=== PATIENT | male | born 1970 | race Caucasian/White ===

== ENCOUNTER → 2022-08-31 08:51 | Outpatient (BNVA) | payer OTHER, MEDICAID, SELFPAY | PROVIDERS: PCP Neurological Surgery; Visit Provider Nurse Practitioner Family | DX: G47.33 Obstructive sleep apnea (adult) (pediatric) (principal); Z99.89 Dependence on other enabling machines and devices | CPT/HCPCS: 99212 ==

== ENCOUNTER → 2022-10-12 13:26 | Outpatient (BNVA) | payer OTHER, MEDICAID, SELFPAY | PROVIDERS: PCP Neurological Surgery; Visit Provider Neurological Surgery | DX: G95.9 Disease of spinal cord, unspecified (principal); M54.12 Radiculopathy, cervical region | CPT/HCPCS: 99212 ==

== ENCOUNTER 2023-04-13 10:10 | Outpatient (AMB) | payer OTHER, MEDICAID, SELFPAY ==
--- NOTE | 2023-04-13 10:18 | MHC.OFFVIS ---
Intake Vital Signs 04/13/23 10:28 Height 5 ft 10.5 in Weight 230 lb BMI 32.5 BP 110/60 Blood Pressure Location Lt brachial Position Sitting Pulse 82 Pulse Source Pulse Oximeter Pulse Oximetry (%) 97 Oxygen Delivery Method Room Air Intake Visit Reasons: New prob-Brain Atrophy/Falling/Weakness on legs Intake Note: NPV for Brain Atrophy Preflight Inspector Required: No Allergies No Known Allergies Allergy (Unverified 04/13/23 10:19) HPI HPI Comments History of Present Illness Details 52 y/o male patient presents for new in-person visit for gait problems and memory loss. Pt reports that he had brain MRI done about 6 years ago, the result was brain atrophy. Pt having short term memory loss, need to write down everything to remember. He forgets lots of things He experiences that difficulty word finding. He drives, manages his finances himself. Pt also has JOSE GUADALUPE and he is on CPAP. He is compliant with CPAP. He quit smoking about an year ago, but had long hx of smoking. Pt reports gait problem. He feels his right knee caps slide in and out when he walks He was evaluated by ortho, but was told that his knee is normal. Pt also reports severe lower back pain and bilateral legs weakness. He has cervical herniated disc. The cervical MRI result was spinal canal stenosis. Has symptoms has been worsened during the COVID pandemic, [facility] Surgical History (Updated 04/13/23 @ 10:25 by Mine Love CMA) H/O hand surgery Family History (Updated 04/13/23 @ 10:27 by Mine Love CMA) Mother Diabetes Social History (Updated 04/13/23 @ 10:28 by Mine Love CMA) Alcohol intake: current Alcohol intake frequency: holidays/special occasions only Patient Tobacco Use Status: Current someday Tobacco user Review of Systems Const All systems reviewed & are unremarkable except as noted in HPI and below ENT Reports Normal hearing present Neuro Reports Normal hearing present Physical Exam Vital Signs: Last Vital Signs Pulse 82 04/13/23 10:28 BP 110/60 04/13/23 10:28 Pulse Ox 97 04/13/23 10:28 Oxygen Delivery Method Room Air 04/13/23 10:28 BMI result Body Mass Index 32.5 Const General: cooperative Nutritional Appearance: obese Orientation/consciousness: patient oriented x3 Neck Neck: Yes full ROM and Yes supple Resp Effort & Inspection: normal respiratory effort and able to speak in complete sentences Neuro General: patient oriented x3 Cranial nerves: Yes Bilaterally intact EOM present, Yes Normal facial strength present, Yes Midline tongue present, Yes Symmetric palate elevation present, Yes Normal hearing present, Yes Ability to bilaterally rotate head present and Yes Ability to bilaterally elevate shoulders present Cognition (Neuro): normal cognition Gait exam (Neuro): Antalgic gait present Motor exam (neuro): 5/5 motor strength present throughout, Pronator motor function not present and no tremor noted Deep tendon reflexes (DTR's): Right patellar reflex intensity grade: 3+ and Left patellar reflex intensity grade: 3+ Psych Appearance: grossly normal Mental Status: mental status grossly normal Speech and movement: Clear speech present Affect: Anxious affect present Attitude: cooperative Orientation What is the (year) (season) (date) (day) (month)?: year, season, date, day and month Where are we (state) (county) (town or city) (hospital) (floor)?: state, county, town or city, hospital/clinic and floor Registration Name of 3 unrelated objects clearly and slowly, then ask patient to repeat all 3 of them. (1st repeat determines score. Make sure they can repeat all three): object 1, object 2 and object 3 Attention & Calculation (CHOOSE ONE) Spell WORLD backwards (DLROW): 5 letters Recall Ask patient to repeat the 3 items from question #3.: object 1, object 2 and object 3 Language Show patient a wristwatch & ask what it is. Repeat for pencil.: watch and pencil Ask the patient to repeat the phrase 'No ifs, ands, or buts' after you.: correct Ask the patient to 'take a piece of paper with their right hand' 'fold paper in half' 'place paper on floor': take paper in right hand, fold paper in half and place paper on floor Print the sentence 'CLOSE YOUR EYES' on a piece. If patient actually closes eyes then score.: followed written direction Give patient a blank piece of paper & ask to write a sentence. Score if it contains a noun & verb.: sentence contains subject and verb Ask patient to copy figure of intersecting pentagons exactly. Score if all 10 angles & 2 intersects are included.: all 10 angles present & 2 are intersected Score Score: 30 Assessment & Plan Assessment & Plan (1) Memory loss: Code(s): R41.3 - Other amnesia (2) Gait disturbance: Code(s): R26.9 - Unspecified abnormalities of gait and mobility (3) Weakness of both lower extremities: Code(s): R29.898 - Other symptoms and signs involving the musculoskeletal system (4) Cervical myelopathy with cervical radiculopathy: Code(s): G95.9 - Disease of spinal cord, unspecified; M54.12 - Radiculopathy, cervical region (5) JOSE GUADALUPE on CPAP: Code(s): G47.33 - Obstructive sleep apnea (adult) (pediatric); Z99.89 - Dependence on other enabling machines and devices Plan He did well on MMSE, good clock drawing. Advised patient to undergo brain MRI. Refer patient to neuropsychology evaluation. Refer patient to physical therapy for gait training and lower back pain. Orders: Orders MR head/brain wo con 04/13/23 G31.9 - Degenerative disease of nervous system, unspecified, R26.9 - Unspecified abnormalities of gait and mobility, R41.3 - Other amnesia PT Evaluation and Treatment 12 Weeks G95.9 - Disease of spinal cord, unspecified, M48.061 - Spinal stenosis, lumbar region without neurogenic claudication, M54.12 - Radiculopathy, cervical region, R29.898 - Other symptoms and signs involving the musculoskeletal system Referrals Neuropsychiatry Referral R41.3 - Other amnesia Coding Level of Care Code New Pt Level 4 (06783) Diagnoses Memory loss R41.3 Gait disturbance R26.9 Weakness of both lower extremities R29.898 Cervical myelopathy with cervical radiculopathy G95.9; M54.12 JOSE GUADALUPE on CPAP G47.33; Z99.89
[2023-04-13 10:28] VITALS: BP 110/60; PULSE 82; O2SAT 97; BMI 32.5
== END 2023-04-13 11:14 | disposition home or self-care (01) ==
PROVIDERS: PCP Neurological Surgery; Visit Provider Nurse Practitioner Family
DX: R41.3 Other amnesia (principal); R26.9 Unspecified abnormalities of gait and mobility; R29.898 Other symptoms and signs involving the musculoskeletal system; G95.9 Disease of spinal cord, unspecified; M54.12 Radiculopathy, cervical region; G47.33 Obstructive sleep apnea (adult) (pediatric); Z99.89 Dependence on other enabling machines and devices
CPT/HCPCS: 99214

== ENCOUNTER → 2023-04-13 10:10 | Outpatient (BNVA) | payer OTHER, MEDICAID, SELFPAY | PROVIDERS: PCP Neurological Surgery; Visit Provider Nurse Practitioner Family | DX: R41.3 Other amnesia (principal); R26.9 Unspecified abnormalities of gait and mobility; R29.898 Other symptoms and signs involving the musculoskeletal system; G95.9 Disease of spinal cord, unspecified; G47.33 Obstructive sleep apnea (adult) (pediatric); M54.12 Radiculopathy, cervical region; Z99.89 Dependence on other enabling machines and devices | CPT/HCPCS: 99212 ==

== ENCOUNTER 2023-08-16 10:55 | Outpatient (AMB) | payer OTHER, MEDICAID, SELFPAY ==
--- NOTE | 2023-08-16 11:03 | MHC.OFFVIS ---
Intake Vital Signs 08/16/23 11:15 Height 5 ft 10.5 in Weight 257 lb 7 oz BMI 36.4 BP 112/70 Blood Pressure Location Lt brachial Position Sitting Pulse 74 Pulse Source Pulse Oximeter Pulse Oximetry (%) 98 Oxygen Delivery Method Room Air Intake Visit Reasons: 4 M f/u - CONF w/address Intake Note: Patient presents for 4 month f/u. Still in severe pain hips and knees. Pain down his legs. Allergies No Known Allergies Allergy (Verified 08/16/23 11:13) HPI HPI Comments History of Present Illness Details 52 y/o male patient presents for follow up of gait problems and memory loss. The brain MRI result was normal brain MRI. Pt having short term memory loss, need to write down everything to remember. He forgets lots of things He experiences that difficulty word finding. He drives, manages his finances himself. He had holter monitor last year, he does not know the result. He noticed that his heart skipping the beat with anxiety. Pt reports walking makes worse the pain in his legs. Pt also has JOSE GUADALUPE and he is on CPAP. He is compliant with CPAP. He quit smoking about an year ago, but had long hx of smoking. Pt reports gait problem. He feels his right knee caps slide in and out when he walks He was evaluated by ortho, but was told that his knee is normal. Pt also reports severe lower back pain and bilateral legs weakness. Walking triggers legs muscle pain and cramping. A previous MRI of the cervical spine showed severe C5-6 spinal stenosis with myelomalacia and bilateral C6 foraminal stenosis. The new MRI of the cervical spine shows multilevel degenerative disc disease and again the ongoing C5-6 severe spinal stenosis with bilateral C6 foraminal stenosis and myelomalacia. Also has moderate L3-4 spinal stenosis. Pt is followed by neuro spine for lower extremities weakness and cervical and lumbar stenosis. He started physical therapy 3 weeks ago, once a week, no back pain, or knee pain improvement yet. [facility] Surgical History H/O hand surgery Family History (Updated 08/16/23 @ 11:14 by Yadira Zhang CMA) Mother Diabetes Social History (Updated 08/16/23 @ 11:15 by Yadira Zhang CMA) Alcohol intake: former Patient Tobacco Use Status: Former Tobacco user Review of Systems Const All systems reviewed & are unremarkable except as noted in HPI and below ENT Reports Normal hearing present Neuro Reports Normal hearing present Physical Exam Vital Signs: Last Vital Signs Pulse 74 08/16/23 11:15 BP 112/70 08/16/23 11:15 Pulse Ox 98 08/16/23 11:15 Oxygen Delivery Method Room Air 08/16/23 11:15 BMI result Body Mass Index 36.4 Const General: cooperative Nutritional Appearance: obese Orientation/consciousness: patient oriented x3 Neck Neck: Yes full ROM and Yes supple Resp Effort & Inspection: normal respiratory effort and able to speak in complete sentences Neuro General: patient oriented x3 Cranial nerves: Yes Bilaterally intact EOM present, Yes Normal facial strength present, Yes Midline tongue present, Yes Symmetric palate elevation present, Yes Normal hearing present, Yes Ability to bilaterally rotate head present and Yes Ability to bilaterally elevate shoulders present Cognition (Neuro): normal cognition Gait exam (Neuro): Antalgic gait present Motor exam (neuro): 5/5 motor strength present throughout, Pronator motor function not present and no tremor noted Deep tendon reflexes (DTR's): Right patellar reflex intensity grade: 3+ and Left patellar reflex intensity grade: 3+ Psych Appearance: grossly normal Mental Status: mental status grossly normal Speech and movement: Clear speech present Affect: Anxious affect present Attitude: cooperative Assessment & Plan Assessment & Plan (1) Weakness of both lower extremities: Code(s): R29.898 - Other symptoms and signs involving the musculoskeletal system (2) JOSE GUADALUPE on CPAP: Code(s): G47.33 - Obstructive sleep apnea (adult) (pediatric); Z99.89 - Dependence on other enabling machines and devices (3) Palpitation: Code(s): R00.2 - Palpitations (4) Memory loss: Code(s): R41.3 - Other amnesia Plan Memory loss can be related disrupted sleep, or attention deficit. Stressed CPAP compliance, use CPAP nightly and more than 4 hrs. Continue to follow up with neuro spine for cervical and lumbar stenosis and possible surgery. Cotninue to try physical therapy. Try magnesium 400 mg qHS for sleep and legs muscle spasm. Refer patient to pickling operator for evaluation of chest palpiation. Orders: Referrals Cardiology Referral R00.2 - Palpitations, G47.33 - Obstructive sleep apnea (adult) (pediatric), Z99.89 - Dependence on other enabling machines and devices Medications: Changed From magnesium oxide 400 mg PO DAILY To magnesium oxide 400 mg PO DAILY 30 caps 1RF 30 days Coding Level of Care Code Est Pt Level 4 (22384) Diagnoses Weakness of both lower extremities R29.898 JOSE GUADALUPE on CPAP G47.33; Z99.89 Palpitation R00.2 Memory loss R41.3
[2023-08-16 11:15] VITALS: BP 112/70; PULSE 74; O2SAT 98; BMI 36.4
== END 2023-08-16 11:40 | disposition home or self-care (01) ==
PROVIDERS: PCP Neurological Surgery; Visit Provider Nurse Practitioner Family
DX: R29.898 Other symptoms and signs involving the musculoskeletal system (principal); G47.33 Obstructive sleep apnea (adult) (pediatric); Z99.89 Dependence on other enabling machines and devices; R00.2 Palpitations; R41.3 Other amnesia
CPT/HCPCS: 99214

== ENCOUNTER → 2023-08-16 10:55 | Outpatient (BNVA) | payer OTHER, MEDICAID, SELFPAY | PROVIDERS: PCP Neurological Surgery; Visit Provider Nurse Practitioner Family | DX: G95.9 Disease of spinal cord, unspecified (principal); M54.12 Radiculopathy, cervical region; M48.061 Spinal stenosis, lumbar region without neurogenic claudication; R29.898 Other symptoms and signs involving the musculoskeletal system; R26.9 Unspecified abnormalities of gait and mobility; R41.3 Other amnesia; G31.9 Degenerative disease of nervous system, unspecified | CPT/HCPCS: 99212 ==

== ENCOUNTER 2023-09-27 14:00 | Outpatient (RCR) | payer OTHER, SELFPAY ==
--- NOTE | 2023-10-23 08:55 | MHC.PT.DC ---
[facility] [place] [facility] [place] [facility] [place] [facility] [address] Erika Gaines [address] [phone] F: [phone] F: [phone] F: [phone] F: [phone] Physical Therapy Discharge Report Diagnosis: CHRONIC LOW BACK AND NECK PAIN (KP) Date of Surgery: N/A Date of Evaluation: 07/17/23 Date of Discharge: 10/23/23 Treatments to Date: 7 Cancellations to Date: 5 No Shows to Date: 1 Discharge Status: Recommend MD Follow-up Discharge Summary: DUE TO REPORTS THAT HE IS NO BETTER AND FEELS WORSE AFTER ACTIVITY . WE HAVE DECIDED TO [facility] UNTIL AFTER HIS PAIN MANAGEMENT APPOINTMENT. Electronically signed by: GIOVANA TSONE PT DPT Please sign and return to therapist. Thank you for your referral.
== END 2023-10-23 08:55 | disposition home or self-care (01) ==
LOC: HO.PT 14:00
PROVIDERS: PCP Neurological Surgery; Visit Provider Nurse Practitioner Family
DX: G95.9 Disease of spinal cord, unspecified (principal); M54.12 Radiculopathy, cervical region; M48.061 Spinal stenosis, lumbar region without neurogenic claudication; R29.898 Other symptoms and signs involving the musculoskeletal system
CPT/HCPCS: 97110; 97112; 97163; 97530

== ENCOUNTER 2023-11-10 09:03 | Outpatient (AMB) | payer OTHER, MEDICAID, SELFPAY ==
--- NOTE | 2023-11-10 09:03 | MHC.OFFVIS ---
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 Denies any recent trauma, injury, or falls. Back pain is axial with discogenic and radicular pain components. Back radiates into his both legs laterally and anterior thighs and shins with numbness and tingling in his top of the foot and toes. Reports numbness and tingling in his arms and legs with weakness with ongoing neck and back pain. He had to stop PT recently due to aggravation of his back and neck pain. Patient reports frequent bowel and bladder incontinence that has been progressively getting worse. He reports imbalance and legs giving out with walking or prolonged standing. Patient uses cane and at times has to use crutches due to significant right knee pain due to osteoarthritis. Patient denies previous back surgery or injections and is very hesitant to worse interventional treatments. He reports neurosurgical evaluation with Dr. Jha but can not recall the details of conversation, including back surgery offer. Patient is undergoing neurology evaluation for memory loss at [facility]. His most recent brain MRI was normal. Pain affects his daily activities and functioning, mobility, mood, sleep, social interactions and quality of life. Denies any fever, chills, abdominal or groin pain, or saddle anesthesia. He has been treating his pain with meloxicam and pregabalin with minimal relief. Previously tried ibuprofen and naproxen without relief. He reports mood changes and irritability with pregabalin and would like to change this to gabapentin. His back pain is function and mobility limiting and has been resistant to conservative treatments. Patient reports seeing Mental Therapist for anxiety and depression and finds this beneficial. Patient denies any smoking, alcohol consumption or illicit drug use. He quit smoking last year. Patient is on disability for about 11 years. He sees [employer] Dr. Almazan for asthma/COPD, JOSE GUADALUPE on CPAP. Physical Therapy Discharge Report Diagnosis: CHRONIC LOW BACK AND NECK PAIN (KP) Date of Evaluation: 07/17/23 Date of Discharge: 10/23/23 Treatments to Date: 7 Cancellations to Date: 5 No Shows to Date: 1 Discharge Status: Recommend MD Follow-up Discharge Summary: DUE TO REPORTS THAT HE IS NO BETTER AND FEELS WORSE AFTER ACTIVITY . WE HAVE DECIDED TO [facility] UNTIL AFTER HIS PAIN MANAGEMENT APPOINTMENT. [facility] 10/12/22 [place] Jha MD, PhD: On 10/12/2022, I saw for follow-up your patient Jan Huertas to discuss the findings of a new MRI of the cervical spinal lumbar spine. He was previously seen at [facility] for neck and back problems and they refer to this note for detailed history. In summary, he has severe bilateral arm pain radiating toward index finger and thumb. His proximal leg weakness. He also has back pain with radiating pain down his legs, increased with walking. A previous MRI of the cervical spine showed severe C5-6 spinal stenosis with myelomalacia and bilateral C6 foraminal stenosis. The new MRI of the cervical spine shows multilevel degenerative disc disease and again the ongoing C5-6 severe spinal stenosis with bilateral C6 foraminal stenosis and myelomalacia. His clinical symptoms match a C6 dermatome and therefore I recommended a C5-6 anterior diskectomy and fusion. I think his proximal bilateral leg weakness may also be associated with the spinal cord compression. I also reviewed Thomas detail with the patient. This shows moderate L3-4 spinal stenosis. With an extensive discussion about an anterior diskectomy and fusion. I explained the procedure and possible complications and expected postoperative course. He wants to think it over and discuss it with his family. He will call the office if he wants to proceed. He will need preoperative clearance from his primary care physician. I spent 30 minutes in this consult for preparation review of imaging and discussing plan of care. Location: Lower back, radiates down bilateral legs, widespread body pain Duration: Chronic pain for many years, since Characteristics of symptom or complaint: Aching, burning, numb, tingling, stabbing, sharp, electric, throbbing Aggravating or associated factors: Any movement, bending, extending backwards, walking, standing, climbing Relieving factors: Laying still not moving NSAID, heat therapy Treatment: PT-no improvement [facility] Medical History (Updated 11/10/23 @ 10:14 by LISA Brooks) Stage 3a chronic kidney disease Hyperlipidemia Chronic pain syndrome COPD (chronic obstructive pulmonary disease) Prediabetes Vitamin D deficiency Anxiety and depression Lumbar spinal stenosis Asthma JOSE GUADALUPE on CPAP Lumbar radiculopathy Osteoarthritis of right knee Right knee pain Palpitation Memory loss Gait disturbance Weakness of both lower extremities Cervical myelopathy with cervical radiculopathy Surgical History H/O hand surgery Family History (Updated 08/16/23 @ 11:14 by FILIPE Hawkins) Mother Diabetes Social History (Updated 08/16/23 @ 11:15 by FILIPE Hawkins) Alcohol intake: former Patient Tobacco Use Status: Former Tobacco user Review of Systems Const All systems reviewed & are unremarkable except as noted in HPI and below Physical Exam Vital Signs: Last Vital Signs Pulse 78 11/10/23 09:09 BP 120/72 11/10/23 09:09 Pulse Ox 98 11/10/23 09:09 Oxygen Delivery Method Room Air 11/10/23 09:09 BMI result Body Mass Index 32.6 General: Appears afebrile. No acute distress. Alert and oriented. Mood and affect appropriate. Follows and participates in conversation appropriately. Respiratory effort is unlabored. No cough. Able to transition from sit to stand unassisted. Uses cane with ambulation. Ambulates with bilaterally normal heel strike and toe off, reports gait imbalance, BLE weakness. Neck Neck: Yes no lymphadenopathy, Yes supple, No anterior neck swelling and Yes no JVD General: Yes no CVA tenderness Back/Spine/Pelvis Other: Limited lumbar ROM due to pain. Antalgic gait with limping. Lumbar extension and flexion forward with axial rotations reproduces moderate pain. Demonstrates 5/5 left and 4/5 right strength of quadriceps bilaterally as well as flexion/dorsiflexion of bilateral feet against resistance. 2+ pedal pulses bilaterally. Seated straight leg rise with dorsiflexion positive bilaterally. +2 patellar and achilles reflexes bilaterally. Facet loading test positive bilaterally. Murtaza sign positive bilaterally, Marino?s and Stinchfield tests reproduce lateral hip pain bilaterally, not back pain. No groin pain with I/E hip rotations. Valsalva maneuver negative. Back: no CVA tenderness Cervical Spine: loss of normal cervical lordosis, cervical muscular tenderness, pain with cervical ROM, No Cervical spine scars present and No Cervical spine tenderness Thoracic/Lumbar Spine: thoracic and lumbar spine normal to inspection, No Thoracic/lumbar spine scar(s), Lasegue's sign positive bilateral and diffuse, pain with thoraco-lumbar ROM, paraspinal muscle tenderness, thoraco-lumbar ROM limited, No thoracic spinal tenderness and lumbar spinal tenderness (L3-S1) Pelvis: buttock tenderness bilaterally and no sciatic notch tenderness Sacroiliac joints: bilaterally tender to palpation Extrem General: Yes capillary refill normal, Yes no clubbing, cyanosis or edema and Yes no calf tenderness Right lower extremity: knee (limited ROM due to pain) Details: normal to inspection, tenderness Location: of the medial joint line, of the lateral joint line and of the pre-patellar area and crepitus; no swelling, no ecchymosis and no unusual warmth Results Reviewed Results Reviewed: MR KNEE WITHOUT CONTRAST, RIGHT at RAYUS 05/27/21 CLINICAL INFORMATION: Evaluate medial meniscal tear. Pain. Patient reports prior meniscal repair surgery 214. FINDINGS: MENISCI: Medial Meniscus: Intact. Lateral Meniscus: Lateral to the takeoff of the ligament of Wrisberg, there is intrasubstance T2 signal in the peripheral aspect of the posterior horn. This does not clearly extend to the articular surfaces to indicate a definite tear. Intrasubstance T2 signal in the peripheral aspect of the body, but no definite tear is seen. LIGAMENTS: Cruciate: Mild T2 signal diffusely in the ACL, which otherwise demonstrates normal orientation. This could represent mucoid degeneration. PCL is intact. Collateral: Intact. EXTENSOR MECHANISM: Intact. ARTICULAR CARTILAGE/BONE: Patellofemoral Compartment: Cartilage thinning and fissuring in the medial patellar facet. Medial Compartment: Mild cartilage fissuring in the lateral aspect of the medial femoral condyle. Lateral Compartment: Mild cartilage fissuring in the posterior aspect of the weightbearing tibia.. JOINT FLUID AND BURSAE: Small effusion. No significant Forde's cyst. IMPRESSION: 1. Menisci appear intact without evidence of discrete tear. See details above. 2. ACL signal changes may reflect mucoid degeneration. 3. Mild tricompartment arthritis. 4. Small effusion. Assessment & Plan Assessment & Plan (1) Weakness of both lower extremities: Code(s): R29.898 - Other symptoms and signs involving the musculoskeletal system Category: Medical (2) Right knee pain: Code(s): M25.561 - Pain in right knee Category: Medical (3) Osteoarthritis of right knee: Code(s): M17.11 - Unilateral primary osteoarthritis, right knee Category: Medical (4) Lumbar spondylosis: Code(s): M47.816 - Spondylosis without myelopathy or radiculopathy, lumbar region Category: Medical (5) Lumbar radiculopathy: Code(s): M54.16 - Radiculopathy, lumbar region Category: Medical (6) Lumbar spondylosis: Code(s): M47.816 - Spondylosis without myelopathy or radiculopathy, lumbar region Category: Medical (7) Chronic pain syndrome: Code(s): G89.4 - Chronic pain syndrome Category: Medical Plan Lumbar spine and right knee imaging to assess degree of degenerative changes, any subluxation, listhesis, compression fractures or pars defects. MRI of the lumbar spine to assess for neural integrity and compression and follow up on recent lumbar MRI findings. Patient has has a history of cervical spinal stenosis with myelomalacia and lumbar radiculopathy with progressive bilateral lower extremity weakness and bladder and bowel dysfunction. He underwent neurosurgical evaluation last year and and was offered back surgery but has not followed up since then. I encouraged patient to follow-up with Dr. Jha regarding his neck symptoms and potentially re-evaluation for his back symptoms depending on his updated MRI findings. Patient has tried pregabalin, NSAIDs, heat therapy, PT, activity modifications with continued symptoms. His back pain is function and mobility limiting and has been resistant to conservative treatments. We briefly discussed interventional treatments for his lower back pain and right knee pain. Patient is hesitant to injections or procedures. Patient will start pregabalin answered gabapentin 300 mg b.i.d. starting at bedtime. Side effects and precautions were discussed with patient. Patient is aware to call if pain worsens or if he develops any red flag symptoms to seek emergency care. All questions and concerns have been answered and patient agrees with the plan. Follow-up for MRI/x-ray results and sooner as needed. Orders: Orders XR lumbar spine 4V min Today M47.816 - Spondylosis without myelopathy or radiculopathy, lumbar region, M54.16 - Radiculopathy, lumbar region MR lumbar spine wo con Today M47.816 - Spondylosis without myelopathy or radiculopathy, lumbar region, M54.16 - Radiculopathy, lumbar region, R29.898 - Other symptoms and signs involving the musculoskeletal system XR knee RT 3V Today M17.11 - Unilateral primary osteoarthritis, right knee, M25.561 - Pain in right knee Medications: New gabapentin 300 mg PO BID 30 days 60 caps 0RF pain M47.816 - Spondylosis without myelopathy or radiculopathy, lumbar region, M54.16 - Radiculopathy, lumbar region Coding Level of Care Code New Pt Level 4 (65348) Diagnoses Weakness of both lower extremities R29.898 Right knee pain M25.561 Osteoarthritis of right knee M17.11 Lumbar spondylosis M47.816 Lumbar radiculopathy M54.16 Chronic pain syndrome G89.4
[2023-11-10 09:09] VITALS: BP 120/72; PULSE 78; O2SAT 98; BMI 32.6
== END 2023-11-10 09:38 | disposition home or self-care (01) ==
PROVIDERS: PCP Internal Medicine; Visit Provider Nurse Practitioner Family
DX: R29.898 Other symptoms and signs involving the musculoskeletal system (principal); M25.561 Pain in right knee; M17.11 Unilateral primary osteoarthritis, right knee; M47.816 Spondylosis without myelopathy or radiculopathy, lumbar region; M54.16 Radiculopathy, lumbar region; G89.4 Chronic pain syndrome
CPT/HCPCS: 99204

== ENCOUNTER → 2023-11-10 09:03 | Outpatient (BNVA) | payer OTHER, MEDICAID, SELFPAY | PROVIDERS: PCP Neurological Surgery; Visit Provider Nurse Practitioner Family | DX: M17.11 Unilateral primary osteoarthritis, right knee (principal); M25.561 Pain in right knee; M47.816 Spondylosis without myelopathy or radiculopathy, lumbar region; M54.16 Radiculopathy, lumbar region; G89.4 Chronic pain syndrome; R29.898 Other symptoms and signs involving the musculoskeletal system | CPT/HCPCS: 99202 ==

== ENCOUNTER 2023-11-20 15:09 | Outpatient (AMB) | payer OTHER, MEDICAID, SELFPAY ==
[2023-11-20 15:12] VITALS: BP 120/78; PULSE 73; BMI 34.5
--- NOTE | 2023-11-20 15:12 | MHC.OFFVIS ---
Vital Signs 11/20/23 15:12 Height 5 ft 10 in Weight 240 lb 4.862 oz BMI 34.5 BP 120/78 Blood Pressure Location Lt brachial Position Sitting Pulse 73 Pulse Source Monitor Intake Visit Reasons: FINANCIAL INTERN/Palpitations/Dr. Abner Hernandez Allergies Seasonal Allergies Allergy (Mild, Verified 11/20/23 15:23) Sneezing Medication List - Last Reconciled 11/20/23 by Rome Torres MD clonazepam mg PO fluticasone furoate-vilanterol 100-25 mcg/dose (Breo Ellipta) 1 ea inhalation DAILY magnesium oxide 400 mg PO DAILY 30 days meloxicam 7.5 mg PO DAILY omega 4-sch-ddv-fish oil 60-90-500 mg (Fish Oil) 1 cap PO DAILY HPI Comments Details: Darryl is here for consultation regarding palpitations and some chest discomfort. He states that he can get some chest fluttering off and on. This is quite infrequent and happens once in a few weeks/months time. At the same time, he feels as though there is a spasm in the right chest and he is worried that he is going to get a heart attack or something along those lines. Additionally, some pulsations in the neck as well. No previously diagnosed coronary disease or any other cardiac issues. [facility] Medical History Stage 3a chronic kidney disease Hyperlipidemia Chronic pain syndrome COPD (chronic obstructive pulmonary disease) Prediabetes Vitamin D deficiency Anxiety and depression Lumbar spinal stenosis Asthma JOSE GUADALUPE on CPAP Lumbar radiculopathy Osteoarthritis of right knee Right knee pain Palpitation Memory loss Gait disturbance Weakness of both lower extremities Cervical myelopathy with cervical radiculopathy Surgical History H/O hand surgery Family History Mother Diabetes Social History Alcohol intake: former Patient Tobacco Use Status: Former Tobacco user Review of Systems Const Denies weakness ENT Denies dizziness Card Denies chest pain, Denies chest pain with activity, Denies syncope, Denies rapid heart rate, Denies pedal edema, Denies edema, Denies leg edema, Denies lightheadedness, Denies palpitations, Denies dyspnea, Denies dyspnea on exertion and Denies orthopnea Resp Denies cough, Denies dyspnea and Denies dyspnea on exertion GI Denies hematochezia and Denies change in stool character Musc Denies abnormal gait, Denies muscle cramps, Denies muscle weakness, Denies numbness, Denies radiating pain into limb and Denies tingling Neuro Denies abnormal gait, Denies dizziness, Denies syncope, Denies numbness, Denies tingling and Denies weakness Endo Denies palpitations Physical Exam Vital Signs: Last Vital Signs Pulse 73 11/20/23 15:12 BP 120/78 11/20/23 15:12 BMI result Body Mass Index 34.5 Const General: comfortable and no acute distress Orientation/consciousness: patient oriented x3 HEENT Other: Unremarkable Head: Yes normal to inspection Neck Neck: Yes normal visual inspection Chest Chest palpation & inspection: normal inspection of the chest Resp Auscultation: clear to auscultation bilaterally Cardio Palpation: normal PMI Heart sounds: S1 normal heart sound present, S2 normal heart sound present, no gallops, no murmurs and no rubs GI Palpation (GI): Soft to palpation Back/Spine/Pelvis Other: unremarkable Skin General skin exam: no rashes or lesions noted Neuro General: patient oriented x3 Extrem General: Yes normal to inspection Psych Mental Status: mental status grossly normal Office Procedures EKG Details: EKG with sinus rhythm at 73/Min; no significant ST-T changes and otherwise unremarkable. [place]. [id number], Complete Assessment & Plan Assessment & Plan (1) Palpitation: Code(s): R00.2 - Palpitations Category: Medical (2) Chest pain: Code(s): R07.9 - Chest pain, unspecified Category: Medical Plan Somewhat atypical symptoms but he is very concerned about possibility of coronary disease. He is also walking with a cane and hence a stress test is going to be not feasible. We discussed about a coronary CTA that seems to be very reasonable test for someone like him. He is agreeable and we can proceed as long as the kidney function is within normal limits. We will also get an echocardiogram for cardiac function. With regard to the palpitations, we discussed about getting Holter monitor, but he states they are very infrequent and a holter may not be able to catch it. Any case, reassurance only for now and he prefers not to get a Holter. Follow-up after testing. Orders: Orders Basic Metabolic Panel Today R00.2 - Palpitations, R07.9 - Chest pain, unspecified CT Cardiac Coronary Angio Today I25.10 - Atherosclerotic heart disease of [place] coronary artery without angina pectoris, R07.9 - Chest pain, unspecified CA echo transthoracic complete Today I25.10 - Atherosclerotic heart disease of [place] coronary artery without angina pectoris, R07.9 - Chest pain, unspecified Coding Level of Care Code New Pt Level 4 (43372) Diagnoses Palpitation R00.2 Chest pain R07.9 CPT Codes EKG - CPT: 24475-[id number], Complete ([id number])
== END 2023-11-20 15:51 | disposition home or self-care (01) ==
PROVIDERS: PCP Neurological Surgery; Visit Provider Internal Medicine
DX: R00.2 Palpitations (principal); R07.9 Chest pain, unspecified
CPT/HCPCS: 93010; 99204

== ENCOUNTER → 2023-11-20 15:09 | Outpatient (BNVA) | payer OTHER, MEDICAID, SELFPAY | PROVIDERS: PCP Neurological Surgery; Visit Provider Internal Medicine | DX: R00.2 Palpitations (principal); R07.9 Chest pain, unspecified | CPT/HCPCS: 93005; 99202 ==

== ENCOUNTER 2023-12-21 14:35 | Outpatient (AMB) | payer OTHER, MEDICAID, SELFPAY ==
[2023-12-21 14:50] VITALS: PULSE 80; O2SAT 96; BMI 34.6
--- NOTE | 2023-12-21 14:50 | MHC.OFFVIS ---
Vital Signs 12/21/23 14:50 Height 5 ft 10 in Weight 241 lb BMI 34.6 Pulse 80 Pulse Source Pulse Oximeter Pulse Oximetry (%) 96 Oxygen Delivery Method Room Air Intake Visit Reasons: 4 mo f/u-CONF Intake Note: Patient presents for 4 month follow up. Patient states he was having a reaction to pregablin and gabapentin issues included memory issues,rash and hard time breathing. Allergies Seasonal Allergies Allergy (Mild, Verified 12/21/23 14:55) Sneezing Medication List - Last Reconciled 12/21/23 by LISA Tipton clonazepam mg PO fluticasone furoate-vilanterol 100-25 mcg/dose (Breo Ellipta) 1 ea inhalation DAILY magnesium oxide 400 mg PO DAILY 30 days meloxicam 7.5 mg PO DAILY omega 7-iiu-oun-fish oil 60-90-500 mg (Fish Oil) 1 cap PO DAILY HPI Comments Details: 53-yr-old male presents for f/u visit. Pt has recently seen cardiology for c/o palpitation and chest pain- has been advised to have cardiac work-up. Pt reports he is complaint w/ his CPAP machine. He is more concerned w/ his pain s/s today. He describes he has a severe pain in his BLE- in his knees, anterior shins, knees, feet. It is a burning, throbbing pain. He has been having increased low lateral back pain. He does have episodes of low back muscles giving out. A times, it can be severe and it triggers electrical shocks throughout the arms/hands and done the legs and could not even move- takes a month to recover from this. He states he needs help with dressing and getting up off the floor. Can have tingling in bilateral finger tips. Denies h/o diabetes. States was pre-diabetic but resolved w/ weight loss. Spends a lot of time in bed d/t activity intolerance. He has had recent pain management consult at [facility] [place]- was advised to have a f/u MRI. He has never had EMG/NCS. He notes that at some point he had a period of a few months of no pain or other symptoms. He has stopped his Pregabalin, was feeling more pulmonary congestion, itching, brain fog. He has been having easy bruising/swelling from minor injuries or bug bites. He previously did not tolerate Gabapentin. He is concerned that these should not be taken w/ COPD dx- and has had mild COPD for years. His mother also had similar s/s pain s/s in her 50s. He recently had blood work at [facility]. [facility] Medical History Stage 3a chronic kidney disease Hyperlipidemia Chronic pain syndrome COPD (chronic obstructive pulmonary disease) Prediabetes Vitamin D deficiency Anxiety and depression Lumbar spinal stenosis Asthma JOSE GUADALUPE on CPAP Lumbar radiculopathy Osteoarthritis of right knee Right knee pain Palpitation Memory loss Gait disturbance Weakness of both lower extremities Cervical myelopathy with cervical radiculopathy Surgical History H/O hand surgery Family History Mother Diabetes Social History Alcohol intake: former Patient Tobacco Use Status: Former Tobacco user Review of Systems Const All systems reviewed & are unremarkable except as noted in HPI and below Physical Exam Vital Signs: Last Vital Signs Pulse 80 12/21/23 14:50 Pulse Ox 96 12/21/23 14:50 Oxygen Delivery Method Room Air 12/21/23 14:50 BMI result Body Mass Index 34.6 Const General: cooperative and no acute distress Orientation/consciousness: patient oriented x3 HEENT Head: Yes normocephalic Resp Effort & Inspection: normal respiratory effort and able to speak in complete sentences Neuro Other: Slow to stand, antalgic gait. BLE MS 5-/5 General: patient oriented x3 and CN's II-XI intact bilaterally Cognition (Neuro): normal cognition Deep tendon reflexes (DTR's): Right patellar reflex intensity grade: 2+ and Left patellar reflex intensity grade: 2+ Psych Appearance: grossly normal Mental Status: mental status grossly normal Speech and movement: Normal speech and movement present Affect: normal affect Attitude: cooperative Thought process: Normal thought process present Thought content: Normal thought content present Insight: Good insight present (Psych) Judgement: Good judgement present (Psych) Assessment & Plan Assessment & Plan (1) Bilateral lower extremity pain: Code(s): M79.604 - Pain in right leg; M79.605 - Pain in left leg Category: Medical (2) Lumbar spondylosis: Code(s): M47.816 - Spondylosis without myelopathy or radiculopathy, lumbar region Category: Medical (3) JOSE GUADALUPE on CPAP: Code(s): G47.33 - Obstructive sleep apnea (adult) (pediatric); Z99.89 - Dependence on other enabling machines and devices Category: Medical Plan Reviewed recent pain management and neurosurgery notes. Pt advised to undergo BLE EMG/NCS. Will request recent labs from [facility] labs/PCP- if not done consider adding CPK, ESR, CRP, GREGG, RF... Pt has stopped Pregabalin- not tolerated. Gabapentin- not tolerated. Continue Magnesium 400mg qhs. Continue CPAP, as pt reports good clinical effect from use. No recent PAP compliance report available. Will request that pt's device be reconnected to [employer]. f/u upon review of above and in 6 months or sooner prn. Orders: Orders NE nerve conduction velocity Today M47.816 - Spondylosis without myelopathy or radiculopathy, lumbar region, M79.604 - Pain in right leg, M79.605 - Pain in left leg, R29.898 - Other symptoms and signs involving the musculoskeletal system NE electromyogram (EMG) Today M47.816 - Spondylosis without myelopathy or radiculopathy, lumbar region, M79.604 - Pain in right leg, M79.605 - Pain in left leg, R29.898 - Other symptoms and signs involving the musculoskeletal system Medications: Refilled magnesium oxide 400 mg PO DAILY 30 days 30 caps 6RF Coding Level of Care Code Est Pt Level 4 (83902) Diagnoses Bilateral lower extremity pain M79.604; M79.605 Lumbar spondylosis M47.816 JOSE GUADALUPE on CPAP G47.33; Z99.89
== END 2023-12-21 15:58 | disposition home or self-care (01) ==
PROVIDERS: PCP Neurological Surgery; Visit Provider Nurse Practitioner Family
DX: M79.604 Pain in right leg (principal); M79.605 Pain in left leg; M47.816 Spondylosis without myelopathy or radiculopathy, lumbar region; G47.33 Obstructive sleep apnea (adult) (pediatric); Z99.89 Dependence on other enabling machines and devices
CPT/HCPCS: 99214

== ENCOUNTER → 2023-12-21 14:35 | Outpatient (BNVA) | payer OTHER, MEDICAID, SELFPAY | PROVIDERS: PCP Neurological Surgery; Visit Provider Nurse Practitioner Family | DX: M79.604 Pain in right leg (principal); M79.605 Pain in left leg; M47.816 Spondylosis without myelopathy or radiculopathy, lumbar region; G47.33 Obstructive sleep apnea (adult) (pediatric); Z99.89 Dependence on other enabling machines and devices | CPT/HCPCS: 99212 ==

== ENCOUNTER 2024-01-11 14:54 | Outpatient (REF) | payer OTHER, SELFPAY ==
--- NOTE | 2024-01-11 14:57 | EMG_ITS ---
Chief complaint: Bilateral leg pain but denies numbness Reason for referral: Evaluate for neuropathy versus radiculopathy Referred by: Priyanka Macedo NP Procedure done: Bilateral lower extremity NCS/EMG Precautions and/or limitations: None The limb temperature was monitored continuously and remained between 32-36 degrees C during the performance of the NCS. Nerve Conduction Studies Anti Sensory Summary Table ?Stim Site NR Onset (ms) Norm Onset (ms) Peak (ms) Norm Peak (ms) O-P Amp (?V) Norm O-P Amp Site1 Site2 Delta-0 (ms) Dist (cm) Charles (m/s) Norm Charles (m/s) Left Sural Anti Sensory (Lat Mall) Calf ? 2.2 2.7 <4.0 5.2 >5.0 Calf Lat Mall 2.2 14.0 64 Right Sural Anti Sensory (Lat Mall) Calf ? 2.3 3.2 <4.0 10.2 >5.0 Calf Lat Mall 2.3 14.0 61 Motor Summary Table ?Stim Site NR Onset (ms) Norm Onset (ms) O-P Amp (mV) Norm O-P Amp iAmp (mV) Amp (1st) (%) Site1 Site2 Delta-0 (ms) Dist (cm) Charles (m/s) Norm Chrales (m/s) Right Peroneal Motor (Ext Dig Brev) Ankle ? 3.8 <4.0 7.5 >2.5 9.2 100.0 Ankle Ext Dig Brev 3.8 0.0 B Fib ? 11.3 5.7 7.2 76.0 B Fib Ankle 7.5 33.0 44 >40 Poplt ? 12.1 5.4 7.0 72.0 Poplt B Fib 0.8 5.0 63 >40 Left Tibial Motor (Abd Padilla Brev) Ankle ? 3.8 <5 9.7 >2.5 12.8 100.0 Ankle Abd Padilla Brev 3.8 0.0 Knee ? 13.0 6.5 8.2 67.0 Knee Ankle 9.2 39.0 42 >40 Right Tibial Motor (Abd Padilla Brev) Ankle ? 3.6 <5 10.4 >2.5 13.6 100.0 Ankle Abd Padilla Brev 3.6 0.0 Knee ? 12.6 7.3 9.2 70.2 Knee Ankle 9.0 39.0 43 >40 EMG ?Side Muscle Nerve Root Ins Act Fibs Psw Amp Dur Poly Recrt Int Pat Comment Right AbdHallucis MedPlantar S1-2 Nml Nml Nml Nml Nml 0 Nml Complete Right AntTibialis Dp Br Peron L4-5 Nml Nml Nml Nml Nml 0 Nml Complete Right PostTibialis Tibial L5, S1 Nml Nml Nml Nml Nml 0 Nml Complete Right MedGastroc Tibial S1-2 Nml Nml Nml Nml Nml 0 Nml Complete Right VastusMed Femoral L2-4 Nml Nml Nml Nml Nml 0 Nml Complete Left AbdHallucis MedPlantar S1-2 Nml Nml Nml Nml Nml 0 Nml Complete Left AntTibialis Dp Br Peron L4-5 Nml Nml Nml Nml Nml 0 Nml Complete Left PostTibialis Tibial L5, S1 Nml Nml Nml Nml Nml 0 Nml Complete Left MedGastroc Tibial S1-2 Nml Nml Nml Nml Nml 0 Nml Complete Left VastusMed Femoral L2-4 Nml Nml Nml Nml Nml 0 Nml Complete Paraspinal EMG ?Side Muscle Nerve Root Ins Act Fibs Psw Comment Right Lumbar Upper Rami Nml Nml Nml Right Lumbar Mid Rami Nml Nml Nml Right Lumbar Lower Rami Nml Nml Nml Left Lumbar Upper Rami Nml Nml Nml Left Lumbar Mid Rami Nml Nml Nml Left Lumbar Lower Rami Nml Nml Nml FINDINGS: All motor and sensory nerves tested showed normal latencies, amplitudes and conduction velocities. Concentric needle EMG was performed in selected muscles of the bilateral lower extremity and lumbar paraspinals. Study did not reveal signs of electric abnormalities as shown in the table above. IMPRESSION: 1. This is a normal study. 2. There is no electrodiagnostic evidence for peroneal neuropathy, tibial neuropathy, lumbosacral plexopathy, lumbar radiculopathy, or peripheral neuropathy. Thank you for your kind referral. Rae Karimi MD, LANDON Board Certified, [place] Board [employer] Physical [employer] and Rehabilitation (ABPMR) Board Certified, [place] Board of Electrodiagnostic Medicine (ABEM) CODIN [id number] x 2 [facility]
== END 2024-01-11 14:55 | disposition home or self-care (01) ==
LOC: HO.NEURO 14:54
PROVIDERS: PCP Internal Medicine; Visit Provider Nurse Practitioner Family
DX: M79.604 Pain in right leg (principal); M79.605 Pain in left leg; R29.898 Other symptoms and signs involving the musculoskeletal system; M47.816 Spondylosis without myelopathy or radiculopathy, lumbar region
CPT/HCPCS: 95886; 95909

== ENCOUNTER → 2024-01-11 14:57 | Outpatient (BNV) | payer OTHER, SELFPAY | PROVIDERS: PCP Internal Medicine; Visit Provider Physical Medicine & Rehabilitation | DX: M79.604 Pain in right leg (principal); M79.605 Pain in left leg | CPT/HCPCS: 95886; 95909 ==

== ENCOUNTER 2024-02-26 14:52 | Outpatient (REF) | payer OTHER, SELFPAY ==
--- NOTE | ~2024-02-26 | MR_ITS ---
EXAMINATION: MR LUMBAR SPINE WITHOUT CONTRAST CLINICAL INFORMATION: Radiculopathy COMPARISON: MRI lumbar spine February 23, 2021 TECHNIQUE: MRI of the lumbar spine was obtained using routine sequences without contrast. FINDINGS: Normal lumbar lordosis is preserved. Slight retrolisthesis at L3-L4 through L5-S1. Vertebral body heights are maintained. There is no suspicious osseous lesion. Again seen L1 vertebral body intraosseous hemangioma. Multilevel disc desiccation and mild disc height loss. There is a new prominent presumed Schmorl's node along the right aspect of the L5 upper endplate/vertebral body with marginal fat deposition and associated inflammatory marrow edema. Redemonstrated smaller L1 upper endplate Schmorl's node. Multilevel anterior osteophytic spurring is seen. Level by level detail as follows: L1-L2: Annular disc bulge with slightly decreased size of right central protrusion with associated annular fissure. Decreased mild spinal canal stenosis. Stable minimal neural foraminal encroachment. L2-L3: Annular disc bulge with paracentral disc protrusion and annular fissure. Mild facet arthrosis. Stable moderate to severe spinal canal stenosis and subarticular zone narrowing with impression along the traversing L3 nerve roots. Unchanged moderate neural foraminal stenosis. L3-L4: Annular disc bulge with paracentral disc protrusion with left central annular fissure and mild to moderate facet arthrosis. Stable moderate spinal canal stenosis and mass effect along the traversing L4 nerve roots in the subarticular zones. Stable moderate to severe left neural foraminal stenosis with impingement along the exiting left L3 nerve and moderate right neural foraminal stenosis. L4-L5: Annular disc bulge with inferiorly migrated left central/subarticular disc extrusion and with decreased conspicuity of annular fissure. Mild facet arthrosis. No spinal canal stenosis. Unchanged moderate neural foraminal stenosis with impingement along the exiting right greater than left L4 nerves. L5-S1: Annular disc bulge with redemonstrated inferiorly migrated paracentral disc extrusion eccentric to the left and mild facet arthrosis. No spinal canal stenosis. Stable moderate to severe bilateral neural foraminal stenosis with mass effect along the exiting L5 nerves. The conus medullaris terminates at the level of L2. The distal spinal cord is normal in appearance. No epidural fluid collection, hematoma, or mass. There is mild fatty infiltration of the paraspinal musculature. Limited evaluation of the intra-abdominal structures without significant abnormalities. The abdominal aorta is of normal contour and caliber. MR/MR lumbar spine wo con IMPRESSION: 1. Multilevel lumbar spondylosis is not significantly progressed compared to MRI from February 23, 2021. 2. At L1-L2, slightly decreased size of right central disc protrusion with associated annular fissure results in decreased mild spinal canal stenosis. 3. At L2-L3, stable moderate to severe spinal canal stenosis and subarticular zone narrowing with impression along the traversing L3 nerve roots. 4. At L3-L4, stable moderate spinal canal stenosis and mass effect along the traversing L4 nerve roots in the subarticular zones. Stable moderate to severe left neural foraminal stenosis with impingement along the exiting left L3 nerve and moderate right neural foraminal stenosis. 5. At L4-L5, stable moderate neural foraminal stenosis with impingement along the exiting right greater than left L4 nerves. 6. At L5-S1, stable moderate to severe bilateral neural foraminal stenosis with mass effect along the exiting L5 nerves. 7. New prominent presumed Schmorl's node along the right aspect of the L5 upper endplate/vertebral body with marginal fat deposition and associated inflammatory marrow edema. Electronically signed by: Cheryl Dhaliwal MD 02/26/2024 04:14 PM EDT
== END 2024-02-26 14:53 | disposition home or self-care (01) ==
LOC: HO.MRI 14:52
PROVIDERS: PCP Internal Medicine; Visit Provider Nurse Practitioner Family
DX: M54.16 Radiculopathy, lumbar region (principal); R29.898 Other symptoms and signs involving the musculoskeletal system; M47.816 Spondylosis without myelopathy or radiculopathy, lumbar region
CPT/HCPCS: 72148

== ENCOUNTER 2024-03-25 15:01 | Outpatient (AMB) | payer OTHER, SELFPAY ==
--- NOTE | 2024-03-25 15:02 | A.OFFVIS_ITS ---
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 Denies any recent cough, cold, infection, fever or other significant changes in medical history since last office visit. PRIOR 11/10/23: Patient is a 52-year-old male with prior history of chronic neck and low back pain, lumbar spinal stenosis with bilateral lower extremity weakness and radic ulopathy, polyarthralgia, anxiety, depression, cervical spinal stenosis with myelomalacia, memory loss ([place] [facility] [place] [place] presents today for initial evaluation low back pain with bilateral radiculopathy. Denies any recent trauma, injury, or falls. Back pain is axial with discogenic and radicular pain components. Back radiates into his both legs laterally and anterior thighs and s hins with numbness and tingling in his top of the foot and toes. Reports numbness and tingling in his arms and legs with weakness with ongoing neck and back pain. He had to stop PT recently due to aggravation of his back and neck pain. Patient reports frequent bowel and bladder incontinence that has been progressively getting worse. He reports imbalance and legs giving out with walking or prolonged standing. Patient uses cane and at times has to use crutches due to significant right knee pain due to osteoarthritis. Patient denies previous back surgery or injections and is very hesitant to worse interventional treatments. He reports neurosurgical evaluation with Dr. Jha but can not recall the details of conversation, including back surgery offer. Patient is undergoing neurology evaluation for memory loss at [facility]. His most recent brain MRI was normal. Pain affects his daily activities and functioning, mobility, mood, sleep, social interactions and quality of life. Denies any fever, chills, abdominal or groin pain, or saddle anesthesia. He has been treating his pain with meloxicam and pregabalin with minimal relief. Previously tried ibuprofen and naproxen without relief. He reports mood changes and irritability with pregabalin and would like to change this to gabapentin. His back pain is function and mobility limiting and has been resistant to conservative treatments. Patient reports seeing Mental Therapist for anxiety and depression and finds this beneficial. Patient denies any smoking, alcohol consumption or illicit drug use. He quit smoking last year. Patient is on disability for about 11 years. 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 Almazan for asthma/COPD, JOSE GUADALUPE on CPAP. Physical Therapy Discharge Report Diagnosis: CHRONIC LOW BACK AND NECK PAIN (KP) Date of Evaluation: 07/17/23 Date of Discharge: 10/23/23 Treatments to Date: 7 Cancellations to Date: 5 No Shows to Date: 1 Discharge Status: Recommend MD Follow-up Discharge Summary: DUE TO REPORTS THAT HE IS NO BETTER AND FEELS WORSE AFTER ACTIVITY . WE HAVE DECIDED TO [facility] ON [facility] UNTIL AFTER HIS PAIN MANAGEMENT APPOINTMENT. [facility] 10/12/22 [place] Jha MD, PhD: On 10/12/2022, I saw for follow-up your patient Jan Huertas to discuss the findings of a new MRI of the cervical spinal lumbar spine. He was previously seen at [facility] for neck and back problems and they refer to this note for detailed history. In summary, he has severe bilateral arm pain radiating toward index finger and thumb. His proximal leg weakness. He also has back pain with radiating pain down his legs, increased with walking. A previous MRI of the cervical spine showed severe C5-6 spinal stenosis with myelomalacia and bilateral C6 foraminal stenosis. The new MRI of the cervical spine shows multilevel degenerative disc disease and again the ongoing C5-6 severe spinal stenosis with bilateral C6 foraminal stenosis and myelomalacia. His clinical symptoms match a C6 dermatome and therefore I recommended a C5-6 anterior diskectomy and fusion. I think his proximal bilateral leg weakness may also be associated with the spinal cord compression. I also reviewed Thomas detail with the patient. This shows moderate L3-4 spinal stenosis. With an extensive discussion about an anterior diskectomy and fusion. I explained the procedure and possible complications and expected postoperative course. He wants to think it over and discuss it with his family. He will call the office if he wants to proceed. He will need preoperative clearance from his primary care physician. I spent 30 minutes in this consult for preparation review of imaging and discussing plan of care. Location: Lower back, radiates down bilateral legs, widespread body pain Duration: Chronic pain for many years, since 20's Characteristics of symptom or complaint: Aching, burning, numb, tingling, stabbing, sharp, electric, throbbing Aggravating or associated factors: Any movement, bending, extending backwards, walking, standing, climbing Relieving factors: Laying still not moving NSAID, heat therapy Treatment: PT-no improvement PFSH Medical History (Updated 03/25/24 @ 15:25 by LISA Brooks) Stage 3a chronic kidney disease Hyperlipidemia Chronic pain syndrome COPD (chronic obstructive pulmonary disease) Prediabetes Vitamin D deficiency Anxiety and depression Lumbar spinal stenosis Asthma JOSE GUADALUPE on CPAP Lumbar radiculopathy Osteoarthritis of right knee Right knee pain Palpitation Memory loss Gait disturbance Weakness of both lower extremities Cervical myelopathy with cervical radiculopathy Surgical History H/O hand surgery Family History Mother Diabetes Social History Alcohol intake: former Patient Tobacco Use Status: Former Tobacco user Review of Systems Const All systems reviewed & are unremarkable except as noted in HPI and below Physical Exam Vital Signs: Last Vital Signs Pulse 78 03/25/24 15:06 BP 130/74 03/25/24 15:06 Pulse Ox 97 03/25/24 15:06 Oxygen Delivery Method Room Air 03/25/24 15:06 BMI result Body Mass Index 34.1 General: Appears afebrile. Alert and oriented. Mood and affect appropriate. Follows and participates in conversation appropriately. Respiratory effort is unlabored. No cough. Able to transition from sit to stand unassisted. Uses cane with ambulation. Ambulates with bilaterally normal heel strike and toe off, reports gait imbalance, RLE weakness. General: Yes no CVA tenderness Back/Spine/Pelvis Other: Limited lumbar ROM due to pain. Mildly antalgic gait with limping. Lumbar extension and flexion forward with axial rotations reproduces moderate to severe pain. Demonstrates 5/5 left and 4/5 right strength of quadriceps bilaterally as well as flexion/dorsiflexion of bilateral feet against resistance. 2+ pedal pulses bilaterally. Seated straight leg rise with dorsiflexion positive bilaterally. +2 patellar and +1 achilles reflexes bilaterally. Facet loading test positive bilaterally. Murtaza sign positive bilaterally, Marino?s and Stinchfield tests reproduce lateral hip pain bilaterally, not back pain. No groin pain with I/E hip rotations. Valsalva maneuver negative. Back: no CVA tenderness Cervical Spine: loss of normal cervical lordosis, cervical muscular tenderness, pain with cervical ROM, No Cervical spine scars present and No Cervical spine tenderness Thoracic/Lumbar Spine: thoracic and lumbar spine normal to inspection, No Thoracic/lumbar spine scar(s), Lasegue's sign positive bilateral and localized, pain with thoraco-lumbar ROM, paraspinal muscle tenderness, thoraco-lumbar ROM limited, No thoracic spinal tenderness and lumbar spinal tenderness (L3-S1) Pelvis: buttock tenderness bilaterally and no sciatic notch tenderness Sacroiliac joints: bilaterally tender to palpation Extrem General: Yes capillary refill normal, Yes no clubbing, cyanosis or edema and Yes no calf tenderness Results Reviewed Results Reviewed: MR LUMBAR SPINE WITHOUT CONTRAST 02/26/24 CLINICAL INFORMATION: Radiculopathy COMPARISON: MRI lumbar spine February 23, 2021 TECHNIQUE: MRI of the lumbar spine was obtained using routine sequences without contrast. FINDINGS: Normal lumbar lordosis is preserved. Slight retrolisthesis at L3-L4 through L5-S1. Vertebral body heights are maintained. There is no suspicious osseous lesion. Again seen L1 vertebral body intraosseous hemangioma. Multilevel disc desiccation and mild disc height loss. There is a new prominent presumed Schmorl's node along the right aspect of the L5 upper endplate/vertebral body with marginal fat deposition and associated inflammatory marrow edema. Redemonstrated smaller L1 upper endplate Schmorl's node. Multilevel anterior osteophytic spurring is seen. Level by level detail as follows: L1-L2: Annular disc bulge with slightly decreased size of right central protrusion with associated annular fissure. Decreased mild spinal canal stenosis. Stable minimal neural foraminal encroachment. L2-L3: Annular disc bulge with paracentral disc protrusion and annular fissure. Mild facet arthrosis. Stable moderate to severe spinal canal stenosis and subarticular zone narrowing with impression along the traversing L3 nerve roots. Unchanged moderate neural foraminal stenosis. L3-L4: Annular disc bulge with paracentral disc protrusion with left central annular fissure and mild to moderate facet arthrosis. Stable moderate spinal canal stenosis and mass effect along the traversing L4 nerve roots in the subarticular zones. Stable moderate to severe left neural foraminal stenosis with impingement along the exiting left L3 nerve and moderate right neural foraminal stenosis. L4-L5: Annular disc bulge with inferiorly migrated left central/subarticular disc extrusion and with decreased conspicuity of annular fissure. Mild facet arthrosis. No spinal canal stenosis. Unchanged moderate neural foraminal stenosis with impingement along the exiting right greater than left L4 nerves. L5-S1: Annular disc bulge with redemonstrated inferiorly migrated paracentral disc extrusion eccentric to the left and mild facet arthrosis. No spinal canal stenosis. Stable moderate to severe bilateral neural foraminal stenosis with mass effect along the exiting L5 nerves. The conus medullaris terminates at the level of L2. The distal spinal cord is normal in appearance. No epidural fluid collection, hematoma, or mass. There is mild fatty infiltration of the paraspinal musculature. Limited evaluation of the intra-abdominal structures without significant abnormalities. The abdominal aorta is of normal contour and caliber. IMPRESSION: 1. Multilevel lumbar spondylosis is not significantly progressed compared to MRI from February 23, 2021. 2. At L1-L2, slightly decreased size of right central disc protrusion with associated annular fissure results in decreased mild spinal canal stenosis. 3. At L2-L3, stable moderate to severe spinal canal stenosis and subarticular zone narrowing with impression along the traversing L3 nerve roots. 4. At L3-L4, stable moderate spinal canal stenosis and mass effect along the traversing L4 nerve roots in the subarticular zones. Stable moderate to severe left neural foraminal stenosis with impingement along the exiting left L3 nerve and moderate right neural foraminal stenosis. 5. At L4-L5, stable moderate neural foraminal stenosis with impingement along the exiting right greater than left L4 nerves. 6. At L5-S1, stable moderate to severe bilateral neural foraminal stenosis with mass effect along the exiting L5 nerves. 7. New prominent presumed Schmorl's node along the right aspect of the L5 upper endplate/vertebral body with marginal fat deposition and associated inflammatory marrow edema. Assessment & Plan Assessment & Plan (1) Lumbar spinal stenosis: Code(s): M48.061 - Spinal stenosis, lumbar region without neurogenic claudication Category: Medical (2) Chronic pain syndrome: Code(s): G89.4 - Chronic pain syndrome Category: Medical (3) Lumbar radiculopathy: Code(s): M54.16 - Radiculopathy, lumbar region Category: Medical (4) Lumbar spondylosis: Code(s): M47.816 - Spondylosis without myelopathy or radiculopathy, lumbar region Category: Medical Plan Lumbar spine MRI imaging results were discussed with patient in greater detail today. Discussed interventional treatments for axial low back pain radicular and discogenic low back pain. At this time patient reports was significant back pain radiating into his hips, partially into his groins and anterior thighs which is consistent with multilevel spinal stenosis, notable at L2-L3, stable moderate to severe spinal canal stenosis and subarticular zone narrowing with impression along the traversing L3 nerve roots. Schedule L2-L3 Interlaminar EMMANUEL with local and fluoroscopy and oral Ativan. Expectations, risks and benefits were reviewed. Patient is aware he will be contacted to schedule this procedure. All questions were answered and the patient is in agreement of plan. Follow-up after injections and sooner as needed. Medications: New pregabalin 75 mg PO BID 60 caps 0RF pain 30 days M47.816 - Spondylosis without myelopathy or radiculopathy, lumbar region, M48.061 - Spinal stenosis, lumbar region without neurogenic claudication, M54.16 - Radiculopathy, lumbar region Coding Level of Care Code Est Pt Level 4 (38000) Complex EM visit Add On G2211 Diagnoses Lumbar spinal stenosis M48.061 Chronic pain syndrome G89.4 Lumbar radiculopathy M54.16 Lumbar spondylosis M47.816
[2024-03-25 15:06] VITALS: BP 130/74; PULSE 78; O2SAT 97; BMI 34.1
== END 2024-03-25 15:41 | disposition home or self-care (01) ==
PROVIDERS: PCP Internal Medicine; Visit Provider Nurse Practitioner Family
DX: M48.061 Spinal stenosis, lumbar region without neurogenic claudication (principal); G89.4 Chronic pain syndrome; M54.16 Radiculopathy, lumbar region; M47.816 Spondylosis without myelopathy or radiculopathy, lumbar region
CPT/HCPCS: 99214; G2211

== ENCOUNTER → 2024-03-25 15:01 | Outpatient (BNVA) | payer OTHER, SELFPAY | PROVIDERS: PCP Internal Medicine; Visit Provider Nurse Practitioner Family | DX: M48.061 Spinal stenosis, lumbar region without neurogenic claudication (principal); M54.16 Radiculopathy, lumbar region; M47.816 Spondylosis without myelopathy or radiculopathy, lumbar region; G89.4 Chronic pain syndrome | CPT/HCPCS: 99212 ==

== ENCOUNTER 2024-06-25 08:59 | Outpatient (AMB) | payer OTHER, SELFPAY ==
[2024-06-25 09:04] VITALS: BP 113/67; PULSE 84; RESP 16; O2SAT 96
--- NOTE | 2024-06-25 09:04 | A.OFFVIS_ITS ---
Vital Signs 06/25/24 09:04 06/25/24 09:42 BP 113/67 115/84 Blood Pressure Location Lt brachial Rt brachial Position Sitting Sitting Respiration 16 16 Pulse 84 87 Pulse Source Pulse Oximeter Pulse Oximeter Pulse Oximetry (%) 96 97 Oxygen Delivery Method Room Air Room Air Intake Visit Reasons: L2, L3 INTERLAMINAR EMMANUEL/ATIVAN REQUESTED Allergies Seasonal Allergies Allergy (Mild, Verified 06/25/24 09:05) Sneezing Medication List - Last Reconciled 06/25/24 by Birgit Lara LPN clonazepam mg PO fluticasone furoate-vilanterol 100-25 mcg/dose (Breo Ellipta) 1 ea inhalation DAILY lorazepam (Ativan) 1 mg PO ONCE magnesium oxide 400 mg PO DAILY 30 days meloxicam 7.5 mg PO DAILY omega 8-yrh-muj-fish oil 60-90-500 mg (Fish Oil) 1 cap PO DAILY pregabalin 75 mg PO BID 30 days [facility] Medical History (Updated 03/25/24 @ 15:25 by LISA Brooks) Stage 3a chronic kidney disease Hyperlipidemia Chronic pain syndrome COPD (chronic obstructive pulmonary disease) Prediabetes Vitamin D deficiency Anxiety and depression Lumbar spinal stenosis Asthma JOSE GUADALUPE on CPAP Lumbar radiculopathy Osteoarthritis of right knee Right knee pain Palpitation Memory loss Gait disturbance Weakness of both lower extremities Cervical myelopathy with cervical radiculopathy Surgical History H/O hand surgery Family History Mother Diabetes Social History Alcohol intake: former Patient Tobacco Use Status: Former Tobacco user Physical Exam Vital Signs: Last Vital Signs Pulse 87 06/25/24 09:42 Resp 16 06/25/24 09:42 BP 115/84 06/25/24 09:42 Pulse Ox 97 06/25/24 09:42 Oxygen Delivery Method Room Air 06/25/24 09:42 Assessment & Plan Assessment & Plan (1) Lumbar spinal stenosis: Code(s): M48.061 - Spinal stenosis, lumbar region without neurogenic claudication Category: Medical (2) Lumbar radiculopathy: Code(s): M54.16 - Radiculopathy, lumbar region Category: Medical Plan Interlaminar epidural steroid injection L2-L3. Informed consent was thoroughly explained to the patient before the procedure.? The patient came to the operating room.? He was positioned prone on operating table with a pillow under his abdomen.? Time-out was performed delineating correct site and side of the procedure, nature of the injection, name and date of of the patient. The lower back of the patient was prepped with ChloraPrep and draped with sterile utility towels.? C-arm was brought over the operating field and sq picture of L3 was demonstrated on the screen.? Right L3 lamina as close to spinous process possible was chosen as the starting point of the injection. Projection of the starting point to the skin was injected with small amount of lidocaine 2% few cc. After that 20 gauge Touhy needle was inserted through the skin wheal and advanced to were the most medial upper border of the right L3 lamina under anterior posterior view. When the tip of the needle gently contacted the bone of the needle was changed to more cephalad and loss of resistance syringe was connected to the needle. Further advancement was co ntinued under fluoroscopy lateral guidance using loss of resistance to air technique as the indicator of the tip of the needle reaching epidural space. When loss of resistance felt injection of the contrast performed demonstrating on lateral view epidurogram. After that injection of the lidocaine preservative-free 1% 3 mL mixed with Kenalog 40 mg was performed into epidural space. Upon completion of the injection needle was removed Band-Aid was applied. The patient tolerated procedure well. Orders: Orders FL guidance in treatment room Today M48.061 - Spinal stenosis, lumbar region without neurogenic claudication Medications: New lorazepam (Ativan) Take 30 minutes prior to arrival to procedure 1 mg PO ONCE 1 tab 0RF anxiety Coding Level of Care Code Procedure Only Diagnoses Lumbar spinal stenosis M48.061 Lumbar radiculopathy M54.16
[2024-06-25 09:42] VITALS: BP 115/84; PULSE 87; RESP 16; O2SAT 97
== END 2024-06-25 09:41 | disposition home or self-care (01) ==
LOC: HO.PMCPRC 08:59
PROVIDERS: PCP Internal Medicine; Visit Provider Anesthesiology
DX: M54.16 Radiculopathy, lumbar region (principal)
CPT/HCPCS: 62321

== ENCOUNTER 2024-08-27 08:44 | Outpatient (AMB) | payer OTHER, SELFPAY ==
--- NOTE | 2024-08-27 08:47 | MHC.OFFVIS ---
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 Payne. Patient reports ongoing 60% pain relief for 2 months since procedure with significant relief of his back and groin pain. Reports partially improved daily functioning, mobility and sleep. He reports back and anterior leg pain has been gradually returning but continues to report groin pain relief. His back now radiates into his anterior thigh and shins with associated numbness and tingling in his feet. Patient also reports chronic bilateral knee pain and reports current obesity impacts his back and knee pain. He acknowledges that weight loss previously ameliorated symptoms and continues his weight loss journey. Denies any recent cough, cold, infection, fever or other significant changes in medical history since last office visit. Past Procedures: 06/25/24: L2-L3 Interlaminar EMMANUEL-60% pain relief for 2 months PRIOR 11/10/23: Patient is a 52-year-old male with prior history of chronic neck and low back pain, lumbar spinal stenosis with bilateral lower extremity weakness and radiculopathy, polyarthralgia, anxiety, depression, cervical spinal stenosis with myelomalacia, memory loss (pending [facility] evaluation), presents today for initial evaluation low back pain with bilateral radiculopathy. Denies any recent trauma, injury, or falls. Back pain is axial with discogenic and radicular pain components. Back radiates into his both legs laterally and anterior thighs and shins with numbness and tingling in his top of the foot and toes. Reports numbness and tingling in his arms and legs with weakness with ongoing neck and back pain. He had to stop PT recently due to aggravation of his back and neck pain. Patient reports frequent bowel and bladder incontinence that has been progressively getting worse. He reports imbalance and legs giving out with walking or prolonged standing. Patient uses cane and at times has to use crutches due to significant right knee pain due to osteoarthritis. Patient denies previous back surgery or injections and is very hesitant to worse interventional treatments. He reports neurosurgical evaluation with Dr. Jha but can not recall the details of conversation, including back surgery offer. Patient is undergoing neurology evaluation for memory loss at [facility]. His most recent brain MRI was normal. Pain affects his daily activities and functioning, mobility, mood, sleep, social interactions and quality of life. Denies any fever, chills, abdominal or groin pain, or saddle anesthesia. He has been treating his pain with meloxicam and pregabalin with minimal relief. Previously tried ibuprofen and naproxen without relief. He reports mood changes and irritability with pregabalin and would like to change this to gabapentin. His back pain is function and mobility limiting and has been resistant to conservative treatments. Patient reports seeing Mental Therapist for anxiety and depression and finds this beneficial. Patient denies any smoking, alcohol consumption or illicit drug use. He quit smoking last year. Patient is on disability for about 11 years. 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 Almazan for asthma/COPD, JOSE GUADALUPE on CPAP. Physical Therapy Discharge Report Diagnosis: CHRONIC LOW BACK AND NECK PAIN (KP) Date of Evaluation: 07/17/23 Date of Discharge: 10/23/23 Treatments to Date: 7 Cancellations to Date: 5 No Shows to Date: 1 Discharge Status: Recommend MD Follow-up Discharge Summary: DUE TO REPORTS THAT HE IS NO BETTER AND FEELS WORSE AFTER ACTIVITY . WE HAVE DECIDED TO [facility] ON HOLD UNTIL AFTER HIS PAIN MANAGEMENT APPOINTMENT. [facility] 10/12/22 [place] Jha MD, PhD: On 10/12/2022, I saw for follow-up your patient Jan Huertas to discuss the findings of a new MRI of the cervical spinal lumbar spine. He was previously seen at [facility] for neck and back problems and they refer to this note for detailed history. In summary, he has severe bilateral arm pain radiating toward index finger and thumb. His proximal leg weakness. He also has back pain with radiating pain down his legs, increased with walking. A previous MRI of the cervical spine showed severe C5-6 spinal stenosis with myelomalacia and bilateral C6 foraminal stenosis. The new MRI of the cervical spine shows multilevel degenerative disc disease and again the ongoing C5-6 severe spinal stenosis with bilateral C6 foraminal stenosis and myelomalacia. His clinical symptoms match a C6 dermatome and therefore I recommended a C5-6 anterior diskectomy and fusion. I think his proximal bilateral leg weakness may also be associated with the spinal cord compression. I also reviewed Thomas detail with the patient. This shows moderate L3-4 spinal stenosis. With an extensive discussion about an anterior diskectomy and fusion. I explained the procedure and possible complications and expected postoperative course. He wants to think it over and discuss it with his family. He will call the office if he wants to proceed. He will need preoperative clearance from his primary care physician. I spent 30 minutes in this consult for preparation review of imaging and discussing plan of care. Location: Lower back, radiates down bilateral legs, widespread body pain Duration: Chronic pain for many years, since Characteristics of symptom or complaint: Aching, burning, numb, tingling, stabbing, sharp, electric, throbbing Aggravating or associated factors: Any movement, bending, extending backwards, walking, standing, climbing Relieving factors: Laying still not moving NSAID, heat therapy Treatment: PT-no improvement PFSH Medical History Stage 3a chronic kidney disease Hyperlipidemia Chronic pain syndrome COPD (chronic obstructive pulmonary disease) Prediabetes Vitamin D deficiency Anxiety and depression Lumbar spinal stenosis Asthma JOSE GUADALUPE on CPAP Lumbar radiculopathy Osteoarthritis of right knee Right knee pain Palpitation Memory loss Gait disturbance Weakness of both lower extremities Cervical myelopathy with cervical radiculopathy Surgical History H/O hand surgery Family History Mother Diabetes Social History Alcohol intake: former Patient Tobacco Use Status: Former Tobacco user Review of Systems Const All systems reviewed & are unremarkable except as noted in HPI and below Physical Exam Vital Signs: Last Vital Signs Pulse 91 08/27/24 08:53 BP 164/81 H 08/27/24 08:53 Pulse Ox 97 08/27/24 08:53 Oxygen Delivery Method Room Air 08/27/24 08:53 BMI result Body Mass Index 34.9 General: Appears afebrile. Alert and oriented. Mood and affect appropriate. Follows and participates in conversation appropriately. Respiratory effort is unlabored. No cough. Able to transition from sit to stand unassisted. Uses cane with ambulation. Ambulates with bilaterally normal heel strike and toe off, reports gait imbalance, RLE weakness. General: Yes no CVA tenderness Back/Spine/Pelvis Other: Limited lumbar ROM due to pain. Mildly antalgic gait with limping. Lumbar extension and flexion forward with axial rotations reproduces moderate to severe pain. Demonstrates 5/5 left and 4/5 right strength of quadriceps bilaterally as well as flexion/dorsiflexion of bilateral feet against resistance. 2+ pedal pulses bilaterally. Seated straight leg rise with dorsiflexion positive bilaterally. +2 patellar and +1 achilles reflexes bilaterally. Facet loading test positive bilaterally. Murtaza sign positive bilaterally, Marino?s and Stinchfield tests reproduce lateral hip pain bilaterally, not back pain. No groin pain with I/E hip rotations. Valsalva maneuver negative. Back: no CVA tenderness Cervical Spine: loss of normal cervical lordosis, cervical muscular tenderness, pain with cervical ROM, No Cervical spine scars present and No Cervical spine tenderness Thoracic/Lumbar Spine: thoracic and lumbar spine normal to inspection, No Thoracic/lumbar spine scar(s), Lasegue's sign positive bilateral and localized, pain with thoraco-lumbar ROM, paraspinal muscle tenderness, thoraco-lumbar ROM limited, No thoracic spinal tenderness and lumbar spinal tenderness (L3-S1) Pelvis: buttock tenderness bilaterally and no sciatic notch tenderness Sacroiliac joints: bilaterally tender to palpation Extrem Other: Bilateral knee: Normal to inspection. No swelling, erythema or ecchymosis. Limited range of motion due to pain. +Crepitus. TTP in medial and lateral aspects of both knees. General: Yes capillary refill normal, Yes no clubbing, cyanosis or edema and Yes no calf tenderness Results Reviewed Results Reviewed: MR LUMBAR SPINE WITHOUT CONTRAST 02/26/24 CLINICAL INFORMATION: Radiculopathy COMPARISON: MRI lumbar spine February 23, 2021 TECHNIQUE: MRI of the lumbar spine was obtained using routine sequences without contrast. FINDINGS: Normal lumbar lordosis is preserved. Slight retrolisthesis at L3-L4 through L5-S1. Vertebral body heights are maintained. There is no suspicious osseous lesion. Again seen L1 vertebral body intraosseous hemangioma. Multilevel disc desiccation and mild disc height loss. There is a new prominent presumed Schmorl's node along the right aspect of the L5 upper endplate/vertebral body with marginal fat deposition and associated inflammatory marrow edema. Redemonstrated smaller L1 upper endplate Schmorl's node. Multilevel anterior osteophytic spurring is seen. Level by level detail as follows: L1-L2: Annular disc bulge with slightly decreased size of right central protrusion with associated annular fissure. Decreased mild spinal canal stenosis. Stable minimal neural foraminal encroachment. L2-L3: Annular disc bulge with paracentral disc protrusion and annular fissure. Mild facet arthrosis. Stable moderate to severe spinal canal stenosis and subarticular zone narrowing with impression along the traversing L3 nerve roots. Unchanged moderate neural foraminal stenosis. L3-L4: Annular disc bulge with paracentral disc protrusion with left central annular fissure and mild to moderate facet arthrosis. Stable moderate spinal canal stenosis and mass effect along the traversing L4 nerve roots in the subarticular zones. Stable moderate to severe left neural foraminal stenosis with impingement along the exiting left L3 nerve and moderate right neural foraminal stenosis. L4-L5: Annular disc bulge with inferiorly migrated left central/subarticular disc extrusion and with decreased conspicuity of annular fissure. Mild facet arthrosis. No spinal canal stenosis. Unchanged moderate neural foraminal stenosis with impingement along the exiting right greater than left L4 nerves. L5-S1: Annular disc bulge with redemonstrated inferiorly migrated paracentral disc extrusion eccentric to the left and mild facet arthrosis. No spinal canal stenosis. Stable moderate to severe bilateral neural foraminal stenosis with mass effect along the exiting L5 nerves. The conus medullaris terminates at the level of L2. The distal spinal cord is normal in appearance. No epidural fluid collection, hematoma, or mass. There is mild fatty infiltration of the paraspinal musculature. Limited evaluation of the intra-abdominal structures without significant abnormalities. The abdominal aorta is of normal contour and caliber. IMPRESSION: 1. Multilevel lumbar spondylosis is not significantly progressed compared to MRI from February 23, 2021. 2. At L1-L2, slightly decreased size of right central disc protrusion with associated annular fissure results in decreased mild spinal canal stenosis. 3. At L2-L3, stable moderate to severe spinal canal stenosis and subarticular zone narrowing with impression along the traversing L3 nerve roots. 4. At L3-L4, stable moderate spinal canal stenosis and mass effect along the traversing L4 nerve roots in the subarticular zones. Stable moderate to severe left neural foraminal stenosis with impingement along the exiting left L3 nerve and moderate right neural foraminal stenosis. 5. At L4-L5, stable moderate neural foraminal stenosis with impingement along the exiting right greater than left L4 nerves. 6. At L5-S1, stable moderate to severe bilateral neural foraminal stenosis with mass effect along the exiting L5 nerves. 7. New prominent presumed Schmorl's node along the right aspect of the L5 upper endplate/vertebral body with marginal fat deposition and associated inflammatory marrow edema. Assessment & Plan Assessment & Plan (1) Lumbar spinal stenosis: Code(s): M48.061 - Spinal stenosis, lumbar region without neurogenic claudication Category: Medical (2) Chronic pain syndrome: Code(s): G89.4 - Chronic pain syndrome Category: Medical (3) Lumbar radiculopathy: Code(s): M54.16 - Radiculopathy, lumbar region Category: Medical (4) Lumbar spondylosis: Code(s): M47.816 - Spondylosis without myelopathy or radiculopathy, lumbar region Category: Medical (5) Bilateral knee pain: Code(s): M25.561 - Pain in right knee; M25.562 - Pain in left knee Category: Medical Plan Patient is 2 months s/p L2-L3 EMMANUEL with onging groin pain relief but reports increased pain in anterior aspects of his thigh and shins. We will proceed with addressing his L3-L4 levels as this correlates with MRI findings. Schedule L3-L4 Interlaminar EMMANUEL with local and fluoroscopy and oral Ativan. Expectations, risks and benefits were reviewed. Patient is aware he will be contacted to schedule this procedure. Script provided for pregabalin 75 mg to start at bedtime and advane to BID if well tolerated. Side effects and precautions were discussed with patient. All questions were answered and the patient is in agreement of plan. Follow-up after injections and sooner as needed. Medications: Refilled pregabalin 75 mg PO BID 30 days 60 caps 0RF pain M47.816 - Spondylosis without myelopathy or radiculopathy, lumbar region, M48.061 - Spinal stenosis, lumbar region without neurogenic claudication, M54.16 - Radiculopathy, lumbar region Coding Level of Care Code Est Pt Level 4 (35262) Complex EM visit Add On G2211 Diagnoses Lumbar spinal stenosis M48.061 Chronic pain syndrome G89.4 Lumbar radiculopathy M54.16 Lumbar spondylosis M47.816 Bilateral knee pain M25.561; M25.562
[2024-08-27 08:53] VITALS: BP 164/81; PULSE 91; O2SAT 97; BMI 34.9
--- OUTSIDE RECORDS SUMMARY | 2024-08-27 09:20 | XMS_ITS | Encounter Summary ---
Author Organization [facility] Address [address] [place] [address] Care Team Providers Care Anesthesia Assistant Name Role Phone Vickie Flores MD Primary Care Provider [phone] Encounter Details Date Type Department Care Team (Late st Contact Info) Description 06/13/2024 Telephone Lung Screening Program - [address] [place] [id number] Lisa Drake MA Social History Tobacco Use Types Packs/Day Years Used Date Smoking Tobacco: Former Cigarettes 1 43.3 0 06/05/1979 - 10/03/2022 Smokeless Tobacco: Former Alcohol Use Standard Drinks/Week Comments Yes 0 (1 standard drink = 0.6 oz pur e alcohol) Sex and Gender Information Value Date Recorded Sex Assigned at Not on file Legal Sex Male 11:14 AM EST Gender Identity Not on file Sexual Orientation Not on file documented as of this encounter Progress Notes * Rcahael Clark MA - 08/20/2024 3:38 PM EDT Called patient (phone busy) to reschedule [facility] 08/19/24 at 5:00PM. Reminder letter sent to address on file. * Lisa Drake MA - 07/12/2024 1:13 PM EST Patient reschedule due to him and his household being under the weather. New date is Monday August 19, 2024 at 5 PM. * Lisa Drake MA - 06/13/2024 2:09 PM EST Darryl Huertas was contacted by the Lung Cancer Screening Program today to confirm the appointment of their Lung Cancer Screening. The patient is currently scheduled to have their screening on Tuesday July 02, 2024, at 530 PM at [facility]. No answer left message [phone] number For all screenings scheduled during the week, the patient will check in at Patient Registration on the first floor of the main hospital. For screenings that take place on the weekend or after 5pm, check-in directly in Radiology. The patient was given the Lung Cancer Screening Program phone number, , to contact if they have any additional questions, concerns or need to reschedule. Patients are encouraged to call our office and reschedule if they are exhibiting any cold-like symptoms, have recently been treated for Pneumonia or Influenza (the flu) or have had another CT of their Chest since their last screening. documented in this encounter Plan of Treatment Not on file documented as of this encounter Visit Diagnoses Not on filedocumented in this encounter Care Teams Anesthesia Assistant Relationship Specialty Start Date End Date Vickie Flores MD [address] [place] [address] [place]FF[place] [id number] PCP - General Internal Medicine 06/26/24 documented as of this encounter
--- OUTSIDE RECORDS SUMMARY | 2024-08-27 09:20 | XMS_ITS ---
Author Organization [facility] Address [address] [place] [address] Care Team Providers Care Order Analyst Name Role Phone LUX HOOD Primary Care Provider JERSEY SHARMA Unavailable [phone] MEDICATIONS Medication SIG (Take, Route, Frequency, Duration) Notes Start Date End Date Status Pregabalin 75 MG 1 capsule Orally Twi ce a day for 30 days Active Breo Ellipta 100-25 MCG/ACT INHALE 1 PUFF INTO THE LUNGS DAILY FOR 30 DAYS. Inhalation for 30 Active Meloxicam 7.5 MG TAKE 1 TABLET BY VIKI TH EVERY DAY for 30 Active Mounjaro 2.5 MG/0.5ML 2.5mg Subcutaneous weekly for 30 days Active clonazePAM 0.5 MG Oral for 30 Active Nicotine 14 MG/24HR 1 patch to skin Burciaga sdermal Once a day for 30 day(s) Active traMADol HCl 50 MG 1 tablet as needed O rally twice a day for 30 days Active Encounters Encounter Location Date Provider Diagnosis [place] [id number] [address] 07/09/2024 JERSEY SHARMA Prediabetes R73.03 ; Primary osteoarthritis of right knee M17.11 ; Chronic pain syndrome G89.4 ; Cervicalgia M54.2 ; Lumbar radiculopathy M54.16 ; Hyperlipidemia, unspecified E78.5 and Type 2 diabetes mellitus without complications E11.9 ASSESSMENTS Encounter Date Diagnosis Assessment Notes Treatment Notes Treatment Clinical Notes Section Notes 07/09/2024 Prediabetes (ICD-10 - R73.03) Acute Concerns/Problem List: 07/09/2024 [facility] Prescription monitoring program reviewed Including controlled substances [...] software and direct typing Please excuse inadvertent lithographic artist or typing errors, or uncorrected word substitutions Although every attempt has been made by the provider to proofread this document, occasional misspellings and typographical errors may still be present Due to the previous pandemic, and the use of personal protective equipment (PPE) This may decrease voice recognition accuracy Inadvertent lithographic artist errors may occur 07/09/2024 Primary osteoarthritis of right knee (ICD-10 - M17.11) Acute Concerns/Problem List: 07/09/2024 [facility] Prescription monitoring program reviewed Including controlled substances [...] software and direct typing Please excuse inadvertent lithographic artist or typing errors, or uncorrected word substitutions Although every attempt has been made by the provider to proofread this document, occasional misspellings and typographical errors may still be present Due to the previous pandemic, and the use of personal protective equipment (PPE) This may decrease voice recognition accuracy Inadvertent lithographic artist errors may occur 07/09/2024 Chronic pain syndrome (ICD-10 - G89.4) Acute Concerns/Problem List: 07/09/2024 [facility] Prescription monitoring program reviewed Including controlled substances [...] software and direct typing Please excuse inadvertent lithographic artist or typing errors, or uncorrected word substitutions Although every attempt has been made by the provider to proofread this document, occasional misspellings and typographical errors may still be present Due to the previous pandemic, and the use of personal protective equipment (PPE) This may decrease voice recognition accuracy Inadvertent lithographic artist errors may occur 07/09/2024 Cervicalgia (ICD-10 - M54.2) Acute Concerns/Problem List: 07/09/2024 [facility] Prescription monitoring program reviewed Including controlled substances [...] software and direct typing Please excuse inadvertent lithographic artist or typing errors, or uncorrected word substitutions Although every attempt has been made by the provider to proofread this document, occasional misspellings and typographical errors may still be present Due to the previous pandemic, and the use of personal protective equipment (PPE) This may decrease voice recognition accuracy Inadvertent lithographic artist errors may occur 07/09/2024 Lumbar radiculopathy (ICD-10 - M54.16) Acute Concerns/Problem List: 07/09/2024 [facility] Prescription monitoring program reviewed Including controlled substances [...] software and direct typing Please excuse inadvertent lithographic artist or typing errors, or uncorrected word substitutions Although every attempt has been made by the provider to proofread this document, occasional misspellings and typographical errors may still be present Due to the previous pandemic, and the use of personal protective equipment (PPE) This may decrease voice recognition accuracy Inadvertent lithographic artist errors may occur 07/09/2024 Hyperlipidemia, unspecified (ICD-10 - E78.5) Acute Concerns/Problem List: 07/09/2024 [facility] Prescription monitoring program reviewed Including controlled substances [...] software and direct typing Please excuse inadvertent lithographic artist or typing errors, or uncorrected word substitutions Although every attempt has been made by the provider to proofread this document, occasional misspellings and typographical errors may still be present Due to the previous pandemic, and the use of personal protective equipment (PPE) This may decrease voice recognition accuracy Inadvertent lithographic artist errors may occur 07/09/2024 Type 2 diabetes mellitus without complications (ICD-10 - E11.9) Acute Concerns/Problem List: 07/09/2024 [facility] Prescription monitoring program reviewed Including controlled substances [...] software and direct typing Please excuse inadvertent lithographic artist or typing errors, or uncorrected word substitutions Although every attempt has been made by the provider to proofread this document, occasional misspellings and typographical errors may still be present Due to the previous pandemic, and the use of personal protective equipment (PPE) This may decrease voice recognition accuracy Inadvertent lithographic artist errors may occur PLAN OF TREATMENT Medication Medication Name Sig Start Date Stop Date Notes Pregabalin 75 MG 1 capsule Orally Twi ce a day for 30 days Mounjaro 2.5 MG/0.5ML 2.5mg Subcutaneous weekly for 30 days Nicotine 14 MG/24HR 1 patch to skin Burciaga sdermal Once a day for 30 day(s) traMADol HCl 50 MG 1 tablet as needed O rally twice a day for 30 days Next Appt Details Provider Name:JERSEY SHARMA, 03/20/2025 03:15:00 PM, [address], [facility] [address], [place], [address], Progress Notes * JAN RICH ADOB:1970 (53 yo M)Acc No.[id number]:07/09/2024 Progress Notes Patient:??JAN RICH Provider:??JERSEY SHARMA NP :1970?Age:53 Y?Sex:Russ donohue Date:07/09/2024 Address:[address] [place] [address] [place], [id number] Pcp:LUX HOOD Subjective: * Chief Complaints: * ? * HPI: ?Constitutional:? Patient is here for Chronic Disease Management follow-up visit ?Patient seen and examined. ? Full past medical history, social history, family history, ?allergies and current medications were reviewed and updated. ?Acute Concerns/Problem List: ?07/09/2024 ?trying to incr activity, eat tank cleaner, did lose some weight ?Patient with past medical history of COPD, anxiety, depression, ans sleep apnea , ?presents today for worsening back pain, worsening anxiety and depression. ?Patient states he was seen by an orthopedics surgeon about 10 years ago ? and was told that he has 7 hernitated disc through out his spine. ?he sees Neurosurgery, Yudelka, may need surgery ?now @ [facility] pain mgt, theyre discussing nerve ablation ?now on pregabalin/Acetaminophen, no longer on gabapentin, acetaminophen ?has been trying to stay away from NSAIDS ?He states that he is not able to perform his ADLs such as cooking, showering without help. ?Patient reports worsening depression and anxiety. ? psych BHN- on abilify ?He saw his neurologist, is now on CPAP compliant therapy ?Has had intermittent chest discomfort with feelings of fluttering and palpitation ?he was send for cardiac stress testing, he finally went, and was unremarkable @ [facility] ? will request records from [facility] ?Sees solar/renewable energy sales Dr. Hoover, low-dose CT scheduled, has quit smoking ?He denies fever, chills, lightheadness, numbbness, ?weakness, changes in bowel and bladder function. 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 ?Health Maintenance: ?COVID MRNA Vax-x 2 ?PNA - Prevnar 05/16/23 , needs pneumovax 05/2024 ?Flu- defers at this time ?Shingles - defers at this time ?Colorectal did have consult screening, to néstor @ [facility]. * ROS:?All Other Systems:?Review of Systems (ROS)??All others negative except those mentioned in HPI.? * Medical History:?? * Medications:??Taking traMADo l HCl 50 MG Tablet 1 tablet as needed Orally twice a day , Taking Nicotine 14 MG/24HR Patch 24 Hour 1 patch to skin Transdermal Once a day , Taking Pregabalin 75 MG Capsule 1 capsule Orally Twice a day , Taking Mounjaro 2.5 MG/0.5ML Solution Pen-injector 2.5mg Subcutaneous weekly , Taking Breo Ellipta 100-25 MCG/ACT Aerosol Powder Breath Activated INHALE 1 PUFF INTO THE LUNGS DAILY FOR 30 DAYS. Inhalation , Taking clonazePAM 0.5 MG Tablet Oral , Taking Meloxicam 7.5 MG Tablet TAKE 1 TABLET BY MOUTH EVERY DAY Objective: * Examination: ?General Examination: ?GENERAL APPEARANCE:??in no acute distress, well developed, well nourished.??HEAD:??normocephalic, atraumatic.??EYES:??pupils equal, round, reactive to light and accommodation.??EARS:??normal.??ORAL CAVITY:??mucosa moist.??THROAT:??clear.??NECK/THYROID:??neck supple, full range of motion, no cervical lymphadenopathy.??SKIN:??no suspicious lesions, warm and dry.??HEART:??no murmurs, regular rate and rhythm, S1, S2 normal.??LUNGS:??clear to auscultation bilaterally.??ABDOMEN:??normal, bowel sounds present, soft, nontender, nondistended.??EXTREMITIES:??no clubbing, cyanosis, or edema.??NEUROLOGIC:??nonfocal, motor strength normal upper and lower extremities, sensory exam intact.? Assessment: * Assessment: 1.??Prediabetes - R73.03??2. ??Primary osteoarthritis of right knee - M17.11??3.??Chronic pain syndrome - G89.4??4.??Cervicalgia - M54.2??5.??Lumbar radiculopathy - M54.16??6.??Hyperlipidemia, unspecified - E78.5??7.??Type 2 diabetes mellitus without complications - E11.9?? Acute Concerns/Problem List: 07/09/2024 [facility] Prescription monitoring program reviewed Including controlled substances [...] software and direct typing Please excuse inadvertent lithographic artist or typing errors, or uncorrected word substitutions Although every attempt has been made by the provider to proofread this document, occasional misspellings and typographical errors may still be present Due to the previous pandemic, and the use of personal protective equipment (PPE) This may decrease voice recognition accuracy Inadvertent lithographic artist errors may occur. Plan: * Treatment: 2.??Primary osteoarthritis o f right knee?? Start traMADol HCl Tablet, 50 MG, 1 tablet as needed, Orally, twice a day, 30 days, 60 Tablet, Refills 1.? * Procedure Codes:??90233 NO S HOW OFFICE VISIT * Images: Billing Information: * Visit Code:?? * Procedure Codes:?? 44200 NO SHOW OFFICE VISIT. Care Plan Details* * Sign off status: Pending * Provider:??JERSEY SHARMA NP Date:??09/2024 History and Physical Notes * HPI (History of Present Illness) Category Sub-Category Detail Notes Category Not es Constitutional Patient is here for Chronic Disease Management follow-up visit Patient seen and examined. Full past medical history, social history, family history, allergies and current medications were reviewed and updated. Acute Concerns/Problem List: 07/09/2024 trying to incr activity, eat tank cleaner, did lose some weight Patient with past medical history of COPD, anxiety, depression, ans sleep apnea , presents today for worsening back pain, worsening anxiety and depression. Patient states he was seen by an orthopedics surgeon about 10 years ago and was told that he has 7 hernitated disc through out his spine. he sees Neurosurgery, Yudelka, may need surgery now @ [facility] pain mgt, joshre discussing nerve ablation now on pregabalin/Acetaminophen, no [...] he finally went, and was unremarkable @ [facility] will request records from [facility] Sees solar/renewable energy sales Dr. Hoover, low-dose CT scheduled, has quit smoking He denies fever, chills, lightheadness, numbbness, weakness, changes in bowel and bladder function. 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
--- OUTSIDE RECORDS SUMMARY | 2024-08-27 09:20 | XMS_ITS | Clinical Summary ---
Author Organization [facility] Address [address] [place] [address] Phone Care Team Providers Care Desulfurizer Operator Name Role Phone Vickie Flores MD Primary Care Provider [phone] Allergies No known active allergies Medications clonazePAM (KlonoPIN) 0.5 mg tablet TAKE ONE TABLET BY MOUTH TWICE A DAY NEEDED FOR ANXIETY 11/30/19 22 Active ketoconazole (NIZORAL) 2 % cream APPLY TO AFFECTED AREA TWICE A DAY UNTIL CLEAR 12/15/19 22 Active meloxicam (MOBIC) 7.5 mg tablet Take 1 tablet (7.5 mg total) by mouth 1 (one) time each day. 09/05/19 24 Active gabapentin (NEURONTIN) 400 mg capsule Take 1 capsule (400 mg total) by mouth 3 (three) times a day. Active nicotine (NICODERM CQ) 14 mg/[address] 1 Patch onto the skin every 24 hours. Active traMADoL (ULTRAM) 50 mg tablet Take 1 tablet (50 mg total) by mouth every 6 (six) hours if needed. Max Daily Amount: 200 mg Active polyethylene glycol (Golytely) 236-22.74-6.74 -5.86 gram solution Take 4L by mouth once for one dose. May substitue any PEG. Starting at 6PM the night before your procedure drink 1 8oz glasses at your own pace until you complete half of the gallon. Finish 2nd half of the gallon 5 hours before your procedure. 4000 mL 05/21/20 24 Active bisacodyL (DULCOLAX) 5 mg EC tablet Take 2 tablets by mouth right before beginning bowel prep. See instructions provided by the office 2 tablet 05/21/20 24 Active fluticasone furoate-vilant Christen (BREO ELLIPTA) 100-25 mcg/dose inhaler INHALE 1 PUFF INTO THE LUNGS DAILY FOR 30 DAYS. NOT COVERED 60 each 11 08/20/19 25 Active fluticasone furoate-vilant Christen (BREO ELLIPTA) 100-25 mcg/dose inhaler INHALE 1 PUFF INTO THE LUNGS DAILY FOR 30 DAYS. 08/15/19 24 025 Discontinued Active Problems Problem Noted Date Diagnosed Date Lumbar disc disorder 08/02/2010 Low back pain with sciatica 05/19/2009 Neck pain 05/19/2009 Radicular pain in left arm 05/19/2009 Tobacco use disorder 05/19/2009 Bipolar disorder 11/09/2005 Encounters Date Type Department Care Team Description 06/13/2024 Telephone Lung Screening Program - [place] [address] [facility] [address] [place] [address] Lisa Drake MA 06/03/2024 Telephone Gastroenterology - [place] [facility] [address] [facility] [address] [place] [address] Manjit David DO SPECIAL PROCEDURE from Last 3 Months Immunizations Name Administration Dates Next Due Td Tetanus diptheria (Tdvax) 7yo and older 06/09 Surgical History Surgery Date Site/Laterality Comments HAND SURGERY N/A PROCEDURE: HISTORICAL HAND SURGERY Medical History Medical History Date Comments Bipolar disorder, unspecified (CMS/HCC) DX:Bipolar disorder, unspecified (HCC) COPD (chronic obstructive pu lmonary disease) (CMS/HCC) DX:COPD (chronic obstructive pulmonary disease) ([facility]) Anxiety disorder DX:Anxiety diso rder Depression DX:Depression Sleep apnea DX:Sleep apnea Mixed hyperlipidemia DX:Mixed hy perlipidemia Vitamin D deficiency DX:Vitamin D deficiency Chronic kidney disease DX:Chroni c kidney disease; COMMENT: Stage 3a Osteoarthritis DX:Osteoarthriti s; COMMENT: right knee Mixed stress and urge urinar y incontinence DX:Mixed stress and urge uri nary incontinence Memory loss DX:Memory loss Family History Medical History Relation Name Comments Prostate cancer Maternal Grandfather Diabetes Mother Hypertension Mother Blindness Neg Hx Cataracts Neg Hx Glaucoma Neg Hx Macular degeneration Neg Hx Strabismus Neg Hx Relation Name Status Comments Brother 1 Alive Brother 2 Alive Brother 3 Alive Daughter Alive Father Alive Maternal Grandfather Mother Son Alive Social History Tobacco Use Types Packs/Day Years [...] on file Sexual Orientation Not on file Obstetrics History Last Filed Vital Signs Vital Sign Reading Time Taken Comments Blood Pressure 117/75 03/21/2024 8:22 AM EDT Pulse 82 03/21/2024 8:22 AM EDT Temperature - - Respiratory Rate - - Oxygen Saturation - - Inhaled Oxygen Concentration - - Weight 112 kg (247 lb) 03/21/2024 8:22 AM EDT Height 177.8 cm (5' 10 ) 03/21/2024 8:22 AM EDT Body Mass Index 35.44 03/21/2024 8:22 AM EDT Plan of Treatment Health Maintenance Due Date Last Done Comments Hepatitis B Vaccines (1 of 3 - 19+ 3-dose series) 1988 Pneumococcal Vaccine: 50+ Years (1 of 1 - PCV) 11/23/2019 Zoster Vaccines (1 of 2) 11/23/2019 COVID-19 Vaccine (3 - Modern a risk series) 03/18/2021 02/18/2021, 01/20/2021 Cholesterol Screening (Lipid Panel) 05/03/2022 11/05/2007 Colorectal Cancer Screening: Colonoscopy 05/03/2022 Depression Screening 05/03/2022 Hepatitis C Screening 05/03/2022 Medicare Annual Wellness Visit 05/03/2022 Social Influencers of Health Screening 05/03/2022 DTaP,Tdap,and Td Vaccines (2 - Td or Tdap) 06/09/2022 06/09/2012 Influenza Vaccine (#1) 2024 Lung Cancer Screening (Low Dose CT) 06/26/2024 06/26/2023 HIV Screening Completed 11/05/2007 HIB Vaccines Aged Out No longer eligi ble based on patient's age to complete this topic HPV Vaccines Aged Out No longer eligi ble based on patient's age to complete this topic Hepatitis A Vaccines Aged Out No long er eligible based on patient's age to complete this topic IPV Vaccines Aged Out No longer eligi ble based on patient's age to complete this topic MMR Vaccines Aged Out No longer eligi ble based on patient's age to complete this topic Meningococcal ACWY Vaccine Aged Out N o longer eligible based on patient's age to complete this topic Meningococcal B Vacine Aged Out No lo nger eligible based on patient's age to complete this topic Pneumococcal Vaccine: Pediatrics (0 to 5 Years) and At-Risk Patients (6 to 64 Years) Aged Out No longer eligible b ased on patient's age to complete this topic RSV Immunization Patients Under 20 months Aged Out No longer eligible b ased on patient's age to complete this topic Varicella Vaccines Aged Out No longer eligible based on patient's age to complete this topic Procedures Procedure Name Priority Date/Time Associated Diagnosis Comments CT LUNG SCREENING LOW DOSE Routine 06/26/2023 4:52 PM EST Encounter for screening for malignant neoplasm of respiratory organs HM HIV SCREENING Routine 11/05/2007 LIPID PANEL Routine 11/05/2007 from Last 3 Months or Most Recently Relevant to Health Maintenance Results * CT LUNG SCREENING LOW DOSE (06/26/2023 4:52 PM EST) Anatomical Region Laterality Modality Computed Tomogra phy 06/26/2023 3:29 PM EST Narrative 06/26/2023 4:52 PM EST [facility] Diagnostic Imaging Department [address] [place] [address] Patient: ??JAN HUERTAS ?/Age/Sex: 1970 - 52 - M Unit#: ??[id number] ? Location/Status: ??SPDICATLS/REG CLI ? Mnemonic/Ordering Site: ??CTLUNGLD/SPCT Ordering Physician: ??PATRICK PANTOJA MD CT Lung Screening Low Dose - 06/26/23 - 1540 Report Status:Signed Chest CT dated 06/26/2023. HISTORY: Former smoker. ??Lung cancer screening. TECHNIQUE: Noncontrast chest CT utilizing low-dose screen protocol with coronal and sagittal reformats. COMPARISON: 06/25/2022. FINDINGS: Lungs/pleura: The central airways are clear and normal in caliber. ??There are a few punctate calcified granulomas. ??No suspicious pulmonary nodule or mass. ??No pleural effusion or pneumothorax. ??Linear band of scarring or atelectasis in the lingula. Mediastinum/jose: No mass. ??Stable small right hilar lymph nodes. Pulmonary vasculature: Normal caliber pulmonary arteries. ??Minimal atherosclerotic plaque of the aorta and great vessels. Cardiac: Mild--moderate coronary artery calcification. ??Normal heart size. Chest wall: No mass or adenopathy. Limited abdomen: Stable approximately 5.8 x 3.6 cm low-attenuation lesion in the periphery of the right hepatic lobe. ??This is incompletely characterized without contrast. ??This demonstrates features consistent with a hemangioma on abdominal CT dated 03/21/2018. ??There is a stable tiny mildly hyperattenuating nodule projecting medially from the upper interpolar left renal cortex, probably a small hemorrhagic cyst. ??Stable mild diffuse thickening of the right adrenal gland. Bones: Mild degenerative changes of the glenohumeral joints. ??Moderate degenerative changes of the left AC joint. ??Mild degenerative changes of the spine. IMPRESSION: 1. ??No suspicious pulmonary nodule. ??A few calcified granulomas are noted. Lung RADS 2. 2. ??Previously noted small right hilar lymph nodes are unchanged. Dictating Physician: ??MEDARDO NICHOLE MD Electronically Signed by: ??MEDARDO NICHOLE MD Dic Date/Time: ??06/26/23 1643 Sign date/Time: ??06/26/23 1652 Procedure Note Medardo Nichole MD - 01/22/2024 [facility] Diagnostic Imaging Department [address] [place] [id number] Patient: JAN HUERTAS Charisma /Age/Sex: 1970 - 52 - M Unit#: [id number] Location/Status: SPDICATLS/REG CLI Mnemonic/Ordering Site: [facility] Ordering Physician: PATRICK PANTOJA MD CT Lung Screening Low Dose - 06/26/23 - 1540 Report Status:Signed Chest CT dated 06/26/2023. HISTORY: Former smoker. Lung cancer screening. TECHNIQUE: Noncontrast chest CT utilizing low-dose screen protocol withcoronal and sagittal reformats. COMPARISON: 06/25/2022. FINDINGS: Lungs/pleura: The central airways are clear and normal in caliber. Thereare a few punctate calcified granulomas. No suspicious pulmonary nodule ormass. No pleural effusion or pneumothorax. Linear band of scarring or atelectasisin the lingula. Mediastinum/jose: No mass. Stable small right hilar lymph nodes. Pulmonary vasculature: Normal caliber pulmonary arteries. Minimal atherosclerotic plaque of the aorta and great vessels. Cardiac: Mild--moderate coronary artery calcification. Normal heartsize. Chest wall: No mass or adenopathy. Limited abdomen: Stable approximately 5.8 x 3.6 cm low-attenuation lesionin the periphery of the right hepatic lobe. This is incompletelycharacterized without contrast. This demonstrates features consistent with a hemangiomaon abdominal CT dated 03/21/2018. There is a stable tiny mildlyhyperattenuating nodule projecting medially from the upper interpolar left renal cortex,probably a small hemorrhagic cyst. Stable mild diffuse thickening of the rightadrenal gland. Bones: Mild degenerative changes of the glenohumeral joints. Moderate degenerative changes of the left AC joint. Mild degenerative changes ofthe spine. IMPRESSION: 1. No suspicious pulmonary nodule. A few calcified granulomas arenoted. Lung RADS 2. 2. Previously noted small right hilar lymph nodes are unchanged. Dictating Physician: MEDARDO NICHOLE MD Electronically Signed by: MEDARDO NICHOLE MD Dic Date/Time: 06/26/23 1643 Sign date/Time: 06/26/23 1652 Result [facility] Patrick Pantoja MD IMG CT PROCEDURES Final Result * HIV Screening (11/05/2007) Pathologist [facility] [place] HIV Screening abstracted Result [facility] Historical Provider HEALTH MAINTENANCE Final Result * (ABNORMAL) Lipid panel (11/05/2007) LDL/HDL Ratio 6(A) 0 - 4 Triglycerides 390(A) 0 - 150 mg/dL Cholesterol 193 0 - 200 mg/dL HDL 35(A) >=40 mg/dL LDL Cholesterol 80 0 - 100 mg/dL Blood Venous blood specimen / Unknown Historical Provider LAB BLOOD ORDERABLES Alexandra l Result from Last 3 Months or Most Recently Relevant to Health Maintenance Insurance [employer] MEDICARE Member Subscriber Plan / Payer (Ef fective 2020-Present) Name:Jan Huertas Relation to Subscriber:Self Name:Jan Huertas Payer ID:[id number] Group ID:[id number] Type:Not on file Address: [address] [place] [id number] Care Teams Desulfurizer Operator Relationship Specialty Start Date End Date Vickie Flores MD [address] [place] [id number] PCP - General Internal Medicine 06/26/24
--- OUTSIDE RECORDS SUMMARY | 2024-08-27 09:20 | XMS_ITS ---
Author Organization [facility] Address [address] [place] [address] Care Team Providers Care Business Intelligence Etl Developer Name Role Phone LUX HOOD Primary Care Provider JERSEY SHARMA Unavailable [phone] ALLERGIES No Known Allergies REASON FOR VISIT Pt seen in office for MWV. MEDICATIONS Medication SIG (Take, Route, Frequency, Duration) Notes Start Date End Date Status Mounjaro 2.5 MG/0.5ML 2.5mg Subcutaneous weekly for 30 days Active Pregabalin 75 MG 1 capsule Orally Twi ce a day for 30 days Active Nicotine 14 MG/24HR 1 patch to skin Burciaga sdermal Once a day for 30 day(s) Active clonazePAM 0.5 MG Oral for 30 Active Breo Ellipta 100-25 MCG/ACT INHALE 1 PUFF INTO THE LUNGS DAILY FOR 30 DAYS. Inhalation for 30 Active traMADol HCl 50 MG 1 tablet as needed O rally twice a day for 30 days Active Meloxicam 7.5 MG TAKE 1 TABLET BY VIKI TH EVERY DAY for 30 Active SOCIAL HISTORY Tobacco Use: Social History Observation Description Date Details (start date - stop date) Former Smoker NA - NA Sex Assigned At : Social History Observation Description Sex Assigned At Unknown Tobacco Use/Smoking Question Answer Notes Are you a former smoker Section Notes: Quit abotu 1 week ago 12/2020 about 1 1/2 a day started at the age of 11 PROBLEMS Problem Type ICD Code Onset Dates Problem Status W/U Status Risk SNOMED Code Notes Problem Cervicalgia (M54.2) Active confirmed Cervicalgia (37187138) VITAL SIGNS Blood pressure systolic 132 mm Hg 03/22/20 24 Blood pressure diastolic 86 mm Hg 024 Heart Rate 83 /min 03/22/2024 Height 70 in 03/22/2024 Weight 238 lbs 03/22/2024 BMI 34.15 kg/m2 03/22/2024 Oximetry 93 % 03/22/2024 Encounters Encounter Location Date Provider Diagnosis [facility] [address] [facility] [address] [place] [address] 03/22/2024 JERSEY ZACHARY Encounter for genera l adult medical examination without abnormal findings Z00.00 ; Encounter for screening for other disorder Z13.89 ; Encounter for screening for depression Z13.31 ; Prediabetes R73.03 ; Primary osteoarthritis of right knee M17.11 ; Chronic pain syndrome G89.4 ; Cervicalgia M54.2 ; Lumbar radiculopathy M54.16 ; Hyperlipidemia, unspecified E78.5 and Type 2 diabetes mellitus without complications E11.9 ASSESSMENTS Encounter Date Diagnosis Assessment Notes Treatment Notes Treatment Clinical Notes Section Notes 03/22/2024 Encounter for general adult medical examination without abnormal findings (ICD-10 - Z00.00) Acute Concerns/Problem List: 03/22/2024 VALDEZ MOLST/HCP Discussed and Filed Request records from [facility] neurosurgery and pain management, As well as cardiology [facility] Prescription monitoring program reviewed Including controlled [...] software and direct typing Please excuse inadvertent pens and pencils dipper or typing errors, or uncorrected word substitutions Although every attempt has been made by the provider to proofread this document, occasional misspellings and typographical errors may still be present Due to the previous pandemic, and the use of personal protective equipment (PPE) This may decrease voice recognition accuracy Inadvertent pens and pencils dipper errors may occur 03/22/2024 Encounter for screening for other disorder (ICD-10 - Z13.89) Acute Concerns/Problem List: 03/22/2024 MAWPaula MOLST/HCP Discussed and Filed Request records from [facility] neurosurgery and pain management, As well as cardiology [facility] Prescription monitoring program reviewed Including controlled [...] software and direct typing Please excuse inadvertent pens and pencils dipper or typing errors, or uncorrected word substitutions Although every attempt has been made by the provider to proofread this document, occasional misspellings and typographical errors may still be present Due to the previous pandemic, and the use of personal protective equipment (PPE) This may decrease voice recognition accuracy Inadvertent pens and pencils dipper errors may occur 03/22/2024 Encounter for screening for depression (ICD-10 - Z13.31) Acute Concerns/Problem List: 03/22/2024 MAWV MOLST/HCP Discussed and Filed Request records from [facility] neurosurgery and pain management, As well as cardiology [facility] Prescription monitoring program reviewed Including controlled [...] software and direct typing Please excuse inadvertent pens and pencils dipper or typing errors, or uncorrected word substitutions Although every attempt has been made by the provider to proofread this document, occasional misspellings and typographical errors may still be present Due to the previous pandemic, and the use of personal protective equipment (PPE) This may decrease voice recognition accuracy Inadvertent pens and pencils dipper errors may occur 03/22/2024 Prediabetes (ICD-10 - R73.03) Acute Concerns/Problem List: 03/22/2024 MAWV MOLST/HCP Discussed and Filed Request records from [facility] neurosurgery and pain management, As well as cardiology [facility] Prescription monitoring program reviewed Including controlled [...] software and direct typing Please excuse inadvertent pens and pencils dipper or typing errors, or uncorrected word substitutions Although every attempt has been made by the provider to proofread this document, occasional misspellings and typographical errors may still be present Due to the previous pandemic, and the use of personal protective equipment (PPE) This may decrease voice recognition accuracy Inadvertent pens and pencils dipper errors may occur 03/22/2024 Primary osteoarthritis of right knee (ICD-10 - M17.11) Acute Concerns/Problem List: 03/22/2024 MAWV MOLST/HCP Discussed and Filed Request records from [facility] neurosurgery and pain management, As well as cardiology [facility] Prescription monitoring program reviewed Including controlled [...] software and direct typing Please excuse inadvertent pens and pencils dipper or typing errors, or uncorrected word substitutions Although every attempt has been made by the provider to proofread this document, occasional misspellings and typographical errors may still be present Due to the previous pandemic, and the use of personal protective equipment (PPE) This may decrease voice recognition accuracy Inadvertent pens and pencils dipper errors may occur 03/22/2024 Chronic pain syndrome (ICD-10 - G89.4) Acute Concerns/Problem List: 03/22/2024 MAWV MOLST/HCP Discussed and Filed Request records from [facility] neurosurgery and pain management, As well as cardiology [facility] Prescription monitoring program reviewed Including controlled [...] software and direct typing Please excuse inadvertent pens and pencils dipper or typing errors, or uncorrected word substitutions Although every attempt has been made by the provider to proofread this document, occasional misspellings and typographical errors may still be present Due to the previous pandemic, and the use of personal protective equipment (PPE) This may decrease voice recognition accuracy Inadvertent pens and pencils dipper errors may occur 03/22/2024 Cervicalgia (ICD-10 - M54.2) Acute Concerns/Problem List: 03/22/2024 NDWV MOLST/HCP Discussed and Filed Request records from [facility] neurosurgery and pain management, As well as cardiology [facility] Prescription monitoring program reviewed Including controlled [...] software and direct typing Please excuse inadvertent pens and pencils dipper or typing errors, or uncorrected word substitutions Although every attempt has been made by the provider to proofread this document, occasional misspellings and typographical errors may still be present Due to the previous pandemic, and the use of personal protective equipment (PPE) This may decrease voice recognition accuracy Inadvertent pens and pencils dipper errors may occur 03/22/2024 Lumbar radiculopathy (ICD-10 - M54.16) Acute Concerns/Problem List: 03/22/2024 [facility] MOLST/HCP Discussed and Filed Request records from [facility] neurosurgery and pain management, As well as cardiology [facility] Prescription monitoring program reviewed Including controlled [...] software and direct typing Please excuse inadvertent pens and pencils dipper or typing errors, or uncorrected word substitutions Although every attempt has been made by the provider to proofread this document, occasional misspellings and typographical errors may still be present Due to the previous pandemic, and the use of personal protective equipment (PPE) This may decrease voice recognition accuracy Inadvertent pens and pencils dipper errors may occur 03/22/2024 Hyperlipidemia, unspecified (ICD-10 - E78.5) Acute Concerns/Problem List: 03/22/2024 MAWV MOLST/HCP Discussed and Filed Request records from [facility] neurosurgery and pain management, As well as cardiology [facility] Prescription monitoring program reviewed Including controlled [...] software and direct typing Please excuse inadvertent pens and pencils dipper or typing errors, or uncorrected word substitutions Although every attempt has been made by the provider to proofread this document, occasional misspellings and typographical errors may still be present Due to the previous pandemic, and the use of personal protective equipment (PPE) This may decrease voice recognition accuracy Inadvertent pens and pencils dipper errors may occur 03/22/2024 Type 2 diabetes mellitus without complications (ICD-10 - E11.9) Acute Concerns/Problem List: 03/22/2024 MAWV MOLST/HCP Discussed and Filed Request records from [facility] neurosurgery and pain management, As well as cardiology [facility] Prescription monitoring program reviewed Including controlled [...] software and direct typing Please excuse inadvertent pens and pencils dipper or typing errors, or uncorrected word substitutions Although every attempt has been made by the provider to proofread this document, occasional misspellings and typographical errors may still be present Due to the previous pandemic, and the use of personal protective equipment (PPE) This may decrease voice recognition accuracy Inadvertent pens and pencils dipper errors may occur PLAN OF TREATMENT Medication Medication Name Sig Start Date Stop Date Notes Mounjaro 2.5 MG/0.5ML 2.5mg Subcutaneous weekly for 30 days Pregabalin 75 MG 1 capsule Orally Twi ce a day for 30 days Nicotine 14 MG/24HR 1 patch to skin Burciaga sdermal Once a day for 30 day(s) traMADol HCl 50 MG 1 tablet as needed O rally twice a day for 30 days Next Appt Details Provider Name:JERSEY SHARMA, 03/20/2025 03:15:00 PM, [address] [facility], [facility] [address], [place], [address], Progress Notes * JAN RICH ADOB:1970 (53 yo M)Acc No.[id number]:03/22/2024 Progress Note Patient:??JAN RICH A Provider:??JERSEY SHARMA NP :1970?Age:53 Y?Sex:Russ le Date:03/22/2024 Address:[address] [place] [id number] Pcp:LUX HOOD Subjective: * Chief Complaints: * ?1. Pt seen in office f or MWV.. * HPI: ?Constitutional:? Patient is here for a Medicare wellness visit. ?Complete paperwork was reviewed and updated and has been filed and scan. ?Age appropriate screening measures reviewed ?Depression screen completed. ?Alcohol audit screening completed. ?Obesity screen completed. ? Cardiovascular risk stratification screen completed. ?Cognition assessed ?Fall risk assessed ?Discussed healthcare proxy. ?Discussed [place] order for life sustaining treatment, ?Comprehensive fasting labs reviewed ?Patient seen and examined. ? Full past medical history, social history, family history, ?allergies and current medications were reviewed and updated. ?Acute Concerns/Problem List: ?03/22/2024 ?MOLST/HCP Discussed and Filed ?trying to incr activity, eat electrode cleaner, did lose some weight ?Patient with [...] Neurosurgery, Yudelka, may need surgery ?now @ [facility] pain [facility]t, theyre discussing nerve ablation [...] @ [facility] ? will request records from [facility] ?Sees implementation consultant Dr. Hoover, low-dose CT scheduled, has quit smoking ?He denies fever, chills, lightheadness, numbbness, ?weakness, changes in bowel and bladder function. 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 * ROS:?All Other Systems:?Review of Systems (ROS)??All others negative except those mentioned in HPI.? * Medical History:??Copd, Anxi ety, Depression, Sleep apnea. * Surgical History:??hand surg masoud . * Hospitalization/Major Diagno stic Procedure:??Denies Past Hospitalization. * Family History:??Father: norma chairez.??Mother: , Kidney failure,, diagnosed with Unspecified nonpsychotic mental disorder following organic brain damage.??3 brother(s) . 1 son(s) , 1 daughter(s) - healthy. .?? * Social History:?Tobacco Use:??Tobacco Use/Smoking??Are you a??former smoker.?Quit abotu 1 week ago 12/2020 about 1 1/2 a day started at the age of 11. * Medications:??Taking Pregaba timothy 75 MG Capsule 1 capsule Orally Twice a day , Taking Breo Ellipta 100-25 MCG/ACT Aerosol Powder Breath Activated INHALE 1 PUFF INTO THE LUNGS DAILY FOR 30 DAYS. Inhalation , Taking clonazePAM 0.5 MG Tablet Oral , Taking Meloxicam 7.5 MG Tablet TAKE 1 TABLET BY MOUTH EVERY DAY , Not-Taking traMADol HCl 50 MG Tablet 1 tablet as needed Orally twice a day , Not-Taking Mounjaro 2.5 MG/0.5ML Solution Pen-injector 2.5mg Subcutaneous weekly , Discontinued Nicotine 14 MG/24HR Patch 24 Hour 1 patch to skin Transdermal Once a day , Discontinued Gabapentin 400 MG Capsule 1 capsule Orally Once a day , Medication List reviewed and reconciled with the patient * Allergies:??N.K.D.A. Objective: * Vitals:??HR:83/min, BP:132/8 6mm Hg, Wt:238lbs, BMI:34.15Index, Ht: 70 in, Oxygen sat %:93%. * Examination: ?General Examination: ?GENERAL APPEARANCE:??in no [...] extremities, sensory exam intact.? Assessment: * Assessment: 1.??Encounter for general ad ult medical examination without abnormal findings - Z00.00 (Primary)??2.??Encounter for screening for other disorder - Z13.89??3.??Encounter for screening for depression - Z13.31??4.??Prediabetes - R73.03??5.??Primary osteoarthritis of right knee - M17.11??6.??Chronic pain syndrome - G89.4??7.??Cervicalgia - M54.2??8.??Lumbar radiculopathy - M54.16??9.??Hyperlipidemia, unspecified - E78.5??10.??Type 2 diabetes mellitus without complications - E11.9?? Acute Concerns/Problem List: 03/22/2024 MAWV MOLST/HCP Discussed and Filed Request records from [facility] neurosurgery and pain management, As well as cardiology [facility] Prescription monitoring program reviewed Including controlled [...] software and direct typing Please excuse inadvertent pens and pencils dipper or typing errors, or uncorrected word substitutions Although every attempt has been made by the provider to proofread this document, occasional misspellings and typographical errors may still be present Due to the previous pandemic, and the use of personal protective equipment (PPE) This may decrease voice recognition accuracy Inadvertent pens and pencils dipper errors may occur. Plan: * Treatment: 2.??Primary osteoarthritis o f right knee?? Start traMADol HCl Tablet, 50 MG, 1 tablet as needed, Orally, twice a day, 30 days, 60 Tablet, Refills 1.? * Procedure Codes:??G0439 ORALIA AL WELLNESS VST; PPS SUBSQT VST, G0442 ANNUAL ALCOHOL MISUSE SCREEN 15 MIN, Modifiers: 59 , G0444 ANNUAL DEPRESSION SCREENING 15 MIN, Modifiers: 59 , [id number] ADVNCD CARE PLAN 30 MIN, Modifiers: 33 * Images: Billing Information: * Visit Code:?? * Procedure Codes:?? G0439 ANNUAL WELLNESS VST; PPS SUBSQT VST. G0442 ANNUAL ALCOHOL MISUSE SCREEN 15 MIN. Modifiers: 59 G0444 ANNUAL DEPRESSION SCREENING 15 MIN. Modifiers: 59 [id number] ADVNCD CARE PLAN 30 MIN. Modifiers: 33 Care Plan Details* * Sign off status: Completed true * Provider:??JERSEY SHARMA NP Date:??03/05 History and Physical Notes * HPI (History of Present Illness) Category Sub-Category Detail Notes Category Not es Constitutional Patient is here for a Medicare wellness visit. Complete paperwork was reviewed and updated and has been filed and scan. Age appropriate screening measures reviewed Depression screen completed. Alcohol audit screening completed. Obesity screen completed. Cardiovascular risk stratification screen completed. Cognition assessed Fall risk assessed Discussed healthcare proxy. Discussed [place] order for life sustaining treatment, Comprehensive fasting labs reviewed Patient seen and examined. Full past medical history, social history, family history, allergies and current medications were reviewed and updated. Acute Concerns/Problem List: 03/22/2024 MOLST/HCP Discussed and Filed trying to incr activity, eat electrode cleaner, did lose some weight Patient with past medical history of COPD, anxiety, depression, ans sleep apnea , presents today for worsening back pain, worsening anxiety and depression. Patient states he was seen by an orthopedics surgeon about 10 years ago and was told that he has 7 hernitated disc through out his spine. he sees Neurosurgery, Yudelka, may need surgery now @ [facility] pain [facility], theyre discussing nerve ablation [...] he finally went, and was unremarkable @ [facility] will request records from [facility] Sees implementation consultant Dr. Hoover, low-dose CT scheduled, has quit smoking He denies fever, chills, lightheadness, numbbness, weakness, changes in bowel and bladder function. 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
--- OUTSIDE RECORDS SUMMARY | 2024-08-27 09:21 | XMS_ITS ---
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 MEDICATIONS Medication SIG (Take, Route, Frequency, Duration) Notes Start Date End Date Status traMADol HCl 50 MG 1 tablet as needed O rally twice a day for 30 days Active Nicotine 14 MG/24HR 1 patch to skin Burciaga sdermal Once a day for 30 day(s) Active clonazePAM 0.5 MG Oral for 30 Active Breo Ellipta 100-25 MCG/ACT INHALE 1 PUFF INTO THE LUNGS DAILY FOR 30 DAYS. Inhalation for 30 Active Pregabalin 75 MG 1 capsule Orally Twi ce a day for 30 days Active Mounjaro 2.5 MG/0.5ML 2.5mg Subcutaneous weekly for 30 days Active SOCIAL HISTORY Tobacco Use: Social History Observation Description Date Details (start date - stop date) Former Smoker NA - NA Sex Assigned At : Social History Observation Description Sex Assigned At Unknown Tobacco Use/Smoking Question Answer Notes Are you a former smoker Section Notes: Quit abotu 1 week ago 12/2020 about 1 1/2 a day started at the age of 11 VITAL SIGNS Blood pressure systolic 142 mm Hg 08/21/19 25 Blood pressure diastolic 70 mm Hg 025 Heart Rate 91 /min 08/20/2024 Height 70 in 08/20/2024 Weight 246 lbs 08/20/2024 BMI 35.29 kg/m2 08/20/2024 Oximetry 96 % 08/20/2024 Encounters Encounter Location Date Provider Diagnosis [address] [address] [facility] [address] [place] [address] 08/20/2024 JERSEY SHARMA Prediabetes R73.03 ; Primary osteoarthritis of right knee M17.11 ; Chronic pain syndrome G89.4 ; Cervicalgia M54.2 ; Lumbar radiculopathy M54.16 ; Hyperlipidemia, unspecified E78.5 and Type 2 diabetes mellitus without complications E11.9 ASSESSMENTS Encounter Date Diagnosis Assessment Notes Treatment Notes Treatment Clinical Notes Section Notes 08/20/2024 Prediabetes (ICD-10 - R73.03) Acute Concerns/Problem List: 08/20/2024 _update labs Paperwork for DRY PAN CHARGER completed. He will follow with appropriate specialists. [facility] Prescription monitoring program reviewed Including controlled substances prescriptive history, male patient with chronic pain syndrome as mentioned above Paper work for kacey for chronic disability and difficulty ambulation Of note, some information is being carried forward from prior records for informational purposes only and is being cited so that efficiency, safety and quality of the patient's care is not compromised This note was prepared using voice recognition software and direct typing Please excuse inadvertent sanitary aide or typing errors, or uncorrected word substitutions Although every attempt has been made by the provider to proofread this document, occasional misspellings and typographical errors may still be present Due to the previous pandemic, and the use of personal protective equipment (PPE) This may decrease voice recognition accuracy Inadvertent sanitary aide errors may occur 08/20/2024 Primary osteoarthritis of right knee (ICD-10 - M17.11) Acute Concerns/Problem List: 08/20/2024 _update labs Paperwork for DRY PAN CHARGER completed. He will follow with appropriate specialists. [facility] Prescription monitoring program reviewed Including controlled substances prescriptive history, male patient with chronic pain syndrome as mentioned above Paper work for kacey for chronic disability and difficulty ambulation Of note, some information is being carried forward from prior records for informational purposes only and is being cited so that efficiency, safety and quality of the patient's care is not compromised This note was prepared using voice recognition software and direct typing Please excuse inadvertent sanitary aide or typing errors, or uncorrected word substitutions Although every attempt has been made by the provider to proofread this document, occasional misspellings and typographical errors may still be present Due to the previous pandemic, and the use of personal protective equipment (PPE) This may decrease voice recognition accuracy Inadvertent sanitary aide errors may occur 08/20/2024 Chronic pain syndrome (ICD-10 - G89.4) Acute Concerns/Problem List: 08/20/2024 _update labs Paperwork for DRY PAN CHARGER completed. He will follow with appropriate specialists. [facility] Prescription monitoring program reviewed Including controlled substances prescriptive history, male patient with chronic pain syndrome as mentioned above Paper work for kacey for chronic disability and difficulty ambulation Of note, some information is being carried forward from prior records for informational purposes only and is being cited so that efficiency, safety and quality of the patient's care is not compromised This note was prepared using voice recognition software and direct typing Please excuse inadvertent sanitary aide or typing errors, or uncorrected word substitutions Although every attempt has been made by the provider to proofread this document, occasional misspellings and typographical errors may still be present Due to the previous pandemic, and the use of personal protective equipment (PPE) This may decrease voice recognition accuracy Inadvertent sanitary aide errors may occur 08/20/2024 Cervicalgia (ICD-10 - M54.2) Acute Concerns/Problem List: 08/20/2024 _update labs Paperwork for DRY PAN CHARGER completed. He will follow with appropriate specialists. [facility] Prescription monitoring program reviewed Including controlled substances prescriptive history, male patient with chronic pain syndrome as mentioned above Paper work for kacey for chronic disability and difficulty ambulation Of note, some information is being carried forward from prior records for informational purposes only and is being cited so that efficiency, safety and quality of the patient's care is not compromised This note was prepared using voice recognition software and direct typing Please excuse inadvertent sanitary aide or typing errors, or uncorrected word substitutions Although every attempt has been made by the provider to proofread this document, occasional misspellings and typographical errors may still be present Due to the previous pandemic, and the use of personal protective equipment (PPE) This may decrease voice recognition accuracy Inadvertent sanitary aide errors may occur 08/20/2024 Lumbar radiculopathy (ICD-10 - M54.16) Acute Concerns/Problem List: 08/20/2024 _update labs Paperwork for DRY PAN CHARGER completed. He will follow with appropriate specialists. [facility] Prescription monitoring program reviewed Including controlled substances prescriptive history, male patient with chronic pain syndrome as mentioned above Paper work for kacey for chronic disability and difficulty ambulation Of note, some information is being carried forward from prior records for informational purposes only and is being cited so that efficiency, safety and quality of the patient's care is not compromised This note was prepared using voice recognition software and direct typing Please excuse inadvertent sanitary aide or typing errors, or uncorrected word substitutions Although every attempt has been made by the provider to proofread this document, occasional misspellings and typographical errors may still be present Due to the previous pandemic, and the use of personal protective equipment (PPE) This may decrease voice recognition accuracy Inadvertent sanitary aide errors may occur 08/20/2024 Hyperlipidemia, unspecified (ICD-10 - E78.5) Acute Concerns/Problem List: 08/20/2024 _update labs Paperwork for DRY PAN CHARGER completed. He will follow with appropriate specialists. [facility] Prescription monitoring program reviewed Including controlled substances prescriptive history, male patient with chronic pain syndrome as mentioned above Paper work for placard for chronic disability and difficulty ambulation Of note, some information is being carried forward from prior records for informational purposes only and is being cited so that efficiency, safety and quality of the patient's care is not compromised This note was prepared using voice recognition software and direct typing Please excuse inadvertent sanitary aide or typing errors, or uncorrected word substitutions Although every attempt has been made by the provider to proofread this document, occasional misspellings and typographical errors may still be present Due to the previous pandemic, and the use of personal protective equipment (PPE) This may decrease voice recognition accuracy Inadvertent sanitary aide errors may occur 08/20/2024 Type 2 diabetes mellitus without complications (ICD-10 - E11.9) Acute Concerns/Problem List: 08/20/2024 _update labs Paperwork for DRY PAN CHARGER completed. He will follow with appropriate specialists. [facility] Prescription monitoring program reviewed Including controlled substances prescriptive history, male patient with chronic pain syndrome as mentioned above Paper work for placard for chronic disability and difficulty ambulation Of note, some information is being carried forward from prior records for informational purposes only and is being cited so that efficiency, safety and quality of the patient's care is not compromised This note was prepared using voice recognition software and direct typing Please excuse inadvertent sanitary aide or typing errors, or uncorrected word substitutions Although every attempt has been made by the provider to proofread this document, occasional misspellings and typographical errors may still be present Due to the previous pandemic, and the use of personal protective equipment (PPE) This may decrease voice recognition accuracy Inadvertent sanitary aide errors may occur PLAN OF TREATMENT Medication Medication Name Sig Start Date Stop Date Notes traMADol HCl 50 MG 1 tablet as needed O rally twice a day for 30 days Nicotine 14 MG/24HR 1 patch to skin Burciaga sdermal Once a day for 30 day(s) Pregabalin 75 MG 1 capsule Orally Twi ce a day for 30 days Mounjaro 2.5 MG/0.5ML 2.5mg Subcutaneous weekly for 30 days Pending Test Test Name Order Date LIPID PANEL, STANDARD 08/20/2024 COMPREHENSIVE METABOLIC PANEL 08/20/2024 CBC (INCLUDES DIFF/PLT) 08/20/2024 URINALYSIS, COMPLETE 08/20/2024 HEMOGLOBIN A1c 08/20/2024 PSA (FREE AND TOTAL) 08/20/2024 TSH W/REFLEX TO FT4 08/20/2024 VITAMIN D,25-OH,TOTAL,IA 08/20/2024 Next Appt Details Provider Name:JERSEY SHARMA, 03/20/2025 03:15:00 PM, [address] [place] [address], [facility] [address], [place], [address], Progress Notes * JAN RICH ADOB:1970 (53 yo M)Acc No.[id number]:08/20/2024 Progress Notes Patient:??JAN RICH Provider:??JERSEY SHARMA NP :1970?Age:53 Y?Sex:Ma le Date:08/20/2024 Address:[address] [place], [place] [id number] Pcp:LUX HOOD Subjective: * Chief Complaints: * ?1. Pt here for follow up, pt states he is just always in a lot of pain.. * HPI: ?Constitutional:? Patient is here for Chronic Disease Management follow-up visit ?Patient seen and examined. ? Full past medical history, social history, family history, ?allergies and current medications were reviewed and updated. ?Acute Concerns/Problem List: ?08/20/2024 ?Patient with past medical history of COPD, anxiety, depression, and sleep apnea , ?Following pain management at [facility]. ?Has DRY PAN CHARGER that comes to the house. ?He really appreciates the help around the house. ?Fell a few months ago, on left shoulder. ?DId not have DRY PAN CHARGER that day. ?Was able to get up, has had full ROM since then. ?Has some residual pain. ?[employer] Dr. Hoover told him to get another LDCT scan. ?To follow up on nodules found on past scans. ?He is concerned about radiation and would like to go every two years. ?Discussed he should speak with [employer]. ?Off and on smoking history. Not smoking for last three years. ?Had some bleeding per rectum following Meloxicam. ?Was taking it on an empty stomach. ?Now taking with food, GI SE have resolved. ?Was scheduled for Colonoscopy. ?was unable to go to appointment due to low back pain. ?History of negative cologuard. ?Spinal Stenosis ?diagnosis made on MRI, causing lower extremity pain. ?Having improvement ?L1 and L5, has been causing lower extremity pain. ?Has had some resolved pain in hips with cortisone Shots. ?Patient states he was seen by an orthopedics surgeon about 10 years ago ? and was told that he has 7 hernitated disc through out his spine. ?he sees Neurosurgery, [place], may need surgery ?now @ [facility] pain mgt, theyre discussing nerve ablation ?Seeing [facility] ?Recently underwent interlaminar epidural steroid injection L2-3 ?now on pregabalin/Acetaminophen, no longer on gabapentin, acetaminophen ?has been trying to stay away from NSAIDS ?He states that he is not able to perform his ADLs such as cooking, showering without help. ?Patient reports depression and anxiety. ? psych BHN- on abilify ?He saw his neurologist, is now on CPAP compliant therapy ?Has had intermittent chest discomfort with feelings of fluttering and palpitation ?he was send for cardiac stress testing, he finally went, and was unremarkable @ [facility] ? will request records from [facility] ?He denies fever, chills, lightheadness, numbbness, ?weakness, changes in bowel and bladder function. 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 ?Flu- defers at this time ?Shingles - defers at this time ?Colorectal did have consult screening, to [facility] @ [facility]. * ROS:?All Other Systems:?Review of Systems (ROS)??All others negative except those mentioned in HPI.? * Medical History:??Copd, Anxi ety, Depression, Sleep apnea. * Surgical History:??hand surg masoud . * Family History:??Father: ali ve.??Mother: , Kidney failure,, diagnosed with Unspecified nonpsychotic mental disorder following organic brain damage.??3 brother(s) . 1 son(s) , 1 daughter(s) - healthy. .?? * Social History:?Tobacco Use:??Tobacco Use/Smoking??Are you a??former smoker.?Quit abotu 1 week ago 12/2020 about 1 1/2 a day started at the age of 11. * Medications:??Taking traMADo l HCl 50 MG Tablet 1 tablet as needed Orally twice a day , Taking Pregabalin 75 MG Capsule 1 capsule Orally Twice a day , Taking Breo Ellipta 100-25 MCG/ACT Aerosol Powder Breath Activated INHALE 1 PUFF INTO THE LUNGS DAILY FOR 30 DAYS. Inhalation , Taking clonazePAM 0.5 MG Tablet Oral , Discontinued Nicotine 14 MG/24HR Patch 24 Hour 1 patch to skin Transdermal Once a day , Discontinued Mounjaro 2.5 MG/0.5ML Solution Pen-injector 2.5mg Subcutaneous weekly , Discontinued Meloxicam 7.5 MG Tablet TAKE 1 TABLET BY MOUTH EVERY DAY , Medication List reviewed and reconciled with the patient * Allergies:??N.K.D.A. Objective: * Vitals:??HR:91/min, BP:142/7 0mm Hg, Wt:246lbs, BMI:35.29Index, Ht: 70 in, Oxygen sat %:96%. * Examination: ?General Examination: ?GENERAL APPEARANCE:??in no [...] without complications - E11.9?? Acute Concerns/Problem List: 08/20/2024 _update labs Paperwork for DRY PAN CHARGER completed. He will follow with appropriate specialists. [place] [facility] [place] Prescription monitoring program reviewed Including controlled substances prescriptive history, male patient with chronic pain syndrome as mentioned above Paper work for faizanflorentino for chronic disability and difficulty ambulation Of note, some information is being carried forward from prior records for informational purposes only and is being cited so that efficiency, safety and quality of the patient's care is not compromised This note was prepared using voice recognition software and direct typing Please excuse inadvertent sanitary aide or typing errors, or uncorrected word substitutions Although every attempt has been made by the provider to proofread this document, occasional misspellings and typographical errors may still be present Due to the previous pandemic, and the use of personal protective equipment (PPE) This may decrease voice recognition accuracy Inadvertent sanitary aide errors may occur. Plan: * Treatment: 2.??Primary osteoarthritis o f right knee?? Start traMADol HCl Tablet, 50 MG, 1 tablet as needed, Orally, twice a day, 30 days, 60 Tablet, Refills 1.? * Labs:?? * ?Lab: HEMOGLOBIN A1 c ?Lab: PSA (FREE AND TOTAL) ?Lab: VITAMIN D,25- [place],TOTAL,IA ?Lab: URINALYSIS, C OMPLETE ?Lab: COMPREHENSIVE METABOLIC PANEL ?Lab: CBC (INCLUDES DIFF/PLT) ?Lab: TSH W/REFLEX TO FT4 ?Lab: LIPID PANEL, STANDARD * Images: Billing Information: * Visit Code:?? 95821 Office Visit, Est Pt., Level 4. Modifiers: 25, SA * Procedure Codes:?? Care Plan Details* * Sign off status: Completed true * Provider:??JERSEY SHARMA NP Date:??08/03 History and Physical Notes * HPI (History of Present Illness) Category Sub-Category Detail Notes Category Not es Constitutional Patient is here for Chronic Disease Management follow-up visit Patient seen and examined. Full past medical history, social history, family history, allergies and current medications were reviewed and updated. Acute Concerns/Problem List: 08/20/2024 Patient with past medical history of COPD, anxiety, depression, and sleep apnea , Following pain management at [facility]. Has DRY PAN CHARGER that comes to the house. He really appreciates the help around the house. Fell a few months ago, on left shoulder. DId not have DRY PAN CHARGER that day. Was able to get up, has had full ROM since then. Has some residual pain. [employer] Dr. Hoover told him to get another LDCT scan. To follow up on nodules found on past scans. He is concerned about radiation and would like to go every two years. Discussed he should speak with [employer]. Off and on smoking history. Not smoking for last three years. Had some bleeding per rectum following Meloxicam. Was taking it on an empty stomach. Now taking with food, GI SE have resolved. Was scheduled for Colonoscopy. was unable to go to appointment due to low back pain. History of negative cologuard. Spinal Stenosis diagnosis made on MRI, causing lower extremity pain. Having improvement L1 and L5, has been causing lower extremity pain. Has had some resolved pain in hips with cortisone Shots. Patient states he was seen by an orthopedics surgeon about 10 years ago and was told that he has 7 hernitated disc through out his spine. he sees Neurosurgery, [place], may need surgery now @ [facility] pain mgt, theyre discussing nerve ablation Seeing [facility] Recently underwent interlaminar epidural steroid injection L2-3 now on pregabalin/Acetaminophen, no longer on gabapentin, acetaminophen has been trying to stay away from NSAIDS He states that he is not able to perform his ADLs such as cooking, showering without help. Patient reports depression and anxiety. psych BHN- on abilify He saw his neurologist, is now on CPAP compliant therapy Has had intermittent chest discomfort with feelings of fluttering and palpitation he was send for cardiac stress testing, he finally went, and was unremarkable @ [facility] will request records from [facility] He denies fever, chills, lightheadness, numbbness, weakness, changes in bowel and bladder function. He has a full-time DRY PAN CHARGER Currently getting 41 hours/week of DRY PAN CHARGER services also awaiting rheumatology referall MOLST/HCP Discussed [...] MRNA Vax-x 2 PNA - Prevnar 05/16/23 discussed he is done with vax series. Flu- defers at this time Shingles - [...]
== END 2024-08-27 09:19 | disposition home or self-care (01) ==
LOC: HO.PMC 08:45
PROVIDERS: PCP Internal Medicine; Visit Provider Nurse Practitioner Family
DX: M48.061 Spinal stenosis, lumbar region without neurogenic claudication (principal); G89.4 Chronic pain syndrome; M54.16 Radiculopathy, lumbar region; M47.816 Spondylosis without myelopathy or radiculopathy, lumbar region; M25.561 Pain in right knee; M25.562 Pain in left knee
CPT/HCPCS: 99214; G2211

== ENCOUNTER → 2024-08-27 08:44 | Outpatient (BNVA) | payer OTHER, SELFPAY | PROVIDERS: PCP Internal Medicine; Visit Provider Nurse Practitioner Family | DX: M48.061 Spinal stenosis, lumbar region without neurogenic claudication (principal); M47.26 Other spondylosis with radiculopathy, lumbar region; G89.4 Chronic pain syndrome; M25.561 Pain in right knee; M25.562 Pain in left knee | CPT/HCPCS: 99212 ==

== ENCOUNTER 2024-10-22 06:05 | Outpatient (REF) | payer OTHER, SELFPAY ==
--- NOTE | ~2024-10-22 | FL_ITS ---
EXAMINATION: FL GUIDANCE ONLY HISTORY: M54.16 - Radiculopathy, lumbar region COMPARISON: None available. TECHNIQUE: Fluoroscopy time: 0.3 minutes. Cumulative Dose: 14.3 mGy. DAP: 0.214 mGym2 Images: 2. FINDINGS: AP and lateral fluoroscopic spot films of the lumbar spine demonstrate a needle in place. FL/FL guidance in treatment room IMPRESSION: Fluoroscopy during procedure. Please see procedure report for additional information. Electronically signed by: Chavez Galvan MD 10/22/2024 10:47 AM EDT
--- OUTSIDE RECORDS SUMMARY | 2024-10-22 06:06 | XMS_ITS ---
Author Organization [facility] Address [address] [place] [address] Care Team Providers Care Health Education Aide Name Role Phone LUX HOOD Primary Care Provider [phone] JERSEY SHARMA Unavailable [phone] Medications Medication SIG (Take, Route, Frequency, Duration) [...] Active Encounters Encounter Location Date Provider Diagnosis [place] [address] [address] 07/09/2024 JERSEY SHARMA Prediabetes R73.03 ; Primary osteoarthritis of right knee M17.11 ; Chronic pain syndrome G89.4 ; Cervicalgia M54.2 ; Lumbar radiculopathy M54.16 ; Hyperlipidemia, unspecified E78.5 and Type 2 diabetes mellitus without complications E11.9 Assessments Encounter Date Diagnosis (ICD Code) Assessment Notes Treatment Notes Treatment Clinical Notes Section Notes 07/09/2024 Prediabetes (ICD-10 - R73.03) Acute Concerns/Problem List: 07/09/2024 [facility] Prescription monitoring program reviewed Including [...] software and direct typing Please excuse inadvertent guard captain or typing errors, or uncorrected word substitutions Although every attempt has been made by the provider to proofread this document, occasional misspellings and typographical errors may still be present Due to the previous pandemic, and the use of personal protective equipment (PPE) This may decrease voice recognition accuracy Inadvertent guard captain errors may occur 07/09/2024 Primary osteoarthritis of right knee (ICD-10 - M17.11) Acute Concerns/Problem List: 07/09/2024 [facility] Prescription monitoring program reviewed Including [...] software and direct typing Please excuse inadvertent guard captain or typing errors, or uncorrected word substitutions Although every attempt has been made by the provider to proofread this document, occasional misspellings and typographical errors may still be present Due to the previous pandemic, and the use of personal protective equipment (PPE) This may decrease voice recognition accuracy Inadvertent guard captain errors may occur 07/09/2024 Chronic pain syndrome (ICD-10 - G89.4) Acute Concerns/Problem List: 07/09/2024 [facility] Prescription monitoring program reviewed Including [...] software and direct typing Please excuse inadvertent guard captain or typing errors, or uncorrected word substitutions Although every attempt has been made by the provider to proofread this document, occasional misspellings and typographical errors may still be present Due to the previous pandemic, and the use of personal protective equipment (PPE) This may decrease voice recognition accuracy Inadvertent guard captain errors may occur 07/09/2024 Cervicalgia (ICD-10 - M54.2) Acute Concerns/Problem List: 07/09/2024 [facility] Prescription monitoring program reviewed Including [...] software and direct typing Please excuse inadvertent guard captain or typing errors, or uncorrected word substitutions Although every attempt has been made by the provider to proofread this document, occasional misspellings and typographical errors may still be present Due to the previous pandemic, and the use of personal protective equipment (PPE) This may decrease voice recognition accuracy Inadvertent guard captain errors may occur 07/09/2024 Lumbar radiculopathy (ICD-10 - M54.16) Acute Concerns/Problem List: 07/09/2024 [facility] Prescription monitoring program reviewed Including [...] software and direct typing Please excuse inadvertent guard captain or typing errors, or uncorrected word substitutions Although every attempt has been made by the provider to proofread this document, occasional misspellings and typographical errors may still be present Due to the previous pandemic, and the use of personal protective equipment (PPE) This may decrease voice recognition accuracy Inadvertent guard captain errors may occur 07/09/2024 Hyperlipidemia, unspecified (ICD-10 - E78.5) Acute Concerns/Problem List: 07/09/2024 [facility] Prescription monitoring program reviewed Including [...] software and direct typing Please excuse inadvertent guard captain or typing errors, or uncorrected word substitutions Although every attempt has been made by the provider to proofread this document, occasional misspellings and typographical errors may still be present Due to the previous pandemic, and the use of personal protective equipment (PPE) This may decrease voice recognition accuracy Inadvertent guard captain errors may occur 07/09/2024 Type 2 diabetes mellitus without complications (ICD-10 - E11.9) Acute Concerns/Problem List: 07/09/2024 [facility] Prescription monitoring program reviewed Including [...] software and direct typing Please excuse inadvertent guard captain or typing errors, or uncorrected word substitutions Although every attempt has been made by the provider to proofread this document, occasional misspellings and typographical errors may still be present Due to the previous pandemic, and the use of personal protective equipment (PPE) This may decrease voice recognition accuracy Inadvertent guard captain errors may occur Plan Of Treatment Medication [...] Provider Name:JERSEY SHARMA, 03/20/2025 03:15:00 PM, [address] [facility], [facility], [place], [address], Progress Notes * JAN RICH ADOB:1970 (53 yo M)Acc No.[id number]:07/09/2024 Progress Notes Patient:?JAN RICH Provider:?JERSEY SHARMA NP :1970???Age:53 Y???Sex:Male [place] e:07/09/2024 Address:[address] [place], [place] [id number] Pcp:LUX HOOD Subjective: * Chief Complaints: * ??? * HPI: ???Constitutional:? Patient is here for Chronic Disease Management follow-up visit Patient seen and examined. Full past medical history, social history, family history, allergies and current medications were reviewed and updated. Acute Concerns/Problem List: 07/09/2024 trying to incr activity, eat lamp cleaner street light, did lose some weight Patient with past medical history of COPD, anxiety, depression, ans sleep apnea , presents today for worsening back pain, worsening anxiety and depression. Patient states he was seen by an orthopedics surgeon about 10 years ago and was told that he has 7 hernitated disc through out his spine. he sees Neurosurgery, Yudelka, may need surgery now @ [facility], theyre discussing nerve ablation [...] unremarkable @ PVC will request records from [facility] Sees branch associate Dr. Hoover, low-dose CT scheduled, has quit smoking He denies fever, chills, lightheadness, numbbness, weakness, changes in bowel and bladder function. 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 * ROS:?All Other Systems:?Review of Systems (ROS)?All others negative except those mentioned in HPI.? * Medical History:? * Medications:?Taking traMADol HCl 50 MG Tablet 1 tablet [...] TABLET BY MOUTH EVERY DAY Objective: * Vitals:? * Examination: ???General Examination: ?GENERAL APPEARANCE:?in no acute distress, well developed, well nourished.?HEAD:?normocephalic, atraumatic.?EYES:?pupils equal, round, reactive to light and accommodation.?EARS:?normal.?ORAL CAVITY:?mucosa moist.?THROAT:?clear.?NECK/THYROID:?neck supple, full range of motion, no cervical lymphadenopathy.?SKIN:?no suspicious lesions, warm and dry.?HEART:?no murmurs, regular rate and rhythm, S1, S2 normal.?LUNGS:?clear to auscultation bilaterally.?ABDOMEN:?normal, bowel sounds present, soft, nontender, nondistended.?EXTREMITIES:?no clubbing, cyanosis, or edema.?NEUROLOGIC:?nonfocal, motor strength normal upper and lower extremities, sensory exam intact.? Assessment: * Assessment: 1.?Prediabetes - R73.03???2. ?Primary osteoarthritis of right knee - M17.11???3.?Chronic pain syndrome - G89.4???4.?Cervicalgia - M54.2???5.?Lumbar radiculopathy - M54.16???6.?Hyperlipidemia, unspecified - E78.5???7.?Type 2 diabetes mellitus without complications - E11.9??? Acute Concerns/Problem List: 07/09/2024 [facility] Prescription monitoring program reviewed Including [...] software and direct typing Please excuse inadvertent guard captain or typing errors, or uncorrected word substitutions Although every attempt has been made by the provider to proofread this document, occasional misspellings and typographical errors may still be present Due to the previous pandemic, and the use of personal protective equipment (PPE) This may decrease voice recognition accuracy Inadvertent guard captain errors may occur. Plan: * Treatment: 2.?Primary osteoarthritis of right knee? Start traMADol HCl Tablet, 50 MG, 1 tablet as needed, Orally, twice a day, 30 days, 60 Tablet, Refills 1.?? * Procedure Codes:?36943 NO SH OW OFFICE VISIT * Billing Information: * Visit Code:? * Procedure Codes:? 79474 NO SHOW OFFICE VISIT. Care Plan Details* * Electronic signature of FAUSTINO SHARMA on 10/22/2024 at 06:06 AM EDT Sign off status: Pending * Provider:?JERSEY SHARMA NP Date:?2024 Generated for Jennifer rick/Bharathi/eTransmitting on:?10/22/2024 06:06 AM EDT History and Physical Notes * HPI (History of Present Illness) Category Sub-Category Detail Notes Category Not es Constitutional Patient is here for Chronic Disease Management follow-up visit Patient seen and examined. Full past medical history, social history, family history, allergies and current medications were reviewed and updated. Acute Concerns/Problem List: 07/09/2024 trying to incr activity, eat lamp cleaner street light, did lose some weight Patient with past medical history of COPD, anxiety, depression, ans sleep apnea , presents today for worsening back pain, worsening anxiety and depression. Patient states he was seen by an orthopedics surgeon about 10 years ago and was told that he has 7 hernitated disc through out his spine. he sees Neurosurgery, Yudelka, may need surgery now @ [facility], theyre discussing nerve ablation [...] unremarkable @ PVC will request records from [facility] Sees branch associate Dr. Hoover, low-dose CT scheduled, has quit smoking He denies fever, chills, lightheadness, numbbness, weakness, changes in bowel and bladder function. 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
--- OUTSIDE RECORDS SUMMARY | 2024-10-22 06:06 | XMS_ITS | Clinical Summary ---
Author Organization [facility] Address [address] [place] [address] Phone Care Team Providers Care Rock Wool Insulator Name Role Phone Vickie Flores MD Primary Care Provider [phone] Allergies No known active allergies Medications clonazePAM (KlonoPIN) 0.5 mg tablet TAKE ONE TABLET BY MOUTH TWICE A DAY NEEDED FOR ANXIETY 2 Active ketoconazole (NIZORAL) 2 % cream APPLY TO AFFECTED AREA TWICE A DAY UNTIL CLEAR 2 Active meloxicam (MOBIC) 7.5 mg tablet Take 1 tablet (7.5 mg total) by mouth 1 (one) time each day. 4 Active gabapentin (NEURONTIN) 400 mg capsule Take [...] 5 hours before your procedure. 4000 mL 4 Active bisacodyL (DULCOLAX) 5 mg EC tablet Take 2 tablets by mouth right before beginning bowel prep. See instructions provided by the office 2 tablet 4 Active fluticasone furoate-vilante roL (BREO ELLIPTA) 100-25 mcg/dose inhaler INHALE 1 PUFF INTO THE LUNGS DAILY FOR 30 DAYS. NOT COVERED 60 each 11 5 Active Active Problems Problem Noted Date Diagnosed Date Lumbar disc disorder 08/02/2010 Low back pain with sciatica 05/19/2009 Neck pain 05/19/2009 Radicular pain in left arm 05/19/2009 Tobacco use disorder 05/19/2009 Bipolar disorder ([facility] V24, [facility] V28) 12/2005 Encounters Date Type Department Care Team Description 09/19/2024 1:41 PM EDT - 09/19/2024 11:59 PM EDT Hospital Encounter [facility] [address] [place] [address] Pain in left shoulder Discharge Disposition: Home or Self Care from Last 3 Months Immunizations Name Administration Dates Next Due Td Tetanus diptheria (Tdvax) 7yo and older 06/09 Surgical History Surgery Date Site/Laterality Comments HAND SURGERY N/A PROCEDURE: HISTORICAL HAND SURGERY Medical History Medical History Date Comments Bipolar disorder, unspecifie d ([facility] V24, [facility] V28) DX:Bipolar disorder, unspeci fied ([facility]) COPD (chronic obstructive pu lmonary disease) ([facility] V24, [facility] V28) DX:COPD (chronic o bstructive pulmonary disease) ([facility]) Anxiety disorder DX:Anxiety diso rder Depression DX:Depression [...] Health Maintenance Due Date Last Done Comments Diabetes: Annual Foot Exam 11/23/1979 Diabetes: Annual Retina Eye Exam 11/23/1979 Hepatitis B Vaccines (1 of 3 - 19+ 3-dose series) 1988 Diabetes: Annual GFR (Glomerular Filtration Rate) 05/25/2010 05/25/2009 Pneumococcal Vaccine: 50+ Years (1 of 1 - PCV) 11/23/2019 Zoster Vaccines (1 of 2) 11/23/2019 Cholesterol Screening (Lipid Panel) 05/03/2022 11/05/2007 Colorectal Cancer Screening: Colonoscopy 05/03/2022 Depression Screening 05/03/2022 Hepatitis C Screening 05/03/2022 Medicare Annual Wellness Visit 05/03/2022 Social Influencers of Health Screening 05/03/2022 DTaP,Tdap,and Td Vaccines (2 - Td or Tdap) 06/09/2022 06/09/2012 COVID-19 Vaccine (4 - 2023-2 5 season) 2024 10/04/2021, 02/18/2021, 01/20/2021 Lung Cancer Screening (Low Dose CT) 06/26/2024 06/26/2023 Diabetes: Annual Urine Albumin-Creatinine Ratio (uACR) 09/19/2024 Diabetes: Blood Sugar Contro l Test (HGBA1C) 09/19/2024 Influenza Vaccine (Season Ended) 2025 HIV Screening Completed 11/05/2007 HIB Vaccines Aged [...] age to complete this topic Meningococcal B Vaccine Aged Out No l onger eligible based on patient's age to complete [...] Procedure Name Priority Date/Time Associated Diagnosis Comments XR SHOULDER 2+ VIEWS LEFT Routine 09/19/2024 2:04 PM EDT Pain in left shoulder CT LUNG SCREENING LOW DOSE Routine 06/26/2023 4:52 PM EST Encounter for screening for malignant neoplasm of respiratory organs ANNUAL BMP BLOOD TEST Routine 05/25/2009 HIV SCREENING Routine 11/05/2007 LIPID PANEL Routine 11/05/2007 from Last 3 Months or Most Recently Relevant to Health Maintenance Results * XR Shoulder 2+ Views Left (09/19/2024 2:04 PM EDT) Anatomical Region Laterality Modality Upper Extremities, Shoulder Left Radi ographic Imaging 09/20/2024 7:47 AM EDT Impressions 09/20/2024 7:50 AM EDT No acute abnormality. Irregularity and narrowing of the AC joint. -------- FINAL REPORT -------- Dictated By: Jarrett Marshall Dictated Date: 09/20/2024 07:47 ET Assigned Physician: Jarrett Marshall Reviewed and Electronically Signed By: Jarrett Marshall Signed Date: 09/20/2024 07:50 ET Workstation ID: [id number] Transcribed By: Self Edit Transcribed Date: 09/20/2024 07:47 ET Narrative 09/20/2024 7:50 AM EDT EXAMINATION: LEFT SHOULDER CLINICAL INFORMATION: Pain COMPARISON: None. TECHNIQUE: 3 views left shoulder FINDINGS: No acute fracture or subluxation. No suspicious focal lesion. No abnormal soft tissue calcification. There is irregularity and narrowing of the AC joint with some erosions of the acromion and some proliferative change of the distal clavicle. No suspicious abnormality in the visualized portions of the chest Procedure Note Jarrett Marshall MD - 09/20/2024 EXAMINATION: LEFT SHOULDER CLINICAL INFORMATION: Pain COMPARISON: None. TECHNIQUE: 3 views left shoulder FINDINGS: No acute fracture or subluxation. No suspicious focal lesion. No abnormal soft tissue calcification. There is irregularity and narrowing of the AC joint with some erosions ofthe acromion and some proliferative change of the distal clavicle. No suspicious abnormality in the visualized portions of the chest IMPRESSION: No acute abnormality. Irregularity and narrowing of the AC joint. -------- FINAL REPORT -------- Dictated By: Jarrett Marshall Dictated Date: 09/20/2024 07:47 ET Assigned Physician: Jarrett Marshall Reviewed and Electronically Signed By: Jarrett Marshall Signed Date: 09/20/2024 07:50 ET Workstation ID: [id number] Transcribed By: Self Edit Transcribed Date: 09/20/2024 07:47 ET us Janina Donald NP IMG XR PROCEDURES Final Resul t * CT LUNG SCREENING LOW DOSE (06/26/2023 4:52 PM EST) Anatomical Region Laterality Modality Computed Tomogra phy 06/26/2023 3:29 PM EST Narrative 06/26/2023 4:52 PM EST [facility] Diagnostic Imaging Department [address] [place] [address] Patient: ??JAN HUERTAS ?/Age/Sex: 1970 - 52 - M Unit#: ??[id number] ? Location/Status: ??SPDICATLS/REG CLI ? Mnemonic/Ordering Site: [...] Procedure Note Medardo Nichole MD - 01/22/2024 [facility] Diagnostic Imaging Department [address] [place] [address] Patient: JAN HUERTAS Charisma /Age/Sex: 1970 - 52 - M Unit#: [id number] Location/Status: [facility]/REG CLI [id number] Ordering Physician: PATRICK PANTOJA MD CT Lung Screening Low Dose - 06/26/23 - 2270 Report Status:Signed Chest CT dated 06/26/2023. HISTORY: [...] Date/Time: 06/26/23 1643 Sign date/Time: 06/26/23 1652 Patrick Pantoja MD IMG CT PROCEDURES Final Result * Annual BMP Blood Test (05/25/2009) Pathologist [facility] Annual BMP Blood Test abstracted Historical Provider HEALTH MAINTENANCE Final Result * HIV Screening (11/05/2007) [facility] HIV Screening abstracted Historical Provider HEALTH MAINTENANCE Final Result * (ABNORMAL) Lipid panel (11/05/2007) LDL/HDL Ratio 6(A) 0 - 4 Triglycerides 390(A) 0 - 150 mg/dL Cholesterol 193 0 - 200 mg/dL HDL 35(A) >=40 mg/dL LDL Cholesterol 80 0 - 100 mg/dL Blood Venous blood specimen / Unknown us Historical Provider LAB BLOOD ORDERABLES Alexandra l Result from Last 3 Months or Most Recently Relevant to Health Maintenance Insurance [facility]IC[facility] Member Subscriber Plan / Payer (Ef fective 2020-Present) Name:Jan Huertas Relation to Subscriber:Self Name:Jan Huertas Payer ID:[id number] Group ID:[id number] Type:Not on file Address: [place] [address] [address] [id number] Care Teams Rock Wool Insulator Relationship Specialty Start Date End Date Vickie Flores MD [address] [place] [id number] PCP - General Internal Medicine 06/26/24
--- OUTSIDE RECORDS SUMMARY | 2024-10-22 06:07 | XMS_ITS | Patient Health Record ---
Author Organization [facility] Address [address] [place] [address] Care Team Providers Care Transition Teacher Name Role Phone LUX HOOD Primary Care Provider JERSEY SHARMA Unavailable [phone] Allergies No Known Allergies Results Component Value Reference Range Notes %FREE PSA Reviewed date:12/01/2023 10:08:30 AM Interpretation: Performing Lab: Notes/Report: %FREE PSA 27 > 25 % Free PSA is a calculated value. The diagnostic usefulness of % free PSA has not been established in patients with Total PSA below 2.6 or above 10 ng/mL. This test was performed using the Centaur Chemiluminescent method. PSA values obtained with other methods cannot be used interchangeably FREE PSA (CALCULATED) Reviewed date:12/01/2023 10:08:30 AM Interpretation: Performing Lab: Notes/Report: FREE PSA (CALCULATED) 0.6 COMPLEXED PSA Reviewed date:12/01/2023 10:08:30 AM Interpretation: Performing Lab: Notes/Report: COMPLEXED PSA 1.6 0.0-3.0 ng/mL The Siemens Advia Centaur Chemiluminescent Immunoassay is used. Results obtained with different assay methods or kits cannot be used interchangeably. Results cannot be interpreted as absolute evidence of the presence or absence of malignant disease PROSTATIC SPECIFIC ANTIGEN Reviewed date:12/01/2023 10:08:30 AM Interpretation: Performing Lab: Notes/Report: PROSTATIC SPECIFIC ANTIGEN 2.2 0.0-4.0 ng/mL The Siemens Advia Centaur Chemiluminescent Immunoassay is used. Results obtained with different assay methods or kits cannot be used interchangeably. Results cannot be interpreted as absolute evidence of the presence or absence of malignant disease TSH Reviewed date:12/01/2023 10:08:30 AM Interpretation: Performing Lab: Notes/Report: [employer], a member of [address] [address] [employer] - Asia Horn MD TSH 1.31 0.40-4.00 uIU/ml VITAMIN D, 25-HYDROXY Reviewed date:12/01/2023 10:08:30 AM Interpretation: Performing Lab: Notes/Report: VITAMIN D, 25-HYDROXY 25 30-80 ng/mL PROSTATIC SPECIFIC ANTIGEN S CR Reviewed date:12/01/2023 10:08:30 AM Interpretation: Performing Lab: Notes/Report: PROSTATIC SPECIFIC ANTIGEN SCR 2.2 0.0-4.0 ng/mL The Siemens [employer]ia [employer] Cent[employer]ur Chemiluminescent Immunoassay is used. Results obtained with different assay methods or kits cannot be used interchangeably. Results cannot be interpreted as absolute evidence of the presence or absence of malignant disease LIPID PROFILE Reviewed date:12/01/2023 10:08:30 AM Interpretation: Performing Lab: Notes/Report: CHOLESTEROL 179 0-200 mg/dL TRIGLYCERIDES 104 0-150 mg/dL HDL CHOLESTEROL 48 >40 mg/dL LDL CALCULATED 111 0-100 mg/dL TC-HDLC RATIO 3.7 0-4.4 mg/dL CBC WITH AUTO DIFF Reviewed date:12/01/2023 10:08:30 AM Interpretation: Performing Lab: Notes/Report: Original Ordering Provider: JERSEY SHARMA NP [employer], [place] [address] [employer] - Asia Horn MD WBC 8.6 4.8-10.8 x10-3/uL RBC 5.4 4.5-5.5 x10-6/uL HEMOGLOBIN 15.8 13.5-17.5 g/dL HEMATOCRIT 47.8 42-54 % MCV 89.2 79-98 fL MCH 29.5 27-32 pg MCHC 33.1 32-37 g/dL RDW 12.6 11-15 % PLT COUNT 231 130-400 x10-3/uL MEAN PLATELET VOLUME 10.9 7-11 fL NRBC % AUTO 0.0 <1 % NEUT % 55.4 LYMPH % 33.3 MONO % 7.3 EOS % 1.4 BASO % 0.9 IMMATURE GRANULOCYTES % 1.7 NRBC # AUTO 0.00 <0.1 x10-3/uL ABSOLUTE NEUT 4.76 1.5-7.0 x10-3/uL LYMPH # 2.86 1-5.0 x10-3/uL MONO # 0.63 0.2-1.0 x10-3/uL EOS # 0.12 0-0.5 x10-3/uL BASO # 0.08 0-0.2 x10-3/uL IMMATURE GRANULOCYTES # 0.15 0-0.03 x10-3/uL COMPREHENSIVE METABOLIC PANE L Reviewed date:12/01/2023 10:08:30 AM Interpretation: Performing Lab: Notes/Report: Note Original Orderi ng Provider: JERSEY SHARMA PRESSER AUTOMATIC GLUCOSE 108 70-100 mg/dL Reference range applicable to fasting specimens only BUN 25 5-25 mg/dL CREAT 0.96 0.7-1.3 mg/dL GLOMERULAR FILTRATION RATE 94 >60 This eGFR result was calculated using the CKD-EPI 2020 Creatinine Equation SODIUM 141 135-145 mEq/L POTASSIUM 4.3 3.5-5.5 mmol/L CHLORIDE 109 96-110 mmol/L CO2 25 21-32 mmol/L ANION GAP 7 3-11 CALCIUM 9.8 8.5-10.5 mg/dL TOTAL PROTEIN 7.1 6.0-8.0 G/dL ALBUMIN 4.1 3.2-5.0 G/dL BILI,TOTAL 1.0 0.0-1.4 mg/dL SGOT 15 10-42 U/L SGPT 38 10-60 U/L ALK PHOS 54 42-121 U/L URINALYSIS Reviewed date:12/01/2023 10:08:48 AM Interpretation: Performing Lab: Notes/Report: Note Original Ordering Provider: JERSEY SHARMA NP [employer], a member of [address] [address] [employer] - Asia Horn MD GLUCOSE, (UA) NEGATIVE NEGATIVE mg/dL BILIRUBIN, URINE NEGATIVE NEGATIVE KETONE, URINE NEGATIVE NEGATIVE mg/dL SPECIFIC GRAVITY, URINE 1.018 1.003-1.030 BLOOD, URINE TRACE NEGATIVE PH, URINE 5.5 5.0-8.0 PROTEIN, URINE NEGATIVE <= TRACE mg/dl UROBILINOGEN, URINE 0.2 0.2-1.0 E.U./dL NITRITE, URINE NEGATIVE NEGATIVE LEUKOCYTE ESTERASE, URINE NEGATIVE NEGATIVE Note Original Ordering Provider: JERSEY SHARMA NP [employer], a member of [address] [address] [employer] - Asia Horn MD RBC, URINE 2 0-4 /HPF WBC, URINE 0 0-4 /HPF EPITH CELLS, URINE 1 0-60 /LPF BACTERIA, URINE NEGATIVE NEGATIVE XR SHOULDER 2+ VIEWS LEFT Reviewed date:09/20/2024 01:04:22 PM Interpretation: Performing Lab: Notes/Report: Note See Note [facility], a member of [facility] [address] Patient Name: JAN RICH Date of : 1970 Reason for Exam: OTHER Exam Date: 09/19/2024 [id number] EST Report Status: Final Ordering Provider: JERSEY SHARMA PCP: LUX HOOD EXAMINATION: LEFT SHOULDER CLINICAL INFORMATION: Pain COMPARISON: None. TECHNIQUE: 3 views left shoulder FINDINGS: No acute fracture or subluxation. No suspicious focal lesion. No abnormal soft tissue calcification. There is irregularit y and narrowing of the AC joint with some erosions of the acromion and some proliferative change of the distal clavicle. No suspicious abnormality in the visualized portions of the chest IMPRESSION: No acute abnormality. Irregularity and narrowing of the AC joint. -------- FINAL REPOR T -------- Dictated By: Jarrett Retana Dictated Date: 09/20/2024 07:47 ET Assigned Physician: Jarrett Marshall Reviewed and Electronically Signed By: Jarrett Marshall Signed Date: 09/20/2024 07:50 ET Workstation ID: [id number] Transcribed By: Self Edit Transcribed Date: 09/20/2024 07:47 ET GLYCOHEMOGLOBIN PROFILE Reviewed date:12/01/2023 03:29:43 PM Interpretation: Performing Lab: Notes/Report: Original Ordering Provider: JERSEY SHARMA NP [employer], a member of [address] [address] [employer] - Asia Horn MD GLYCATED HEMOGLOBIN A1C 5.5 <6.5 % ESTIMATED AVERAGE GLUCOSE 111 LYME PROFILE Reviewed date:12/01/2023 03:29:43 PM Interpretation: Performing Lab: Notes/Report: Note Original Ordering Provider: JERSEY SHARMA NP [employer], a member of [address] [address] [employer] - Asia Horn MD LYME DISEASE ANTIBODIES NEGATIVE NEGATIVE No laboratory evidence of infection with B. burgdorferi (Lyme disease). Negative results may occur in patients recently infected (<=14 days) with B. burgdorferi. If recent infection is suspected, repeat testing on a new sample collected in 7-14 days is recommended. Note Original Ordering Provider: JERSEY SHARMA NP [employer], [place] [address] B[employer] T[employer] - Asia Horn MD Reason For Referral Reason Pt needing colonosco py Diagnosis 1 Screening for colon cancer (Z12.11) Referral Organization [facility] Referring Provider First Name LUX Referring Provider Last Name SANA Referring Provider Speciality Internal M edicine Referred Provider Jamal New Referred Provider Specialty Gastroentero logy General Notes faxed to , Jovani [facility] [address], [address] [place] [address] , phone- [phone], fax- [phone], , with attachments pt is aware Clinical Notes Giselle Fraser 03/05 08:58:19 AM >, Lesa Yi 03/22/2024 04:09:45 PM > Pt seen today (03/22/2024) Referral Priority Routine Diagnosis 1 Primary osteoarthrit is of right knee (M17.11) Referral Organization [facility] Referring Provider First Name LUX Referring Provider Last Name SANA Referring Provider Speciality Internal edicine Referred Provider Aly Nevarez Referred Provider Specialty Rheumatology General Notes Aly Nevarez [facility] [address] [place] [address] , phone- [phone], fax - [phone] Clinical Notes Giselle Fraser 03/22 08:14:14 AM >, Lesa Yi 04/11/2024 11:41:32 AM > I called the phone number provided above, and they mentioned they are a PCP office. They provided the following contact information for Dr. Nevarez's office: phone number [phone] and fax number [phone]. Referral sent, Lesa Yi 05/22/2024 03:30:20 PM > refaxed, Lesa Yi 07/12/2024 04:09:40 PM > lvm Referral Priority Routine Medications Medication SIG (Take, Route, Frequency, Duration) Notes Start Date End Date Status Nicotine 14 MG/24HR 1 patch to skin Burciaga sdermal Once a day for 30 day(s) Active traMADol HCl 50 MG 1 tablet as needed O rally twice a day for 30 days Active clonazePAM 0.5 MG Oral for 30 Active Breo Ellipta 100-25 MCG/ACT INHALE 1 PUFF INTO THE LUNGS DAILY FOR 30 DAYS. Inhalation for 30 Active Mounjaro 2.5 MG/0.5ML 2.5mg Subcutaneous weekly for 30 days Active Pregabalin 75 MG 1 capsule Orally Twi ce a day for 30 days Active Immunizations Vaccine Route Administration Date Status Comme nts Prevnar 20 IM Intramuscular 05/16/2023 Administered Social History Tobacco Use: Social History Observation Description Date Details (start date - stop date) Former Smoker NA - NA Tobacco Use/Smoking Question Answer Notes Are you a former smoker Section Notes: Quit abotu 1 week ago 12/2020 about 1 1/2 a day started at the age of 11 Quit abotu 1 week ago 12/2020 about 1 1/2 a day started at the age of 11 Quit abotu 1 week ago 12/2020 about 1 1/2 a day started at the age of 11 Quit abotu 1 week ago 12/2020 about 1 1/2 a day started at the age of 11 Quit abotu 1 week ago 12/2020 about 1 1/2 a day started at the age of 11 Quit abotu 1 week ago 12/2020 about 1 1/2 a day started at the age of 11 Quit abotu 1 week ago 12/2020 about 1 1/2 a day started at the age of 11 Quit abotu 1 week ago 12/2020 about 1 1/2 a day started at the age of 11 Quit abotu 1 week ago 12/2020 about 1 1/2 a day started at the age of 11 Quit abotu 1 week ago 12/2020 about 1 1/2 a day started at the age of 11 Quit abotu 1 week ago 12/2020 about 1 1/2 a day started at the age of 11 Quit abotu 1 week ago 12/2020 about 1 1/2 a day started at the age of 11 Problems Problem Type SNOMED Code ICD Code Onset Dates Problem Status W/U Status Risk Notes Problem Type II diabetes mellitus without complication (061412599) Type 2 diabetes mellitus without complications (E11.9) Active confirmed Problem Obesity (042024517) Other obesity (E66.8) Active confirmed Problem Hyperlipidemia (14185594) Hyperlipidemia, unspecified (E78.5) Active confirmed Problem Moderate recurrent major depression (52844408) Major depressive disorder, recurrent, moderate (F33.1) Active confirmed Problem 42297368 Other chronic pain (G89.29) Active confirmed Problem Chronic pain syndrome (689263837) Chronic pain syndrome (G89.4) Active confirmed Problem Cervicalgia (79756043) Cervicalgia (M54.2) Active confirmed Problem 308451316 Encounter for general adult medical examination without abnormal findings (Z00.00) Active confirmed Problem 116008174 Encounter for screening for malignant neoplasm of prostate (Z12.5) Active confirmed Problem Lipid screening (943615667) Encounter for screening for lipoid disorders (Z13.220) Active confirmed Problem Body mass index 30.00 to 34.99 (955485864224073) Body mass index (BMI) 34.0-34.9, adult (Z68.34) Active confirmed Problem Body mass index 35.00 to 39.99 (495542766073714) Body mass index (BMI) 37.0-37.9, adult (Z68.37) Active confirmed Problem 25572462 Anxiety (F41.9) Active confirmed Problem Adult health examination (833859499) Adult general medical exam (Z00.00) Active confirmed Problem Memory loss (16671115) Memory loss (R41.3) Active confirmed Problem Hypothyroidism (42434395) Hypothyroidism, unspecified type (E03.9) Active confirmed Problem Vitamin D deficiency (15383971) Vitamin D deficiency (E55.9) Active confirmed Problem Vitamin B12 deficiency (non anemic) (49924836) Vitamin B 12 deficiency (E53.8) Active confirmed Problem Obstructive sleep apnea syndrome (46784814) JOSE GUADALUPE (obstructive sleep apnea) (G47.33) Active confirmed Problem Diabetes mellitus screening (237600061) Diabetes mellitus screening (Z13.1) Active confirmed Problem Obesity (730463940) Obesity (BMI 30-39.9) (E66.9) Active confirmed Problem 288736197585801 Primary osteoarthritis of right knee (M17.11) Active confirmed Problem 155796847 Body mass index [BMI] 36.0-36.9, adult (Z68.36) Active confirmed Problem 316648631 Lumbar radiculopathy (M54.16) Active confirmed Problem Screening for malignant neoplasm of prostate (634728761) Prostate cancer screening (Z12.5) Active confirmed Problem 317052715 Screening for colon cancer (Z12.11) Active confirmed Problem 356203280 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) Active confirmed Problem Avitaminosis D (35248205) Avitaminosis D (E55.9) Active confirmed Problem Chronic kidney disease stage 3A (disorder) (920234572) Stage 3a chronic kidney disease (CKD) (N18.31) Active confirmed Problem Endocrine/metaboli c screening (591788901) Encounter for screening for endocrine disorder (Z13.29) Active confirmed Problem Screening for malignant neoplasm of prostate (249632630) Encounter for prostate cancer screening (Z12.5) Active confirmed Vital Signs Heart Rate 83 /min 09/19/2024 Oximetry 96 % 09/19/2024 Blood pressure diastolic 88 mm Hg 09/19/2024 Height 70 in 09/19/2024 Blood pressure systolic 140 mm Hg 09/19/2024 Weight 245 lbs 09/19/2024 BMI 35.15 kg/m2 09/19/2024 Encounters Encounter Location Date Provider Diagnosis [place] [address] [address] 07/09/2024 JERSEY CAREYHOT Prediabetes R73.03 ; Primary osteoarthritis of right knee M17.11 ; Chronic pain syndrome G89.4 ; Cervicalgia M54.2 ; Lumbar radiculopathy M54.16 ; Hyperlipidemia, unspecified E78.5 and Type 2 diabetes mellitus without complications E11.9 [place] [address] [address] 11/15/2023 JERSEY BORHOT Prediabetes R73.03 ; Primary osteoarthritis of right knee M17.11 ; Chronic pain syndrome G89.4 ; Cervicalgia M54.2 ; Lumbar radiculopathy M54.16 ; Hyperlipidemia, unspecified E78.5 ; Encounter for general adult medical examination without abnormal findings Z00.00 ; Encounter for screening for malignant neoplasm of prostate Z12.5 ; Type 2 diabetes mellitus without complications E11.9 ; Vitamin D deficiency E55.9 and Hypothyroidism, unspecified type E03.9 [place] [address] 03/22/2024 JERSEY SHARMA Encounter for genera l adult medical examination without abnormal findings Z00.00 ; Encounter for screening for other disorder Z13.89 ; Encounter for screening for depression Z13.31 ; Prediabetes R73.03 ; Primary osteoarthritis of right knee M17.11 ; Chronic pain syndrome G89.4 ; Cervicalgia M54.2 ; Lumbar radiculopathy M54.16 ; Hyperlipidemia, unspecified E78.5 and Type 2 diabetes mellitus without complications E11.9 [place] [address] 08/20/2024 JERSEY SHARMA Prediabetes R73.03 ; Primary osteoarthritis of right knee M17.11 ; Chronic pain syndrome G89.4 ; Cervicalgia M54.2 ; Lumbar radiculopathy M54.16 ; Hyperlipidemia, unspecified E78.5 and Type 2 diabetes mellitus without complications E11.9 [place] [address] [address] 09/19/2024 JERSEY SHARMA Acute pain of left shoulder M25.512 ; Prediabetes R73.03 ; Primary osteoarthritis of right knee M17.11 ; Chronic pain syndrome G89.4 ; Cervicalgia M54.2 ; Lumbar radiculopathy M54.16 ; Hyperlipidemia, unspecified E78.5 and Type 2 diabetes mellitus without complications E11.[address] [facility] [address] [place] [address] 11/21/2023 LUX HOOD [place] [address] [address] 03/04/2024 JERSEY SHARMA Screening for colon cancer Z12.11 [place] [address] [address] 03/21/2024 JERSEY SHARMA Assessments Encounter Date Diagnosis (ICD Code) Assessment Notes Treatment Notes Treatment Clinical Notes Section Notes 07/09/2024 Prediabetes (ICD-10 - R73.03) Acute Concerns/Problem List: 07/09/2024 [facility] Prescription monitoring program reviewed Including controlled [...] software and direct typing Please excuse inadvertent cherry sorter or typing errors, or uncorrected word substitutions Although every attempt has been made by the provider to proofread this document, occasional misspellings and typographical errors may still be present Due to the previous pandemic, and the use of personal protective equipment (PPE) This may decrease voice recognition accuracy Inadvertent cherry sorter errors may occur 09/19/2024 Acute pain of left shoulder (ICD-10 - M25.512) Acute Concerns/Problem List: 08/20/2024 Note provided today for 27-day hours and 14 nightly hours Paperwork for [employer] completed. Get XR L shoulder for ongoing pain following fall He will follow with appropriate specialists. [facility] Prescription monitoring program reviewed Including controlled [...] software and direct typing Please excuse inadvertent cherry sorter or typing errors, or uncorrected word substitutions Although every attempt has been made by the provider to proofread this document, occasional misspellings and typographical errors may still be present Due to the previous pandemic, and the use of personal protective equipment (PPE) This may decrease voice recognition accuracy Inadvertent cherry sorter errors may occur 08/20/2024 Prediabetes (ICD-10 - R73.03) Acute Concerns/Problem List: 08/20/2024 _update labs Paperwork for [employer] completed. He will follow with appropriate specialists. [facility] Prescription monitoring program reviewed Including controlled [...] software and direct typing Please excuse inadvertent cherry sorter or typing errors, or uncorrected word substitutions Although every attempt has been made by the provider to proofread this document, occasional misspellings and typographical errors may still be present Due to the previous pandemic, and the use of personal protective equipment (PPE) This may decrease voice recognition accuracy Inadvertent cherry sorter errors may occur 03/22/2024 Encounter for general adult medical examination without abnormal findings (ICD-10 - Z00.00) Acute Concerns/Problem List: 03/22/2024 [facility] MOLST/HCP Discussed and Filed Request records from [facility] neurosurgery and pain management, As well as cardiology [facility] Prescription monitoring program reviewed Including controlled [...] software and direct typing Please excuse inadvertent cherry sorter or typing errors, or uncorrected word substitutions Although every attempt has been made by the provider to proofread this document, occasional misspellings and typographical errors may still be present Due to the previous pandemic, and the use of personal protective equipment (PPE) This may decrease voice recognition accuracy Inadvertent cherry sorter errors may occur 03/22/2024 Encounter for screening for other disorder (ICD-10 - Z13.89) Acute Concerns/Problem List: 03/22/2024 [facility] MOLST/HCP Discussed and Filed Request records from [facility] neurosurgery and pain management, As well as cardiology [facility] Prescription monitoring program reviewed Including controlled [...] software and direct typing Please excuse inadvertent cherry sorter or typing errors, or uncorrected word substitutions Although every attempt has been made by the provider to proofread this document, occasional misspellings and typographical errors may still be present Due to the previous pandemic, and the use of personal protective equipment (PPE) This may decrease voice recognition accuracy Inadvertent cherry sorter errors may occur 03/04/2024 Screening for colon cancer (ICD-10 - Z12.11) 11/15/2023 Prediabetes (ICD-10 - R73.03) Acute Concerns/Problem List: 11/15/2023 Request records from [facility] neurosurgery and pain management Likely transitioning to gabapentin from Lyrica Will get updated labs and MWV in the fall [facility] Prescription monitoring program reviewed Including controlled substances prescriptive history, male patient with chronic pain syndrome as mentioned above We will refer him to a chronic pain specialist and neurosurgery per request 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 Smoking is extremely dangerous for health. It has been implicated in number of cancers including lung cancer, esophageal cancer, cancers of head nose and throat, bladder cancer etc.. It can also increase risk for osteoporosis and heart disease. It can accelerate atherosclerosis causing heart disease, stroke, peripheral vascular disease. It is very important that the patient quit smoking. It is also very difficult to quit smoking. Most people need to try several times before they can actually quit. Thinking about quitting is a very positive thing. When you're ready, pick a quit date. Nicotine replacement using nicotine patches or nicotine gums along with prescription medications like Wellbutrin and Chantix can help. Alternative treatments like counseling and hypnosis can help as well. This was discussed with the patient in detail. Once we have quit smoking, you can suffer from agitation, anger etc. and sometimes even depression which could be a side effect of prescription medications used to help quit smoking. Of note, some information is being carried forward from prior records for informational purposes only and is being cited so that efficiency, safety and quality of the patient's care is not compromised This note was prepared using voice recognition software and direct typing Please excuse inadvertent cherry sorter or typing errors, or uncorrected word substitutions Although every attempt has been made by the provider to proofread this document, occasional misspellings and typographical errors may still be present Due to the previous pandemic, and the use of personal protective equipment (PPE) This may decrease voice recognition accuracy Inadvertent cherry sorter errors may occur 11/15/2023 Primary osteoarthritis of right knee (ICD-10 - M17.11) Acute Concerns/Problem List: 11/15/2023 Request records from [facility] neurosurgery and pain management Likely transitioning to gabapentin from Lyrica Will get updated labs and MWV in the fall [facility] Prescription monitoring program reviewed Including controlled substances prescriptive history, male patient with chronic pain syndrome as mentioned above We will refer him to a chronic pain specialist and neurosurgery per request 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 Smoking is extremely dangerous for health. It has been implicated in number of cancers including lung cancer, esophageal cancer, cancers of head nose and throat, bladder cancer etc.. It can also increase risk for osteoporosis and heart disease. It can accelerate atherosclerosis causing heart disease, stroke, peripheral vascular disease. It is very important that the patient quit smoking. It is also very difficult to quit smoking. Most people need to try several times before they can actually quit. Thinking about quitting is a very positive thing. When you're ready, pick a quit date. Nicotine replacement using nicotine patches or nicotine gums along with prescription medications like Wellbutrin and Chantix can help. Alternative treatments like counseling and hypnosis can help as well. This was discussed with the patient in detail. Once we have quit smoking, you can suffer from agitation, anger etc. and sometimes even depression which could be a side effect of prescription medications used to help quit smoking. Of note, some information is being carried forward from prior records for informational purposes only and is being cited so that efficiency, safety and quality of the patient's care is not compromised This note was prepared using voice recognition software and direct typing Please excuse inadvertent cherry sorter or typing errors, or uncorrected word substitutions Although every attempt has been made by the provider to proofread this document, occasional misspellings and typographical errors may still be present Due to the previous pandemic, and the use of personal protective equipment (PPE) This may decrease voice recognition accuracy Inadvertent cherry sorter errors may occur 03/22/2024 Encounter for screening for depression (ICD-10 - Z13.31) Acute Concerns/Problem List: 03/22/2024 MAWV MOLST/HCP Discussed and Filed Request records from [facility] neurosurgery and pain management, As well as cardiology [facility] Prescription monitoring program reviewed Including controlled [...] software and direct typing Please excuse inadvertent cherry sorter or typing errors, or uncorrected word substitutions Although every attempt has been made by the provider to proofread this document, occasional misspellings and typographical errors may still be present Due to the previous pandemic, and the use of personal protective equipment (PPE) This may decrease voice recognition accuracy Inadvertent cherry sorter errors may occur 08/20/2024 Primary osteoarthritis of right knee (ICD-10 - M17.11) Acute Concerns/Problem List: 08/20/2024 _update labs Paperwork for [employer] completed. He will follow with appropriate specialists. [facility] Prescription monitoring program reviewed Including controlled [...] software and direct typing Please excuse inadvertent cherry sorter or typing errors, or uncorrected word substitutions Although every attempt has been made by the provider to proofread this document, occasional misspellings and typographical errors may still be present Due to the previous pandemic, and the use of personal protective equipment (PPE) This may decrease voice recognition accuracy Inadvertent cherry sorter errors may occur 09/19/2024 Prediabetes (ICD-10 - R73.03) Acute Concerns/Problem List: 08/20/2024 Note provided today for 27-day hours and 14 nightly hours Paperwork for [employer] completed. Get XR L shoulder for ongoing pain following fall He will follow with appropriate specialists. [facility] Prescription monitoring program reviewed Including controlled substances prescriptive history, male patient with chronic pain syndrome as mentioned above Paper work for [employer] for chronic disability and difficulty ambulation Of note, some information is being carried forward from prior records for informational purposes only and is being cited so that efficiency, safety and quality of the patient's care is not compromised This note was prepared using voice recognition software and direct typing Please excuse inadvertent cherry sorter or typing errors, or uncorrected word substitutions Although every attempt has been made by the provider to proofread this document, occasional misspellings and typographical errors may still be present Due to the previous pandemic, and the use of personal protective equipment (PPE) This may decrease voice recognition accuracy Inadvertent cherry sorter errors may occur 07/09/2024 Primary osteoarthritis of right knee (ICD-10 - M17.11) Acute Concerns/Problem List: 07/09/2024 [facility] Prescription monitoring program reviewed Including controlled [...] software and direct typing Please excuse inadvertent cherry sorter or typing errors, or uncorrected word substitutions Although every attempt has been made by the provider to proofread this document, occasional misspellings and typographical errors may still be present Due to the previous pandemic, and the use of personal protective equipment (PPE) This may decrease voice recognition accuracy Inadvertent cherry sorter errors may occur 07/09/2024 Chronic pain syndrome (ICD-10 - G89.4) Acute Concerns/Problem List: 07/09/2024 [facility] Prescription monitoring program reviewed Including controlled [...] software and direct typing Please excuse inadvertent cherry sorter or typing errors, or uncorrected word substitutions Although every attempt has been made by the provider to proofread this document, occasional misspellings and typographical errors may still be present Due to the previous pandemic, and the use of personal protective equipment (PPE) This may decrease voice recognition accuracy Inadvertent cherry sorter errors may occur 09/19/2024 Primary osteoarthritis of right knee (ICD-10 - M17.11) Acute Concerns/Problem List: 08/20/2024 Note provided today for 27-day hours and 14 nightly hours Paperwork for [employer] completed. Get XR L shoulder for ongoing pain following fall He will follow with appropriate specialists. [facility] Prescription monitoring program reviewed Including controlled substances prescriptive history, male patient with chronic pain syndrome as mentioned above Paper work for [employer] for chronic disability and difficulty ambulation Of note, some information is being carried forward from prior records for informational purposes only and is being cited so that efficiency, safety and quality of the patient's care is not compromised This note was prepared using voice recognition software and direct typing Please excuse inadvertent cherry sorter or typing errors, or uncorrected word substitutions Although every attempt has been made by the provider to proofread this document, occasional misspellings and typographical errors may still be present Due to the previous pandemic, and the use of personal protective equipment (PPE) This may decrease voice recognition accuracy Inadvertent cherry sorter errors may occur 08/20/2024 Chronic pain syndrome (ICD-10 - G89.4) Acute Concerns/Problem List: 08/20/2024 _update labs Paperwork for [employer] completed. He will follow with appropriate specialists. [facility] Prescription monitoring program reviewed Including controlled [...] software and direct typing Please excuse inadvertent cherry sorter or typing errors, or uncorrected word substitutions Although every attempt has been made by the provider to proofread this document, occasional misspellings and typographical errors may still be present Due to the previous pandemic, and the use of personal protective equipment (PPE) This may decrease voice recognition accuracy Inadvertent cherry sorter errors may occur 03/22/2024 Prediabetes (ICD-10 - R73.03) Acute Concerns/Problem List: 03/22/2024 MAWV MOLST/HCP Discussed and Filed Request records from [facility] neurosurgery and pain management, As well as cardiology [facility] Prescription monitoring program reviewed Including controlled [...] software and direct typing Please excuse inadvertent cherry sorter or typing errors, or uncorrected word substitutions Although every attempt has been made by the provider to proofread this document, occasional misspellings and typographical errors may still be present Due to the previous pandemic, and the use of personal protective equipment (PPE) This may decrease voice recognition accuracy Inadvertent cherry sorter errors may occur 11/15/2023 Chronic pain syndrome (ICD-10 - G89.4) Acute Concerns/Problem List: 11/15/2023 Request records from [facility] neurosurgery and pain management Likely transitioning to gabapentin from Lyrica Will get updated labs and MWV in the fall [facility] Prescription monitoring program reviewed Including controlled substances prescriptive history, male patient with chronic pain syndrome as mentioned above We will refer him to a chronic pain specialist and neurosurgery per request 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 Smoking is extremely dangerous for health. It has been implicated in number of cancers including lung cancer, esophageal cancer, cancers of head nose and throat, bladder cancer etc.. It can also increase risk for osteoporosis and heart disease. It can accelerate atherosclerosis causing heart disease, stroke, peripheral vascular disease. It is very important that the patient quit smoking. It is also very difficult to quit smoking. Most people need to try several times before they can actually quit. Thinking about quitting is a very positive thing. When you're ready, pick a quit date. Nicotine replacement using nicotine patches or nicotine gums along with prescription medications like Wellbutrin and Chantix can help. Alternative treatments like counseling and hypnosis can help as well. This was discussed with the patient in detail. Once we have quit smoking, you can suffer from agitation, anger etc. and sometimes even depression which could be a side effect of prescription medications used to help quit smoking. Of note, some information is being carried forward from prior records for informational purposes only and is being cited so that efficiency, safety and quality of the patient's care is not compromised This note was prepared using voice recognition software and direct typing Please excuse inadvertent cherry sorter or typing errors, or uncorrected word substitutions Although every attempt has been made by the provider to proofread this document, occasional misspellings and typographical errors may still be present Due to the previous pandemic, and the use of personal protective equipment (PPE) This may decrease voice recognition accuracy Inadvertent cherry sorter errors may occur 11/15/2023 Cervicalgia (ICD-10 - M54.2) Acute Concerns/Problem List: 11/15/2023 Request records from [facility] neurosurgery and pain management Likely transitioning to gabapentin from Lyrica Will get updated labs and MWV in the fall [facility] Prescription monitoring program reviewed Including controlled substances prescriptive history, male patient with chronic pain syndrome as mentioned above We will refer him to a chronic pain specialist and neurosurgery per request 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 Smoking is extremely dangerous for health. It has been implicated in number of cancers including lung cancer, esophageal cancer, cancers of head nose and throat, bladder cancer etc.. It can also increase risk for osteoporosis and heart disease. It can accelerate atherosclerosis causing heart disease, stroke, peripheral vascular disease. It is very important that the patient quit smoking. It is also very difficult to quit smoking. Most people need to try several times before they can actually quit. Thinking about quitting is a very positive thing. When you're ready, pick a quit date. Nicotine replacement using nicotine patches or nicotine gums along with prescription medications like Wellbutrin and Chantix can help. Alternative treatments like counseling and hypnosis can help as well. This was discussed with the patient in detail. Once we have quit smoking, you can suffer from agitation, anger etc. and sometimes even depression which could be a side effect of prescription medications used to help quit smoking. Of note, some information is being carried forward from prior records for informational purposes only and is being cited so that efficiency, safety and quality of the patient's care is not compromised This note was prepared using voice recognition software and direct typing Please excuse inadvertent cherry sorter or typing errors, or uncorrected word substitutions Although every attempt has been made by the provider to proofread this document, occasional misspellings and typographical errors may still be present Due to the previous pandemic, and the use of personal protective equipment (PPE) This may decrease voice recognition accuracy Inadvertent cherry sorter errors may occur 03/22/2024 Primary osteoarthritis of right knee (ICD-10 - M17.11) Acute Concerns/Problem List: 03/22/2024 MAWV MOLST/HCP Discussed and Filed Request records from [facility] neurosurgery and pain management, As well as cardiology [facility] Prescription monitoring program reviewed Including controlled [...] software and direct typing Please excuse inadvertent cherry sorter or typing errors, or uncorrected word substitutions Although every attempt has been made by the provider to proofread this document, occasional misspellings and typographical errors may still be present Due to the previous pandemic, and the use of personal protective equipment (PPE) This may decrease voice recognition accuracy Inadvertent cherry sorter errors may occur 08/20/2024 Cervicalgia (ICD-10 - M54.2) Acute Concerns/Problem List: 08/20/2024 _update labs Paperwork for [employer] completed. He will follow with appropriate specialists. [facility] Prescription monitoring program reviewed Including controlled [...] software and direct typing Please excuse inadvertent cherry sorter or typing errors, or uncorrected word substitutions Although every attempt has been made by the provider to proofread this document, occasional misspellings and typographical errors may still be present Due to the previous pandemic, and the use of personal protective equipment (PPE) This may decrease voice recognition accuracy Inadvertent cherry sorter errors may occur 09/19/2024 Chronic pain syndrome (ICD-10 - G89.4) Acute Concerns/Problem List: 08/20/2024 Note provided today for 27-day hours and 14 nightly hours Paperwork for [employer] completed. Get XR L shoulder for ongoing pain following fall He will follow with appropriate specialists. [facility] Prescription monitoring program reviewed Including controlled [...] software and direct typing Please excuse inadvertent cherry sorter or typing errors, or uncorrected word substitutions Although every attempt has been made by the provider to proofread this document, occasional misspellings and typographical errors may still be present Due to the previous pandemic, and the use of personal protective equipment (PPE) This may decrease voice recognition accuracy Inadvertent cherry sorter errors may occur 07/09/2024 Cervicalgia (ICD-10 - M54.2) Acute Concerns/Problem List: 07/09/2024 [facility] Prescription monitoring program reviewed Including controlled [...] software and direct typing Please excuse inadvertent cherry sorter or typing errors, or uncorrected word substitutions Although every attempt has been made by the provider to proofread this document, occasional misspellings and typographical errors may still be present Due to the previous pandemic, and the use of personal protective equipment (PPE) This may decrease voice recognition accuracy Inadvertent cherry sorter errors may occur 07/09/2024 Lumbar radiculopathy (ICD-10 - M54.16) Acute Concerns/Problem List: 07/09/2024 [facility] Prescription monitoring program reviewed Including controlled [...] software and direct typing Please excuse inadvertent cherry sorter or typing errors, or uncorrected word substitutions Although every attempt has been made by the provider to proofread this document, occasional misspellings and typographical errors may still be present Due to the previous pandemic, and the use of personal protective equipment (PPE) This may decrease voice recognition accuracy Inadvertent cherry sorter errors may occur 09/19/2024 Cervicalgia (ICD-10 - M54.2) Acute Concerns/Problem List: 08/20/2024 Note provided today for 27-day hours and 14 nightly hours Paperwork for [employer] completed. Get XR L shoulder for ongoing pain following fall He will follow with appropriate specialists. [facility] Prescription monitoring program reviewed Including controlled [...] software and direct typing Please excuse inadvertent cherry sorter or typing errors, or uncorrected word substitutions Although every attempt has been made by the provider to proofread this document, occasional misspellings and typographical errors may still be present Due to the previous pandemic, and the use of personal protective equipment (PPE) This may decrease voice recognition accuracy Inadvertent cherry sorter errors may occur 03/22/2024 Chronic pain syndrome (ICD-10 - G89.4) Acute Concerns/Problem List: 03/22/2024 MAWPaula MOLST/HCP Discussed and Filed Request records from [facility] neurosurgery and pain management, As well as cardiology [facility] Prescription monitoring program reviewed Including controlled [...] software and direct typing Please excuse inadvertent cherry sorter or typing errors, or uncorrected word substitutions Although every attempt has been made by the provider to proofread this document, occasional misspellings and typographical errors may still be present Due to the previous pandemic, and the use of personal protective equipment (PPE) This may decrease voice recognition accuracy Inadvertent cherry sorter errors may occur 08/20/2024 Lumbar radiculopathy (ICD-10 - M54.16) Acute Concerns/Problem List: 08/20/2024 _update labs Paperwork for [employer] completed. He will follow with appropriate specialists. [facility] Prescription monitoring program reviewed Including controlled [...] software and direct typing Please excuse inadvertent cherry sorter or typing errors, or uncorrected word substitutions Although every attempt has been made by the provider to proofread this document, occasional misspellings and typographical errors may still be present Due to the previous pandemic, and the use of personal protective equipment (PPE) This may decrease voice recognition accuracy Inadvertent cherry sorter errors may occur 11/15/2023 Lumbar radiculopathy (ICD-10 - M54.16) Acute Concerns/Problem List: 11/15/2023 Request records from [facility] neurosurgery and pain management Likely transitioning to gabapentin from Lyrica Will get updated labs and MWV in the fall [facility] Prescription monitoring program reviewed Including controlled substances prescriptive history, male patient with chronic pain syndrome as mentioned above We will refer him to a chronic pain specialist and neurosurgery per request 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 Smoking is extremely dangerous for health. It has been implicated in number of cancers including lung cancer, esophageal cancer, cancers of head nose and throat, bladder cancer etc.. It can also increase risk for osteoporosis and heart disease. It can accelerate atherosclerosis causing heart disease, stroke, peripheral vascular disease. It is very important that the patient quit smoking. It is also very difficult to quit smoking. Most people need to try several times before they can actually quit. Thinking about quitting is a very positive thing. When you're ready, pick a quit date. Nicotine replacement using nicotine patches or nicotine gums along with prescription medications like Wellbutrin and Chantix can help. Alternative treatments like counseling and hypnosis can help as well. This was discussed with the patient in detail. Once we have quit smoking, you can suffer from agitation, anger etc. and sometimes even depression which could be a side effect of prescription medications used to help quit smoking. Of note, some information is being carried forward from prior records for informational purposes only and is being cited so that efficiency, safety and quality of the patient's care is not compromised This note was prepared using voice recognition software and direct typing Please excuse inadvertent cherry sorter or typing errors, or uncorrected word substitutions Although every attempt has been made by the provider to proofread this document, occasional misspellings and typographical errors may still be present Due to the previous pandemic, and the use of personal protective equipment (PPE) This may decrease voice recognition accuracy Inadvertent cherry sorter errors may occur 03/22/2024 Cervicalgia (ICD-10 - M54.2) Acute Concerns/Problem List: 03/22/2024 MAWV MOLST/HCP Discussed and Filed Request records from [facility] neurosurgery and pain management, As well as cardiology [facility] Prescription monitoring program reviewed Including controlled [...] software and direct typing Please excuse inadvertent cherry sorter or typing errors, or uncorrected word substitutions Although every attempt has been made by the provider to proofread this document, occasional misspellings and typographical errors may still be present Due to the previous pandemic, and the use of personal protective equipment (PPE) This may decrease voice recognition accuracy Inadvertent cherry sorter errors may occur 11/15/2023 Hyperlipidemia, unspecified (ICD-10 - E78.5) Acute Concerns/Problem List: 11/15/2023 Request records from [facility] neurosurgery and pain management Likely transitioning to gabapentin from Lyrica Will get updated labs and MWV in the fall [facility] Prescription monitoring program reviewed Including controlled substances prescriptive history, male patient with chronic pain syndrome as mentioned above We will refer him to a chronic pain specialist and neurosurgery per request 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 Smoking is extremely dangerous for health. It has been implicated in number of cancers including lung cancer, esophageal cancer, cancers of head nose and throat, bladder cancer etc.. It can also increase risk for osteoporosis and heart disease. It can accelerate atherosclerosis causing heart disease, stroke, peripheral vascular disease. It is very important that the patient quit smoking. It is also very difficult to quit smoking. Most people need to try several times before they can actually quit. Thinking about quitting is a very positive thing. When you're ready, pick a quit date. Nicotine replacement using nicotine patches or nicotine gums along with prescription medications like Wellbutrin and Chantix can help. Alternative treatments like counseling and hypnosis can help as well. This was discussed with the patient in detail. Once we have quit smoking, you can suffer from agitation, anger etc. and sometimes even depression which could be a side effect of prescription medications used to help quit smoking. Of note, some information is being carried forward from prior records for informational purposes only and is being cited so that efficiency, safety and quality of the patient's care is not compromised This note was prepared using voice recognition software and direct typing Please excuse inadvertent cherry sorter or typing errors, or uncorrected word substitutions Although every attempt has been made by the provider to proofread this document, occasional misspellings and typographical errors may still be present Due to the previous pandemic, and the use of personal protective equipment (PPE) This may decrease voice recognition accuracy Inadvertent cherry sorter errors may occur 08/20/2024 Hyperlipidemia, unspecified (ICD-10 - E78.5) Acute Concerns/Problem List: 08/20/2024 _update labs Paperwork for [employer] completed. He will follow with appropriate specialists. [place] [facility] [place] Prescription monitoring program reviewed Including controlled substances [...] software and direct typing Please excuse inadvertent cherry sorter or typing errors, or uncorrected word substitutions Although every attempt has been made by the provider to proofread this document, occasional misspellings and typographical errors may still be present Due to the previous pandemic, and the use of personal protective equipment (PPE) This may decrease voice recognition accuracy Inadvertent cherry sorter errors may occur 09/19/2024 Lumbar radiculopathy (ICD-10 - M54.16) Acute Concerns/Problem List: 08/20/2024 Note provided today for 27-day hours and 14 nightly hours Paperwork for [employer] completed. Get XR L shoulder for ongoing pain following fall He will follow with appropriate specialists. [facility] Prescription monitoring program reviewed Including controlled [...] software and direct typing Please excuse inadvertent cherry sorter or typing errors, or uncorrected word substitutions Although every attempt has been made by the provider to proofread this document, occasional misspellings and typographical errors may still be present Due to the previous pandemic, and the use of personal protective equipment (PPE) This may decrease voice recognition accuracy Inadvertent cherry sorter errors may occur 07/09/2024 Hyperlipidemia, unspecified (ICD-10 - E78.5) Acute Concerns/Problem List: 07/09/2024 [facility] Prescription monitoring program reviewed Including controlled [...] software and direct typing Please excuse inadvertent cherry sorter or typing errors, or uncorrected word substitutions Although every attempt has been made by the provider to proofread this document, occasional misspellings and typographical errors may still be present Due to the previous pandemic, and the use of personal protective equipment (PPE) This may decrease voice recognition accuracy Inadvertent cherry sorter errors may occur 07/09/2024 Type 2 diabetes mellitus without complications (ICD-10 - E11.9) Acute Concerns/Problem List: 07/09/2024 [facility] Prescription monitoring program reviewed Including controlled [...] software and direct typing Please excuse inadvertent cherry sorter or typing errors, or uncorrected word substitutions Although every attempt has been made by the provider to proofread this document, occasional misspellings and typographical errors may still be present Due to the previous pandemic, and the use of personal protective equipment (PPE) This may decrease voice recognition accuracy Inadvertent cherry sorter errors may occur 09/19/2024 Hyperlipidemia, unspecified (ICD-10 - E78.5) Acute Concerns/Problem List: 08/20/2024 Note provided today for 27-day hours and 14 nightly hours Paperwork for [employer] completed. Get XR L shoulder for ongoing pain following fall He will follow with appropriate specialists. [facility] Prescription monitoring program reviewed Including controlled [...] software and direct typing Please excuse inadvertent cherry sorter or typing errors, or uncorrected word substitutions Although every attempt has been made by the provider to proofread this document, occasional misspellings and typographical errors may still be present Due to the previous pandemic, and the use of personal protective equipment (PPE) This may decrease voice recognition accuracy Inadvertent cherry sorter errors may occur 08/20/2024 Type 2 diabetes mellitus without complications (ICD-10 - E11.9) Acute Concerns/Problem List: 08/20/2024 _update labs Paperwork for [employer] completed. He will follow with appropriate specialists. [facility] Prescription monitoring program reviewed Including controlled [...] software and direct typing Please excuse inadvertent cherry sorter or typing errors, or uncorrected word substitutions Although every attempt has been made by the provider to proofread this document, occasional misspellings and typographical errors may still be present Due to the previous pandemic, and the use of personal protective equipment (PPE) This may decrease voice recognition accuracy Inadvertent cherry sorter errors may occur 03/22/2024 Lumbar radiculopathy (ICD-10 - M54.16) Acute Concerns/Problem List: 03/22/2024 [facility] MOLST/HCP Discussed and Filed Request records from [facility] neurosurgery and pain management, As well as cardiology [facility] Prescription monitoring program reviewed Including controlled [...] software and direct typing Please excuse inadvertent cherry sorter or typing errors, or uncorrected word substitutions Although every attempt has been made by the provider to proofread this document, occasional misspellings and typographical errors may still be present Due to the previous pandemic, and the use of personal protective equipment (PPE) This may decrease voice recognition accuracy Inadvertent cherry sorter errors may occur 11/15/2023 Encounter for general adult medical examination without abnormal findings (ICD-10 - Z00.00) Acute Concerns/Problem List: 11/15/2023 Request records from [facility] neurosurgery and pain management Likely transitioning to gabapentin from Lyrica Will get updated labs and MWV in the fall [facility] Prescription monitoring program reviewed Including controlled substances prescriptive history, male patient with chronic pain syndrome as mentioned above We will refer him to a chronic pain specialist and neurosurgery per request 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 Smoking is extremely dangerous for health. It has been implicated in number of cancers including lung cancer, esophageal cancer, cancers of head nose and throat, bladder cancer etc.. It can also increase risk for osteoporosis and heart disease. It can accelerate atherosclerosis causing heart disease, stroke, peripheral vascular disease. It is very important that the patient quit smoking. It is also very difficult to quit smoking. Most people need to try several times before they can actually quit. Thinking about quitting is a very positive thing. When you're ready, pick a quit date. Nicotine replacement using nicotine patches or nicotine gums along with prescription medications like Wellbutrin and Chantix can help. Alternative treatments like counseling and hypnosis can help as well. This was discussed with the patient in detail. Once we have quit smoking, you can suffer from agitation, anger etc. and sometimes even depression which could be a side effect of prescription medications used to help quit smoking. Of note, some information is being carried forward from prior records for informational purposes only and is being cited so that efficiency, safety and quality of the patient's care is not compromised This note was prepared using voice recognition software and direct typing Please excuse inadvertent cherry sorter or typing errors, or uncorrected word substitutions Although every attempt has been made by the provider to proofread this document, occasional misspellings and typographical errors may still be present Due to the previous pandemic, and the use of personal protective equipment (PPE) This may decrease voice recognition accuracy Inadvertent cherry sorter errors may occur 11/15/2023 Encounter for screening for malignant neoplasm of prostate (ICD-10 - Z12.5) Acute Concerns/Problem List: 11/15/2023 Request records from [facility] neurosurgery and pain management Likely transitioning to gabapentin from Lyrica Will get updated labs and MWV in the fall [facility] Prescription monitoring program reviewed Including controlled substances prescriptive history, male patient with chronic pain syndrome as mentioned above We will refer him to a chronic pain specialist and neurosurgery per request 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 Smoking is extremely dangerous for health. It has been implicated in number of cancers including lung cancer, esophageal cancer, cancers of head nose and throat, bladder cancer etc.. It can also increase risk for osteoporosis and heart disease. It can accelerate atherosclerosis causing heart disease, stroke, peripheral vascular disease. It is very important that the patient quit smoking. It is also very difficult to quit smoking. Most people need to try several times before they can actually quit. Thinking about quitting is a very positive thing. When you're ready, pick a quit date. Nicotine replacement using nicotine patches or nicotine gums along with prescription medications like Wellbutrin and Chantix can help. Alternative treatments like counseling and hypnosis can help as well. This was discussed with the patient in detail. Once we have quit smoking, you can suffer from agitation, anger etc. and sometimes even depression which could be a side effect of prescription medications used to help quit smoking. Of note, some information is being carried forward from prior records for informational purposes only and is being cited so that efficiency, safety and quality of the patient's care is not compromised This note was prepared using voice recognition software and direct typing Please excuse inadvertent cherry sorter or typing errors, or uncorrected word substitutions Although every attempt has been made by the provider to proofread this document, occasional misspellings and typographical errors may still be present Due to the previous pandemic, and the use of personal protective equipment (PPE) This may decrease voice recognition accuracy Inadvertent cherry sorter errors may occur 03/22/2024 Hyperlipidemia, unspecified (ICD-10 - E78.5) Acute Concerns/Problem List: 03/22/2024 [facility] MOLST/HCP Discussed and Filed Request records from [facility] neurosurgery and pain management, As well as cardiology [facility] Prescription monitoring program reviewed Including controlled [...] software and direct typing Please excuse inadvertent cherry sorter or typing errors, or uncorrected word substitutions Although every attempt has been made by the provider to proofread this document, occasional misspellings and typographical errors may still be present Due to the previous pandemic, and the use of personal protective equipment (PPE) This may decrease voice recognition accuracy Inadvertent cherry sorter errors may occur 09/19/2024 Type 2 diabetes mellitus without complications (ICD-10 - E11.9) Acute Concerns/Problem List: 08/20/2024 Note provided today for 27-day hours and 14 nightly hours Paperwork for [employer] completed. Get XR L shoulder for ongoing pain following fall He will follow with appropriate specialists. [facility] Prescription monitoring program reviewed Including controlled [...] software and direct typing Please excuse inadvertent cherry sorter or typing errors, or uncorrected word substitutions Although every attempt has been made by the provider to proofread this document, occasional misspellings and typographical errors may still be present Due to the previous pandemic, and the use of personal protective equipment (PPE) This may decrease voice recognition accuracy Inadvertent cherry sorter errors may occur 11/15/2023 Type 2 diabetes mellitus without complications (ICD-10 - E11.9) Acute Concerns/Problem List: 11/15/2023 Request records from [facility] neurosurgery and pain management Likely transitioning to gabapentin from Lyrica Will get updated labs and MWV in the fall [facility] Prescription monitoring program reviewed Including controlled substances prescriptive history, male patient with chronic pain syndrome as mentioned above We will refer him to a chronic pain specialist and neurosurgery per request 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 Smoking is extremely dangerous for health. It has been implicated in number of cancers including lung cancer, esophageal cancer, cancers of head nose and throat, bladder cancer etc.. It can also increase risk for osteoporosis and heart disease. It can accelerate atherosclerosis causing heart disease, stroke, peripheral vascular disease. It is very important that the patient quit smoking. It is also very difficult to quit smoking. Most people need to try several times before they can actually quit. Thinking about quitting is a very positive thing. When you're ready, pick a quit date. Nicotine replacement using nicotine patches or nicotine gums along with prescription medications like Wellbutrin and Chantix can help. Alternative treatments like counseling and hypnosis can help as well. This was discussed with the patient in detail. Once we have quit smoking, you can suffer from agitation, anger etc. and sometimes even depression which could be a side effect of prescription medications used to help quit smoking. Of note, some information is being carried forward from prior records for informational purposes only and is being cited so that efficiency, safety and quality of the patient's care is not compromised This note was prepared using voice recognition software and direct typing Please excuse inadvertent cherry sorter or typing errors, or uncorrected word substitutions Although every attempt has been made by the provider to proofread this document, occasional misspellings and typographical errors may still be present Due to the previous pandemic, and the use of personal protective equipment (PPE) This may decrease voice recognition accuracy Inadvertent cherry sorter errors may occur 03/22/2024 Type 2 diabetes mellitus without complications (ICD-10 - E11.9) Acute Concerns/Problem List: 03/22/2024 MAW[facility] MOLST/HCP Discussed and Filed Request records from [facility] neurosurgery and pain management, As well as cardiology [facility] Prescription monitoring program reviewed Including controlled [...] software and direct typing Please excuse inadvertent cherry sorter or typing errors, or uncorrected word substitutions Although every attempt has been made by the provider to proofread this document, occasional misspellings and typographical errors may still be present Due to the previous pandemic, and the use of personal protective equipment (PPE) This may decrease voice recognition accuracy Inadvertent cherry sorter errors may occur 11/15/2023 Vitamin D deficiency (ICD-10 - E55.9) Acute Concerns/Problem List: 11/15/2023 Request records from [facility] neurosurgery and pain management Likely transitioning to gabapentin from Lyrica Will get updated labs and MWV in the fall [facility] Prescription monitoring program reviewed Including controlled substances prescriptive history, male patient with chronic pain syndrome as mentioned above We will refer him to a chronic pain specialist and neurosurgery per request 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 Smoking is extremely dangerous for health. It has been implicated in number of cancers including lung cancer, esophageal cancer, cancers of head nose and throat, bladder cancer etc.. It can also increase risk for osteoporosis and heart disease. It can accelerate atherosclerosis causing heart disease, stroke, peripheral vascular disease. It is very important that the patient quit smoking. It is also very difficult to quit smoking. Most people need to try several times before they can actually quit. Thinking about quitting is a very positive thing. When you're ready, pick a quit date. Nicotine replacement using nicotine patches or nicotine gums along with prescription medications like Wellbutrin and Chantix can help. Alternative treatments like counseling and hypnosis can help as well. This was discussed with the patient in detail. Once we have quit smoking, you can suffer from agitation, anger etc. and sometimes even depression which could be a side effect of prescription medications used to help quit smoking. Of note, some information is being carried forward from prior records for informational purposes only and is being cited so that efficiency, safety and quality of the patient's care is not compromised This note was prepared using voice recognition software and direct typing Please excuse inadvertent cherry sorter or typing errors, or uncorrected word substitutions Although every attempt has been made by the provider to proofread this document, occasional misspellings and typographical errors may still be present Due to the previous pandemic, and the use of personal protective equipment (PPE) This may decrease voice recognition accuracy Inadvertent cherry sorter errors may occur 11/15/2023 Hypothyroidism, unspecified type (ICD-10 - E03.9) Acute Concerns/Problem List: 11/15/2023 Request records from [facility] neurosurgery and pain management Likely transitioning to gabapentin from Lyrica Will get updated labs and MWV in the fall [facility] Prescription monitoring program reviewed Including controlled substances prescriptive history, male patient with chronic pain syndrome as mentioned above We will refer him to a chronic pain specialist and neurosurgery per request 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 Smoking is extremely dangerous for health. It has been implicated in number of cancers including lung cancer, esophageal cancer, cancers of head nose and throat, bladder cancer etc.. It can also increase risk for osteoporosis and heart disease. It can accelerate atherosclerosis causing heart disease, stroke, peripheral vascular disease. It is very important that the patient quit smoking. It is also very difficult to quit smoking. Most people need to try several times before they can actually quit. Thinking about quitting is a very positive thing. When you're ready, pick a quit date. Nicotine replacement using nicotine patches or nicotine gums along with prescription medications like Wellbutrin and Chantix can help. Alternative treatments like counseling and hypnosis can help as well. This was discussed with the patient in detail. Once we have quit smoking, you can suffer from agitation, anger etc. and sometimes even depression which could be a side effect of prescription medications used to help quit smoking. Of note, some information is being carried forward from prior records for informational purposes only and is being cited so that efficiency, safety and quality of the patient's care is not compromised This note was prepared using voice recognition software and direct typing Please excuse inadvertent cherry sorter or typing errors, or uncorrected word substitutions Although every attempt has been made by the provider to proofread this document, occasional misspellings and typographical errors may still be present Due to the previous pandemic, and the use of personal protective equipment (PPE) This may decrease voice recognition accuracy Inadvertent cherry sorter errors may occur Plan Of Treatment Pending Test Test Name Order Date X ray : Shoulder, left 09/19/2024 Colonoscopy 03/04/2024 Hemoglobin A1c 04/05/2018 RPR 08/16/2023 TSH+Free T4 04/05/2018 Lipid Panel 04/05/2018 CBC 04/05/2018 MRI : Brain without Contrast 02/28/2023 Exercise Treadmill Stress Test (TMST) Holter Test 08/30/2021 25OH VITAMIN D 02/28/2023 25OH VITAMIN D 05/03/2021 CBC (COMPLETE BLOOD COUNT) 02/28/2023 CBC (COMPLETE BLOOD COUNT) 2017 CHLAMYDIA GC AMP PROBE, URINE 08/16/2023 COMPREHENSIVE METABOLIC PANEL 2017 COMPREHENSIVE METABOLIC PANEL 02/28/2023 COMPREHENSIVE METABOLIC PANEL 05/03/2021 COMPREHENSIVE METABOLIC PANEL 04/05/2018 CRP, HIGH SENSITIVITY 2017 HEMOGLOBIN A1C 2017 HEMOGLOBIN A1C 05/03/2021 HEMOGLOBIN A1C 02/28/2023 HEMOGLOBIN A1C 11/07/2022 HEPATITIS C ANTIBODY 08/16/2023 INSULIN 2017 LIPID PANEL 2017 LIPID PANEL 05/03/2021 LIPID PANEL 02/28/2023 NORTHEAST TICK PCR PANEL 11/15/2023 PSA, SCREEN 04/05/2018 PSA, SCREEN 02/28/2023 TSH 02/28/2023 URINALYSIS, COMPLETE 2017 VITAMIN B12 02/28/2023 LIPID PANEL, STANDARD 08/20/2024 LIPID PANEL, STANDARD 11/15/2023 HIV 1/2 ANTIGEN/ANTIBODY,FOURTH GENERATI ON W/RFL 08/16/2023 COMPREHENSIVE METABOLIC PANEL 11/15/2023 COMPREHENSIVE METABOLIC PANEL 08/20/2024 CBC (INCLUDES DIFF/PLT) 08/20/2024 CBC (INCLUDES DIFF/PLT) 11/15/2023 URINALYSIS, COMPLETE 11/15/2023 URINALYSIS, COMPLETE 08/20/2024 RPR (DX) W/REFL TITER AND CONFIRMATORY T ESTING 02/28/2023 HEMOGLOBIN A1c 08/20/2024 HEMOGLOBIN A1c 11/15/2023 PSA (FREE AND TOTAL) 11/15/2023 PSA (FREE AND TOTAL) 08/20/2024 TSH 11/15/2023 TSH W/REFLEX TO FT4 08/20/2024 VITAMIN D,25-OH,TOTAL,IA 08/20/2024 VITAMIN D,25-OH,TOTAL,IA 11/15/2023 METHYLMALONIC ACID 02/28/2023 HEPATITIS B ANTIBODY, QUANT 08/16/2023 COMPLETE URINALYSIS 02/28/2023 Future Test Test Name Order Date 25OH VITAMIN D 12/30/2020 CBC (COMPLETE BLOOD COUNT) 12/30/2020 COMPREHENSIVE METABOLIC PANEL 12/30/2020 HEMOGLOBIN A1C 12/30/2020 LIPID PANEL 12/30/2020 PSA, SCREEN 12/30/2020 TSH 12/30/2020 COMPLETE URINALYSIS 12/30/2020 25OH VITAMIN D 12/30/2021 CBC (COMPLETE BLOOD COUNT) 12/30/2021 COMPREHENSIVE METABOLIC PANEL 12/30/2021 HEMOGLOBIN A1C 12/30/2021 LIPID PANEL 12/30/2021 MICROALBUMIN, URINE 12/30/2021 PSA, SCREEN 12/30/2021 TSH WITH REFLEX TO FT4 12/30/2021 URINALYSIS W/REFLEX CULTURE 12/30/2021 Next Appt Details Provider Name:JERSEY ZACHARY, 03/20/2025 03:15:00 PM, [address] [place] [address] [address], [place], [address], Insurance Providers Payer Name Payer Address Payer Phone Subscriber Number Group Number Insured Name Patient Relationship to Insured Coverage Start Date Coverage End Date [employer] or Options [address] [place] [id number] JAN RICH Self - patient is the insured Medical (General) History Medical History History ICD Code copd anxiety depression sleep apnea Surgical History Surgery Date(Month/Year) hand surgery
== END 2024-10-22 06:06 | disposition home or self-care (01) ==
LOC: CF 06:05
PROVIDERS: Visit Provider Anesthesiology
DX: M54.16 Radiculopathy, lumbar region (principal)
CPT/HCPCS: 62323; J1100; J2003; J3301; Q9967

== ENCOUNTER 2024-10-22 08:31 | Outpatient (AMB) | payer OTHER, SELFPAY ==
[2024-10-22 08:41] VITALS: BP 124/66; PULSE 85; RESP 16; O2SAT 96
--- NOTE | 2024-10-22 08:41 | A.OFFVIS_ITS ---
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 Required: No Allergies Seasonal Allergies Allergy (Mild, Verified 10/22/24 08:41) Sneezing Medication List - Last Reconciled 10/22/24 by Birgit Lara LPN clonazepam mg PO fluticasone furoate-vilanterol 100-25 mcg/dose (Breo Ellipta) 1 ea inhalation DAILY lorazepam (Ativan) 1 mg PO ONCE magnesium oxide 400 mg PO DAILY 30 days meloxicam 7.5 mg PO DAILY omega 4-ral-jia-fish oil 60-90-500 mg (Fish Oil) 1 cap PO DAILY pregabalin 75 mg PO BID 30 days PFS Medical History Stage 3a chronic kidney disease Hyperlipidemia Chronic pain syndrome COPD (chronic obstructive pulmonary disease) Prediabetes Vitamin D deficiency Anxiety and depression Lumbar spinal stenosis Asthma JOSE GUADALUPE on CPAP Lumbar radiculopathy Osteoarthritis of right knee Right knee pain Palpitation Memory loss Gait disturbance Weakness of both lower extremities Cervical myelopathy with cervical radiculopathy Surgical History H/O hand surgery Family History Mother Diabetes Social History Alcohol intake: former Patient Tobacco Use Status: Former Tobacco user Physical Exam Vital Signs: Last Vital Signs Pulse 70 10/22/24 09:21 Resp 16 10/22/24 09:21 BP 110/78 10/22/24 09:21 Pulse Ox 96 10/22/24 09:21 Oxygen Delivery Method Room Air 10/22/24 09:21 Assessment & Plan Assessment & Plan (1) Bilateral knee pain: Code(s): M25.561 - Pain in right knee; M25.562 - Pain in left knee Category: Medical (2) Lumbar spinal stenosis: Code(s): M48.061 - Spinal stenosis, lumbar region without neurogenic claudication Category: Medical Plan Interlaminar L3- L4 epidural steroid injection. Informed consent was thoroughly explained to the patient before the procedure. The risks were delineated as bleeding infection peripheral nerve damage spinal cord damage and headache. ? The patient came to the operating room.? He was positioned prone on operating table with a pillow under his abdomen.? Time-out was performed delineating correct site and side of the procedure, nature of the injection, name and date of of the patient. The lower back of the patient was prepped with ChloraPrep and draped with sterile utility towels.? C-arm was brought over the operating field and sq picture of L4 vertebra was demonstrated on the screen.?Left lamina of L4 was chosen as a starting pont of the injection. The most medial and most superior portion of the left lamina to the skin was chosen as a site of local anesthetic injection. 20 g Tuohy needle was inserted through the skin advanced toward the epidural space under intermittent AP and Lateral views using loss of resistance to air technic to locate the epidural space. When JOEL was sensed and the tip of the needle was positioned 1 mm beyond interlaminar line injection of the contrast was performed demonstrating epidural spread of the contrast, and no intravascular and no intrathecal contrast spread wad noted. After that injection of treatment solution 5 ml comprising of 40 mg of Kenalog and 4 mls of preservative free 1% lidocaine was injected into the needle. The needle was removed and sterile bandaid was applied. Patient tolerated procedure well he was taken outside of the operating room where he recovered uneventfully.? He went home without immediate complication Orders: Orders XR Knee Dipak 3V Today Eddi Payne MD M25.561 - Pain in right knee, M25.562 - Pain in left knee FL guidance in treatment room Today Vinita Chiang, MANAGER PRODUCT SUPPORT, HARPOON ENGAGEMENT PLANNING OPERATOR M54.16 - Radiculopathy, lumbar region Coding Level of Care Code Procedure Only Diagnoses Bilateral knee pain M25.561; M25.562 Lumbar spinal stenosis M48.061
--- OUTSIDE RECORDS SUMMARY | 2024-10-22 08:44 | XMS_ITS | Clinical Summary ---
Author Organization [facility] Address [address] [place] [address] Phone Care Team Providers Care Residential Air Sealing Technician Name Role Phone Vickie Flores MD Primary Care Provider [phone] Allergies No known active allergies Medications clonazePAM [...] 05/19/2009 Tobacco use disorder 05/19/2009 Bipolar disorder ([facility] V24, [facility] V28) 12/2005 Encounters Date Type Department Care Team Description 09/19/2024 1:41 PM EDT - 09/19/2024 11:59 PM EDT Hospital Encounter [facility] Xray [address] [place] [address] Pain in left shoulder Discharge Disposition: Home or Self Care from Last 3 Months Immunizations Name Administration Dates Next Due Td Tetanus diptheria (Tdvax) 7yo and older 06/09 Surgical History Surgery Date Site/Laterality Comments HAND SURGERY N/A PROCEDURE: HISTORICAL HAND SURGERY Medical History Medical History Date Comments Bipolar disorder, unspecifie d ([facility] V24, [facility] V28) DX:Bipolar disorder, unspeci fied ([facility]) COPD (chronic obstructive pu lmonary disease) ([facility] V24, [facility] V28) DX:COPD (chronic o bstructive pulmonary disease) ([facility]) Anxiety disorder DX:Anxiety diso rder Depression DX:Depression [...] Signed Date: 09/20/2024 07:50 ET Workstation ID: [id number] Transcribed By: Self Edit Transcribed Date: 09/20/2024 [...] Signed Date: 09/20/2024 07:50 ET Workstation ID: [id number] Transcribed By: Self Edit Transcribed Date: 09/20/2024 07:47 ET us Janina Donald NP IMG XR PROCEDURES Final Resul t * CT LUNG SCREENING LOW DOSE (06/26/2023 4:52 PM EST) Anatomical Region Laterality Modality Computed Tomogra phy 06/26/2023 3:29 PM EST Narrative 06/26/2023 4:52 PM EST [facility] Diagnostic Imaging Department [address] [place] [id number] Patient: ??JAN HUERTAS ?/Age/Sex: 1970 - 52 - M Unit#: ??[id number] ? Location/Status: ??SPDICATLS/REG CLI ? Mnemonic/Ordering Site: [...] Procedure Note Medardo Nichole MD - 01/22/2024 [facility] Diagnostic Imaging Department [address] [place] [address] Patient: JAN HUERTAS Charisma /Age/Sex: 1970 - 52 - M Unit#: [id number] Location/Status: [facility]/REG CLI Mnemonic/Ordering Site: [facility] Ordering Physician: PATRICK PANTOJA MD CT Lung Screening Low Dose - 06/26/23 - 7570 Report Status:Signed Chest CT dated 06/26/2023. HISTORY: [...] * Annual BMP Blood Test (05/25/2009) Pathologist [facility] Annual BMP Blood Test abstracted Historical Provider HEALTH MAINTENANCE Final Result * HIV Screening (11/05/2007) [facility] HIV Screening abstracted Historical Provider HEALTH MAINTENANCE [...] Most Recently Relevant to Health Maintenance Insurance [facility] MEDICARE Member Subscriber Plan / Payer (Ef fective 2020-Present) Name:Jan Huertas Relation to Subscriber:Self Name:Jan Huertas Payer ID:[id number] Group ID:[id number] Type:Not on file Address: [place] [address] [address] [phone] Care Teams Residential Air Sealing Technician Relationship Specialty Start Date End Date Vickie Flores MD [address] [place] [address] PCP - General Internal Medicine 06/26/24
[2024-10-22 09:21] VITALS: BP 110/78; PULSE 70; RESP 16; O2SAT 96
== END 2024-10-22 09:13 | disposition home or self-care (01) ==
LOC: HO.PMCPRC 08:31
PROVIDERS: PCP Internal Medicine; Visit Provider Anesthesiology
DX: M54.16 Radiculopathy, lumbar region (principal); M48.061 Spinal stenosis, lumbar region without neurogenic claudication
CPT/HCPCS: 62323

== ENCOUNTER 2024-10-22 09:17 | Outpatient (REF) | payer OTHER, SELFPAY ==
--- NOTE | ~2024-10-22 | XR_ITS ---
EXAMINATION: X-ray knee bilaterally. CLINICAL INFORMATION: Bilateral knee pain. TECHNIQUE: AP view in standing position both knees. Lateral and sunrise views both knees. COMPARISON: None FINDINGS: Mild joint space narrowing involving the medial compartments both knees. No acute cortical disruption or malalignment. No suprapatellar bursa joint effusion. No lytic or blastic lesions. XR/XR Knee Dipak 3V IMPRESSION: Mild medial compartment osteoarthrosis. Electronically signed by: Maxime Saunders MD 10/22/2024 10:02 AM EDT
--- OUTSIDE RECORDS SUMMARY | 2024-10-22 10:02 | XMS_ITS | Clinical Summary ---
Author Organization [facility] Address [address] [place] [address] Phone Care Team Providers Care Corduroy Cutting Supervisor Name Role Phone Vickie Flores MD Primary Care Provider [phone] Allergies No known active allergies Medications clonazePAM [...] 05/19/2009 Tobacco use disorder 05/19/2009 Bipolar disorder ([facility] V24, [facility] V28) 12/2005 Encounters Date Type Department Care Team Description 09/19/2024 1:41 PM EDT - 09/19/2024 11:59 PM EDT Hospital Encounter [facility] Xray [address] [place] [address] Pain in left shoulder Discharge Disposition: Home or Self Care from Last 3 Months Immunizations Name Administration Dates Next Due Td Tetanus diptheria (Tdvax) 7yo and older 06/09 Surgical History Surgery Date Site/Laterality Comments HAND SURGERY N/A PROCEDURE: HISTORICAL HAND SURGERY Medical History Medical History Date Comments Bipolar disorder, unspecifie d ([facility] V24, [facility] V28) DX:Bipolar disorder, unspeci fied ([facility]) COPD (chronic obstructive pu lmonary disease) ([facility] V24, [facility] V28) DX:COPD (chronic o bstructive pulmonary disease) [...] joint. -------- FINAL REPORT -------- Dictated By: Jarrtet Marshall Dictated Date: 09/20/2024 07:47 ET Assigned Physician: Jarrett Marshall Reviewed and Electronically Signed By: Jarrett Marshall Signed Date: 09/20/2024 07:50 ET Workstation ID: [id number] Transcribed By: Self Edit Transcribed Date: 09/20/2024 [...] Signed Date: 09/20/2024 07:50 ET Workstation ID: [id number] Transcribed By: Self Edit Transcribed Date: 09/20/2024 07:47 ET us Janina Donald NP IMG XR PROCEDURES Final Resul t * CT LUNG SCREENING LOW DOSE (06/26/2023 4:52 PM EST) Anatomical Region Laterality Modality Computed Tomogra phy 06/26/2023 3:29 PM EST Narrative 06/26/2023 4:52 PM EST [facility] Diagnostic Imaging Department [address] [place] [address] Patient: ??JAN HUERTAS ?/Age/Sex: 1970 - 52 - M Unit#: ??[id number] ? Location/Status: ??SPDICATLS/REG CLI ? Mnemonic/Ordering Site: [...] Procedure Note Medardo Nichole MD - 01/22/2024 [facility] Diagnostic Imaging Department [address] [place] [address] Patient: JAN HUERTAS Charisma /Age/Sex: 1970 - 52 - M Unit#: [id number] Location/Status: [facility]REG CLI Mnemonic/Ordering Site[facility] Ordering Physician: PATRICK PANTOJA MD CT Lung Screening Low Dose - 06/26/23 - 2300 Report Status:Signed Chest CT dated 06/26/2023. HISTORY: [...] * Annual BMP Blood Test (05/25/2009) Pathologist [facility] Annual BMP Blood Test abstracted Historical Provider HEALTH MAINTENANCE Final Result * HIV Screening (11/05/2007) [facility] HIV Screening abstracted Historical Provider HEALTH MAINTENANCE [...] Most Recently Relevant to Health Maintenance Insurance [facility] MEDICARE Member Subscriber Plan / Payer (Ef fective 2020-Present) Name:Jan Huertas Relation to Subscriber:Self Name:Jan Huertas Payer ID:[id number] Group ID:[id number] Type:Not on file Address: [place] [address] [address] [id number] Care Teams Corduroy Cutting Supervisor Relationship Specialty Start Date End Date Vickie Flores MD [address] [place] [address] PCP - General Internal Medicine 06/26/24
== END 2024-10-22 09:18 | disposition home or self-care (01) ==
LOC: HO.XRAY 09:17
PROVIDERS: Visit Provider Anesthesiology
DX: M25.561 Pain in right knee (principal); M25.562 Pain in left knee
CPT/HCPCS: 73562

== ENCOUNTER → 2024-10-22 09:19 | Outpatient (BNV) | payer OTHER, SELFPAY | PROVIDERS: Visit Provider Radiology Diagnostic Radiology | DX: M25.561 Pain in right knee (principal); M25.562 Pain in left knee | CPT/HCPCS: 73562 ==

== ENCOUNTER 2024-11-19 09:25 | Outpatient (AMB) | payer OTHER, SELFPAY ==
--- NOTE | 2024-11-19 09:27 | A.OFFVIS_ITS ---
Vital Signs 11/19/24 09:31 Height 5 ft 10 in Weight 230 lb BMI 33.0 BP 135/85 Blood Pressure Location Lt brachial Position Sitting Pulse 79 Pulse Source Pulse Oximeter Pulse Oximetry (%) 100 Oxygen Delivery Method Room Air Intake Visit Reasons: BILATERAL L3, L4 INTERLAMINAR EMMANUEL Intake Note: Pain today 03/14 Feed Crusher Required: No Accompanied by: Spouse Allergies Seasonal Allergies Allergy (Mild, Verified 11/19/24 09:31) Sneezing HPI Comments Details: Patient presents today for follow up to assess response to L3-L4 Interlaminar EMMANUEL injection on 10/22/[address] Payne. Patient reports ongoing 50-60% ongoing pain relief since procedure with partial relief of his back and anterior thigh and leg pain. Reports partially improved daily functioning, mobility and sleep. His knee pain, present for over five years, started on the right side and later involved the left, worsening with activities like stair climbing, especially in cold weather. He reports significant impact on his daily life, with popping and clicking sensations occasionally occurring. Past treatment with meloxicam was not tolerated due to gastrointestinal side effects when taken on empty stomach; acetaminophen is taken periodically. Denies any recent cough, cold, infection, fever or other significant changes in medical history since last office visit. - Onset: Knee pain for 5 years, back pain ongoing - Quality: Burning, severe pain in knees; partial back and hip relief following injection - Location: Bilateral knees, lower back - Radiation: Pain throughout knee compartments - Exacerbating factors: Stair climbing, cold weather - Relieving factors: Previous cortisone injections, pain medication - Impact: Difficulty with walking, daily activities; increased pain when exerting - Affect: Reports significant pain affecting daily life and mood. - Analgesia: Takes acetaminophen occasionally; received epidural injection with 50-60% relief. - Adverse Effects: Gastrointestinal bleeding with previous meloxicam use on empty stomach. - Activities of Daily Living: Severely impacted; uses cane and avoids exertion. - Aberrant Drug Related Behaviors: Denies aberrant drug behaviors; expresses hesitance towards regular medication use. Past Procedures: 10/22/24: L3-L4 Interlaminar EMMANUEL-50-60% ongoing pain relief 06/25/24: L2-L3 Interlaminar EMMANUEL-60% pain relief for 2 months PRIOR 11/10/23: Patient is a 52-year-old male with prior history of chronic neck and low back pain, lumbar spinal stenosis with bilateral lower extremity weakness and radiculopathy, polyarthralgia, anxiety, depression, cervical spinal stenosis with myelomalacia, memory loss ([place] [facility] [place] presents today for initial evaluation low back pain with bilateral radiculopathy. Denies any recent trauma, injury, or falls. Back pain is axial with discogenic and radicular pain components. Back radiates into his both legs laterally and anterior thighs and shins with numbness and tingling in his top of the foot and toes. Reports numbness and tingling in his arms and legs with weakness with ongoing neck and back pain. He had to stop PT recently due to aggravation of his back and neck pain. Patient reports frequent bowel and bladder incontinence that has been progressively getting worse. He reports imbalance and legs giving out with walking or prolonged standing. Patient uses cane and at times has to use crutches due to significant right knee pain due to osteoarthritis. Patient denies previous back surgery or injections and is very hesitant to worse interventional treatments. He reports neurosurgical evaluation with Dr. Jha but can not recall the details of conversation, including back surgery offer. Patient is undergoing neurology evaluation for memory loss at [facility]. His most recent brain MRI was normal. Pain affects his daily activities and functioning, mobility, mood, sleep, social interactions and quality of life. Denies any fever, chills, abdominal or groin pain, or saddle anesthesia. He has been treating his pain with meloxicam and pregabalin with minimal relief. Previously tried ibuprofen and naproxen without relief. He reports mood changes and irritability with pregabalin and would like to change this to gabapentin. His back pain is function and mobility limiting and has been resistant to conservative treatments. Patient reports seeing Mental Therapist for anxiety and depression and finds this beneficial. Patient denies any smoking, alcohol consumption or illicit drug use. He quit smoking last year. Patient is on disability for about 11 years. He sees care taker Dr. Almazan for asthma/COPD, JOSE GUADALUPE on CPAP. Physical Therapy Discharge Report Diagnosis: CHRONIC LOW BACK AND NECK PAIN (KP) Date of Evaluation: 07/17/23 Date of Discharge: 10/23/23 Treatments to Date: 7 Cancellations to Date: 5 No Shows to Date: 1 Discharge Status: Recommend MD Follow-up Discharge Summary: DUE TO REPORTS THAT HE IS NO BETTER AND FEELS WORSE AFTER ACTIVITY . WE HAVE DECIDED TO [facility] UNTIL AFTER HIS PAIN MANAGEMENT APPOINTMENT. [facility] [place] [facility] [place] 10/12/22 [place] Jha MD, PhD: On 10/12/2022, I saw for follow-up your patient Jan Huertas to discuss the findings of a new MRI of the cervical spinal lumbar spine. He was previously seen at [facility] for neck and back problems and they refer to this note for detailed history. In summary, he has severe bilateral arm pain radiating toward index finger and thumb. His proximal leg weakness. He also has back pain with radiating pain down his legs, increased with walking. A previous MRI of the cervical spine showed severe C5-6 spinal stenosis with myelomalacia and bilateral C6 foraminal stenosis. The new MRI of the cervical spine shows multilevel degenerative disc disease and again the ongoing C5-6 severe spinal stenosis with bilateral C6 foraminal stenosis and myelomalacia. His clinical symptoms match a C6 dermatome and therefore I recommended a C5-6 anterior diskectomy and fusion. I think his proximal bilateral leg weakness may also be associated with the spinal cord compression. I also reviewed Thomas detail with the patient. This shows moderate L3-4 spinal stenosis. With an extensive discussion about an anterior diskectomy and fusion. I explained the procedure and possible complications and expected postoperative course. He wants to think it over and discuss it with his family. He will call the office if he wants to proceed. He will need preoperative clearance from his primary care physician. I spent 30 minutes in this consult for preparation review of imaging and discussing plan of care. Location: Lower back, radiates down bilateral legs, widespread body pain Duration: Chronic pain for many years, since Characteristics of symptom or complaint: Aching, burning, numb, tingling, stabbing, sharp, electric, throbbing Aggravating or associated factors: Any movement, bending, extending backwards, walking, standing, climbing Relieving factors: Laying still not moving NSAID, heat therapy Treatment: PT-no improvement [facility] Medical History Stage 3a chronic kidney disease Hyperlipidemia Chronic pain syndrome COPD (chronic obstructive pulmonary disease) Prediabetes Vitamin D deficiency Anxiety and depression Lumbar spinal stenosis Asthma JOSE GUADALUPE on CPAP Lumbar radiculopathy Osteoarthritis of right knee Right knee pain Palpitation Memory loss Gait disturbance Weakness of both lower extremities Cervical myelopathy with cervical radiculopathy Surgical History H/O hand surgery Family History Mother Diabetes Social History Alcohol intake: former Patient Tobacco Use Status: Former Tobacco user Review of Systems Const Details: - Musculoskeletal: Reports bilateral knee pain, popping/clicking in knees; back pain. - Neurological: Denies memory loss. Denies bladder or bowel dysfunction or saddle anesthesia. - Psychological: Reports managing with therapy; racing thoughts noted. All systems reviewed & are unremarkable except as noted in HPI and below Physical Exam Vital Signs: Last Vital Signs Pulse 79 11/19/24 09:31 BP 135/85 11/19/24 09:31 Pulse Ox 100 11/19/24 09:31 Oxygen Delivery Method Room Air 11/19/24 09:31 BMI result Body Mass Index 33.0 General: Appears afebrile. Alert and oriented. Mood and affect appropriate. Follows and participates in conversation appropriately. Respiratory effort is unlabored. No cough. Able to transition from sit to stand unassisted. Uses cane with ambulation. Ambulates with bilaterally normal heel strike and toe off, reports gait imbalance, RLE weakness due to knee/back pain. General: Yes no CVA tenderness Back/Spine/Pelvis Other: Limited lumbar ROM due to pain. Mildly antalgic gait with limping. Lumbar extension and flexion forward with axial rotations reproduces mild to moderate pain. Demonstrates 5/5 left and 4/5 right strength of quadriceps bilaterally as well as flexion/dorsiflexion of bilateral feet against resistance. 2+ pedal pulses bilaterally. Seated straight leg rise with dorsiflexion positive bilaterally. +2 patellar and +1 achilles reflexes bilaterally. Facet loading test positive bilaterally. Murtaza sign positive bilaterally, Marino?s and Stinchfield tests reproduce lateral hip pain bilaterally, not back pain. No groin pain with I/E hip rotations. Valsalva maneuver is negative. Back: no CVA tenderness Cervical Spine: cervical muscular tenderness, pain with cervical ROM and No Cervical spine tenderness Thoracic/Lumbar Spine: thoracic and lumbar spine normal to inspection, No Thoracic/lumbar spine scar(s), Lasegue's sign positive bilateral and diffuse, pain with thoraco-lumbar ROM, paraspinal muscle tenderness, thoraco-lumbar ROM limited, No thoracic spinal tenderness and lumbar spinal tenderness (L3-S1) Pelvis: buttock tenderness bilaterally and no sciatic notch tenderness Sacroiliac joints: bilaterally tender to palpation Extrem Other: Bilateral knee: Normal to inspection. No swelling, erythema or ecchymosis. Limited range of motion due to pain. +Crepitus. TTP in medial and lateral aspects of both knees. General: Yes capillary refill normal, Yes no clubbing, cyanosis or edema and Yes no calf tenderness Results Reviewed Results Reviewed: MR LUMBAR SPINE WITHOUT CONTRAST 02/26/24 CLINICAL INFORMATION: Radiculopathy COMPARISON: MRI lumbar spine February 23, 2021 TECHNIQUE: MRI of the lumbar spine was obtained using routine sequences without contrast. FINDINGS: Normal lumbar lordosis is preserved. Slight retrolisthesis at L3-L4 through L5-S1. Vertebral body heights are maintained. There is no suspicious osseous lesion. Again seen L1 vertebral body intraosseous hemangioma. Multilevel disc desiccation and mild disc height loss. There is a new prominent presumed Schmorl's node along the right aspect of the L5 upper endplate/vertebral body with marginal fat deposition and associated inflammatory marrow edema. Redemonstrated smaller L1 upper endplate Schmorl's node. Multilevel anterior osteophytic spurring is seen. Level by level detail as follows: L1-L2: Annular disc bulge with slightly decreased size of right central protrusion with associated annular fissure. Decreased mild spinal canal stenosis. Stable minimal neural foraminal encroachment. L2-L3: Annular disc bulge with paracentral disc protrusion and annular fissure. Mild facet arthrosis. Stable moderate to severe spinal canal stenosis and subarticular zone narrowing with impression along the traversing L3 nerve roots. Unchanged moderate neural foraminal stenosis. L3-L4: Annular disc bulge with paracentral disc protrusion with left central annular fissure and mild to moderate facet arthrosis. Stable moderate spinal canal stenosis and mass effect along the traversing L4 nerve roots in the subarticular zones. Stable moderate to severe left neural foraminal stenosis with impingement along the exiting left L3 nerve and moderate right neural foraminal stenosis. L4-L5: Annular disc bulge with inferiorly migrated left central/subarticular disc extrusion and with decreased conspicuity of annular fissure. Mild facet arthrosis. No spinal canal stenosis. Unchanged moderate neural foraminal stenosis with impingement along the exiting right greater than left L4 nerves. L5-S1: Annular disc bulge with redemonstrated inferiorly migrated paracentral disc extrusion eccentric to the left and mild facet arthrosis. No spinal canal stenosis. Stable moderate to severe bilateral neural foraminal stenosis with mass effect along the exiting L5 nerves. The conus medullaris terminates at the level of L2. The distal spinal cord is normal in appearance. No epidural fluid collection, hematoma, or mass. There is mild fatty infiltration of the paraspinal musculature. Limited evaluation of the intra-abdominal structures without significant abnormalities. The abdominal aorta is of normal contour and caliber. IMPRESSION: 1. Multilevel lumbar spondylosis is not significantly progressed compared to MRI from February 23, 2021. 2. At L1-L2, slightly decreased size of right central disc protrusion with associated annular fissure results in decreased mild spinal canal stenosis. 3. At L2-L3, stable moderate to severe spinal canal stenosis and subarticular zone narrowing with impression along the traversing L3 nerve roots. 4. At L3-L4, stable moderate spinal canal stenosis and mass effect along the traversing L4 nerve roots in the subarticular zones. Stable moderate to severe left neural foraminal stenosis with impingement along the exiting left L3 nerve and moderate right neural foraminal stenosis. 5. At L4-L5, stable moderate neural foraminal stenosis with impingement along the exiting right greater than left L4 nerves. 6. At L5-S1, stable moderate to severe bilateral neural foraminal stenosis with mass effect along the exiting L5 nerves. 7. New prominent presumed Schmorl's node along the right aspect of the L5 upper endplate/vertebral body with marginal fat deposition and associated inflammatory marrow edema. X-ray knee bilaterally 10/22/24 CLINICAL INFORMATION: Bilateral knee pain. TECHNIQUE: AP view in standing position both knees. Lateral and sunrise views both knees. COMPARISON: None FINDINGS: Mild joint space narrowing involving the medial compartments both knees. No acute cortical disruption or malalignment. No suprapatellar bursa joint effusion. No lytic or blastic lesions. IMPRESSION: Mild medial compartment osteoarthrosis. Assessment & Plan Assessment & Plan (1) Bilateral knee pain: Code(s): M25.561 - Pain in right knee; M25.562 - Pain in left knee Category: Medical (2) Bilateral primary osteoarthritis of knee: Code(s): M17.0 - Bilateral primary osteoarthritis of knee Category: Medical (3) Lumbar spondylosis: Code(s): M47.816 - Spondylosis without myelopathy or radiculopathy, lumbar region Category: Medical (4) Lumbar radiculopathy: Code(s): M54.16 - Radiculopathy, lumbar region Category: Medical (5) Lumbar spinal stenosis: Code(s): M48.061 - Spinal stenosis, lumbar region without neurogenic claudication Category: Medical (6) Chronic pain syndrome: Code(s): G89.4 - Chronic pain syndrome Category: Medical Plan The patient will engage in targeted physical therapy to improve bilateral knee function, with specific exercises to strengthen structures and alleviate osteoarthritis symptoms. Script sent for celecoxib for pain, advising a lower dosage due to previous adverse reactions to NSAIDs. Patient was advised to take celecoxib with food and full glass of water. Lidocaine patches are also sent as adjunctive therapy for pain targeted relief. In meantime, we will schedule bilateral intra-articular steroid knee injections with local and fluoroscopy. Expectations, risks and benefits were reviewed. Patient is aware he will be contacted to schedule this procedure. For chronic low back pain, with multilevel arthritis, discogenic and radicular symptoms, potential option with neuromodulation with SCS trial considered as a step-up therapy if injections prove inadequate. Follow-up evaluation for kidney function through primary care for recent lab work will ensure ongoing safety with medications. The interdisciplinary approach, involving Orthopedics and potential use of neuromodulation vs radiofrequency ablation, will be re-evaluated during subsequent visits based on treatment response and patient feedback. All questions and concerns have been answered and patient agreed with the treatment plan. Follow-up after injections/PT and sooner as needed. Patient was informed and verbally consented to the use of an ambient scribe for clinic note documentation during this visit. Orders: Orders PT Evaluation and Treatment Today M17.0 - Bilateral primary osteoarthritis of knee, M25.561 - Pain in right knee, M25.562 - Pain in left knee Medications: New celecoxib (Celebrex) Take it with food and full glass of water. 200 mg PO BID PRN 60 caps 0RF pain M17.0 - Bilateral primary osteoarthritis of knee, M25.561 - Pain in right knee, M25.562 - Pain in left knee celecoxib Take it with food and full glass of water. 100 mg PO BID PRN 60 caps 0RF pa in M17.0 - Bilateral primary osteoarthritis of knee, M25.561 - Pain in right knee, M25.562 - Pain in left knee lidocaine 5% 2 patches topically; 30 days 60 ea 0RF pain M17.0 - Bilateral primary osteoarthritis of knee, M25.561 - Pain in right knee, M25.562 - Pain in left knee Coding Level of Care Code Est Pt Level 4 (07621) Complex EM visit Add On G2211 Diagnoses Bilateral knee pain M25.561; M25.562 Bilateral primary osteoarthritis of knee M17.0 Lumbar spondylosis M47.816 Lumbar radiculopathy M54.16 Lumbar spinal stenosis M48.061 Chronic pain syndrome G89.4
[2024-11-19 09:31] VITALS: BP 135/85; PULSE 79; O2SAT 100; BMI 33.0
--- OUTSIDE RECORDS SUMMARY | 2024-11-19 10:08 | XMS_ITS | Clinical Summary ---
Author Organization [facility] Address [address] [place] [address] Phone Care Team Providers Care Manager Quality Systems Name Role Phone Vickie Flores MD Primary Care Provider [phone] Allergies No known active allergies Medications clonazePAM [...] 05/19/2009 Tobacco use disorder 05/19/2009 Bipolar disorder ([facility] V24, [facility] V28) 12/2005 Encounters Date Type Department Care Team Description 09/19/2024 1:41 PM EDT - 09/19/2024 11:59 PM EDT Hospital Encounter [facility] Xray [address] [place] [address] Pain in left shoulder Discharge Disposition: Home or Self Care from Last 3 Months Immunizations Name Administration Dates Next Due Td Tetanus diptheria (Tdvax) 7yo and older 06/09 Surgical History Surgery Date Site/Laterality Comments HAND SURGERY N/A PROCEDURE: HISTORICAL HAND SURGERY Medical History Medical History Date Comments Bipolar disorder, unspecifie d ([facility] V24, [facility] V28) DX:Bipolar disorder, unspeci fied ([facility]) COPD (chronic obstructive pu lmonary disease) ([facility] V24, [facility] V28) DX:COPD (chronic o bstructive pulmonary disease) ([facility]) Anxiety disorder DX:Anxiety diso rder [...] 03/21/2024 8:22 AM EDT Plan of Treatment Upcoming Encounters Date Type Department Care Team (Late st Contact Info) Description 11/25/2024 10:45 AM EDT Appointment [facility] CT Scan [address] [place] [address] Health Maintenance Due Date Last Done Comments Diabetes: Annual Foot Exam 11/23/1979 Diabetes: Annual Retina Eye Exam 11/23/1979 Hepatitis B Vaccines (1 of 3 - 19+ 3-dose series) 1988 Zoster Vaccines (1 of 2) 1988 Pneumococcal Vaccine: 50+ Years (1 of 1 - PCV) 11/23/2019 Colorectal Cancer Screening: Colonoscopy 05/03/2022 Depression Screening 05/03/2022 Hepatitis C Screening 05/03/2022 Medicare Annual Wellness Visit 05/03/2022 Social Influencers of Health Screening 05/03/2022 DTaP,Tdap,and Td Vaccines (2 - Td or Tdap) 06/09/2022 06/09/2012 COVID-19 Vaccine ( - 2023-2 5 season) 2024 10/04/2021, 02/18/2021, 01/20/2021 Lung Cancer Screening (Low Dose CT) 06/26/2024 06/26/2023 Diabetes: Annual Urine Albumin-Creatinine Ratio (uACR) 09/19/2024 Influenza Vaccine (Season Ended) 2025 Diabetes: Blood Sugar Contro l Test (HGBA1C) 04/26/2025 10/24/2024 Diabetes: Annual GFR (Glomerular Filtration Rate) 10/24/2025 10/24/2024, 05/25/2009 Cholesterol Screening (Lipid Panel) 10/24/2029 10/24/2024, 11/05/2007 HIV Screening Completed 11/05/2007 HIB Vaccines Aged [...] Procedure Name Priority Date/Time Associated Diagnosis Comments URINALYSIS WITH REFLEX MICROSCOPIC Routine 10/24/2024 9:27 AM EDT Screening for diabetes mellitus Special screening for malignant neoplasm of prostate Avitaminosis D Routine general medical examination at a health care facility Screening for thyroid disorder Screening for lipoid disorders URINALYSIS WITH REFLEX MICROSCOPIC Routine 10/24/2024 9:27 AM EDT Screening for diabetes mellitus Special screening for malignant neoplasm of prostate Avitaminosis D Routine general medical examination at a health care facility Screening for thyroid disorder Screening for lipoid disorders CBC WITH AUTO DIFFERENTIAL Routine 10/24/2024 9:22 AM EDT Screening for diabetes mellitus Special screening for malignant neoplasm of prostate Avitaminosis D Routine general medical examination at a health care facility Screening for thyroid disorder Screening for lipoid disorders LIPID PANEL WITH REFLEX TO DIRECT LDL Routine 10/24/2024 9:22 AM EDT Screening for diabetes mellitus Special screening for malignant neoplasm of prostate Avitaminosis D Routine general medical examination at a health care facility Screening for thyroid disorder Screening for lipoid disorders THYROID STIMULATING HORMONE WITH REFLEX TO FREE T4 AND FREE T3 Routine 10/24/2024 9:22 AM EDT Screening for diabetes mellitus Special screening for malignant neoplasm of prostate Avitaminosis D Routine general medical examination at a health care facility Screening for thyroid disorder Screening for lipoid disorders CBC AND DIFFERENTIAL Routine 10/24/2024 9:22 AM EDT Screening for diabetes mellitus Special screening for malignant neoplasm of prostate Avitaminosis D Routine general medical examination at a [facility] care facility Screening for thyroid disorder Screening for lipoid disorders COMPREHENSIVE METABOLIC PANEL Routine 10/24/2024 9:22 AM EDT Screening for diabetes mellitus Special screening for malignant neoplasm of prostate Avitaminosis D Routine general medical examination at a [facility] care facility Screening for thyroid disorder Screening for lipoid disorders VITAMIN D 25 HYDROXY Routine 10/24/2024 9:22 AM EDT Screening for diabetes mellitus Special screening for malignant neoplasm of prostate Avitaminosis D Routine general medical examination at a [facility] care facility Screening for thyroid disorder Screening for lipoid disorders PSA TOTAL, FREE AND COMPLEXED, DIAGNOSTIC Routine 10/24/2024 9:22 AM EDT Screening for diabetes mellitus Special screening for malignant neoplasm of prostate Avitaminosis D Routine general medical examination at a health care facility Screening for thyroid disorder Screening for lipoid disorders HEMOGLOBIN A1C Routine 10/24/2024 9:22 AM EDT Screening for diabetes mellitus Special screening for malignant neoplasm of prostate Avitaminosis D Routine general medical examination at a health care facility Screening for thyroid disorder Screening for lipoid disorders XR SHOULDER 2+ VIEWS LEFT Routine 09/19/2024 2:04 PM EDT Pain in left shoulder CT LUNG SCREENING LOW DOSE Routine 06/26/2023 4:52 PM EST Encounter for screening for malignant neoplasm of respiratory organs HIV SCREENING Routine 11/05/2007 from Last 3 Months or Most Recently Relevant to Health Maintenance Results * (ABNORMAL) Urinalysis with reflex microscopic (10/24/2024 9:27 AM EDT) Specific [place] Urine 1.021 1.003 - 1.030 LAB URINALYSIS - AUTOMATED METHOD 10/24/2024 10:16 AM [facility] pH, Urine 5.5 5.0 - 8.0 pH LAB URINALYSIS - AUTOMATED METHOD 10/24/2024 10:16 AM [facility] Leukocytes, Urine Negative Negative LAB URINALYSIS - AUTOMATED METHOD 10/24/2024 10:16 AM [facility] Nitrite, Urine Negative Negative LAB URINALYSIS - AUTOMATED METHOD 10/24/2024 10:16 AM [facility] Protein, Urine Trace <=Trace mg/dL LAB URINALYSIS - AUTOMATED METHOD 10/24/2024 10:16 AM [facility] Glucose, Urine Negative Negative mg/dL LAB URINALYSIS - AUTOMATED METHOD 10/24/2024 10:16 AM [facility] Ketones, Urine Trace(A) Negative mg/dL LAB URINALYSIS - AUTOMATED METHOD 10/24/2024 10:16 AM [facility] Urobilinogen, Urine 1.0 0.2 - 1.0 mg/dL LAB URINALYSIS - AUTOMATED METHOD 10/24/2024 10:16 AM [facility] Bilirubin, Urine Negative Negative LAB URINALYSIS - AUTOMATED METHOD 10/24/2024 10:16 AM [facility] Blood, Urine Trace(A) Negative LAB URINALYSIS - AUTOMATED METHOD 10/24/2024 10:16 AM [facility] RBC, Urine 4.2(H) 0 - 4 /HPF LAB URINALYSIS - AUTOMATED METHOD 10/24/2024 10:16 AM EDT [facility] WBC, Urine 0.5 0 - 4 /HPF LAB URINALYSIS - AUTOMATED METHOD 10/24/2024 10:16 AM EDT [facility] Squamous Epithelial, Urine 8 0 - 60 /LPF LAB URINALYSIS - AUTOMATED METHOD 10/24/2024 10:16 AM EDT [facility] Bacteria, Urine Negative Negative /HPF LAB URINALYSIS - AUTOMATED METHOD 10/24/2024 10:16 AM T [facility] Hyaline Casts, Urine 0.4 0 - 3 /LPF LAB URINALYSIS - AUTOMATED METHOD 10/24/2024 10:16 AM [facility] Urine Urine specimen obtained by clean catch procedure / Unknown Non-blood Collection / Unknown 10/24/2024 9:27 AM EDT 10/24/2024 9:48 AM EDT us Janina Donald CENTRAL PROCESSING TECH LAB URINE ORDERABLES Final Re sult [facility] [address] [place] [address], * (ABNORMAL) PSA total, free and complexed (10/24/2024 9:22 AM EDT) PSA 1.46 0.00 - 4.00 ng/mL LAB CHEMISTRY METHOD 10/24/2024 11:26 AM EDT [facility] PSA, Complexed 1.22 0.00 - 3.00 ng/mL LAB CHEMISTRY METHOD 10/24/2024 11:26 AM T [facility] PSA, Free 0.2 ng/mL LAB CHEMISTRY METHOD 10/24/2024 11:26 AM T [facility] PSA, Free Pct 13.7(L) >25.0 % LAB CHEMISTRY METHOD 10/24/2024 11:26 AM EDT [facility] Blood Venous blood specimen / Unknown Venipuncture / Unknown 10/24/2024 9:22 AM EDT 10/24/2024 9:45 AM EDT Narrative [facility] - 10/24/2024 11:26 AM EDT Free PSA is a calculated value. ??The diagnostic usefulness of % free PSA has not been established in patients with Total PSA below 2.6 or above 10 ng/mL. ?? This test was performed using the Centaur Chemiluminescent method. ??PSA values obtained with other methods cannot be used interchangeably. us Janina Donald NP LAB BLOOD ORDERABLES Final Re sult Performing Organization Address [facility]/ZIP Co de Phone Number [facility] [address] [place] [address], [place] [phone] * Thyroid stimulating hormone with reflex to free t4 and free t3 (10/24/2024 9:22 AM EDT) TSH 1.27 0.40 - 4.00 mcIU/mL LAB CHEMISTRY METHOD 10/24/2024 11:53 AM EDT [facility] Blood Venous blood specimen / Unknown Venipuncture / Unknown 10/24/2024 9:22 AM EDT 10/24/2024 9:45 AM EDT us Janina Donald CENTRAL PROCESSING TECH LAB BLOOD ORDERABLES Final Re sult [facility] [address] [place] [address], [place] [phone] * Lipid panel with reflex to direct LDL (10/24/2024 9:22 AM EDT) Cholesterol 168 0 - 200 mg/dL LAB CHEMISTRY METHOD 10/24/2024 10:56 AM EDT [facility] Triglycerides 82 0 - 150 mg/dL LAB CHEMISTRY METHOD 10/24/2024 10:56 AM EDT [facility] HDL 55 >=40 mg/dL LAB CHEMISTRY METHOD 10/24/2024 10:56 AM EDT [facility] LDL Calculated 97 0 - 100 mg/dL LAB CHEMISTRY METHOD 10/24/2024 10:56 AM EDT [facility] VLDL Cholesterol Frankie 16.4 mg/dL LAB CHEMISTRY METHOD 10/24/2024 10:56 AM EDT [facility] Non HDL Chol. (LDL+VLDL) 113 <145 mg/dL LAB CHEMISTRY METHOD 10/24/2024 10:56 AM EDT [facility] Chol/HDL Ratio 3.1 0.0 - 4.4 LAB CHEMISTRY METHOD 10/24/2024 10:56 AM EDT [facility] Blood Venous blood specimen / Unknown Venipuncture / Unknown 10/24/2024 9:22 AM EDT 10/24/2024 9:45 AM EDT us Janina Donald CENTRAL PROCESSING TECH LAB BLOOD ORDERABLES Final Re sult [facility] [address] [place] [address], [place] [phone] * (ABNORMAL) CBC auto differential (10/24/2024 9:22 AM EDT) WBC 12.8(H) 4.8 - 10.8 K/[facility] LAB HEMETOLOGY METHOD 10/24/2024 10:03 AM EDT [facility] RBC 5.50 4.50 - 5.50 M/[facility] LAB HEMETOLOGY METHOD 10/24/2024 10:03 AM EDT [facility] Hemoglobin 16.6 13.5 - 17.5 g/dL LAB HEMETOLOGY METHOD 10/24/2024 10:03 AM EDT [facility] Hematocrit 50.1 42.0 - 54.0 % LAB HEMETOLOGY METHOD 10/24/2024 10:03 AM [facility] MCV 91.9 79.0 - 98.0 FL LAB HEMETOLOGY METHOD 10/24/2024 10:03 AM [facility] MCH 30.5 27.0 - 32.0 pcg LAB HEMETOLOGY METHOD 10/24/2024 10:03 AM [facility] MCHC 33.1 32.0 - 37.0 g/dL LAB HEMETOLOGY METHOD 10/24/2024 10:03 AM [facility] RDW 13.0 11.0 - 15.0 % LAB HEMETOLOGY METHOD 10/24/2024 10:03 AM [facility] Platelets 291 130 - 400 K/mcL LAB HEMETOLOGY METHOD 10/24/2024 10:03 AM [facility] MPV 10.8 7.0 - 11.0 FL LAB HEMETOLOGY METHOD 10/24/2024 10:03 AM [facility] NRBC 0.0 <1.0 % LAB HEMETOLOGY METHOD 10/24/2024 10:03 AM [facility] NRBC Absolute 0.00 <0.10 K/mcL LAB HEMETOLOGY METHOD 10/24/2024 10:03 AM [facility] Neutrophils Relative 71.4 % LAB HEMETOLOGY METHOD 10/24/2024 10:03 AM [facility] Lymphocytes Relative 19.0 % LAB HEMETOLOGY METHOD 10/24/2024 10:03 AM [facility] Monocytes Relative 7.5 % LAB HEMETOLOGY METHOD 10/24/2024 10:03 AM [facility] Eosinophils Relative 0.0 % LAB HEMETOLOGY METHOD 10/24/2024 10:03 AM [facility] Basophils Relative 0.5 % LAB HEMETOLOGY METHOD 10/24/2024 10:03 AM EDT [facility] Immature Granulocytes Relative 1.6 % LAB HEMETOLOGY METHOD 10/24/2024 10:03 AM EDT [facility] Neutrophils Absolute 9.12(H) 1.50 - 7.00 K/mcL LAB HEMETOLOGY METHOD 10/24/2024 10:03 AM EDT [facility] Lymphocytes Absolute 2.42 1.00 - 5.00 K/mcL LAB HEMETOLOGY METHOD 10/24/2024 10:03 AM EDT [facility] Monocytes Absolute 0.96 0.20 - 1.00 K/mcL LAB [facility]EMETOLOGY [facility] Eosinophils Absolute 0.00 0.00 - 0.50 K/mcL LAB HEMETOLOGY METHOD 10[facility]24[facility]24 [facility] Basophils Absolute 0.06 0.00 - 0.20 K/mcL LAB HEMETOLOGY METHOD 10/24/2024 10:03 AM EDT [facility] Immature Granulocytes Absolute 0.20(H) 0.00 - 0.03 K/mcL LAB HEMETOLOGY METHOD 10/24/2024 10:03 AM [facility] Blood Venous blood specimen / Unknown Venipuncture / Unknown 10/24/2024 9:22 AM EDT 10/24/2024 9:49 AM EDT us Janina Donald NP LAB BLOOD ORDERABLES Final Re sult [facility] [address] [place] [address], * (ABNORMAL) Vitamin D 25 hydroxy (10/24/2024 9:22 AM EDT) Vit D, 25-Hydroxy 22.0(L) 30.0 - 80.0 ng/mL LAB CHEMISTRY METHOD 10/24/2024 11:26 AM EDT [facility] Blood Venous blood specimen / Unknown Venipuncture / Unknown 10/24/2024 9:22 AM EDT 10/24/2024 9:45 AM EDT us Janina Donlad CENTRAL PROCESSING TECH LAB BLOOD ORDERABLES Final Re sult Performing Organization Address [facility] Co de Phone Number [facility] [address] [place] [address], [place] [phone] * Hemoglobin A1c (10/24/2024 9:22 AM EDT) Hemoglobin A1C 5.3 <6.5 % LAB CHEMISTRY METHOD 10/25/2024 10:45 PM EDT [facility] Mean Bld Glu Estim. 105 mg/dL LAB CHEMISTRY METHOD 10/25/2024 10:45 PM EDT [facility] Blood Venous blood specimen / Unknown Venipuncture / Unknown 10/24/2024 9:22 AM EDT 10/24/2024 9:49 AM EDT us Janina Donald CENTRAL PROCESSING TECH LAB BLOOD ORDERABLES Final Re sult Performing Organization Address [facility]/ZIP Co de Phone Number [facility] [address] [place] [address], [place] [phone] * (ABNORMAL) Comprehensive metabolic panel (10/24/2024 9:22 AM EDT) Sodium 136 133 - 145 mmol/L LAB CHEMISTRY METHOD 10/24/2024 10:56 AM EDT [facility] Potassium 4.2 3.5 - 5.5 mmol/L LAB CHEMISTRY METHOD 10/24/2024 10:56 AM EDT [facility] Chloride 105 96 - 110 mmol/L LAB CHEMISTRY METHOD 10/24/2024 10:56 AM [facility] CO2 25 21 - 32 mmol/L LAB CHEMISTRY METHOD 10/24/2024 10:56 AM [facility] Anion Gap 6 3 - 11 LAB CHEMISTRY METHOD 10/24/2024 10:56 AM [facility] Glucose 102(H) 70 - 100 mg/dL LAB CHEMISTRY METHOD 10/24/2024 10:56 AM [facility] BUN 26(H) 5 - 25 mg/dL LAB CHEMISTRY METHOD 10/24/2024 10:56 AM [facility] Creatinine 1.03 0.70 - 1.30 mg/dL LAB CHEMISTRY METHOD 10/24/2024 10:56 AM [facility] eGFR 86 >=60 mL/min/1. 73m2 LAB CHEMISTRY METHOD 10/24/2024 10:56 AM [facility] Comment:Calculation based on the Chronic Kidney Disease Epidemiology Collaboration (CKD-EPI) equation refit without adjustment for race. BUN/Creatinine Ratio 25.2 LAB CHEMISTRY METHOD 10/24/2024 10:56 AM [facility] Calcium 9.6 8.5 - 10.5 mg/dL LAB CHEMISTRY METHOD 10/24/2024 10:56 AM [facility] AST (SGOT) 12 10 - 42 unit/L LAB CHEMISTRY METHOD 10/24/2024 10:56 AM [facility] ALT (SGPT) 36 10 - 60 unit/L LAB CHEMISTRY METHOD 10/24/2024 10:56 AM [facility] Alkaline Phosphatase 61 42 - 121 unit/L LAB CHEMISTRY METHOD 10/24/2024 10:56 AM [facility] Total Protein 7.3 6.0 - 8.0 g/dL LAB CHEMISTRY METHOD 10/24/2024 10:56 AM [facility] Albumin 4.1 3.2 - 5.0 g/dL LAB CHEMISTRY METHOD 10/24/2024 10:56 AM EDT [facility] Total Bilirubin 1.0 0.0 - 1.4 mg/dL LAB CHEMISTRY METHOD 10/24/2024 10:56 AM EDT [facility] Blood Venous blood specimen / Unknown Venipuncture / Unknown 10/24/2024 9:22 AM EDT 10/24/2024 9:45 AM EDT us Janina Donald CENTRAL PROCESSING TECH LAB BLOOD ORDERABLES Final Re sult [facility] [address] [place] [address], [place] [phone] * XR Shoulder 2+ Views Left (09/19/2024 [...] Signed Date: 09/20/2024 07:50 ET Workstation ID: [id number] Transcribed By: Self Edit Transcribed Date: 09/20/2024 [...] Signed Date: 09/20/2024 07:50 ET Workstation ID: [id number] Transcribed By: Self Edit Transcribed Date: 09/20/2024 07:47 ET us Janina Donald NP IMG XR PROCEDURES Final Resul t * CT LUNG SCREENING LOW DOSE (06/26/2023 4:52 PM EST) Anatomical Region Laterality Modality Computed Tomogra phy 06/26/2023 3:29 PM EST Narrative 06/26/2023 4:52 PM EST [facility] Diagnostic Imaging Department [address] [place] [address] Patient: ??JAN HUERTAS ?/Age/Sex: 1970 - 52 - M Unit#: ??[id number] ? Location/Status: ??SPDICATLS/REG CLI ? Mnemonic/Ordering Site: [...] Procedure Note Medardo Nichole MD - 01/22/2024 [facility] Diagnostic Imaging Department [address] [place] [id number] Patient: JAN HUERTAS Charisma GalanB./Age/Sex: 1970 - 52 - M Unit#: [id number] Location/Status: [facility] CLI [facility] Ordering Physician: PATRICK PANTOJA MD CT [...] PROCEDURES Final Result * HIV Screening (11/05/2007) HIV Screening abstracted Historical Provider HEALTH MAINTENANCE Final Result from Last 3 Months or Most Recently Relevant to Health Maintenance Insurance [employer] MED[employer]ARE Member Subscriber Plan / Payer (Ef fective 2020-Present) Name:JAN HUERTAS Relation to Subscriber:Self Name:Jan Huertas Payer ID:[id number] Group ID:[id number] Type:Not on file Address: [place] [address] [address] [place] [id number] Care Teams Manager Quality Systems Relationship Specialty Start Date End Date Vickie Flores MD [address] [place] [id number] PCP - General Internal Medicine 06/26/24
== END 2024-11-19 09:49 | disposition home or self-care (01) ==
LOC: HO.PMC 09:25
PROVIDERS: PCP Internal Medicine; Visit Provider Nurse Practitioner Family
DX: M25.561 Pain in right knee (principal); M25.562 Pain in left knee; M17.0 Bilateral primary osteoarthritis of knee; M47.816 Spondylosis without myelopathy or radiculopathy, lumbar region; M54.16 Radiculopathy, lumbar region; M48.061 Spinal stenosis, lumbar region without neurogenic claudication; G89.4 Chronic pain syndrome
CPT/HCPCS: 99214; G2211

== ENCOUNTER → 2024-11-19 09:25 | Outpatient (BNVA) | payer OTHER, SELFPAY | PROVIDERS: PCP Internal Medicine; Visit Provider Nurse Practitioner Family | DX: M25.561 Pain in right knee (principal); M25.562 Pain in left knee; M17.0 Bilateral primary osteoarthritis of knee; M47.816 Spondylosis without myelopathy or radiculopathy, lumbar region; M54.16 Radiculopathy, lumbar region; M48.061 Spinal stenosis, lumbar region without neurogenic claudication; G89.4 Chronic pain syndrome | CPT/HCPCS: 99212 ==

== ENCOUNTER 2025-01-21 07:41 | Outpatient (REF) | payer OTHER, SELFPAY ==
--- OUTSIDE RECORDS SUMMARY | 2025-01-21 07:43 | XMS_ITS | Clinical Summary ---
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 Role Phone Vickie Flores MD Primary Care Provider [phone] Allergies No known active allergies Medications clonazePAM [...] 05/19/2009 Tobacco use disorder 05/19/2009 Bipolar disorder ([facility] V24, [facility] V28) 12/2005 Encounters Date Type Department Care Team Description 12/23/2024 12:34 PM EDT - 12/23/2024 11:59 PM EDT Hospital Encounter [facility] CT Scan [address] [place] [address] Encounter for screening for malignant neoplasm of respiratory organs; Personal history of nicotine dependence Discharge Disposition: Home or Self Care 12/20/2024 Telephone Lung Screening Program - [place] [address] [place] [address] Lisa Drake MA Appointment from Last 3 Months Immunizations Name Administration Dates Next Due Td Tetanus diptheria (Tdvax) 7yo and older 06/09 Surgical History Surgery Date Site/Laterality Comments HAND SURGERY N/A PROCEDURE: HISTORICAL HAND SURGERY Medical History Medical History Date Comments Bipolar disorder, unspecifie d ([facility] V24, [facility] V28) DX:Bipolar disorder, unspeci fied ([facility]) COPD (chronic obstructive pu lmonary disease) ([facility] V24, [facility] V28) DX:COPD (chronic o bstructive pulmonary disease) ([facility]) Anxiety disorder DX:Anxiety diso rder [...] 1988 Zoster Vaccines (1 of 2) 1988 Hepatitis C Screening 05/03/2022 Medicare Annual Wellness Visit 05/03/2022 Social Influencers of Health Screening 05/03/2022 DTaP,Tdap,and Td Vaccines (2 - Td or Tdap) 06/09/2022 06/09/2012 COVID-19 Vaccine (4 - 2023-2 5 season) 2024 10/04/2021, 02/18/2021, 01/20/2021 Pneumococcal Vaccine: 50+ Years (2 of 2 - PPSV23) 05/16/2024 05/16/2023 Depression Screening 06/05/2024 Diabetes: Annual Urine Albumin-Creatinine Ratio (uACR) 12/24/2024 Influenza Vaccine (#1) 2025 Diabetes: Blood Sugar Contro l Test (HGBA1C) 04/26/2025 10/24/2024 Colorectal Cancer Screening: FIT-DNA (Cologuard) 07/10/2025 07/10/2022 Diabetes: Annual GFR (Glomerular Filtration Rate) 10/24/2025 10/24/2024, 05/25/2009 Lung Cancer Screening (Low Dose CT) 12/23/2025 12/23/2024, 06/26/2023 Cholesterol Screening (Lipid Panel) 10/24/2029 10/24/2024, 11/05/2007 [...] Date/Time Associated Diagnosis Comments CT LUNG SCREENING Routine 12/23/2024 12: 52 PM EDT Encounter for screening for malignant neoplasm of respiratory organs Personal history of nicotine dependence URINALYSIS WITH REFLEX MICROSCOPIC Routine 10/24/2024 9:27 [...] for thyroid disorder Screening for lipoid disorders HM HIV SCREENING Routine 11/05/2007 from Last 3 Months or Most Recently Relevant to Health Maintenance Results * CT Lung Screening (12/23/2024 12:52 PM EDT) Anatomical Region Laterality Modality Chest Computed Tomogra phy 12/24/2024 12:5 6 PM EDT Impressions 12/24/2024 2:12 PM EDT Lung RADS 2. Guidelines recommend repeat low-dose screening CT in 12 months. -------- FINAL REPORT -------- Dictated By: Medardo Nichole Dictated Date: 12/24/2024 12:56 ET Assigned Physician: Medardo Nichole Reviewed and Electronically Signed By: Medardo Nichole Signed Date: 12/24/2024 14:12 ET Workstation ID: [id number] Transcribed By: Self Edit Transcribed Date: 12/24/2024 14:02 ET Narrative 12/24/2024 2:12 PM EDT PROCEDURE: Low-dose CT of the chest without intravenous contrast. TECHNIQUE: Low-dose CT of the chest without intravenous contrast administration. Coronal and sagittal reformats and MIP reconstructions were created. Dose length product: 171 mGy-cm. HISTORY: Lung cancer screening, >=20 pk yr smoking history in last 15 yrs (Age 50-80y) COMPARISON: 06/26/2023. FINDINGS: Lungs/pleura: The central airways are clear and normal in caliber. Scattered calcified granulomas. Stable 2 mm nodule in the anterolateral left lower lobe, series 3 image 223. No pleural effusion or pneumothorax. Mediastinum/jose: No mediastinal mass or lymphadenopathy. No appreciable hilar lymphadenopathy on limited noncontrast evaluation. Vasculature: Normal caliber pulmonary arteries. Mild atherosclerotic calcifications of the aorta and great vessels. Cardiac: Normal heart size. Moderate coronary artery calcification. Chest wall: No axillary or supraclavicular lymphadenopathy. Limited abdomen: There is a partially visible low-attenuation lesion in the lateral periphery of the right hepatic lobe which measures approximately 4 cm in diameter. This is unchanged compared with the previous study. It is incompletely characterized. Features on a prior CT dated 03/21/2018 suggest that this is a hemangioma. Bones: Mild degenerative changes of the shoulders and spine. Procedure Note Medardo Nichole MD - 12/24/2024 PROCEDURE: Low-dose CT of the chest without intravenous contrast. TECHNIQUE: Low-dose CT of the chest without intravenous contrastadministration. Coronal and sagittal reformats and MIP reconstructionswere created. Dose length product: 171 mGy-cm. HISTORY: Lung cancer screening, >=20 pk yr smoking history in last 15 yrs(Age 50-80y) COMPARISON: 06/26/2023. FINDINGS: Lungs/pleura: The central airways are clear and normal in caliber.Scattered calcified granulomas. Stable 2 mm nodule in the anterolateralleft lower lobe, series 3 image 223. No pleural effusion orpneumothorax. Mediastinum/jose: No mediastinal mass or lymphadenopathy. No appreciablehilar lymphadenopathy on limited noncontrast evaluation. Vasculature: Normal caliber pulmonary arteries. Mild atheroscleroticcalcifications of the aorta and great vessels. Cardiac: Normal heart size. Moderate coronary artery calcification. Chest wall: No axillary or supraclavicular lymphadenopathy. Limited abdomen: There is a partially visible low-attenuation lesion inthe lateral periphery of the right hepatic lobe which measuresapproximately 4 cm in diameter. This is unchanged compared with theprevious study. It is incompletely characterized. Features on a prior CTdated 03/21/2018 suggest that this is a hemangioma. Bones: Mild degenerative changes of the shoulders and spine. IMPRESSION: Lung RADS 2. Guidelines recommend repeat low-dose screening CT in 12months. -------- FINAL REPORT -------- Dictated By: Medardo Nichole Dictated Date: 12/24/2024 12:56 ET Assigned Physician: Medardo Nichole Reviewed and Electronically Signed By: Medardo Nichole Signed Date: 12/24/2024 14:12 ET Workstation ID: [id number] Transcribed By: Self Edit Transcribed Date: 12/24/2024 14:02 ET Patrick Laura MD [facility] [place] PROCEDURES Final Result * (ABNORMAL) Urinalysis with reflex microscopic (10/24/2024 9:27 AM EDT) Specific [place] Urine 1.021 1.003 - 1.030 LAB URINALYSIS - AUTOMATED METHOD 10/24/2024 10:16 AM [facility] pH, Urine 5.5 5.0 - 8.0 pH LAB URINALYSIS - AUTOMATED METHOD 10/24/2024 10:16 AM [facility] Leukocytes, Urine Negative Negative LAB URINALYSIS - AUTOMATED METHOD 10/24/2024 10:16 AM [facility] Nitrite, Urine Negative Negative LAB URINALYSIS - AUTOMATED METHOD 10/24/2024 10:16 AM [facility] Protein, Urine Trace <=Trace mg/dL LAB URINALYSIS - AUTOMATED METHOD 10/24/2024 10:16 AM [facility] Glucose, Urine Negative Negative mg/dL LAB URINALYSIS - AUTOMATED METHOD 10/24/2024 10:16 AM [facility] Ketones, Urine Trace(A) Negative mg/dL LAB URINALYSIS - AUTOMATED METHOD 10/24/2024 10:16 AM [facility] Urobilinogen, Urine 1.0 0.2 - 1.0 mg/dL LAB URINALYSIS - AUTOMATED METHOD 10/24/2024 10:16 AM [facility] Bilirubin, Urine Negative Negative LAB URINALYSIS - AUTOMATED METHOD 10/24/2024 10:16 AM [facility] Blood, Urine Trace(A) Negative LAB URINALYSIS - AUTOMATED METHOD 10/24/2024 10:16 AM [facility] RBC, Urine 4.2(H) 0 - 4 /HPF LAB URINALYSIS - AUTOMATED METHOD 10/24/2024 10:16 AM [facility] WBC, Urine 0.5 0 - 4 /HPF LAB URINALYSIS - AUTOMATED METHOD 10/24/2024 10:16 AM [facility] Squamous Epithelial, Urine 8 0 - 60 /LPF LAB URINALYSIS - AUTOMATED METHOD 10/24/2024 10:16 AM EDT [facility] Bacteria, Urine Negative Negative /HPF LAB URINALYSIS - AUTOMATED METHOD 10/24/2024 10:16 AM EDT [facility] Hyaline Casts, Urine 0.4 0 - 3 /LPF LAB URINALYSIS - AUTOMATED METHOD 10/24/2024 10:16 AM T [facility] Urine Urine specimen obtained by clean catch procedure / Unknown Non-blood Collection / Unknown 10/24/2024 9:27 AM EDT 10/24/2024 9:48 AM EDT us Janina Donald NP LAB URINE ORDERABLES Final Re sult [facility] [address] [place] [address], [place] [phone] * (ABNORMAL) PSA total, free and complexed (10/24/2024 9:22 AM EDT) PSA 1.46 0.00 - 4.00 ng/mL LAB CHEMISTRY METHOD 10/24/2024 11:26 AM T [facility] PSA, Complexed 1.22 0.00 - 3.00 ng/mL LAB CHEMISTRY METHOD 10/24/2024 11:26 AM [facility] PSA, Free 0.2 ng/mL LAB CHEMISTRY METHOD 10/24/2024 11:26 AM [facility] PSA, Free Pct 13.7(L) >25.0 % LAB CHEMISTRY METHOD 10/24/2024 11:26 AM T [facility] Blood Venous blood specimen / Unknown Venipuncture / Unknown 10/24/2024 9:22 AM EDT 10/24/2024 9:45 AM EDT Narrative [facility] - 10/24/2024 11:26 AM EDT Free PSA is a calculated value. The diagnostic usefulness of % free PSA has not been established in patients with Total PSA below 2.6 or above 10 ng/mL. This test was performed using the Centaur Chemiluminescent method. PSA values obtained with other methods cannot be used interchangeably. Janina Donald PORTAL ADMINISTRATOR LAB BLOOD ORDERABLES Final Re sult Performing Organization Address [facility]/ZIP Co de Phone Number [facility] [address] [place] [address], [place] [phone] * Thyroid stimulating hormone with reflex to free t4 and free t3 (10/24/2024 9:22 AM EDT) TSH 1.27 0.40 - 4.00 mcIU/mL LAB CHEMISTRY METHOD 10/24/2024 11:53 AM EDT [facility] Blood Venous blood specimen / Unknown Venipuncture / Unknown 10/24/2024 9:22 AM EDT 10/24/2024 9:45 AM EDT Janina Donald LAB BLOOD ORDERABLES Final Re sult Performing Organization Address [facility] Co de Phone Number [facility] [address] [place] [address], [place] [phone] * Lipid panel with reflex to direct LDL (10/24/2024 9:22 AM EDT) Cholesterol 168 0 - 200 mg/dL LAB CHEMISTRY METHOD 10/24/2024 10:56 AM EDT [facility] Triglycerides 82 0 - 150 mg/dL LAB CHEMISTRY METHOD 10/24/2024 10:56 AM EDT [facility] HDL 55 >=40 mg/dL LAB CHEMISTRY METHOD 10/24/2024 10:56 AM EDT [facility] LDL Calculated 97 0 - 100 mg/dL LAB CHEMISTRY METHOD 10/24/2024 10:56 AM EDT [facility] VLDL Cholesterol Frankie 16.4 mg/dL LAB CHEMISTRY METHOD 10/24/2024 10:56 AM EDT [facility] Non HDL Chol. (LDL+VLDL) 113 <145 mg/dL LAB CHEMISTRY METHOD 10/24/2024 10:56 AM EDT [facility] Chol/HDL Ratio 3.1 0.0 - 4.4 LAB CHEMISTRY METHOD 10/24/2024 10:56 AM T [facility] Blood Venous blood specimen / Unknown Venipuncture / Unknown 10/24/2024 9:22 AM EDT 10/24/2024 9:45 AM EDT us Janina Donald PORTAL ADMINISTRATOR LAB BLOOD ORDERABLES Final Re sult [facility] [address] [place] [address], * (ABNORMAL) CBC auto differential (10/24/2024 9:22 AM EDT) WBC 12.8(H) 4.8 - 10.8 K/mcL LAB HEMETOLOGY METHOD 10/24/2024 10:03 AM [facility] RBC 5.50 4.50 - 5.50 M/[facility] LAB HEMETOLOGY METHOD 10/24/2024 10:03 AM [facility] Hemoglobin 16.6 13.5 - 17.5 g/dL LAB HEMETOLOGY METHOD 10/24/2024 10:03 AM [facility] Hematocrit 50.1 42.0 - 54.0 % LAB HEMETOLOGY METHOD 10/24/2024 10:03 AM [facility] MCV 91.9 79.0 - 98.0 FL LAB HEMETOLOGY METHOD 10/24/2024 10:03 AM [facility] MCH 30.5 27.0 - 32.0 pcg LAB HEMETOLOGY METHOD 10/24/2024 10:03 AM [facility] MCHC 33.1 32.0 - 37.0 g/dL LAB HEMETOLOGY METHOD 10/24/2024 10:03 AM [facility] RDW 13.0 11.0 - 15.0 % LAB HEMETOLOGY METHOD 10/24/2024 10:03 AM [facility] Platelets 291 130 - 400 K/mcL LAB HEMETOLOGY METHOD 10/24/2024 10:03 AM [facility] MPV 10.8 7.0 - 11.0 FL LAB HEMETOLOGY METHOD 10/24/2024 10:03 AM [facility] NRBC 0.0 <1.0 % LAB HEMETOLOGY METHOD 10/24/2024 10:03 AM [facility] NRBC Absolute 0.00 <0.10 K/mcL LAB HEMETOLOGY METHOD 10/24/2024 10:03 AM [facility] Neutrophils Relative 71.4 % LAB HEMETOLOGY METHOD 10/24/2024 10:03 AM [facility] Lymphocytes Relative 19.0 % LAB HEMETOLOGY METHOD 10/24/2024 10:03 AM [facility] Monocytes Relative 7.5 % LAB HEMETOLOGY METHOD 10/24/2024 10:03 AM [facility] Eosinophils Relative 0.0 % LAB HEMETOLOGY METHOD 10/24/2024 10:03 AM [facility] Basophils Relative 0.5 % LAB HEMETOLOGY METHOD 10/24/2024 10:03 AM [facility] Immature Granulocytes Relative 1.6 % LAB HEMETOLOGY METHOD 10/24/2024 10:03 AM [facility] Neutrophils Absolute 9.12(H) 1.50 - 7.00 K/mcL LAB HEMETOLOGY METHOD 10/24/2024 10:03 AM EDT [facility] Lymphocytes Absolute 2.42 1.00 - 5.00 K/[facility] LAB HEMETOLOGY METHOD 10/24/2024 10:03 AM EDT [facility] Monocytes Absolute 0.96 0.20 - 1.00 K/[facility] LAB HEMETOLOGY METHOD 10/24/2024 10:03 AM EDT [facility] Eosinophils Absolute 0.00 0.00 - 0.50 K/[facility] LAB HEMETOLOGY METHOD 10/24/2024 10:03 AM EDT [facility] Basophils Absolute 0.06 0.00 - 0.20 K/[facility] LAB HEMETOLOGY METHOD 10/24/2024 10:03 AM EDT [facility] Immature Granulocytes Absolute 0.20(H) 0.00 - 0.03 K/[facility] LAB HEMETOLOGY METHOD 10/24/2024 10:03 AM EDT [facility] Blood Venous blood specimen / Unknown Venipuncture / Unknown 10/24/2024 9:22 AM EDT 10/24/2024 9:49 AM EDT Janina Donald NP LAB BLOOD ORDERABLES Final Re sult [facility] [address] [place] [address], * (ABNORMAL) Vitamin D 25 hydroxy (10/24/2024 9:22 AM EDT) Vit D, 25-Hydroxy 22.0(L) 30.0 - 80.0 ng/mL LAB CHEMISTRY METHOD 10/24/2024 11:26 AM EDT [facility] Blood Venous blood specimen / Unknown Venipuncture / Unknown 10/24/2024 9:22 AM EDT 10/24/2024 9:45 AM EDT Janina Donald PORTAL ADMINISTRATOR LAB BLOOD ORDERABLES Final Re sult Performing Organization Address City/[facility]/ZIP Co de Phone Number [facility] [address] [place] [address], * Hemoglobin A1c (10/24/2024 9:22 AM EDT) [facility] Hemoglobin A1C 5.3 <6.5 % LAB CHEMISTRY METHOD 10/25/2024 10:45 PM EDT [facility] Mean Bld Glu Estim. 105 mg/dL LAB CHEMISTRY METHOD 10/25/2024 10:45 PM EDT [facility] Blood Venous blood specimen / Unknown Venipuncture / Unknown 10/24/2024 9:22 AM EDT 10/24/2024 9:49 AM EDT Janina Donald PORTAL ADMINISTRATOR LAB BLOOD ORDERABLES Final Re sult Performing Organization Address [facility]/ZIP Co de Phone Number [facility] [address] [place] [address], [place] [phone] * (ABNORMAL) Comprehensive metabolic panel (10/24/2024 9:22 AM EDT) [facility] Sodium 136 133 - 145 mmol/L LAB CHEMISTRY METHOD 10/24/2024 10:56 AM EDT [facility] Potassium 4.2 3.5 - 5.5 mmol/L LAB CHEMISTRY METHOD 10/24/2024 10:56 AM EDT [facility] Chloride 105 96 - 110 mmol/L LAB CHEMISTRY METHOD 10/24/2024 10:56 AM EDT [facility] CO2 25 21 - 32 mmol/L LAB CHEMISTRY METHOD 10/24/2024 10:56 AM EDT [facility] Anion Gap 6 3 - 11 LAB CHEMISTRY METHOD 10/24/2024 10:56 AM T [facility] Glucose 102(H) 70 - 100 mg/dL LAB CHEMISTRY METHOD 10/24/2024 10:56 AM [facility] BUN 26(H) 5 - 25 mg/dL LAB CHEMISTRY METHOD 10/24/2024 10:56 AM [facility] Creatinine 1.03 0.70 - 1.30 mg/dL LAB CHEMISTRY METHOD 10/24/2024 10:56 AM [facility] eGFR 86 >=60 mL/min/1. 73m2 LAB CHEMISTRY METHOD 10/24/2024 10:56 AM [facility] Comment:Calculation based on the Chronic Kidney Disease Epidemiology Collaboration (CKD-EPI) equation refit without adjustment for race. BUN/Creatinine Ratio 25.2 LAB CHEMISTRY METHOD 10/24/2024 10:56 AM [facility] Calcium 9.6 8.5 - 10.5 mg/dL LAB CHEMISTRY METHOD 10/24/2024 10:56 AM [facility] AST (SGOT) 12 10 - 42 unit/L LAB CHEMISTRY METHOD 10/24/2024 10:56 AM [facility] ALT (SGPT) 36 10 - 60 unit/L LAB CHEMISTRY METHOD 10/24/2024 10:56 AM [facility] Alkaline Phosphatase 61 42 - 121 unit/L LAB CHEMISTRY METHOD 10/24/2024 10:56 AM [facility] Total Protein 7.3 6.0 - 8.0 g/dL LAB CHEMISTRY METHOD 10/24/2024 10:56 AM [facility] Albumin 4.1 3.2 - 5.0 g/dL LAB CHEMISTRY METHOD 10/24/2024 10:56 AM [facility] Total Bilirubin 1.0 0.0 - 1.4 mg/dL LAB CHEMISTRY METHOD 10/24/2024 10:56 AM [facility] Blood Venous blood specimen / Unknown Venipuncture / Unknown 10/24/2024 9:22 AM EDT 10/24/2024 9:45 AM EDT Janina Donald PORTAL ADMINISTRATOR LAB BLOOD ORDERABLES Final Re sult 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
--- OUTSIDE RECORDS SUMMARY | 2025-01-21 07:44 | XMS_ITS | Patient Health Record ---
Author Organization [facility] Address [address] [place] [address] Care Team Providers Care Youth Liaison Officer Name Role Phone LUX HOOD Primary Care Provider CAREYJERSEY ROSARIO Unavailable [phone] Allergies No Known Allergies Results Component Value Reference Range Notes URINALYSIS WITH REFLEX MICRO SCOPIC Reviewed date:10/24/2024 11:09:53 AM Interpretation: Performing Lab: Notes/Report: Specific [place] Urine 1.021 1.003-1.030 pH, Urine 5.5 5.0-8.0 pH Leukocytes, Urine Negative Negative Nitrite, Urine Negative Negative Protein, Urine Trace <=Trace mg/dL Glucose, Urine Negative Negative mg/dL Ketones, Urine Trace Negative mg/dL Urobilinogen, Urine 1.0 0.2-1.0 mg/dL Bilirubin, Urine Negative Negative Blood, Urine Trace Negative RBC, Urine 4.2 0-4 /HPF WBC, Urine 0.5 0-4 /HPF Squamous Epithelial, Urine 8 0-60 /LPF Bacteria, Urine Negative Negative /HPF Hyaline Casts, Urine 0.4 0-3 /LPF PSA TOTAL, FREE AND COMPLEXE D Reviewed date:10/24/2024 11:50:24 AM Interpretation: Performing Lab: Notes/Report: Free PSA is a calculated value. The diagnostic usefulness of % free PSA has not been established in patients with Total PSA below 2.6 or above 10 ng/mL. This test was performed using the Centaur Chemiluminescent method. PSA values obtained with other methods cannot be used interchangeably. PSA 1.46 0.00-4.00 ng/mL PSA, Complexed 1.22 0.00-3.00 ng/mL PSA, Free 0.2 PSA, Free Pct 13.7 >25.0 % THYROID STIMULATING HORMONE WITH REFLEX TO FREE T4 AND FREE T3 Reviewed date:10/24/2024 01:29:17 PM Interpretation: Performing Lab: Notes/Report: TSH 1.27 0.40-4.00 mcIU/mL COMPREHENSIVE METABOLIC PANE L Reviewed date:10/24/2024 11:09:53 AM Interpretation: Performing Lab: Notes/Report: Sodium 136 133-145 mmol/L Potassium 4.2 3.5-5.5 mmol/L Chloride 105 96-110 mmol/L CO2 25 21-32 mmol/L Anion Gap 6 3-11 Glucose 102 70-100 mg/dL BUN 26 5-25 mg/dL Creatinine 1.03 0.70-1.30 mg/dL eGFR 86 >=60 mL/min/1.73m2 Calculation based on the Chronic Kidney Disease Epidemiology Collaboration (CKD-EPI) equation refit without adjustment for race. BUN/Creatinine Ratio 25.2 Calcium 9.6 8.5-10.5 mg/dL AST (SGOT) 12 10-42 unit/L ALT (SGPT) 36 10-60 unit/L Alkaline Phosphatase 61 42-121 unit/L Total Protein 7.3 6.0-8.0 g/dL Albumin 4.1 3.2-5.0 g/dL Total Bilirubin 1.0 0.0-1.4 mg/dL VITAMIN D 25 HYDROXY Reviewed date:10/24/2024 11:50:29 AM Interpretation: Performing Lab: Notes/Report: Vit D, 25-Hydroxy 22.0 30.0-80.0 ng/mL LIPID PANEL WITH REFLEX TO D IRECT LDL Reviewed date:10/24/2024 11:09:53 AM Interpretation: Performing Lab: Notes/Report: Cholesterol 168 0-200 mg/dL Triglycerides 82 0-150 mg/dL HDL 55 >=40 mg/dL LDL Calculated 97 0-100 mg/dL VLDL Cholesterol Frankie 16.4 Non HDL Chol. (LDL+VLDL) 113 <145 mg/dL Chol/HDL Ratio 3.1 0.0-4.4 HEMOGLOBIN A1C Reviewed date:10/28/2024 02:02:14 PM Interpretation: Performing Lab: Notes/Report: Hemoglobin A1C 5.3 <6.5 % Mean Bld Glu Estim. 105 CT LUNG SCREENING Reviewed date:12/26/2024 04:19:41 PM Interpretation: Performing Lab: Notes/Report: Note See Note [facility], a member of [employer] Patient Name: JAN RICH Date of : 1970 Reason for Exam: Lung cancer screening, >=20 pk yr smoking history in last 15 yrs (Age 50-80y) Exam Date: 12/23/2024 [id number] EST Report Status: Final Ordering Provider: MARISEL PANTOJA PCP: LUX HOOD PROCEDURE: Low-dose CT of the chest without [...] the aorta and great vessels. Cardiac: Normal hear t size. Moderate coronary artery calcification. Chest wall: No axill kyung or supraclavicular lymphadenopathy. Limited abdomen: The re is a partially visible low-attenuation lesion in the lateral periphery of the right hepatic lobe which measures approximately 4 cm in diameter. This is unchanged compared with the previous study. It is incompletely characterized. Features on a prior CT dated 03/21/2018 suggest that this is a hemangioma. Bones: Mild degenerative changes of the shoulders and spine. IMPRESSION: Lung RADS 2. Guideli mahin recommend repeat low-dose screening CT in 12 months. -------- FINAL REPOR T -------- Dictated By: Medardo Gibbons Dictated Date: 12/24/2024 12:56 ET Assigned Physician: Medardo Nichole Reviewed and Electronically Signed By: Medardo Nichole Signed Date: 025 14:12 ET Workstation ID: [id number] Transcribed By: Self Edit Transcribed Date: 12/24/2024 14:02 ET CBC WITH AUTO DIFFERENTIAL Reviewed date:10/24/2024 11:09:53 AM Interpretation: Performing Lab: Notes/Report: WBC 12.8 4.8-10.8 K/mcL RBC 5.50 4.50-5.50 M/mcL Hemoglobin 16.6 13.5-17.5 g/dL Hematocrit 50.1 42.0-54.0 % MCV 91.9 79.0-98.0 FL MCH 30.5 27.0-32.0 pcg MCHC 33.1 32.0-37.0 g/dL RDW 13.0 11.0-15.0 % Platelets 291 130-400 K/mcL MPV 10.8 7.0-11.0 FL NRBC 0.0 <1.0 % NRBC Absolute 0.00 <0.10 K/mcL Neutrophils Relative 71.4 Lymphocytes Relative 19.0 Monocytes Relative 7.5 Eosinophils Relative 0.0 Basophils Relative 0.5 Immature Granulocytes Relative 1.6 Neutrophils Absolute 9.12 1.50-7.00 K/mcL Lymphocytes Absolute 2.42 1.00-5.00 K/mcL Monocytes Absolute 0.96 0.20-1.00 K/mcL Eosinophils Absolute 0.00 0.00-0.50 K/mcL Basophils Absolute 0.06 0.00-0.20 K/mcL Immature Granulocytes Absolute 0.20 0.00-0.03 K/mcL XR SHOULDER 2+ VIEWS LEFT Reviewed date:09/20/2024 01:04:22 PM Interpretation: Performing Lab: Notes/Report: Note See Note [facility], a member of [employer] Patient Name: JAN RICH Date of : 1970 Reason for Exam: OTHER Exam Date: 09/19/2024 [id number] EST Report Status: Final Ordering Provider: JERSEY SHARMA PCP: LUX HOOD EXAMINATION: LEFT SHOULDER CLINICAL INFORMATION: Pain COMPARISON: None. TECHNIQUE: 3 views left shoulder FINDINGS: No acute fracture or subluxation. No suspicious focal lesion. No abnormal soft tis neeraj calcification. There is irregularit y and narrowing [...] Electronically Signed By: Jarrett Marshall Signed Date: 025 07:50 ET Workstation ID: [id number] Transcribed By: Self Edit Transcribed Date: 09/20/2024 07:47 ET Reason For Referral Reason Pt needing colonosco py Diagnosis 1 Screening for colon cancer (Z12.11) Referral Organization [facility] Referring Provider First Name LUX Referring Provider Last Name SANA Referring Provider Speciality Internal edicine Referred Provider Jamal New Referred Provider Specialty Gastroentero logy General Notes faxed to , [facility] [address], [address] [place] [address] , phone- [phone], fax- [phone], , with attachments pt is aware Clinical Notes Giselle Fraser 03/05 08:58:19 AM >, Lesa Yi 03/22/2024 04:09:45 PM > Pt seen today (03/22/2024) Referral Priority Routine Diagnosis 1 Primary osteoarthrit is of right knee (M17.11) Referral Organization [facility] Referring Provider First Name LUX Referring Provider Last Name SANA Referring Provider Speciality Internal edicine Referred Provider Aly Nevarez Referred Provider Specialty Rheumatology General Notes Aly Nevarez eumat[facility] [address] [place] [address] , phone- [phone], fax - [phone] Clinical Notes Giselle Fraser 03/22 08:14:14 AM >, Lesa Yi 04/11/2024 11:41:32 AM > I called the phone number provided above, and they mentioned they are a PCP office. They provided the following contact information for Dr. Nevarez's office: phone number [phone] and fax number [phone]. Referral sentKd Redena 05/22/2024 03:30:20 PM > refaxedKd Redena 07/12/2024 04:09:40 PM > lvmKd Redena 11/27/2024 02:48:09 PM > lvm Referral Priority Routine Medications Medication SIG (Take, Route, Frequency, Duration) Notes Start Date End Date Status Mounjaro 2.5 MG/0.5ML 2.5mg Subcutaneous weekly; Duration: 30 days Active Pregabalin 75 MG 1 capsule Orally Twi ce a day; Duration: 30 days Active Nicotine 14 MG/24HR 1 patch to skin Bruciaga sdermal Once a day; Duration: 30 day(s) Active traMADol HCl 50 MG 1 tablet as needed O rally twice a day; Duration: 30 days Active clonazePAM 0.5 MG Oral; Duration: 30 Active Breo Ellipta 100-25 MCG/ACT INHALE 1 PUFF INTO THE LUNGS DAILY FOR 30 DAYS. Inhalation; Duration: 30 Active Immunizations Vaccine Route Administration Date Status [...] at the age of 11 Quit abotu week ago 12/2020 about 1 1/2 a day started at the age of 11 Quit abotu week ago 12/2020 about 1 1/2 a [...] Problem Type II diabetes mellitus without complication (009729301) Type 2 diabetes mellitus without complications (E11.9) Active confirmed Problem Obesity (768356975) Other obesity (E66.8) Active confirmed Problem Hyperlipidemia (94315071) Hyperlipidemia, unspecified (E78.5) Active confirmed Problem Moderate recurrent major depression (54721643) Major depressive disorder, recurrent, moderate (F33.1) Active confirmed Problem Chronic pain (23811633) Other chronic pain (G89.29) Active confirmed Problem Chronic pain syndrome (281307515) Chronic pain syndrome (G89.4) Active confirmed Problem Cervicalgia (82272381) Cervicalgia (M54.2) Active confirmed Problem Adult health examination (630051592) Encounter for general adult medical examination without abnormal findings (Z00.00) Active confirmed Problem Screening for malignant neoplasm of prostate (919535442) Encounter for screening for malignant neoplasm of prostate (Z12.5) Active confirmed Problem Lipid screening (173079328) Encounter for screening for lipoid disorders (Z13.220) Active confirmed Problem Body mass index 30.00 to 34.99 (337775800623306) Body mass index (BMI) 34.0-34.9, adult (Z68.34) Active confirmed Problem Body mass index 35.00 to 39.99 (719221345152805) Body mass index (BMI) 37.0-37.9, adult (Z68.37) Active confirmed Problem Anxiety (16455577) Anxiety (F41.9) Active confirmed Problem Adult health examination (967402014) Adult general medical exam (Z00.00) Active confirmed Problem Memory loss (50780777) Memory loss (R41.3) Active confirmed Problem Hypothyroidism (13015673) Hypothyroidism, unspecified type (E03.9) Active confirmed Problem Vitamin D deficiency (17090736) Vitamin D deficiency (E55.9) Active confirmed Problem Vitamin B12 deficiency (non anemic) (25537500) Vitamin B 12 deficiency (E53.8) Active confirmed Problem Obstructive sleep apnea syndrome (28796487) JOSE GUADALUPE (obstructive sleep apnea) (G47.33) Active confirmed Problem Diabetes mellitus screening (307501409) Diabetes mellitus screening (Z13.1) Active confirmed Problem Obesity (876831650) Obesity (BMI 30-39.9) (E66.9) Active confirmed Problem Osteoarthritis of knee (456742774) Primary osteoarthritis of right knee (M17.11) Active confirmed Problem Body mass index 35.00 to 39.99 (936616477034097) Body mass index [BMI] 36.0-36.9, adult (Z68.36) Active confirmed Problem Lumbar radiculopathy (541028492) Lumbar radiculopathy (M54.16) Active confirmed Problem Screening for malignant neoplasm of prostate (206953709) Prostate cancer screening (Z12.5) Active confirmed Problem Screening for colon cancer (014325827) Screening for colon cancer (Z12.11) Active confirmed Problem Mixed incontinence (217105297) 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) Active confirmed Problem Avitaminosis D (07097421) Avitaminosis D (E55.9) Active confirmed Problem Chronic kidney disease stage 3A (disorder) (748852553) Stage 3a chronic kidney disease (CKD) (N18.31) Active confirmed Problem Endocrine/metabol ic screening (346651197) Encounter for screening for endocrine disorder (Z13.29) Active confirmed Problem Screening for malignant neoplasm of prostate (819870112) Encounter for prostate cancer screening (Z12.5) Active confirmed Vital Signs Heart Rate 81 /min 10/30/2024 Oximetry 97 % 10/30/2024 Blood pressure diastolic 82 mm Hg 10/30/2024 Height 70 in 10/30/2024 Blood pressure systolic 130 mm Hg 10/30/2024 Weight 239 lbs 10/30/2024 BMI 34.29 kg/m2 10/30/2024 Encounters Encounter Location Date Provider Diagnosis [facility] [address] [place] [id number] 07/09/2024 JERSEY SHARMA Prediabetes R73.03 ; Primary osteoarthritis of right knee M17.11 ; Chronic pain syndrome G89.4 ; Cervicalgia M54.2 ; Lumbar radiculopathy M54.16 ; Hyperlipidemia, unspecified E78.5 and Type 2 diabetes mellitus without complications E11.9 [facility] [address] [address] 03/22/2024 JERSEY SHARMA Encounter for genera l adult medical examination without abnormal findings Z00.00 ; Encounter for screening for other disorder Z13.89 ; Encounter for screening for depression Z13.31 ; Prediabetes R73.03 ; Primary osteoarthritis of right knee M17.11 ; Chronic pain syndrome G89.4 ; Cervicalgia M54.2 ; Lumbar radiculopathy M54.16 ; Hyperlipidemia, unspecified E78.5 and Type 2 diabetes mellitus without complications E11.9 [facility] [address] 08/20/2024 JERSEY SHARMA Prediabetes R73.03 ; Primary osteoarthritis of right knee M17.11 ; Chronic pain syndrome G89.4 ; Cervicalgia M54.2 ; Lumbar radiculopathy M54.16 ; Hyperlipidemia, unspecified E78.5 and Type 2 diabetes mellitus without complications E11.9 [facility] [address] [address] 09/19/2024 JERSEY SHARMA Acute pain of left shoulder M25.512 ; Prediabetes R73.03 ; Primary osteoarthritis of right knee M17.11 ; Chronic pain syndrome G89.4 ; Cervicalgia M54.2 ; Lumbar radiculopathy M54.16 ; Hyperlipidemia, unspecified E78.5 and Type 2 diabetes mellitus without complications E11.9 [facility] [address] [address] 10/30/2024 JERSEY SHARMA Otalgia, right ear H 92.01 ; Exposure to toxic chemical Z77.098 and Encounter for examination of blood pressure without abnormal findings Z01.30 [facility] [address] 03/04/2024 JERSEY SHARMA Screening for colon cancer Z12.11 [facility] [address] 03/21/2024 JERSEY SHARMA [facility] [address] [place] [address] 11/26/2024 JERSEY SHARMA Assessments Encounter Date Diagnosis (ICD Code) Assessment Notes Treatment Notes Treatment Clinical Notes Section Notes 03/04/2024 Screening for colon cancer (ICD-10 - Z12.11) 03/22/2024 Encounter for general adult medical examination without abnormal findings (ICD-10 - Z00.00) Acute Concerns/Problem List: 03/22/2024 MAWV MOLST/HCP Discussed and Filed Request records from [facility] neurosurgery and pain management, As well as cardiology [facility] Prescription monitoring program reviewed Including controlled [...] software and direct typing Please excuse inadvertent director center or typing errors, or uncorrected word substitutions Although every attempt has been made by the provider to proofread this document, occasional misspellings and typographical errors may still be present Due to the previous pandemic, and the use of personal protective equipment (PPE) This may decrease voice recognition accuracy Inadvertent director center errors may occur 03/22/2024 Encounter for screening for other disorder (ICD-10 - Z13.89) Acute Concerns/Problem List: 03/22/2024 MAWV MOLST/HCP Discussed and Filed Request records from [facility] neurosurgery and pain management, As well as cardiology [facility] Prescription monitoring program reviewed Including controlled [...] software and direct typing Please excuse inadvertent director center or typing errors, or uncorrected word substitutions Although every attempt has been made by the provider to proofread this document, occasional misspellings and typographical errors may still be present Due to the previous pandemic, and the use of personal protective equipment (PPE) This may decrease voice recognition accuracy Inadvertent director center errors may occur 07/09/2024 Prediabetes (ICD-10 - R73.03) Acute Concerns/Problem List: 07/09/2024 [facility] Prescription monitoring program reviewed Including controlled [...] software and direct typing Please excuse inadvertent director center or typing errors, or uncorrected word substitutions Although every attempt has been made by the provider to proofread this document, occasional misspellings and typographical errors may still be present Due to the previous pandemic, and the use of personal protective equipment (PPE) This may decrease voice recognition accuracy Inadvertent director center errors may occur 08/20/2024 Prediabetes (ICD-10 - R73.03) Acute Concerns/Problem List: 08/20/2024 _update labs Paperwork for ACADEMIC SERVICES COORDINATOR completed. He will follow with appropriate specialists. [facility] Prescription monitoring program reviewed Including controlled [...] software and direct typing Please excuse inadvertent director center or typing errors, or uncorrected word substitutions Although every attempt has been made by the provider to proofread this document, occasional misspellings and typographical errors may still be present Due to the previous pandemic, and the use of personal protective equipment (PPE) This may decrease voice recognition accuracy Inadvertent director center errors may occur 09/19/2024 Acute pain of left shoulder (ICD-10 - M25.512) Acute Concerns/Problem List: 08/20/2024 Note provided today for 27-day hours and 14 nightly hours Paperwork for ACADEMIC SERVICES COORDINATOR completed. Get XR L shoulder for ongoing pain following fall He will follow with appropriate specialists. [facility] Prescription monitoring program reviewed Including controlled [...] software and direct typing Please excuse inadvertent director center or typing errors, or uncorrected word substitutions Although every attempt has been made by the provider to proofread this document, occasional misspellings and typographical errors may still be present Due to the previous pandemic, and the use of personal protective equipment (PPE) This may decrease voice recognition accuracy Inadvertent director center errors may occur 10/30/2024 Otalgia, right ear (ICD-10 - H92.01) Assurance given today Exam unremarkable Of note, some information is being carried forward from prior records for informational purposes only and is being cited so that efficiency, safety and quality of the patient's care is not compromised This note was prepared using voice recognition software and direct typing Please excuse inadvertent director center or typing errors, or uncorrected word substitutions Although every attempt has been made by the provider to proofread this document, occasional misspellings and typographical errors may still be present Due to the previous pandemic, and the use of personal protective equipment (PPE) This may decrease voice recognition accuracy Inadvertent director center errors may occur 09/19/2024 Prediabetes (ICD-10 - R73.03) Acute Concerns/Problem List: 08/20/2024 Note provided today for 27-day hours and 14 nightly hours Paperwork for ACADEMIC SERVICES COORDINATOR completed. Get XR L shoulder for ongoing pain following fall He will follow with appropriate specialists. [place] [facility] [place] Prescription monitoring program reviewed Including controlled substances [...] software and direct typing Please excuse inadvertent director center or typing errors, or uncorrected word substitutions Although every attempt has been made by the provider to proofread this document, occasional misspellings and typographical errors may still be present Due to the previous pandemic, and the use of personal protective equipment (PPE) This may decrease voice recognition accuracy Inadvertent director center errors may occur 10/30/2024 Exposure to toxic chemical (ICD-10 - Z77.098) Assurance given today Exam unremarkable Of note, some information is being carried forward from prior records for informational purposes only and is being cited so that efficiency, safety and quality of the patient's care is not compromised This note was prepared using voice recognition software and direct typing Please excuse inadvertent director center or typing errors, or uncorrected word substitutions Although every attempt has been made by the provider to proofread this document, occasional misspellings and typographical errors may still be present Due to the previous pandemic, and the use of personal protective equipment (PPE) This may decrease voice recognition accuracy Inadvertent director center errors may occur 08/20/2024 Primary osteoarthritis of right knee (ICD-10 - M17.11) Acute Concerns/Problem List: 08/20/2024 _update labs Paperwork for ACADEMIC SERVICES COORDINATOR completed. He will follow with appropriate specialists. [facility] Prescription monitoring program reviewed Including controlled [...] software and direct typing Please excuse inadvertent director center or typing errors, or uncorrected word substitutions Although every attempt has been made by the provider to proofread this document, occasional misspellings and typographical errors may still be present Due to the previous pandemic, and the use of personal protective equipment (PPE) This may decrease voice recognition accuracy Inadvertent director center errors may occur 07/09/2024 Primary osteoarthritis of right knee (ICD-10 - M17.11) Acute Concerns/Problem List: 07/09/2024 [facility] Prescription monitoring program reviewed Including controlled [...] software and direct typing Please excuse inadvertent director center or typing errors, or uncorrected word substitutions Although every attempt has been made by the provider to proofread this document, occasional misspellings and typographical errors may still be present Due to the previous pandemic, and the use of personal protective equipment (PPE) This may decrease voice recognition accuracy Inadvertent director center errors may occur 03/22/2024 Encounter for screening for depression (ICD-10 - Z13.31) Acute Concerns/Problem List: 03/22/2024 MAWV MOLST/HCP Discussed and Filed Request records from [facility] neurosurgery and pain management, As well as cardiology [facility] Prescription monitoring program reviewed Including controlled [...] software and direct typing Please excuse inadvertent director center or typing errors, or uncorrected word substitutions Although every attempt has been made by the provider to proofread this document, occasional misspellings and typographical errors may still be present Due to the previous pandemic, and the use of personal protective equipment (PPE) This may decrease voice recognition accuracy Inadvertent director center errors may occur 03/22/2024 Prediabetes (ICD-10 - R73.03) Acute Concerns/Problem List: 03/22/2024 MAWV MOLST/HCP Discussed and Filed Request records from [facility] neurosurgery and pain management, As well as cardiology [facility] Prescription monitoring program reviewed Including controlled [...] software and direct typing Please excuse inadvertent director center or typing errors, or uncorrected word substitutions Although every attempt has been made by the provider to proofread this document, occasional misspellings and typographical errors may still be present Due to the previous pandemic, and the use of personal protective equipment (PPE) This may decrease voice recognition accuracy Inadvertent director center errors may occur 07/09/2024 Chronic pain syndrome (ICD-10 - G89.4) Acute Concerns/Problem List: 07/09/2024 [facility] Prescription monitoring program reviewed Including controlled [...] software and direct typing Please excuse inadvertent director center or typing errors, or uncorrected word substitutions Although every attempt has been made by the provider to proofread this document, occasional misspellings and typographical errors may still be present Due to the previous pandemic, and the use of personal protective equipment (PPE) This may decrease voice recognition accuracy Inadvertent director center errors may occur 08/20/2024 Chronic pain syndrome (ICD-10 - G89.4) Acute Concerns/Problem List: 08/20/2024 _update labs Paperwork for ACADEMIC SERVICES COORDINATOR completed. He will follow with appropriate specialists. [facility] Prescription monitoring program reviewed Including controlled [...] software and direct typing Please excuse inadvertent director center or typing errors, or uncorrected word substitutions Although every attempt has been made by the provider to proofread this document, occasional misspellings and typographical errors may still be present Due to the previous pandemic, and the use of personal protective equipment (PPE) This may decrease voice recognition accuracy Inadvertent director center errors may occur 10/30/2024 Encounter for examination of blood pressure without abnormal findings (ICD-10 - Z01.30) Assurance given today Exam unremarkable Of note, some information is being carried forward from prior records for informational purposes only and is being cited so that efficiency, safety and quality of the patient's care is not compromised This note was prepared using voice recognition software and direct typing Please excuse inadvertent director center or typing errors, or uncorrected word substitutions Although every attempt has been made by the provider to proofread this document, occasional misspellings and typographical errors may still be present Due to the previous pandemic, and the use of personal protective equipment (PPE) This may decrease voice recognition accuracy Inadvertent director center errors may occur 09/19/2024 Primary osteoarthritis of right knee (ICD-10 - M17.11) Acute Concerns/Problem List: 08/20/2024 Note provided today for 27-day hours and 14 nightly hours Paperwork for ACADEMIC SERVICES COORDINATOR completed. Get XR L shoulder for ongoing pain following fall He will follow with appropriate specialists. [facility] Prescription monitoring program reviewed Including controlled [...] software and direct typing Please excuse inadvertent director center or typing errors, or uncorrected word substitutions Although every attempt has been made by the provider to proofread this document, occasional misspellings and typographical errors may still be present Due to the previous pandemic, and the use of personal protective equipment (PPE) This may decrease voice recognition accuracy Inadvertent director center errors may occur 08/20/2024 Cervicalgia (ICD-10 - M54.2) Acute Concerns/Problem List: 08/20/2024 _update labs Paperwork for ACADEMIC SERVICES COORDINATOR completed. He will follow with appropriate specialists. [facility] Prescription monitoring program reviewed Including controlled [...] software and direct typing Please excuse inadvertent director center or typing errors, or uncorrected word substitutions Although every attempt has been made by the provider to proofread this document, occasional misspellings and typographical errors may still be present Due to the previous pandemic, and the use of personal protective equipment (PPE) This may decrease voice recognition accuracy Inadvertent director center errors may occur 07/09/2024 Cervicalgia (ICD-10 - M54.2) Acute Concerns/Problem List: 07/09/2024 [facility] Prescription monitoring program reviewed Including controlled [...] software and direct typing Please excuse inadvertent director center or typing errors, or uncorrected word substitutions Although every attempt has been made by the provider to proofread this document, occasional misspellings and typographical errors may still be present Due to the previous pandemic, and the use of personal protective equipment (PPE) This may decrease voice recognition accuracy Inadvertent director center errors may occur 09/19/2024 Chronic pain syndrome (ICD-10 - G89.4) Acute Concerns/Problem List: 08/20/2024 Note provided today for 27-day hours and 14 nightly hours Paperwork for ACADEMIC SERVICES COORDINATOR completed. Get XR L shoulder for ongoing pain following fall He will follow with appropriate specialists. [facility] Prescription monitoring program reviewed Including controlled [...] software and direct typing Please excuse inadvertent director center or typing errors, or uncorrected word substitutions Although every attempt has been made by the provider to proofread this document, occasional misspellings and typographical errors may still be present Due to the previous pandemic, and the use of personal protective equipment (PPE) This may decrease voice recognition accuracy Inadvertent director center errors may occur 03/22/2024 Primary osteoarthritis of right knee (ICD-10 - M17.11) Acute Concerns/Problem List: 03/22/2024 MAWV MOLST/HCP Discussed and Filed Request records from [facility] neurosurgery and pain management, As well as cardiology [facility] Prescription monitoring program reviewed Including controlled [...] software and direct typing Please excuse inadvertent director center or typing errors, or uncorrected word substitutions Although every attempt has been made by the provider to proofread this document, occasional misspellings and typographical errors may still be present Due to the previous pandemic, and the use of personal protective equipment (PPE) This may decrease voice recognition accuracy Inadvertent director center errors may occur 03/22/2024 Chronic pain syndrome (ICD-10 - G89.4) Acute Concerns/Problem List: 03/22/2024 MAWV MOLST/HCP Discussed and Filed Request records from [facility] neurosurgery and pain management, As well as cardiology [facility] Prescription monitoring program reviewed Including controlled [...] software and direct typing Please excuse inadvertent director center or typing errors, or uncorrected word substitutions Although every attempt has been made by the provider to proofread this document, occasional misspellings and typographical errors may still be present Due to the previous pandemic, and the use of personal protective equipment (PPE) This may decrease voice recognition accuracy Inadvertent director center errors may occur 09/19/2024 Cervicalgia (ICD-10 - M54.2) Acute Concerns/Problem List: 08/20/2024 Note provided today for 27-day hours and 14 nightly hours Paperwork for ACADEMIC SERVICES COORDINATOR completed. Get XR L shoulder for ongoing pain following fall He will follow with appropriate specialists. [facility] Prescription monitoring program reviewed Including controlled [...] software and direct typing Please excuse inadvertent director center or typing errors, or uncorrected word substitutions Although every attempt has been made by the provider to proofread this document, occasional misspellings and typographical errors may still be present Due to the previous pandemic, and the use of personal protective equipment (PPE) This may decrease voice recognition accuracy Inadvertent director center errors may occur 08/20/2024 Lumbar radiculopathy (ICD-10 - M54.16) Acute Concerns/Problem List: 08/20/2024 _update labs Paperwork for ACADEMIC SERVICES COORDINATOR completed. He will follow with appropriate specialists. [facility] Prescription monitoring program reviewed Including controlled [...] software and direct typing Please excuse inadvertent director center or typing errors, or uncorrected word substitutions Although every attempt has been made by the provider to proofread this document, occasional misspellings and typographical errors may still be present Due to the previous pandemic, and the use of personal protective equipment (PPE) This may decrease voice recognition accuracy Inadvertent director center errors may occur 07/09/2024 Lumbar radiculopathy (ICD-10 - M54.16) Acute Concerns/Problem List: 07/09/2024 [facility] Prescription monitoring program reviewed Including controlled [...] software and direct typing Please excuse inadvertent director center or typing errors, or uncorrected word substitutions Although every attempt has been made by the provider to proofread this document, occasional misspellings and typographical errors may still be present Due to the previous pandemic, and the use of personal protective equipment (PPE) This may decrease voice recognition accuracy Inadvertent director center errors may occur 08/20/2024 Hyperlipidemia, unspecified (ICD-10 - E78.5) Acute Concerns/Problem List: 08/20/2024 _update labs Paperwork for ACADEMIC SERVICES COORDINATOR completed. He will follow with appropriate specialists. [facility] Prescription monitoring program reviewed Including controlled [...] software and direct typing Please excuse inadvertent director center or typing errors, or uncorrected word substitutions Although every attempt has been made by the provider to proofread this document, occasional misspellings and typographical errors may still be present Due to the previous pandemic, and the use of personal protective equipment (PPE) This may decrease voice recognition accuracy Inadvertent director center errors may occur 09/19/2024 Lumbar radiculopathy (ICD-10 - M54.16) Acute Concerns/Problem List: 08/20/2024 Note provided today for 27-day hours and 14 nightly hours Paperwork for ACADEMIC SERVICES COORDINATOR completed. Get XR L shoulder for ongoing pain following fall He will follow with appropriate specialists. [facility] Prescription monitoring program reviewed Including controlled [...] software and direct typing Please excuse inadvertent director center or typing errors, or uncorrected word substitutions Although every attempt has been made by the provider to proofread this document, occasional misspellings and typographical errors may still be present Due to the previous pandemic, and the use of personal protective equipment (PPE) This may decrease voice recognition accuracy Inadvertent director center errors may occur 03/22/2024 Cervicalgia (ICD-10 - M54.2) Acute Concerns/Problem List: 03/22/2024 MAWPaula MOLST/HCP Discussed and Filed Request records from [facility] neurosurgery and pain management, As well as cardiology [facility] Prescription monitoring program reviewed Including controlled [...] software and direct typing Please excuse inadvertent director center or typing errors, or uncorrected word substitutions Although every attempt has been made by the provider to proofread this document, occasional misspellings and typographical errors may still be present Due to the previous pandemic, and the use of personal protective equipment (PPE) This may decrease voice recognition accuracy Inadvertent director center errors may occur 07/09/2024 Hyperlipidemia, unspecified (ICD-10 - E78.5) Acute Concerns/Problem List: 07/09/2024 [facility] Prescription monitoring program reviewed Including controlled [...] software and direct typing Please excuse inadvertent director center or typing errors, or uncorrected word substitutions Although every attempt has been made by the provider to proofread this document, occasional misspellings and typographical errors may still be present Due to the previous pandemic, and the use of personal protective equipment (PPE) This may decrease voice recognition accuracy Inadvertent director center errors may occur 03/22/2024 Lumbar radiculopathy (ICD-10 - M54.16) Acute Concerns/Problem List: 03/22/2024 MAWV MOLST/HCP Discussed and Filed Request records from [facility] neurosurgery and pain management, As well as cardiology [facility] Prescription monitoring program reviewed Including controlled [...] software and direct typing Please excuse inadvertent director center or typing errors, or uncorrected word substitutions Although every attempt has been made by the provider to proofread this document, occasional misspellings and typographical errors may still be present Due to the previous pandemic, and the use of personal protective equipment (PPE) This may decrease voice recognition accuracy Inadvertent director center errors may occur 07/09/2024 Type 2 diabetes mellitus without complications (ICD-10 - E11.9) Acute Concerns/Problem List: 07/09/2024 [facility] Prescription monitoring program reviewed Including controlled [...] software and direct typing Please excuse inadvertent director center or typing errors, or uncorrected word substitutions Although every attempt has been made by the provider to proofread this document, occasional misspellings and typographical errors may still be present Due to the previous pandemic, and the use of personal protective equipment (PPE) This may decrease voice recognition accuracy Inadvertent director center errors may occur 09/19/2024 Hyperlipidemia, unspecified (ICD-10 - E78.5) Acute Concerns/Problem List: 08/20/2024 Note provided today for 27-day hours and 14 nightly hours Paperwork for ACADEMIC SERVICES COORDINATOR completed. Get XR L shoulder for ongoing pain following fall He will follow with appropriate specialists. [facility] Prescription monitoring program reviewed Including controlled [...] software and direct typing Please excuse inadvertent director center or typing errors, or uncorrected word substitutions Although every attempt has been made by the provider to proofread this document, occasional misspellings and typographical errors may still be present Due to the previous pandemic, and the use of personal protective equipment (PPE) This may decrease voice recognition accuracy Inadvertent director center errors may occur 08/20/2024 Type 2 diabetes mellitus without complications (ICD-10 - E11.9) Acute Concerns/Problem List: 08/20/2024 _update labs Paperwork for ACADEMIC SERVICES COORDINATOR completed. He will follow with appropriate specialists. [facility] Prescription monitoring program reviewed Including controlled [...] software and direct typing Please excuse inadvertent director center or typing errors, or uncorrected word substitutions Although every attempt has been made by the provider to proofread this document, occasional misspellings and typographical errors may still be present Due to the previous pandemic, and the use of personal protective equipment (PPE) This may decrease voice recognition accuracy Inadvertent director center errors may occur 09/19/2024 Type 2 diabetes mellitus without complications (ICD-10 - E11.9) Acute Concerns/Problem List: 08/20/2024 Note provided today for 27-day hours and 14 nightly hours Paperwork for ACADEMIC SERVICES COORDINATOR completed. Get XR L shoulder for ongoing pain following fall He will follow with appropriate specialists. [facility] Prescription monitoring program reviewed Including controlled [...] software and direct typing Please excuse inadvertent director center or typing errors, or uncorrected word substitutions Although every attempt has been made by the provider to proofread this document, occasional misspellings and typographical errors may still be present Due to the previous pandemic, and the use of personal protective equipment (PPE) This may decrease voice recognition accuracy Inadvertent director center errors may occur 03/22/2024 Hyperlipidemia, unspecified (ICD-10 - E78.5) Acute Concerns/Problem List: 03/22/2024 MAWV MOLST/HCP Discussed and Filed Request records from [facility] neurosurgery and pain management, As well as cardiology [facility] Prescription monitoring program reviewed Including controlled [...] software and direct typing Please excuse inadvertent director center or typing errors, or uncorrected word substitutions Although every attempt has been made by the provider to proofread this document, occasional misspellings and typographical errors may still be present Due to the previous pandemic, and the use of personal protective equipment (PPE) This may decrease voice recognition accuracy Inadvertent director center errors may occur 03/22/2024 Type 2 diabetes mellitus without complications (ICD-10 - E11.9) Acute Concerns/Problem List: 03/22/2024 MAWV MOLST/HCP Discussed and Filed Request records from [facility] neurosurgery and pain management, As well as cardiology [facility] Prescription monitoring program reviewed Including controlled [...] software and direct typing Please excuse inadvertent director center or typing errors, or uncorrected word substitutions Although every attempt has been made by the provider to proofread this document, occasional misspellings and typographical errors may still be present Due to the previous pandemic, and the use of personal protective equipment (PPE) This may decrease voice recognition accuracy Inadvertent director center errors may occur Plan Of Treatment Pending [...] COMPREHENSIVE METABOLIC PANEL 02/28/2023 COMPREHENSIVE METABOLIC PANEL 04/05/2018 COMPREHENSIVE METABOLIC PANEL 05/03/2021 CRP, HIGH SENSITIVITY 2017 HEMOGLOBIN A1C 2017 HEMOGLOBIN A1C 05/03/2021 HEMOGLOBIN A1C 11/07/2022 HEMOGLOBIN A1C 02/28/2023 HEPATITIS C ANTIBODY 08/16/2023 INSULIN 2017 LIPID PANEL 2017 LIPID PANEL 02/28/2023 LIPID PANEL 05/03/2021 [facility] PCR PANEL 11/15/2023 PSA, SCREEN 04/05/2018 PSA, SCREEN 02/28/2023 TSH 02/28/2023 URINALYSIS, COMPLETE 2017 VITAMIN B12 02/28/2023 Cologuard 10/30/2024 LIPID PANEL, STANDARD 11/15/2023 LIPID PANEL, STANDARD 08/20/2024 HIV 1/2 ANTIGEN/ANTIBODY,FOURTH GENERATI ON W/RFL 08/16/2023 COMPREHENSIVE METABOLIC PANEL 11/15/2023 COMPREHENSIVE METABOLIC PANEL 08/20/2024 CBC (INCLUDES DIFF/PLT) 08/20/2024 CBC (INCLUDES DIFF/PLT) 11/15/2023 URINALYSIS, COMPLETE 08/20/2024 URINALYSIS, COMPLETE 11/15/2023 RPR (DX) W/REFL TITER AND CONFIRMATORY T ESTING 02/28/2023 HEMOGLOBIN A1c 11/15/2023 HEMOGLOBIN A1c 08/20/2024 PSA (FREE AND TOTAL) 08/20/2024 PSA (FREE AND TOTAL) 11/15/2023 TSH 11/15/2023 TSH W/REFLEX TO FT4 08/20/2024 [...] CULTURE 12/30/2021 Next Appt Details Provider Name:JERSEY SHARMA, 03/19/2025 11:00:00 AM, [address] [facility], [facility] [address], [place], [address], Insurance Providers Payer Name Payer Address Payer Phone Subscriber Number Group Number Insured Name Patient Relationship to Insured Coverage Start Date Coverage End Date [employer] or Options [address] [place] [id number] JAN RICH Self - patient is the insured Medical (General) History Medical History History ICD Code copd anxiety depression sleep apnea Surgical History Surgery Date(Month/Year) hand surgery
== END 2025-01-21 07:42 | disposition home or self-care (01) ==
LOC: CF 07:41
PROVIDERS: Visit Provider Anesthesiology
DX: Z13.89 Encounter for screening for other disorder (principal)

== ENCOUNTER 2025-04-15 06:13 | Outpatient (REF) | payer OTHER, SELFPAY ==
--- OUTSIDE RECORDS SUMMARY | 2024-07-09 10:15 | XMS_ITS ---
Author Organization [facility] [address] Address [address] [place] [address] Care Team Providers Care Copy Room Technician Name Role Phone LUX HOOD Primary Care Provider JERSEY SHARMA Unavailable [phone] Medications Medication SIG (Take, Route, Frequency, Duration) Notes Start Date End Date Status Pregabalin 75 MG Capsule 1 capsule Orall y Twice a day; Duration: 30 days Active Breo Ellipta 100-25 MCG/ACT Aerosol Powder Breath Activated INHALE 1 PUFF INTO THE LUNGS DAILY FOR 30 DAYS. Inhalation; Duration: 30 Active Meloxicam 7.5 MG Tablet TAKE 1 TABLET BY MOUTH EVERY DAY; Duration: 30 Active Mounjaro 2.5 MG/0.5ML Solution Pen-injector 2.5mg Subcutaneous weekly; Duration: 30 days Active clonazePAM 0.5 MG Tablet Oral; Duration: 30 Active Nicotine 14 MG/24HR Patch 24 Hour 1 patch to skin Transdermal Once a day; Duration: 30 day(s) Active traMADol HCl 50 MG Tablet 1 tablet as ne eded Orally twice a day; Duration: 30 days Active Encounters Encounter Location Date Provider Diagnosis [facility] [address] [address] 07/09/2024 JERSEY SHARMA Prediabetes R73.03 ; Primary osteoarthritis of right knee M17.11 ; Chronic pain syndrome G89.4 ; Cervicalgia M54.2 ; Lumbar radiculopathy M54.16 ; Hyperlipidemia, unspecified E78.5 and Type 2 diabetes mellitus without complications E11.9 Assessments Encounter Date Diagnosis (ICD Code) Assessment Notes Treatment Notes Treatment Clinical Notes Section Notes 07/09/2024 Prediabetes (ICD-10 - R73.03) Acute Concerns/Problem List: 07/09/2024 [facility] Prescription monitoring program reviewed Including controlled substances prescriptive history, male patient with chronic pain syndrome as mentioned above We will refer him to a chronic pain specialist and neurosurgery per request 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 for chronic 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 and difficulty ambulation Of note, some information is being carried forward from prior records for informational purposes only and is being cited so that efficiency, safety and quality of the patient's care is not compromised This note was prepared using voice recognition software and direct typing Please excuse inadvertent envelope maker or typing errors, or uncorrected word substitutions Although every attempt has been made by the provider to proofread this document, occasional misspellings and typographical errors may still be present Due to the previous pandemic, and the use of personal protective equipment (PPE) This may decrease voice recognition accuracy Inadvertent envelope maker errors may occur 07/09/2024 Primary osteoarthritis of right knee (ICD-10 - M17.11) Acute Concerns/Problem List: 07/09/2024 [facility] Prescription monitoring program reviewed Including controlled substances prescriptive history, male patient with chronic pain syndrome as mentioned above We will refer him to a chronic pain specialist and neurosurgery per request 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 for chronic disability and difficulty ambulation Of note, some information is being carried forward from prior records for informational purposes only and is being cited so that efficiency, safety and quality of the patient's care is not compromised This note was prepared using voice recognition software and direct typing Please excuse inadvertent envelope maker or typing errors, or uncorrected word substitutions Although every attempt has been made by the provider to proofread this document, occasional misspellings and typographical errors may still be present Due to the previous pandemic, and the use of personal protective equipment (PPE) This may decrease voice recognition accuracy Inadvertent envelope maker errors may occur 07/09/2024 Chronic pain syndrome (ICD-10 - G89.4) Acute Concerns/Problem List: 07/09/2024 [facility] Prescription monitoring program reviewed Including controlled substances prescriptive history, male patient with chronic pain syndrome as mentioned above We will refer him to a chronic pain specialist and neurosurgery per request 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 for chronic disability and difficulty ambulation Of note, some information is being carried forward from prior records for informational purposes only and is being cited so that efficiency, safety and quality of the patient's care is not compromised This note was prepared using voice recognition software and direct typing Please excuse inadvertent envelope maker or typing errors, or uncorrected word substitutions Although every attempt has been made by the provider to proofread this document, occasional misspellings and typographical errors may still be present Due to the previous pandemic, and the use of personal protective equipment (PPE) This may decrease voice recognition accuracy Inadvertent envelope maker errors may occur 07/09/2024 Cervicalgia (ICD-10 - M54.2) Acute Concerns/Problem List: 07/09/2024 [facility] Prescription monitoring program reviewed Including controlled substances prescriptive history, male patient with chronic pain syndrome as mentioned above We will refer him to a chronic pain specialist and neurosurgery per request 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 for chronic disability and difficulty ambulation Of note, some information is being carried forward from prior records for informational purposes only and is being cited so that efficiency, safety and quality of the patient's care is not compromised This note was prepared using voice recognition software and direct typing Please excuse inadvertent envelope maker or typing errors, or uncorrected word substitutions Although every attempt has been made by the provider to proofread this document, occasional misspellings and typographical errors may still be present Due to the previous pandemic, and the use of personal protective equipment (PPE) This may decrease voice recognition accuracy Inadvertent envelope maker errors may occur 07/09/2024 Lumbar radiculopathy (ICD-10 - M54.16) Acute Concerns/Problem List: 07/09/2024 [facility] Prescription monitoring program reviewed Including controlled substances prescriptive history, male patient with chronic pain syndrome as mentioned above We will refer him to a chronic pain specialist and neurosurgery per request 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 for chronic disability and difficulty ambulation Of note, some information is being carried forward from prior records for informational purposes only and is being cited so that efficiency, safety and quality of the patient's care is not compromised This note was prepared using voice recognition software and direct typing Please excuse inadvertent envelope maker or typing errors, or uncorrected word substitutions Although every attempt has been made by the provider to proofread this document, occasional misspellings and typographical errors may still be present Due to the previous pandemic, and the use of personal protective equipment (PPE) This may decrease voice recognition accuracy Inadvertent envelope maker errors may occur 07/09/2024 Hyperlipidemia, unspecified (ICD-10 - E78.5) Acute Concerns/Problem List: 07/09/2024 [facility] Prescription monitoring program reviewed Including controlled substances prescriptive history, male patient with chronic pain syndrome as mentioned above We will refer him to a chronic pain specialist and neurosurgery per request 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 for chronic disability and difficulty ambulation Of note, some information is being carried forward from prior records for informational purposes only and is being cited so that efficiency, safety and quality of the patient's care is not compromised This note was prepared using voice recognition software and direct typing Please excuse inadvertent envelope maker or typing errors, or uncorrected word substitutions Although every attempt has been made by the provider to proofread this document, occasional misspellings and typographical errors may still be present Due to the previous pandemic, and the use of personal protective equipment (PPE) This may decrease voice recognition accuracy Inadvertent envelope maker errors may occur 07/09/2024 Type 2 diabetes mellitus without complications (ICD-10 - E11.9) Acute Concerns/Problem List: 07/09/2024 [facility] Prescription monitoring program reviewed Including controlled substances prescriptive history, male patient with chronic pain syndrome as mentioned above We will refer him to a chronic pain specialist and neurosurgery per request 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 for chronic disability and difficulty ambulation Of note, some information is being carried forward from prior records for informational purposes only and is being cited so that efficiency, safety and quality of the patient's care is not compromised This note was prepared using voice recognition software and direct typing Please excuse inadvertent envelope maker or typing errors, or uncorrected word substitutions Although every attempt has been made by the provider to proofread this document, occasional misspellings and typographical errors may still be present Due to the previous pandemic, and the use of personal protective equipment (PPE) This may decrease voice recognition accuracy Inadvertent envelope maker errors may occur Plan Of Treatment Medication Medication Name Sig Start Date Stop Date Notes Pregabalin 75 MG Capsule 1 capsule Orall y Twice a day; Duration: 30 days Mounjaro 2.5 MG/0.5ML Solution Pen-injector 2.5mg Subcutaneous weekly; Duration: 30 days Nicotine 14 MG/24HR Patch 24 Hour 1 patch to skin Transdermal Once a day; Duration: 30 day(s) traMADol HCl 50 MG Tablet 1 tablet as ne eded Orally twice a day; Duration: 30 days Next Appt Details Provider Name:JERSEY SHARMA, 07/31/2025 01:15:00 PM, [address] [facility], [address], [place], [address], History and Physical Notes * HPI (History of Present Illness) Category Sub-Category Detail Notes Category Not es Constitutional Patient is here for Chronic Disease Management follow-up visit Patient seen and examined. Full past medical history, social history, family history, allergies and current medications were reviewed and updated. Acute Concerns/Problem List: 07/09/2024 trying to incr activity, eat apron cleaner, did lose some weight Patient with past medical history of COPD, anxiety, depression, ans sleep apnea , presents today for worsening back pain, worsening anxiety and depression. Patient states he was seen by an orthopedics surgeon about 10 years ago and was told that he has 7 hernitated disc through out his spine. he sees Neurosurgery, Yudelka, may need surgery now @ [facility] pain mgt, theyre discussing nerve ablation now on pregabalin/Acetaminophen, no longer on gabapentin, acetaminophen has been trying to stay away from NSAIDS He states that he is not able to perform his ADLs such as cooking, showering without help. Patient reports worsening depression and anxiety. psych BHN- on abilify He saw his neurologist, is now on CPAP compliant therapy Has had intermittent chest discomfort with feelings of fluttering and palpitation he was send for cardiac stress testing, he finally went, and was unremarkable @ [facility] will request records from [facility] Sees vp cardiovascular Dr. Hoover, low-dose CT scheduled, has quit smoking He denies fever, chills, lightheadness, numbbness, weakness, changes in bowel and bladder function. 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 Health Maintenance: COVID MRNA Vax-x 2 PNA - Prevnar 05/16/23 , needs pneumovax 05/2024 Flu- defers at this time Shingles - defers at this time Colorectal did have consult screening, to jatinule @ [facility] Examination Category Sub-Category Detail Notes Category Not es General Examination GENERAL APPEARANCE: in no ac stebbins distress, well developed, well nourished HEAD: normocephalic, atrau matic EYES: pupils equal, round, reactive to light and accommodation EARS: normal THROAT: clear NECK/THYROID: neck supple, full ra nge of motion, no cervical lymphadenopathy HEART: no murmurs, regular rate and rhythm, S1, S2 normal LUNGS: clear to auscultatio n bilaterally ABDOMEN: normal, bowel sounds present, soft, nontender, nondistended NEUROLOGIC: nonfocal, motor stre ngth normal upper and lower extremities, sensory exam intact SKIN: no suspicious lesion s, warm and dry EXTREMITIES: no clubbing, cyanosi s, or edema ORAL CAVITY: mucosa moist Progress Notes * KADE RICHREY ADOB:1970 (54 yo M)Acc No.[id number]:07/09/2024 Progress Notes Patient: JAN KWOK Provider: Dennise SHARMA NP :1970 A ge:53 Y S ex:Male Date:07/09/2024 Address:[address] [place] [id number] Pcp:LUX HOOD Subjective: * Chief Complaints: * HPI: C onstitutional: Patient is here for Chronic Disease Management follow-up visit Patient seen and examined. Full past medical history, social history, family history, allergies and current medications were reviewed and updated. Acute Concerns/Problem List: 07/09/2024 trying to incr activity, eat apron cleaner, did lose some weight Patient with past medical history of COPD, anxiety, depression, ans sleep apnea , presents today for worsening back pain, worsening anxiety and depression. Patient states he was seen by an orthopedics surgeon about 10 years ago and was told that he has 7 hernitated disc through out his spine. he sees Neurosurgery, Apryls, may need surgery now @ [facility] pain mgt, theyre discussing nerve ablation now on pregabalin/Acetaminophen, no longer on gabapentin, acetaminophen has been trying to stay away from NSAIDS He states that he is not able to perform his ADLs such as cooking, showering without help. Patient reports worsening depression and anxiety. psych BHN- on abilify He saw his neurologist, is now on CPAP compliant therapy Has had intermittent chest discomfort with feelings of fluttering and palpitation he was send for cardiac stress testing, he finally went, and was unremarkable @ [facility] will request records from [facility] Sees vp cardiovascular Dr. Hoover, low-dose CT scheduled, has quit smoking He denies fever, chills, lightheadness, numbbness, weakness, changes in bowel and bladder function. 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 Health Maintenance: COVID MRNA Vax-x 2 PNA - Prevnar 05/16/23 , needs pneumovax 05/2024 Flu- defers at this time Shingles - defers at this time Colorectal did have consult screening, to néstor @ [facility]. * ROS: A ll Other Systems: Review of Systems (ROS) A ll others negative except those mentioned in HPI. * Medications: T akingtraMADol HCl 50 MG Tablet 1 tablet as needed Orally twice a day Nicotine 14 MG/24HR Patch 24 Hour 1 patch to skin Transdermal Once a day Pregabalin 75 MG Capsule 1 capsule Orally Twice a day Mounjaro 2.5 MG/0.5ML Solution Pen-injector 2.5mg Subcutaneous weekly Breo Ellipta 100-25 MCG/ACT Aerosol Powder Breath Activated INHALE 1 PUFF INTO THE LUNGS DAILY FOR 30 DAYS. Inhalation clonazePAM 0.5 MG Tablet Oral Meloxicam 7.5 MG Tablet TAKE 1 TABLET BY MOUTH EVERY DAY Taking traMADol HCl 50 MG Tablet 1 tablet as needed Orally twice a day Taking Nicotine 14 MG/24HR Patch 24 Hour 1 patch to skin Transdermal Once a day Taking Pregabalin 75 MG Capsule 1 capsule Orally Twice a day Taking Mounjaro 2.5 MG/0.5ML Solution Pen-injector 2.5mg Subcutaneous weekly Taking Breo Ellipta 100-25 MCG/ACT Aerosol Powder Breath Activated INHALE 1 PUFF INTO THE LUNGS DAILY FOR 30 DAYS. Inhalation Taking clonazePAM 0.5 MG Tablet Oral Taking Meloxicam 7.5 MG Tablet TAKE 1 TABLET BY MOUTH EVERY DAY Objective: * Examination: G eneral Examination: GENERAL APPEARANCE: i n no acute distress, well developed, well nourished. HEAD: n ormocephalic, atraumatic. EYES: p upils equal, round, reactive to light and accommodation. EARS: n ormal. ORAL CAVITY: m ucosa moist. THROAT: c lear. NECK/THYROID: n bishnu supple, full range of motion, no cervical lymphadenopathy. SKIN: n o suspicious lesions, warm and dry. HEART: n o murmurs, regular rate and rhythm, S1, S2 normal.? LUNGS: c lear to auscultation bilaterally. ABDOMEN: n ormal, bowel sounds present, soft, nontender, nondistended. EXTREMITIES: n o clubbing, cyanosis, or edema. NEUROLOGIC: n onfocal, motor strength normal upper and lower extremities, sensory exam intact. Assessment: * Assessment: 1. P rediabetes - R73.03 2 . P rimary osteoarthritis of right knee - M17.11? 3. C hronic pain syndrome - G89.4 4 . C ervicalgia - M54.2? 5. L umbar radiculopathy - M54.16 6 . H yperlipidemia, unspecified - E78.5 7 . T ype 2 diabetes mellitus without complications - E11.9? Acute Concerns/Problem List: 07/09/2024 [facility] Prescription monitoring program reviewed Including controlled substances prescriptive history, male patient with chronic pain syndrome as mentioned above We will refer him to a chronic pain specialist and neurosurgery per request Paper work for [employer] for chronic disability and difficulty ambulation Of note, some information is being carried forward from prior records for informational purposes only and is being cited so that efficiency, safety and quality of the patient's care is not compromised This note was prepared using voice recognition software and direct typing Please excuse inadvertent envelope maker or typing errors, or uncorrected word substitutions Although every attempt has been made by the provider to proofread this document, occasional misspellings and typographical errors may still be present Due to the previous pandemic, and the use of personal protective equipment (PPE) This may decrease voice recognition accuracy Inadvertent envelope maker errors may occur. Plan: * Treatment: 2. P rimary osteoarthritis of right knee Start traMADol HCl Tablet, 50 MG, 1 tablet as needed, Orally, twice a day, 30 days, 60 Tablet, Refills 1. * Procedure Codes: 9 9199 NO SHOW OFFICE VISIT Billing Information: * Procedure Codes: 65446 NO SHOW OFFICE VISIT. Care Plan Details* * Electronic signature of FAUSTINO SHARMA on 04/15/2025 at 06:16 AM EST Sign off status: Pending * Provider: Dennise SHARMA NP Date: 0 07/09/2024 Generated for Jennifer rick/Bharathi/Starla on: 06/15/2024 06:16 AM EST
--- OUTSIDE RECORDS SUMMARY | 2025-04-15 06:16 | XMS_ITS | Patient Health Record ---
Author Organization [facility] Address [address] [place] [address] Care Team Providers Care Corporate Development Analyst Name Role Phone SANA LUX Primary Care Provider JERSEY SHARMA [phone] Allergies No Known Allergies Results Component Value Reference Range Flag Notes XR SHOULDER 2+ VIEWS LEFT Reviewed date:09/20/2024 01:04:22 PM Interpretation: Performing Lab: Notes/Report: Note See Note [facility], a member of [address] [employer] Patient Name: JAN RICH Date of : 1970 Reason for Exam: OTHER Exam Date: 09/19/2024 [id number] EST Report Status: Final Ordering Provider: JERSEY [...] Signed Date: 09/20/2024 07:50 ET Workstation ID: [id number] Transcribed By: Self Edit Transcribed Date: 09/20/2024 07:47 ET URINALYSIS WITH REFLEX MICRO SCOPIC Reviewed date:04/07/2025 02:16:01 PM Interpretation: Performing Lab: Notes/Report: Specific Shelby Urine 1.014 1.003-1.030 pH, Urine 6.0 5.0-8.0 pH Leukocytes, Urine Negative Negative Nitrite, Urine Negative Negative Protein, Urine Negative <=Trace mg/dL Glucose, Urine Negative Negative mg/dL Ketones, Urine Negative Negative mg/dL Urobilinogen, Urine 0.2 0.2-1.0 mg/dL Bilirubin, Urine Negative Negative Blood, Urine Trace Negative A RBC, Urine 5.3 0-4 /HPF H WBC, Urine 0.5 0-4 /HPF Squamous Epithelial, Urine 3 0-60 /LPF Bacteria, Urine Negative Negative /HPF Hyaline Casts, Urine 0.0 0-3 /LPF CBC WITH AUTO DIFFERENTIAL Reviewed date:04/07/2025 02:16:01 PM Interpretation: Performing Lab: Notes/Report: WBC 8.9 4.8-10.8 K/mcL RBC 5.60 4.50-5.50 M/mcL H Hemoglobin 16.7 13.5-17.5 g/dL Hematocrit 50.3 42.0-54.0 % MCV 90.6 79.0-98.0 FL MCH 30.1 27.0-32.0 pcg MCHC 33.2 32.0-37.0 g/dL RDW 12.7 11.0-15.0 % Platelets 244 130-400 K/mcL MPV 10.9 7.0-11.0 FL NRBC 0.0 <1.0 % NRBC Absolute 0.00 <0.10 K/mcL Neutrophils Relative 52.3 Lymphocytes Relative 31.2 Monocytes Relative 10.4 Eosinophils Relative 2.1 Basophils Relative 1.3 Immature Granulocytes Relative 2.7 Neutrophils Absolute 4.64 1.50-7.00 K/mcL Lymphocytes Absolute 2.78 1.00-5.00 K/mcL Monocytes Absolute 0.93 0.20-1.00 K/mcL Eosinophils Absolute 0.19 0.00-0.50 K/mcL Basophils Absolute 0.12 0.00-0.20 K/mcL Immature Granulocytes Absolute 0.24 0.00-0.03 K/mcL H HEMOGLOBIN A1C Reviewed date:04/08/2025 07:36:37 AM Interpretation: Performing Lab: Notes/Report: Hemoglobin A1C 6.4 <6.5 % Mean Bld Glu Estim. 137 COMPREHENSIVE METABOLIC PANE L Reviewed date:04/07/2025 02:16:01 PM Interpretation: Performing Lab: Notes/Report: Sodium 140 133-145 mmol/L Potassium 4.3 3.5-5.5 mmol/L Chloride 108 96-110 mmol/L CO2 24 21-32 mmol/L Anion Gap 8 3-11 Glucose 105 70-100 mg/dL H BUN 17 5-25 mg/dL Creatinine 1.02 0.70-1.30 mg/dL eGFR 87 >=60 mL/min/1.73m2 Calculation based on the Chronic Kidney Disease Epidemiology Collaboration (CKD-EPI) equation refit without adjustment for race. BUN/Creatinine Ratio 16.7 Calcium 8.9 8.5-10.5 mg/dL AST (SGOT) 27 10-42 unit/L ALT (SGPT) 68 10-60 unit/L H Results veri fied by repeat testing Alkaline Phosphatase 59 42-121 unit/L Total Protein 6.9 6.0-8.0 g/dL Albumin 3.8 3.2-5.0 g/dL Total Bilirubin 1.0 0.0-1.4 mg/dL LIPID PANEL WITH REFLEX TO D IRECT LDL Reviewed date:04/07/2025 02:16:01 PM Interpretation: Performing Lab: Notes/Report: Cholesterol 191 0-200 mg/dL Triglycerides 213 0-150 mg/dL H Results ve rified by repeat testing HDL 50 >=40 mg/dL LDL Calculated 98 0-100 mg/dL Estimated LDL Calculated using equation: Total cholesterol - HDL cholesterol - (Triglycerides/5) VLDL Cholesterol Frankie 42.6 Non HDL Chol. (LDL+VLDL) 141 <145 mg/dL Chol/HDL Ratio 3.8 0.0-4.4 PROSTATE SPECIFIC ANTIGEN PRIYA ROJAS Reviewed date:04/07/2025 02:16:01 PM Interpretation: Performing Lab: Notes/Report: The Siemens Advia Freespeeaur Chemiluminescent Immunoassay is used. Results obtained with different assay methods or kits cannot be used interchangeably. Results cannot be interpreted as absolute evidence of the presence or absence of malignant disease. PSA 2.00 0.00-4.00 ng/mL THYROID STIMULATING HORMONE Reviewed date:04/07/2025 03:12:55 PM Interpretation: Performing Lab: Notes/Report: TSH 0.90 0.40-4.00 mcIU/mL VITAMIN D 25 HYDROXY Reviewed date:04/07/2025 02:16:01 PM Interpretation: Performing Lab: Notes/Report: Vit D, 25-Hydroxy 20.4 30.0-80.0 ng/mL L CBC WITH AUTO DIFFERENTIAL Reviewed date:10/24/2024 11:09:53 AM Interpretation: Performing Lab: Notes/Report: WBC 12.8 4.8-10.8 K/mcL H RBC 5.50 4.50-5.50 M/mcL Hemoglobin 16.6 13.5-17.5 [...] Relative 1.6 Neutrophils Absolute 9.12 1.50-7.00 K/mcL H Lymphocytes Absolute 2.42 1.00-5.00 K/mcL Monocytes Absolute 0.96 0.20-1.00 K/mcL Eosinophils Absolute 0.00 0.00-0.50 K/mcL Basophils Absolute 0.06 0.00-0.20 K/mcL Immature Granulocytes Absolute 0.20 0.00-0.03 K/mcL H LIPID PANEL WITH REFLEX TO D IRECT LDL Reviewed date:10/24/2024 11:09:53 AM Interpretation: Performing Lab: Notes/Report: Cholesterol 168 0-200 mg/dL Triglycerides 82 0-150 mg/dL HDL 55 >=40 mg/dL LDL Calculated 97 0-100 mg/dL VLDL Cholesterol Frankie 16.4 Non HDL Chol. (LDL+VLDL) 113 <145 mg/dL Chol/HDL Ratio 3.1 0.0-4.4 VITAMIN D 25 HYDROXY Reviewed date:10/24/2024 11:50:29 AM Interpretation: Performing Lab: Notes/Report: Vit D, 25-Hydroxy 22.0 30.0-80.0 ng/mL L COMPREHENSIVE METABOLIC PANE L Reviewed date:10/24/2024 11:09:53 AM Interpretation: Performing Lab: Notes/Report: Sodium 136 133-145 mmol/L Potassium 4.2 3.5-5.5 mmol/L Chloride 105 96-110 mmol/L CO2 25 21-32 mmol/L Anion Gap 6 3-11 Glucose 102 70-100 mg/dL H BUN 26 5-25 mg/dL H Creatinine 1.03 0.70-1.30 mg/dL eGFR 86 >=60 mL/min/1.73m2 Calculation based on the Chronic Kidney Disease Epidemiology Collaboration (CKD-EPI) equation refit without adjustment for race. BUN/Creatinine Ratio 25.2 Calcium 9.6 8.5-10.5 mg/dL AST (SGOT) 12 10-42 unit/L ALT (SGPT) 36 10-60 unit/L Alkaline Phosphatase 61 42-121 unit/L Total Protein 7.3 6.0-8.0 g/dL Albumin 4.1 3.2-5.0 g/dL Total Bilirubin 1.0 0.0-1.4 mg/dL THYROID STIMULATING HORMONE WITH REFLEX TO FREE T4 AND FREE T3 Reviewed date:10/24/2024 01:29:17 PM Interpretation: Performing Lab: Notes/Report: TSH 1.27 0.40-4.00 mcIU/mL PSA TOTAL, FREE AND COMPLEXE D Reviewed date:10/24/2024 11:50:24 AM Interpretation: Performing Lab: Notes/Report: This test was performed using the Centaur Chemiluminescent method. PSA values obtained with other methods cannot be used interchangeably. Free PSA is a calculated value. The diagnostic usefulness of % free PSA has not been established in patients with Total PSA below 2.6 or above 10 ng/mL. PSA 1.46 0.00-4.00 ng/mL PSA, Complexed 1.22 0.00-3.00 ng/mL PSA, Free 0.2 PSA, Free Pct 13.7 >25.0 % L URINALYSIS WITH REFLEX MICRO SCOPIC Reviewed date:10/24/2024 11:09:53 AM Interpretation: Performing Lab: Notes/Report: Specific [place] Urine 1.021 1.003-1.030 pH, Urine 5.5 5.0-8.0 pH Leukocytes, Urine Negative Negative Nitrite, Urine Negative Negative Protein, Urine Trace <=Trace mg/dL Glucose, Urine Negative Negative mg/dL Ketones, Urine Trace Negative mg/dL A Urobilinogen, Urine 1.0 0.2-1.0 mg/dL Bilirubin, Urine Negative Negative Blood, Urine Trace Negative A RBC, Urine 4.2 0-4 /HPF H WBC, Urine 0.5 0-4 /HPF Squamous Epithelial, Urine 8 0-60 /LPF Bacteria, Urine Negative Negative /HPF Hyaline Casts, Urine 0.4 0-3 /LPF CT LUNG SCREENING Reviewed date:12/26/2024 04:19:41 PM Interpretation: Performing Lab: Notes/Report: Note See Note [facility], a member of [address] [employer] Patient Name: JAN RICH Date of : 1970 Reason for Exam: Lung cancer screening, >=20 pk yr smoking history in last 15 yrs (Age 50-80y) Exam Date: 12/23/2024 [id number] EST Report Status: Final Ordering Provider: MARISEL [...] No axillary or supraclavicular lymphadenopathy. Limited abdomen: The re [...] FINAL REPOR T -------- Dictated By: Medardo Nichole Dictated Date: 12/24/2024 12:56 ET Assigned Physician: Medardo Nichole Reviewed and Electronically Signed By: Medardo Nichole Signed Date: 12/24/2024 14:12 ET Workstation ID: [id number] Transcribed By: Self Edit Transcribed Date: 12/24/2024 14:02 ET HEMOGLOBIN A1C Reviewed date:10/28/2024 02:02:14 PM Interpretation: Performing Lab: Notes/Report: Hemoglobin A1C 5.3 <6.5 % Mean Bld Glu Estim. 105 Reason For Referral Reason [facility] Colorectal Surgery Diagnosis 1 Perianal venous thro mbosis (K64.5) Referral Organization [facility] [address] Referring Provider First Name LUX Referring Provider Last Name SANA Referring Provider Speciality Internal M edicine Referred Provider Specialty Colorectal S urgery General Notes José Miguel Kent 02/26/2025 11:26:26 AM > Pt given information T: [phone] F: [phone] Clinical Notes Lesa Yi 01/2025 02:58:29 PM > Kd bernal Redena 04/04/2025 03:25:01 PM > Scheduled for 05/14 at 1 pm Referral Priority Routine Medications Medication SIG (Take, Route, Frequency, Duration) Notes Start Date End Date Status Celecoxib 100 MG Capsule Oral; Duration: 30 Days Active Mounjaro 2.5 MG/0.5ML Solution Pen-injector 2.5mg Subcutaneous weekly; Duration: 30 days Not-Taking Zepbound 2.5 MG/0.5ML Solution Auto-injector 2.5 mg weekly Subcutaneous Weekly; Duration: 30 days 04/03/2025 Active Breo Ellipta 100-25 MCG/ACT Aerosol Powder Breath Activated INHALE 1 PUFF INTO THE LUNGS DAILY FOR 30 DAYS. Inhalation; Duration: 30 Active clonazePAM 0.5 MG Tablet Oral; Duration: 30 Active traMADol HCl 50 MG Tablet 1 tablet as ne eded Orally twice a day; Duration: 30 days Not-Taking Pregabalin 75 MG Capsule 1 capsule Orall y Twice a day; Duration: 30 days Active Hydrocortisone (Perianal) 2.5 % Cream 1 application Externally Twice a day; Duration: 30 days 02/26/2025 Not-Taking Nicotine 14 MG/24HR Patch 24 Hour 1 patch to skin Transdermal Once a day; Duration: 30 days 03/10/2025 Active Immunizations Vaccine Route Administration Date Status Comme nts Prevnar 20 IM Intramuscular 05/16/2023 Administered Social History Tobacco Use: Social History Observation Description Date Details (start date - stop date) Former Smoker NA - NA Social History Drugs/Alcohol: Social Info Question Answer Notes Drugs Have you used drugs other than those for medical reasons in the past 12 months? No Tobacco Use: Social Info Question Answer Notes Tobacco Use/Smoking Are you a former smoker Additional Details Category Social Info Options Details Drugs/Alcohol: Do you smoke marijuana? De nies Do you drink alcohol? Yes, , Soc ially Section Notes: Quit abotu 1 week ago [...] Problem Type II diabetes mellitus without complication (431328101) Type 2 diabetes mellitus without complications (E11.9) Active confirmed Problem Obesity due to excess calories (363376310) Other obesity due to excess calories (E66.09) Active confirmed Problem Obesity (399980102) Other obesity (E66.8) Active confirmed Problem Hyperlipidemia (82159593) Hyperlipidemia, unspecified (E78.5) Active confirmed Problem Moderate recurrent major depression (40278538) Major depressive disorder, recurrent, moderate (F33.1) Active confirmed Problem Chronic pain (75651658) Other chronic pain (G89.29) Active confirmed Problem Chronic pain syndrome (560805715) Chronic pain syndrome (G89.4) Active confirmed Problem Cervicalgia (62342501) Cervicalgia (M54.2) Active confirmed Problem Adult health examination (795673447) Encounter for general adult medical examination without abnormal findings (Z00.00) Active confirmed Problem Screening for malignant neoplasm of prostate (327140284) Encounter for screening for malignant neoplasm of prostate (Z12.5) Active confirmed Problem Lipid screening (830188939) Encounter for screening for lipoid disorders (Z13.220) Active confirmed Problem Body mass index 30.00 to 34.99 (916534512833303) Body mass index (BMI) 34.0-34.9, adult (Z68.34) Active confirmed Problem Body mass index 35.00 to 39.99 (207663391857712) Body mass index (BMI) 37.0-37.9, adult (Z68.37) Active confirmed Problem Anxiety (50865781) Anxiety (F41.9) Active confirmed Problem Adult health examination (994548520) Adult general medical exam (Z00.00) Active confirmed Problem Memory loss (28996067) Memory loss (R41.3) Active confirmed Problem Hypothyroidism (59189402) Hypothyroidism, unspecified type (E03.9) Active confirmed Problem Vitamin D deficiency (92225201) Vitamin D deficiency (E55.9) Active confirmed Problem Vitamin B12 deficiency (non anemic) (43139813) Vitamin B 12 deficiency (E53.8) Active confirmed Problem Obstructive sleep apnea syndrome (27016609) JOSE GUADALUPE (obstructive sleep apnea) (G47.33) Active confirmed Problem Diabetes mellitus screening (594514659) Diabetes mellitus screening (Z13.1) Active confirmed Problem Obesity (304838213) Obesity (BMI 30-39.9) (E66.9) Active confirmed Problem Osteoarthritis of knee (279671064) Primary osteoarthritis of right knee (M17.11) Active confirmed Problem Body mass index 35.00 to 39.99 (402758822849955) Body mass index [BMI] 36.0-36.9, adult (Z68.36) Active confirmed Problem Body mass index 35.00 to 39.99 (318732414367671) Body mass index [BMI] 37.0-37.9, adult (Z68.37) Active confirmed Problem Lumbar radiculopathy (602084996) Lumbar radiculopathy (M54.16) Active confirmed Problem Screening for malignant neoplasm of prostate (328664987) Prostate cancer screening (Z12.5) Active confirmed Problem Screening for colon cancer (332430327) Screening for colon cancer (Z12.11) Active confirmed Problem Mixed incontinence (672494658) 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) Active confirmed Problem Avitaminosis D (89165049) Avitaminosis D (E55.9) Active confirmed Problem Chronic kidney disease stage 3A (disorder) (643955865) Stage 3a chronic kidney disease (CKD) (N18.31) Active confirmed Problem Endocrine/metabol ic screening (925403315) Encounter for screening for endocrine disorder (Z13.29) Active confirmed Problem Screening for malignant neoplasm of prostate (833567634) Encounter for prostate cancer screening (Z12.5) Active confirmed Vital Signs Heart Rate 93 /min 04/03/2025 Oximetry 96 % 04/03/2025 Blood pressure diastolic 64 mm Hg 04/03/2025 Height 70 in 04/03/2025 Blood pressure systolic 128 mm Hg 04/03/2025 Weight 262.1 lbs 04/03/2025 BMI 37.6 kg/m2 04/03/2025 Encounters Encounter Location Date Provider Diagnosis [facility] [address] [address] 07/09/2024 EJRSEY SHARMA Prediabetes R73.03 ; Primary osteoarthritis of right knee M17.11 ; Chronic pain syndrome G89.4 ; Cervicalgia M54.2 ; Lumbar radiculopathy M54.16 ; Hyperlipidemia, unspecified E78.5 and Type 2 diabetes mellitus without complications E11.9 [facility] [address] [address] 08/20/2024 JERSEY SHARMA Prediabetes R73.03 ; Primary osteoarthritis of right knee M17.11 ; Chronic pain syndrome G89.4 ; Cervicalgia M54.2 ; Lumbar radiculopathy M54.16 ; Hyperlipidemia, unspecified E78.5 and Type 2 diabetes mellitus without complications E11.9 [facility] [address] [address] 09/19/2024 JERSEY SHARMA Acute pain of left shoulder M25.512 ; Prediabetes R73.03 ; Primary osteoarthritis of right knee M17.11 ; Chronic pain syndrome G89.4 ; Cervicalgia M54.2 ; Lumbar radiculopathy M54.16 ; Hyperlipidemia, unspecified E78.5 and Type 2 diabetes mellitus without complications E11.9 [facility] [address] [address] 10/30/2024 JERSEY SHARMA Otalgia, right ear H 92.01 ; Exposure to toxic chemical Z77.098 and Encounter for examination of blood pressure without abnormal findings Z01.30 [facility] [address] [address] 02/26/2025 JERSEY SHARMA Thrombosed hemorrhoi ds K64.5 [facility] [address] [address] 04/03/2025 JERSEY SHARMA Annual physical exam Z00.00 ; Encounter for screening for depression Z13.31 ; Alcohol screening Z13.39 ; Advanced directives, counseling/discussion Z71.89 ; Chronic pain syndrome G89.4 ; Cervicalgia M54.2 ; Lumbar radiculopathy M54.16 ; Type 2 diabetes mellitus without complications E11.9 ; Thrombosed hemorrhoids K64.5 ; Other obesity due to excess calories E66.09 and Body mass index [BMI] 37.0-37.9, adult Z68.[address] [facility] [address] [place] [address] 11/26/2024 JERSEY SHARMA [facility] [address] [facility] [address] [place] [address] 03/10/2025 LUX HOOD [facility] [address] [facility] [address] [place] [address] 03/10/2025 JERSEY SHARMA [facility] [address] [facility] [address] [place] [address] 04/04/2025 JERSEY BORHOT [facility] [address] [facility] [address] [place] [address] 04/07/2025 JERSEY SHARMA JOSE GUADALUPE (obstructive sle ep apnea) G47.33 [facility] [address] [address] 04/10/2025 JERSEY SHARMA Assessments Encounter Date Diagnosis (ICD Code) Assessment Notes Treatment Notes Treatment Clinical Notes Section Notes 07/09/2024 Prediabetes (ICD-10 - R73.03) Acute Concerns/Proble m List: 07/09/2024 [facility] Prescription monitoring program reviewed Including controlled [...] software and direct typing Please excuse inadvertent production proofreader or typing errors, or uncorrected word substitutions Although every attempt has been made by the provider to proofread this document, occasional misspellings and typographical errors may still be present Due to the previous pandemic, and the use of personal protective equipment (PPE) This may decrease voice recognition accuracy Inadvertent production proofreader errors may occur 08/20/2024 Prediabetes (ICD-10 - R73.03) Acute Concerns/Proble m List: 08/20/2024 _update labs Paperwork for [employer] completed. He will follow with appropriate specialists. [facility] Prescription monitoring program reviewed Including controlled [...] software and direct typing Please excuse inadvertent production proofreader or typing errors, or uncorrected word substitutions Although every attempt has been made by the provider to proofread this document, occasional misspellings and typographical errors may still be present Due to the previous pandemic, and the use of personal protective equipment (PPE) This may decrease voice recognition accuracy Inadvertent production proofreader errors may occur 09/19/2024 Acute pain of left shoulder (ICD-10 - M25.512) Acute Concerns/Proble m List: 08/20/2024 Note provided today for 27-day hours and 14 nightly hours Paperwork for [employer] completed. Get XR L shoulder for ongoing pain following fall He will follow with appropriate specialists. [facility] Prescription monitoring program reviewed Including controlled [...] software and direct typing Please excuse inadvertent production proofreader or typing errors, or uncorrected word substitutions Although every attempt has been made by the provider to proofread this document, occasional misspellings and typographical errors may still be present Due to the previous pandemic, and the use of personal protective equipment (PPE) This may decrease voice recognition accuracy Inadvertent production proofreader errors may occur 10/30/2024 Otalgia, right ear (ICD-10 - H92.01) Assurance given today Exam unremarkable Of note, some information is being carried forward from prior records for informational purposes only and is being cited so that efficiency, safety and quality of the patient's care is not compromised This note was prepared using voice recognition software and direct typing Please excuse inadvertent production proofreader or typing errors, or uncorrected word substitutions Although every attempt has been made by the provider to proofread this document, occasional misspellings and typographical errors may still be present Due to the previous pandemic, and the use of personal protective equipment (PPE) This may decrease voice recognition accuracy Inadvertent production proofreader errors may occur 02/26/2025 Thrombosed hemorrhoids (ICD-10 - K64.5) Discussed supportive care topical measures, Including warm sitz bath's Will refer to colorectal surgery Of note, some information is being carried forward from prior records for informational purposes only and is being cited so that efficiency, safety and quality of the patient's care is not compromised This note was prepared using voice recognition software and direct typing Please excuse inadvertent production proofreader or typing errors, or uncorrected word substitutions Although every attempt has been made by the provider to proofread this document, occasional misspellings and typographical errors may still be present Due to the previous pandemic, and the use of personal protective equipment (PPE) This may decrease voice recognition accuracy Inadvertent production proofreader errors may occur 04/03/2025 Encounter for screening for depression (ICD-10 - Z13.31) Acute Concerns/Proble m List: 04/03/2025 _update labs Discussed weight management treatment options dependent on insurance To see colorectal surgery in May Paperwork for [employer] completed. He will follow with appropriate specialists. [facility] Prescription monitoring program reviewed Including controlled [...] software and direct typing Please excuse inadvertent production proofreader or typing errors, or uncorrected word substitutions Although every attempt has been made by the provider to proofread this document, occasional misspellings and typographical errors may still be present Due to the previous pandemic, and the use of personal protective equipment (PPE) This may decrease voice recognition accuracy Inadvertent production proofreader errors may occur 04/03/2025 Annual physical exam (ICD-10 - Z00.00) Acute Concerns/Proble m List: 04/03/2025 _update labs Discussed weight management treatment options dependent on insurance To see colorectal surgery in May Paperwork for [employer] completed. He will follow with appropriate specialists. [facility] Prescription monitoring program reviewed Including controlled [...] software and direct typing Please excuse inadvertent production proofreader or typing errors, or uncorrected word substitutions Although every attempt has been made by the provider to proofread this document, occasional misspellings and typographical errors may still be present Due to the previous pandemic, and the use of personal protective equipment (PPE) This may decrease voice recognition accuracy Inadvertent production proofreader errors may occur 04/03/2025 Alcohol screening (ICD-10 - Z13.39) Acute Concerns/Proble m List: 04/03/2025 _update labs Discussed weight management treatment options dependent on insurance To see colorectal surgery in May Paperwork for [employer] completed. He will follow with appropriate specialists. [facility] Prescription monitoring program reviewed Including controlled [...] software and direct typing Please excuse inadvertent production proofreader or typing errors, or uncorrected word substitutions Although every attempt has been made by the provider to proofread this document, occasional misspellings and typographical errors may still be present Due to the previous pandemic, and the use of personal protective equipment (PPE) This may decrease voice recognition accuracy Inadvertent production proofreader errors may occur 04/07/2025 JOSE GUADALUPE (obstructive sleep apnea) (ICD-10 - G47.33) Electronic Prior Authorization was requested for Zepbound 2.5 MG/0.5ML Solution. Provider can order medication once approval received. 09/19/2024 Prediabetes (ICD-10 - R73.03) Acute Concerns/Proble m List: 08/20/2024 Note provided today for 27-day hours and 14 nightly hours Paperwork for [employer] completed. Get XR L shoulder for ongoing pain following fall He will follow with appropriate specialists. [facility] Prescription monitoring program reviewed Including controlled [...] software and direct typing Please excuse inadvertent production proofreader or typing errors, or uncorrected word substitutions Although every attempt has been made by the provider to proofread this document, occasional misspellings and typographical errors may still be present Due to the previous pandemic, and the use of personal protective equipment (PPE) This may decrease voice recognition accuracy Inadvertent production proofreader errors may occur 10/30/2024 Exposure to toxic chemical (ICD-10 - Z77.098) Assurance given today Exam unremarkable Of note, some information is being carried forward from prior records for informational purposes only and is being cited so that efficiency, safety and quality of the patient's care is not compromised This note was prepared using voice recognition software and direct typing Please excuse inadvertent production proofreader or typing errors, or uncorrected word substitutions Although every attempt has been made by the provider to proofread this document, occasional misspellings and typographical errors may still be present Due to the previous pandemic, and the use of personal protective equipment (PPE) This may decrease voice recognition accuracy Inadvertent production proofreader errors may occur 08/20/2024 Primary osteoarthritis of right knee (ICD-10 - M17.11) Acute Concerns/Proble m List: 08/20/2024 _update labs Paperwork for [employer] completed. He will follow with appropriate specialists. [facility] Prescription monitoring program reviewed Including controlled [...] software and direct typing Please excuse inadvertent production proofreader or typing errors, or uncorrected word substitutions Although every attempt has been made by the provider to proofread this document, occasional misspellings and typographical errors may still be present Due to the previous pandemic, and the use of personal protective equipment (PPE) This may decrease voice recognition accuracy Inadvertent production proofreader errors may occur 07/09/2024 Primary osteoarthritis of right knee (ICD-10 - M17.11) Acute Concerns/Proble m List: 07/09/2024 [facility] Prescription monitoring program reviewed Including controlled [...] software and direct typing Please excuse inadvertent production proofreader or typing errors, or uncorrected word substitutions Although every attempt has been made by the provider to proofread this document, occasional misspellings and typographical errors may still be present Due to the previous pandemic, and the use of personal protective equipment (PPE) This may decrease voice recognition accuracy Inadvertent production proofreader errors may occur 07/09/2024 Chronic pain syndrome (ICD-10 - G89.4) Acute Concerns/Proble m List: 07/09/2024 [facility] Prescription monitoring program reviewed Including controlled [...] software and direct typing Please excuse inadvertent production proofreader or typing errors, or uncorrected word substitutions Although every attempt has been made by the provider to proofread this document, occasional misspellings and typographical errors may still be present Due to the previous pandemic, and the use of personal protective equipment (PPE) This may decrease voice recognition accuracy Inadvertent production proofreader errors may occur 08/20/2024 Chronic pain syndrome (ICD-10 - G89.4) Acute Concerns/Proble m List: 08/20/2024 _update labs Paperwork for [employer] completed. He will follow with appropriate specialists. [facility] Prescription monitoring program reviewed Including controlled [...] software and direct typing Please excuse inadvertent production proofreader or typing errors, or uncorrected word substitutions Although every attempt has been made by the provider to proofread this document, occasional misspellings and typographical errors may still be present Due to the previous pandemic, and the use of personal protective equipment (PPE) This may decrease voice recognition accuracy Inadvertent production proofreader errors may occur 10/30/2024 Encounter for examination [...] software and direct typing Please excuse inadvertent production proofreader or typing errors, or uncorrected word substitutions Although every attempt has been made by the provider to proofread this document, occasional misspellings and typographical errors may still be present Due to the previous pandemic, and the use of personal protective equipment (PPE) This may decrease voice recognition accuracy Inadvertent production proofreader errors may occur 09/19/2024 Primary osteoarthritis of right knee (ICD-10 - M17.11) Acute Concerns/Proble m List: 08/20/2024 Note provided today for 27-day hours and 14 nightly hours Paperwork for [employer] completed. Get XR L shoulder for ongoing pain following fall He will follow with appropriate specialists. [place] [facility] [place] Prescription monitoring program reviewed Including controlled substances [...] software and direct typing Please excuse inadvertent production proofreader or typing errors, or uncorrected word substitutions Although every attempt has been made by the provider to proofread this document, occasional misspellings and typographical errors may still be present Due to the previous pandemic, and the use of personal protective equipment (PPE) This may decrease voice recognition accuracy Inadvertent production proofreader errors may occur 04/03/2025 Advanced directives, counseling/discus fabiola (ICD-10 - Z71.89) Acute Concerns/Proble m List: 04/03/2025 _update labs Discussed weight management treatment options dependent on insurance To see colorectal surgery in May Paperwork for [employer] completed. He will follow with appropriate specialists. [facility] Prescription monitoring program reviewed Including controlled [...] software and direct typing Please excuse inadvertent production proofreader or typing errors, or uncorrected word substitutions Although every attempt has been made by the provider to proofread this document, occasional misspellings and typographical errors may still be present Due to the previous pandemic, and the use of personal protective equipment (PPE) This may decrease voice recognition accuracy Inadvertent production proofreader errors may occur 04/03/2025 Chronic pain syndrome (ICD-10 - G89.4) Acute Concerns/Proble m List: 04/03/2025 _update labs Discussed weight management treatment options dependent on insurance To see colorectal surgery in May Paperwork for [employer] completed. He will follow with appropriate specialists. [facility] Prescription monitoring program reviewed Including controlled [...] software and direct typing Please excuse inadvertent production proofreader or typing errors, or uncorrected word substitutions Although every attempt has been made by the provider to proofread this document, occasional misspellings and typographical errors may still be present Due to the previous pandemic, and the use of personal protective equipment (PPE) This may decrease voice recognition accuracy Inadvertent production proofreader errors may occur 08/20/2024 Cervicalgia (ICD-10 - M54.2) Acute Concerns/Proble m List: 08/20/2024 _update labs Paperwork for [employer] completed. He will follow with appropriate specialists. [facility] Prescription monitoring program reviewed Including controlled [...] software and direct typing Please excuse inadvertent production proofreader or typing errors, or uncorrected word substitutions Although every attempt has been made by the provider to proofread this document, occasional misspellings and typographical errors may still be present Due to the previous pandemic, and the use of personal protective equipment (PPE) This may decrease voice recognition accuracy Inadvertent production proofreader errors may occur 07/09/2024 Cervicalgia (ICD-10 - M54.2) Acute Concerns/Proble m List: 07/09/2024 [facility] Prescription monitoring program reviewed Including controlled [...] software and direct typing Please excuse inadvertent production proofreader or typing errors, or uncorrected word substitutions Although every attempt has been made by the provider to proofread this document, occasional misspellings and typographical errors may still be present Due to the previous pandemic, and the use of personal protective equipment (PPE) This may decrease voice recognition accuracy Inadvertent production proofreader errors may occur 09/19/2024 Chronic pain syndrome (ICD-10 - G89.4) Acute Concerns/Proble m List: 08/20/2024 Note provided today for 27-day hours and 14 nightly hours Paperwork for [employer] completed. Get XR L shoulder for ongoing pain following fall He will follow with appropriate specialists. [facility] Prescription monitoring program reviewed Including controlled [...] software and direct typing Please excuse inadvertent production proofreader or typing errors, or uncorrected word substitutions Although every attempt has been made by the provider to proofread this document, occasional misspellings and typographical errors may still be present Due to the previous pandemic, and the use of personal protective equipment (PPE) This may decrease voice recognition accuracy Inadvertent production proofreader errors may occur 09/19/2024 Cervicalgia (ICD-10 - M54.2) Acute Concerns/Proble m List: 08/20/2024 Note provided today for 27-day hours and 14 nightly hours Paperwork for [employer] completed. Get XR L shoulder for ongoing pain following fall He will follow with appropriate specialists. [facility] Prescription monitoring program reviewed Including controlled [...] software and direct typing Please excuse inadvertent production proofreader or typing errors, or uncorrected word substitutions Although every attempt has been made by the provider to proofread this document, occasional misspellings and typographical errors may still be present Due to the previous pandemic, and the use of personal protective equipment (PPE) This may decrease voice recognition accuracy Inadvertent production proofreader errors may occur 08/20/2024 Lumbar radiculopathy (ICD-10 - M54.16) Acute Concerns/Proble m List: 08/20/2024 _update labs Paperwork for [employer] completed. He will follow with appropriate specialists. [facility] Prescription monitoring program reviewed Including controlled [...] software and direct typing Please excuse inadvertent production proofreader or typing errors, or uncorrected word substitutions Although every attempt has been made by the provider to proofread this document, occasional misspellings and typographical errors may still be present Due to the previous pandemic, and the use of personal protective equipment (PPE) This may decrease voice recognition accuracy Inadvertent production proofreader errors may occur 07/09/2024 Lumbar radiculopathy (ICD-10 - M54.16) Acute Concerns/Proble m List: 07/09/2024 [facility] Prescription monitoring program reviewed Including controlled [...] software and direct typing Please excuse inadvertent production proofreader or typing errors, or uncorrected word substitutions Although every attempt has been made by the provider to proofread this document, occasional misspellings and typographical errors may still be present Due to the previous pandemic, and the use of personal protective equipment (PPE) This may decrease voice recognition accuracy Inadvertent production proofreader errors may occur 04/03/2025 Cervicalgia (ICD-10 - M54.2) Acute Concerns/Proble m List: 04/03/2025 _update labs Discussed weight management treatment options dependent on insurance To see colorectal surgery in May Paperwork for [employer] completed. He will follow with appropriate specialists. [facility] Prescription monitoring program reviewed Including controlled [...] software and direct typing Please excuse inadvertent production proofreader or typing errors, or uncorrected word substitutions Although every attempt has been made by the provider to proofread this document, occasional misspellings and typographical errors may still be present Due to the previous pandemic, and the use of personal protective equipment (PPE) This may decrease voice recognition accuracy Inadvertent production proofreader errors may occur 04/03/2025 Lumbar radiculopathy (ICD-10 - M54.16) Acute Concerns/Proble m List: 04/03/2025 _update labs Discussed weight management treatment options dependent on insurance To see colorectal surgery in May Paperwork for [employer] completed. He will follow with appropriate specialists. [facility] Prescription monitoring program reviewed Including controlled [...] software and direct typing Please excuse inadvertent production proofreader or typing errors, or uncorrected word substitutions Although every attempt has been made by the provider to proofread this document, occasional misspellings and typographical errors may still be present Due to the previous pandemic, and the use of personal protective equipment (PPE) This may decrease voice recognition accuracy Inadvertent production proofreader errors may occur 09/19/2024 Lumbar radiculopathy (ICD-10 - M54.16) Acute Concerns/Proble m List: 08/20/2024 Note provided today for 27-day hours and 14 nightly hours Paperwork for [employer] completed. Get XR L shoulder for ongoing pain following fall He will follow with appropriate specialists. [facility] Prescription monitoring program reviewed Including controlled [...] software and direct typing Please excuse inadvertent production proofreader or typing errors, or uncorrected word substitutions Although every attempt has been made by the provider to proofread this document, occasional misspellings and typographical errors may still be present Due to the previous pandemic, and the use of personal protective equipment (PPE) This may decrease voice recognition accuracy Inadvertent production proofreader errors may occur 08/20/2024 Hyperlipidemia, unspecified (ICD-10 - E78.5) Acute Concerns/Proble m List: 08/20/2024 _update labs Paperwork for [employer] completed. He will follow with appropriate specialists. [facility] Prescription monitoring program reviewed Including controlled [...] software and direct typing Please excuse inadvertent production proofreader or typing errors, or uncorrected word substitutions Although every attempt has been made by the provider to proofread this document, occasional misspellings and typographical errors may still be present Due to the previous pandemic, and the use of personal protective equipment (PPE) This may decrease voice recognition accuracy Inadvertent production proofreader errors may occur 07/09/2024 Hyperlipidemia, unspecified (ICD-10 - E78.5) Acute Concerns/Proble m List: 07/09/2024 [facility] Prescription monitoring program reviewed Including controlled [...] software and direct typing Please excuse inadvertent production proofreader or typing errors, or uncorrected word substitutions Although every attempt has been made by the provider to proofread this document, occasional misspellings and typographical errors may still be present Due to the previous pandemic, and the use of personal protective equipment (PPE) This may decrease voice recognition accuracy Inadvertent production proofreader errors may occur 07/09/2024 Type 2 diabetes mellitus without complications (ICD-10 - E11.9) Acute Concerns/Proble m List: 07/09/2024 [facility] Prescription monitoring program reviewed Including controlled [...] software and direct typing Please excuse inadvertent production proofreader or typing errors, or uncorrected word substitutions Although every attempt has been made by the provider to proofread this document, occasional misspellings and typographical errors may still be present Due to the previous pandemic, and the use of personal protective equipment (PPE) This may decrease voice recognition accuracy Inadvertent production proofreader errors may occur 09/19/2024 Hyperlipidemia, unspecified (ICD-10 - E78.5) Acute Concerns/Proble m List: 08/20/2024 Note provided today for 27-day hours and 14 nightly hours Paperwork for [employer] completed. Get XR L shoulder for ongoing pain following fall He will follow with appropriate specialists. [facility] Prescription monitoring program reviewed Including controlled [...] software and direct typing Please excuse inadvertent production proofreader or typing errors, or uncorrected word substitutions Although every attempt has been made by the provider to proofread this document, occasional misspellings and typographical errors may still be present Due to the previous pandemic, and the use of personal protective equipment (PPE) This may decrease voice recognition accuracy Inadvertent production proofreader errors may occur 08/20/2024 Type 2 diabetes mellitus without complications (ICD-10 - E11.9) Acute Concerns/Proble m List: 08/20/2024 _update labs Paperwork for [employer] completed. He will follow with appropriate specialists. [facility] Prescription monitoring program reviewed Including controlled [...] software and direct typing Please excuse inadvertent production proofreader or typing errors, or uncorrected word substitutions Although every attempt has been made by the provider to proofread this document, occasional misspellings and typographical errors may still be present Due to the previous pandemic, and the use of personal protective equipment (PPE) This may decrease voice recognition accuracy Inadvertent production proofreader errors may occur 04/03/2025 Type 2 diabetes mellitus without complications (ICD-10 - E11.9) Acute Concerns/Proble m List: 04/03/2025 _update labs Discussed weight management treatment options dependent on insurance To see colorectal surgery in May Paperwork for [employer] completed. He will follow with appropriate specialists. [facility] Prescription monitoring program reviewed Including controlled [...] software and direct typing Please excuse inadvertent production proofreader or typing errors, or uncorrected word substitutions Although every attempt has been made by the provider to proofread this document, occasional misspellings and typographical errors may still be present Due to the previous pandemic, and the use of personal protective equipment (PPE) This may decrease voice recognition accuracy Inadvertent production proofreader errors may occur 04/03/2025 Thrombosed hemorrhoids (ICD-10 - K64.5) Acute Concerns/Proble m List: 04/03/2025 _update labs Discussed weight management treatment options dependent on insurance To see colorectal surgery in May Paperwork for [employer] completed. He will follow with appropriate specialists. [facility] Prescription monitoring program reviewed Including controlled [...] software and direct typing Please excuse inadvertent production proofreader or typing errors, or uncorrected word substitutions Although every attempt has been made by the provider to proofread this document, occasional misspellings and typographical errors may still be present Due to the previous pandemic, and the use of personal protective equipment (PPE) This may decrease voice recognition accuracy Inadvertent production proofreader errors may occur 09/19/2024 Type 2 diabetes mellitus without complications (ICD-10 - E11.9) Acute Concerns/Proble m List: 08/20/2024 Note provided today for 27-day hours and 14 nightly hours Paperwork for [employer] completed. Get XR L shoulder for ongoing pain following fall He will follow with appropriate specialists. [facility] Prescription monitoring program reviewed Including controlled [...] software and direct typing Please excuse inadvertent production proofreader or typing errors, or uncorrected word substitutions Although every attempt has been made by the provider to proofread this document, occasional misspellings and typographical errors may still be present Due to the previous pandemic, and the use of personal protective equipment (PPE) This may decrease voice recognition accuracy Inadvertent production proofreader errors may occur 04/03/2025 Other obesity due to excess calories (ICD-10 - E66.09) Acute Concerns/Proble m List: 04/03/2025 _update labs Discussed weight management treatment options dependent on insurance To see colorectal surgery in May Paperwork for [employer] completed. He will follow with appropriate specialists. [facility] Prescription monitoring program reviewed Including controlled [...] software and direct typing Please excuse inadvertent production proofreader or typing errors, or uncorrected word substitutions Although every attempt has been made by the provider to proofread this document, occasional misspellings and typographical errors may still be present Due to the previous pandemic, and the use of personal protective equipment (PPE) This may decrease voice recognition accuracy Inadvertent production proofreader errors may occur 04/03/2025 Body mass index [BMI] 37.0-37.9, adult (ICD-10 - Z68.37) Acute Concerns/Proble m List: 04/03/2025 _update labs Discussed weight management treatment options dependent on insurance To see colorectal surgery in May Paperwork for [employer] completed. He will follow with appropriate specialists. [facility] Prescription monitoring program reviewed Including controlled [...] software and direct typing Please excuse inadvertent production proofreader or typing errors, or uncorrected word substitutions Although every attempt has been made by the provider to proofread this document, occasional misspellings and typographical errors may still be present Due to the previous pandemic, and the use of personal protective equipment (PPE) This may decrease voice recognition accuracy Inadvertent production proofreader errors may occur Plan Of Treatment Pending Test Test Name Order Date X ray : Shoulder, left 09/19/2024 Colonoscopy 03/04/2024 Hemoglobin A1c 04/05/2018 RPR 08/16/2023 TSH+Free T4 04/05/2018 Lipid Panel 04/05/2018 CBC 04/05/2018 MRI : Brain without Contrast 02/28/2023 Exercise Treadmill Stress Test (TMST) Holter Test 08/30/2021 25OH VITAMIN D 05/03/2021 25OH VITAMIN D 02/28/2023 CBC (COMPLETE BLOOD COUNT) 02/28/2023 CBC (COMPLETE BLOOD COUNT) 2017 CHLAMYDIA GC AMP PROBE, URINE 08/16/2023 COMPREHENSIVE METABOLIC PANEL 2017 COMPREHENSIVE METABOLIC PANEL 04/05/2018 COMPREHENSIVE METABOLIC PANEL 05/03/2021 COMPREHENSIVE METABOLIC PANEL 02/28/2023 CRP, HIGH SENSITIVITY 2017 HEMOGLOBIN A1C 2017 HEMOGLOBIN A1C 05/03/2021 HEMOGLOBIN A1C 11/07/2022 HEMOGLOBIN A1C 02/28/2023 HEPATITIS C ANTIBODY 08/16/2023 INSULIN 2017 LIPID PANEL 2017 LIPID PANEL 05/03/2021 LIPID PANEL 02/28/2023 NORTHEAST TICK PCR PANEL 11/15/2023 PSA, SCREEN 02/28/2023 PSA, SCREEN 04/05/2018 TSH 02/28/2023 URINALYSIS, COMPLETE 2017 VITAMIN B12 02/28/2023 Cologuard 10/30/2024 LIPID PANEL, STANDARD 08/20/2024 LIPID PANEL, STANDARD 11/15/2023 LIPID PANEL, STANDARD 04/03/2025 HIV 1/2 ANTIGEN/ANTIBODY,FOURTH GENERATI ON W/RFL 08/16/2023 COMPREHENSIVE METABOLIC PANEL 11/15/2023 COMPREHENSIVE METABOLIC PANEL 04/03/2025 COMPREHENSIVE METABOLIC PANEL 08/20/2024 CBC (INCLUDES DIFF/PLT) 08/20/2024 CBC (INCLUDES DIFF/PLT) 11/15/2023 CBC (INCLUDES DIFF/PLT) 04/03/2025 URINALYSIS, COMPLETE 08/20/2024 URINALYSIS, COMPLETE 11/15/2023 URINALYSIS, COMPLETE 04/03/2025 RPR (DX) W/REFL TITER AND CONFIRMATORY T ESTING 02/28/2023 HEMOGLOBIN A1c 11/15/2023 HEMOGLOBIN A1c 04/03/2025 HEMOGLOBIN A1c 08/20/2024 PSA (FREE AND TOTAL) 08/20/2024 PSA (FREE AND TOTAL) 11/15/2023 PSA (FREE AND TOTAL) 04/03/2025 TSH 04/03/2025 TSH 11/15/2023 TSH W/REFLEX TO FT4 08/20/2024 VITAMIN D,25-OH,TOTAL,IA 08/20/2024 VITAMIN D,25-OH,TOTAL,IA 04/03/2025 VITAMIN D,25-OH,TOTAL,IA 11/15/2023 METHYLMALONIC ACID 02/28/2023 HEPATITIS [...] 12/30/2021 Next Appt Details Provider Name:JERSEY SHARMA, 07/31/2025 01:15:00 PM, [address] [place] [address], [phone], Insurance Providers Payer Name Payer Address Payer Phone Subscriber Number Group Number Insured Name Patient Relationship to Insured Coverage Start Date Coverage End Date [employer] or Options [address] [place] [id number] JAN RICH Self - patient is the insured Medical (General) History Medical History History ICD Code copd anxiety depression sleep apnea Surgical History Surgery Date(Month/Year) hand surgery
--- OUTSIDE RECORDS SUMMARY | 2025-04-15 06:16 | XMS_ITS | Clinical Summary ---
Author Organization [facility] Address [address] [place] [address] Phone Care Team Providers Care Fisher Name Role Phone Vickie Flores MD Primary Care Provider [phone] Allergies No known active allergies Medications clonazePAM [...] 05/19/2009 Tobacco use disorder 05/19/2009 Bipolar disorder ([facility] [place]24, [facility] [place]28) 12/2005 Encounters Date Type Department Care Team Description 04/07/2025 10:40 AM EST Lab Draw Station - [address] [facility] [address] [place] [address] Special screening for malignant neoplasm of prostate; Routine general medical examination at a health care facility; Screening for lipoid disorders; Screening for diabetes mellitus; Avitaminosis D; Screening for thyroid disorder from Last 3 Months Immunizations Immunization Administration Dates Next Due Td Tetanus diptheria (Tdvax) 7yo and older 06/09 Surgical History Surgery Date Site/Laterality Comments HAND SURGERY N/A PROCEDURE: HISTORICAL HAND SURGERY Medical History Medical History Date Comments Bipolar disorder, unspecifie d ([facility] V24, [facility] V28) DX:Bipolar disorder, unspeci fied ([facility]) COPD (chronic obstructive pu lmonary disease) ([facility] V24, [facility] V28) DX:COPD (chronic o bstructive pulmonary disease) ([facility]) Anxiety disorder DX:Anxiety diso [...] (2 - Td or Tdap) 06/09/2022 06/09/2012 Pneumococcal Vaccine: 50+ Years (2 of 2 - PCV20 or PCV21) 05/16/2024 05/16/2023 Depression Screening 06/05/2024 Diabetes: Annual Urine Albumin-Creatinine Ratio (uACR) 12/24/2024 COVID-19 Vaccine (4 - 2024-2 6 season) 2025 10/04/2021, 02/18/2021, 01/20/2021 Influenza Vaccine (#1) 2025 Colorectal Cancer Screening: FIT-DNA (Cologuard) 07/10/2025 07/10/2022 Diabetes: Blood Sugar Contro l Test (HGBA1C) 10/05/2025 04/07/2025, 10/24/2024 Lung Cancer Screening (Low Dose CT) 12/23/2025 12/23/2024, 06/26/2023 Diabetes: Annual GFR (Glomerular Filtration Rate) 04/07/2026 04/07/2025, 10/24/2024, 05/25/2009 Cholesterol Screening (Lipid Panel) 04/07/2030 04/07/2025, 10/24/2024, 11/05/2007 RSV Immunization Adult Patients (1 - 1-dose 75+ series) 2044 HIV Screening Completed 11/05/2007 HIB Vaccines Aged [...] Procedure Name Priority Date/Time Associated Diagnosis Comments CBC WITH AUTO DIFFERENTIAL Routine 04/07/2025 10:48 AM EST Special screening for malignant neoplasm of prostate Routine general medical examination at a health care facility Screening for lipoid disorders Screening for diabetes mellitus Avitaminosis D Screening for thyroid disorder URINALYSIS WITH REFLEX MICROSCOPIC Routine 04/07/2025 10:48 AM EST Special screening for malignant neoplasm of prostate Routine general medical examination at a health care facility Screening for lipoid disorders Screening for diabetes mellitus Avitaminosis D Screening for thyroid disorder CBC AND DIFFERENTIAL Routine 04/07/2025 10:48 AM EST Special screening for malignant neoplasm of prostate Routine general medical examination at a health care facility Screening for lipoid disorders Screening for diabetes mellitus Avitaminosis D Screening for thyroid disorder COMPREHENSIVE METABOLIC PANEL Routine 04/07/2025 10:48 AM EST Special screening for malignant neoplasm of prostate Routine general medical examination at a health care facility Screening for lipoid disorders Screening for diabetes mellitus Avitaminosis D Screening for thyroid disorder URINALYSIS WITH REFLEX MICROSCOPIC Routine 04/07/2025 10:48 AM EST Special screening for malignant neoplasm of prostate Routine general medical examination at a health care facility Screening for lipoid disorders Screening for diabetes mellitus Avitaminosis D Screening for thyroid disorder LIPID PANEL WITH REFLEX TO DIRECT LDL Routine 04/07/2025 10:48 AM EST Special screening for malignant neoplasm of prostate Routine general medical examination at a health care facility Screening for lipoid disorders Screening for diabetes mellitus Avitaminosis D Screening for thyroid disorder HEMOGLOBIN A1C Routine 04/07/2025 10:48 AM EST Special screening for malignant neoplasm of prostate Routine general medical examination at a health care facility Screening for lipoid disorders Screening for diabetes mellitus Avitaminosis D Screening for thyroid disorder VITAMIN D 25 HYDROXY Routine 04/07/2025 10:48 AM EST Special screening for malignant neoplasm of prostate Routine general medical examination at a health care facility Screening for lipoid disorders Screening for diabetes mellitus Avitaminosis D Screening for thyroid disorder THYROID STIMULATING HORMONE Routine 04/07/2025 10:48 AM EST Special screening for malignant neoplasm of prostate Routine general medical examination at a health care facility Screening for lipoid disorders Screening for diabetes mellitus Avitaminosis D Screening for thyroid disorder PROSTATE SPECIFIC ANTIGEN SCREEN Routine 04/07/2025 10:48 AM EST Special screening for malignant neoplasm of prostate Routine general medical examination at a health care facility Screening for lipoid disorders Screening for diabetes mellitus Avitaminosis D Screening for thyroid disorder CT LUNG SCREENING Routine 12/23/2024 12: 52 PM EDT Encounter for screening for malignant neoplasm of respiratory organs Personal history of nicotine dependence HM HIV SCREENING Routine 11/05/2007 from Last 3 Months or Most Recently Relevant to Health Maintenance Results * Prostate specific antigen screen (04/07/2025 10:48 AM EST) Pathologist [facility] PSA 2.00 0.00 - 4.00 ng/mL LAB CHEMISTRY METHOD 04/07/2025 2:08 PM [facility] Blood Venous blood specimen / Unknown Venipuncture / Unknown 04/07/2025 10:48 AM EST 04/07/2025 11:14 AM [facility] - 04/07/2025 2:08 PM EST The Siemens Advia Centaur Chemiluminescent Immunoassay is used. Results obtained with different assay methods or kits cannot be used interchangeably. Results cannot be interpreted as absolute evidence of the presence or absence of malignant disease. us Janina Donald NP LAB BLOOD ORDERABLES Final Re sult [facility] [address] [place] [address], * (ABNORMAL) Urinalysis with reflex microscopic (04/07/2025 10:48 AM EST) Pathologist [facility] Specific [place] Urine 1.014 1.003 - 1.030 LAB URINALYSIS - AUTOMATED METHOD 04/07/2025 11:53 AM [facility] pH, Urine 6.0 5.0 - 8.0 pH LAB URINALYSIS - AUTOMATED METHOD 04/07/2025 11:53 AM [facility] Leukocytes, Urine Negative Negative LAB URINALYSIS - AUTOMATED METHOD 04/07/2025 11:53 AM [facility] Nitrite, Urine Negative Negative LAB URINALYSIS - AUTOMATED METHOD 04/07/2025 11:53 AM [facility] Protein, Urine Negative <=Trace mg/dL LAB URINALYSIS - AUTOMATED METHOD 04/07/2025 11:53 AM [facility] Glucose, Urine Negative Negative mg/dL LAB URINALYSIS - AUTOMATED METHOD 04/07/2025 11:53 AM [facility] Ketones, Urine Negative Negative mg/dL LAB URINALYSIS - AUTOMATED METHOD 04/07/2025 11:53 AM [facility] Urobilinogen, Urine 0.2 0.2 - 1.0 mg/dL LAB URINALYSIS - AUTOMATED METHOD 04/07/2025 11:53 AM [facility] Bilirubin, Urine Negative Negative LAB URINALYSIS - AUTOMATED METHOD 04/07/2025 11:53 AM [facility] Blood, Urine Trace(A) Negative LAB URINALYSIS - AUTOMATED METHOD 04/07/2025 11:53 AM [facility] RBC, Urine 5.3(H) 0 - 4 /HPF LAB URINALYSIS - AUTOMATED METHOD 04/07/2025 11:53 AM [facility] WBC, Urine 0.5 0 - 4 /HPF LAB URINALYSIS - AUTOMATED METHOD 04/07/2025 11:53 AM [facility] Squamous Epithelial, Urine 3 0 - 60 /LPF LAB URINALYSIS - AUTOMATED METHOD 04/07/2025 11:53 AM [facility] Bacteria, Urine Negative Negative /HPF LAB URINALYSIS - AUTOMATED METHOD 04/07/2025 11:53 AM [facility] Hyaline Casts, Urine 0.0 0 - 3 /LPF LAB URINALYSIS - AUTOMATED METHOD 04/07/2025 11:53 AM [facility] Urine Urine specimen obtained by clean catch procedure / Unknown Non-blood Collection / Unknown 04/07/2025 10:48 AM EST 04/07/2025 11:15 AM EST us Janina Donald NP LAB URINE ORDERABLES Final Re sult [facility] [address] [place] [address], [place] [phone] * (ABNORMAL) Lipid panel with reflex to direct LDL (04/07/2025 10:48 AM EST) Cholesterol 191 0 - 200 mg/dL LAB CHEMISTRY METHOD 04/07/2025 12:24 PM EST [facility] Triglycerides 213(H) 0 - 150 mg/dL LAB CHEMISTRY METHOD 04/07/2025 12:24 PM [facility] Comment:Results verified by repeat testing HDL 50 >=40 mg/dL LAB CHEMISTRY METHOD 04/07/2025 12:24 PM [facility] LDL Calculated 98 0 - 100 mg/dL LAB CHEMISTRY METHOD 04/07/2025 12:24 PM [facility] Comment:Estimated LDL Calcul ated using equation: Total cholesterol - HDL cholesterol - (Triglycerides/5) VLDL Cholesterol Frankie 42.6 mg/dL LAB CHEMISTRY METHOD 04/07/2025 12:24 PM [facility] Non HDL Chol. (LDL+VLDL) 141 <145 mg/dL LAB CHEMISTRY METHOD 04/07/2025 12:24 PM [facility] Chol/HDL Ratio 3.8 0.0 - 4.4 LAB CHEMISTRY METHOD 04/07/2025 12:24 PM [facility] Blood Venous blood specimen / Unknown Venipuncture / Unknown 04/07/2025 10:48 AM EST 04/07/2025 11:14 AM EST us Janina Donald CHEMICAL MANAGER LAB BLOOD ORDERABLES Final Re sult [facility] [address] [place] [address], * (ABNORMAL) CBC auto differential (04/07/2025 10:48 AM EST) Pathologist [facility] WBC 8.9 4.8 - 10.8 K/mcL LAB HEMETOLOGY METHOD 04/07/2025 11:45 AM EST [facility] RBC 5.60(H) 4.50 - 5.50 M/mcL LAB HEMETOLOGY METHOD 04/07/2025 11:45 AM [facility] Hemoglobin 16.7 13.5 - 17.5 g/dL LAB HEMETOLOGY METHOD 04/07/2025 11:45 AM [facility] Hematocrit 50.3 42.0 - 54.0 % LAB HEMETOLOGY METHOD 04/07/2025 11:45 AM [facility] MCV 90.6 79.0 - 98.0 FL LAB HEMETOLOGY METHOD 04/07/2025 11:45 AM [facility] MCH 30.1 27.0 - 32.0 pcg LAB HEMETOLOGY METHOD 04/07/2025 11:45 AM [facility] MCHC 33.2 32.0 - 37.0 g/dL LAB HEMETOLOGY METHOD 04/07/2025 11:45 AM [facility] RDW 12.7 11.0 - 15.0 % LAB HEMETOLOGY METHOD 04/07/2025 11:45 AM [facility] Platelets 244 130 - 400 K/mcL LAB HEMETOLOGY METHOD 04/07/2025 11:45 AM [facility] MPV 10.9 7.0 - 11.0 FL LAB HEMETOLOGY METHOD 04/07/2025 11:45 AM [facility] NRBC 0.0 <1.0 % LAB HEMETOLOGY METHOD 04/07/2025 11:45 AM [facility] NRBC Absolute 0.00 <0.10 K/mcL LAB HEMETOLOGY METHOD 04/07/2025 11:45 AM [facility] Neutrophils Relative 52.3 % LAB HEMETOLOGY METHOD 04/07/2025 11:45 AM [facility] Lymphocytes Relative 31.2 % LAB HEMETOLOGY METHOD 04/07/2025 11:45 AM EST [facility] Monocytes Relative 10.4 % LAB HEMETOLOGY METHOD 04/07/2025 11:45 AM [facility] Eosinophils Relative 2.1 % LAB HEMETOLOGY METHOD 04/07/2025 11:45 AM [facility] Basophils Relative 1.3 % LAB HEMETOLOGY METHOD 04/07/2025 11:45 AM [facility] Immature Granulocytes Relative 2.7 % LAB HEMETOLOGY METHOD 04/07/2025 11:45 AM [facility] Neutrophils Absolute 4.64 1.50 - 7.00 K/mcL LAB HEMETOLOGY METHOD 04/07/2025 11:45 AM [facility] Lymphocytes Absolute 2.78 1.00 - 5.00 K/mcL LAB HEMETOLOGY METHOD 04/07/2025 11:45 AM [facility] Monocytes Absolute 0.93 0.20 - 1.00 K/mcL LAB HEMETOLOGY METHOD 04/07/2025 11:45 AM [facility] Eosinophils Absolute 0.19 0.00 - 0.50 K/mcL LAB HEMETOLOGY METHOD 04/07/2025 11:45 AM [facility] Basophils Absolute 0.12 0.00 - 0.20 K/mcL LAB HEMETOLOGY METHOD 04/07/2025 11:45 AM [facility] Immature Granulocytes Absolute 0.24(H) 0.00 - 0.03 K/mcL LAB HEMETOLOGY METHOD 04/07/2025 11:45 AM [facility] Blood Venous blood specimen / Unknown Venipuncture / Unknown 04/07/2025 10:48 AM EST 04/07/2025 11:16 AM EST us Janina Donald NP LAB BLOOD ORDERABLES Final Re sult [facility] [address] [place] [address], * (ABNORMAL) Vitamin D 25 hydroxy (04/07/2025 10:48 AM EST) [facility] Vit D, 25-Hydroxy 20.4(L) 30.0 - 80.0 ng/mL LAB CHEMISTRY METHOD 04/07/2025 2:08 PM EST [facility] Blood Venous blood specimen / Unknown Venipuncture / Unknown 04/07/2025 10:48 AM EST 04/07/2025 11:14 AM EST Janina Donald CHEMICAL MANAGER LAB BLOOD ORDERABLES Final Re sult Performing Organization Address [facility]/ZIP Co de Phone Number [facility] [address] [place] [address], * Thyroid stimulating hormone (04/07/2025 10:48 AM EST) [facility] TSH 0.90 0.40 - 4.00 mcIU/mL LAB CHEMISTRY METHOD 04/07/2025 3:09 PM EST [facility] Blood Venous blood specimen / Unknown Venipuncture / Unknown 04/07/2025 10:48 AM EST 04/07/2025 11:14 AM EST Janina Donald CHEMICAL MANAGER LAB BLOOD ORDERABLES Final Re sult [facility] [address] [place] [address], * Hemoglobin A1c (04/07/2025 10:48 AM EST) [facility] Hemoglobin A1C 6.4 <6.5 % LAB CHEMISTRY METHOD 04/07/2025 8:58 PM EST [facility] Mean Bld Glu Estim. 137 mg/dL LAB CHEMISTRY METHOD 04/07/2025 8:58 PM EST [facility] Blood Venous blood specimen / Unknown Venipuncture / Unknown 04/07/2025 10:48 AM EST 04/07/2025 11:16 AM EST us Janina Donald NP LAB BLOOD ORDERABLES Final Re sult [facility] [address] [place] [address], [place] [phone] * (ABNORMAL) Comprehensive metabolic panel (04/07/2025 10:48 AM EST) Sodium 140 133 - 145 mmol/L LAB CHEMISTRY METHOD 04/07/2025 12:24 PM [facility] Potassium 4.3 3.5 - 5.5 mmol/L LAB CHEMISTRY METHOD 04/07/2025 12:24 PM [facility] Chloride 108 96 - 110 mmol/L LAB CHEMISTRY METHOD 04/07/2025 12:24 PM [facility] CO2 24 21 - 32 mmol/L LAB CHEMISTRY METHOD 04/07/2025 12:24 PM [facility] Anion Gap 8 3 - 11 LAB CHEMISTRY METHOD 04/07/2025 12:24 PM [facility] Glucose 105(H) 70 - 100 mg/dL LAB CHEMISTRY METHOD 04/07/2025 12:24 PM [facility] BUN 17 5 - 25 mg/dL LAB CHEMISTRY METHOD 04/07/2025 12:24 PM [facility] Creatinine 1.02 0.70 - 1.30 mg/dL LAB CHEMISTRY METHOD 04/07/2025 12:24 PM [facility] eGFR 87 >=60 mL/min/1. 73m2 LAB CHEMISTRY METHOD 04/07/2025 12:24 PM [facility] Comment:Calculation based on the Chronic Kidney Disease Epidemiology Collaboration (CKD-EPI) equation refit without adjustment for race. BUN/Creatinine Ratio 16.7 LAB CHEMISTRY METHOD 04/07/2025 12:24 PM [facility] Calcium 8.9 8.5 - 10.5 mg/dL LAB CHEMISTRY METHOD 04/07/2025 12:24 PM [facility] AST (SGOT) 27 10 - 42 unit/L LAB CHEMISTRY METHOD 04/07/2025 12:24 PM [facility] ALT (SGPT) 68(H) 10 - 60 unit/L LAB CHEMISTRY METHOD 04/07/2025 12:24 PM [facility] Comment:Results verified by repeat testing Alkaline Phosphatase 59 42 - 121 unit/L LAB CHEMISTRY METHOD 04/07/2025 12:24 PM [facility] Total Protein 6.9 6.0 - 8.0 g/dL LAB CHEMISTRY METHOD 04/07/2025 12:24 PM [facility] Albumin 3.8 3.2 - 5.0 g/dL LAB CHEMISTRY METHOD 04/07/2025 12:24 PM [facility] Total Bilirubin 1.0 0.0 - 1.4 mg/dL LAB CHEMISTRY METHOD 04/07/2025 12:24 PM [facility] Blood Venous blood specimen / Unknown Venipuncture / Unknown 04/07/2025 10:48 AM EST 04/07/2025 11:14 AM EST us Janina Donald CHEMICAL MANAGER LAB BLOOD ORDERABLES Final Re sult [facility] [address] [place] [address], * CT Lung Screening (12/23/2024 12:52 PM [...] Signed Date: 12/24/2024 14:12 ET Workstation ID: [id number] Transcribed By: Self Edit Transcribed Date: 12/24/2024 [...] Signed Date: 12/24/2024 14:12 ET Workstation ID: [id number] Transcribed By: Self Edit Transcribed Date: 12/24/2024 14:02 ET Patrick Laura MD IMG CT PROCEDURES Final Result * HIV Screening (11/05/2007) [facility] HIV Screening abstracted Historical Provider HEALTH MAINTENANCE Final Result from Last 3 Months or Most Recently Relevant to Health Maintenance Insurance [employer] MED[employer] Member Subscriber Plan / Payer (Ef fective 2020-Present) Name:JAN HUERTAS Relation to Subscriber:Self Name:Austin Huertasean Zafar Payer ID:[id number] Group ID:[id number] Type:Not on file Address: [place] [address] [place] [phone] Care Teams Fisher Relationship Specialty Start Date End Date Vickie Flores MD [address] [place] [address] [place] [address] PCP - General Internal Medicine 06/26/24
== END 2025-04-15 06:14 | disposition home or self-care (01) ==
LOC: CF 06:13
PROVIDERS: Visit Provider Anesthesiology
DX: Z13.89 Encounter for screening for other disorder (principal)
CPT/HCPCS: J2795; J3301

== ENCOUNTER 2025-05-06 11:02 | Outpatient (RCR) | payer OTHER, SELFPAY ==
--- NOTE | 2025-03-28 08:02 | MHC.PT.EP ---
[facility] [place] Office [place] Office [place] Office [address] [phone] F: [phone] F: [phone] F: [phone] F: [phone] Physical Therapy Plan of Care Date of Evaluation: 03/26/25 Date of Surgery: NA Diagnosis: B KNEE OA Assessment: Pt IS 54 YO M REFERRED TO PT FROM PAIN MANAGEMENT (COLLETTE SHAH) WITH B KNEE OA. PRESENTS TO PT WITH C/O PAIN IN MULTIPLE BODY PARTS. GENERALLY DECONDITIONED AND OVERALL DECREASED FLEXIBILITY. SHOULD BENEFIT FROM PT TRIAL TO HELP WITH GENERALIZED PAIN, OVERALL FLEXIBILITY AND IMPROVED FUNCTIONAL MOBILITY. Pt IS NOT WORKING AT THIS TIME. 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 INCREASED AWARENESS KNEE CARE 2. I HEP WITH DC EX PLAN Snf Goals: 1. IMPROVED LEFI 2. DECREASED KNEE PAIN AT LEAST 50% WITH ADLS Treatment Plan: Modalities to reduce pain, spasms and effusion. Manual therapy to restore motion and function. Therapeutic exercise to improve strength and flexibility. Neuromuscular re-education for posture and balance. Therapeutic activities to return to functional activities of daily living. Electronically signed by: LESLEY MCCRACKEN PT Please sign and return to therapist. Thank you for your referral.
== END 2025-05-06 13:03 | disposition home or self-care (01) ==
LOC: HO.PT 11:02
PROVIDERS: PCP Internal Medicine; Visit Provider Nurse Practitioner Family
DX: M25.561 Pain in right knee (principal); M25.562 Pain in left knee; M17.0 Bilateral primary osteoarthritis of knee
CPT/HCPCS: 97110; 97162; 97535

== ENCOUNTER 2025-05-12 08:59 | Outpatient (AMB) | payer OTHER, SELFPAY ==
--- NOTE | 2025-05-12 09:02 | MHC.OFFVIS ---
Vital Signs 05/12/25 09:10 Height 5 ft 10 in Weight 248 lb BMI 35.6 BP 136/86 Blood Pressure Location Lt brachial Position Sitting Pulse 87 Pulse Source Pulse Oximeter Pulse Oximetry (%) 99 Oxygen Delivery Method Room Air Intake Visit Reasons: BILATERAL INTRA-ARTICULAR STEROID KNEE INJECTIONS Intake Note: Pain today 01/12 Water Carter Required: No Accompanied by: Self / Same As Patient Allergies Seasonal Allergies Allergy (Mild, Verified 05/12/25 09:10) Sneezing HPI Comments Details: The patient is a 54 year old male presenting for chronic pain follow-up and medication management. He reports chronic knee pain, knee arthritis, and back pain. Denies any recent trauma, injury or falls. Regarding his back, an MRI revealed multilevel lumbar spondylosis with lumbar spinal stenosis at L2-L3 and L3-L4. A previous injection in that area provided good relief about two months before the pain returned. He recently developed new pain in his left yanes over the past few weeks with similar symptoms in his right lower leg. He declined a recent cortisone injection for his knees after another physician suggested it could worsen his condition. He reports severe pain flares that have confined him to bed over a weekend, though he did not seek emergency care. He has completed physical therapy but found it aggravated his other conditions. The patient reports significant depression and is under the care of a psychiatrist. He uses food as a coping mechanism for his pain and believes he has an eating disorder, for which he is in counseling. He denies suicidal ideation but expresses a desire to have his active and productive life back. He has a history of prediabetes with an A1c of 6 point something . He is actively trying to lose weight; his weight has decreased from the 260s to 248 lbs, and his goal is to reach the 180s. He started Mounjaro four weeks ago and will be switching to Zepbound next month. His medications include Celebrex and pregabalin. His last blood work was two to three months ago at [facility] and was reported as normal per patient. Denies any recent cough, cold, infection, fever or any significant changes in medical history since last office visit. PRIOR: Patient presents today for follow up to assess response to L3-L4 Interlaminar EMMANUEL injection on 10/22/[address] Payne. Patient reports ongoing 50-60% ongoing pain relief since procedure with partial relief of his back and anterior thigh and leg pain. Reports partially improved daily functioning, mobility and sleep. His knee pain, present for over five years, started on the right side and later involved the left, worsening with activities like stair climbing, especially in cold weather. He reports significant impact on his daily life, with popping and clicking sensations occasionally occurring. Past treatment with meloxicam was not tolerated due to gastrointestinal side effects when taken on empty stomach; acetaminophen is taken periodically. Denies any recent cough, cold, infection, fever or other significant changes in medical history since last office visit. - Onset: Knee pain for 5 years, back pain ongoing - Quality: Burning, severe pain in knees; partial back and hip relief following injection - Location: Bilateral knees, lower back - Radiation: Pain throughout knee compartments - Exacerbating factors: Stair climbing, cold weather - Relieving factors: Previous cortisone injections, pain medication - Impact: Difficulty with walking, daily activities; increased pain when exerting - Affect: Reports significant pain affecting daily life and mood. - Analgesia: Takes acetaminophen occasionally; received epidural injection with 50-60% relief. - Adverse Effects: Gastrointestinal bleeding with previous meloxicam use on empty stomach. - Activities of Daily Living: Severely impacted; uses cane and avoids exertion. - Aberrant Drug Related Behaviors: Denies aberrant drug behaviors; expresses hesitance towards regular medication use. Past Procedures: 10/22/24: L3-L4 Interlaminar EMMANUEL-50-60% ongoing pain relief 06/25/24: L2-L3 Interlaminar EMMANUEL-60% pain relief for 2 months PRIOR 11/10/23: Patient is a 52-year-old male with prior history of chronic neck and low back pain, lumbar spinal stenosis with bilateral lower extremity weakness and radiculopathy, polyarthralgia, anxiety, depression, cervical spinal stenosis with myelomalacia, memory loss ([place] [facility] [place] presents today for initial evaluation low back pain with bilateral radiculopathy. Denies any recent trauma, injury, or falls. Back pain is axial with discogenic and radicular pain components. Back radiates into his both legs laterally and anterior thighs and shins with numbness and tingling in his top of the foot and toes. Reports numbness and tingling in his arms and legs with weakness with ongoing neck and back pain. He had to stop PT recently due to aggravation of his back and neck pain. Patient reports frequent bowel and bladder incontinence that has been progressively getting worse. He reports imbalance and legs giving out with walking or prolonged standing. Patient uses cane and at times has to use crutches due to significant right knee pain due to osteoarthritis. Patient denies previous back surgery or injections and is very hesitant to worse interventional treatments. He reports neurosurgical evaluation with Dr. Jha but can not recall the details of conversation, including back surgery offer. Patient is undergoing neurology evaluation for memory loss at [facility]. His most recent brain MRI was normal. Pain affects his daily activities and functioning, mobility, mood, sleep, social interactions and quality of life. Denies any fever, chills, abdominal or groin pain, or saddle anesthesia. He has been treating his pain with meloxicam and pregabalin with minimal relief. Previously tried ibuprofen and naproxen without relief. He reports mood changes and irritability with pregabalin and would like to change this to gabapentin. His back pain is function and mobility limiting and has been resistant to conservative treatments. Patient reports seeing Mental Therapist for anxiety and depression and finds this beneficial. Patient denies any smoking, alcohol consumption or illicit drug use. He quit smoking last year. Patient is on disability for about 11 years. He sees medicine assistant Dr. Almazan for asthma/COPD, JOSE GUADALUPE on CPAP. Physical Therapy Discharge Report Diagnosis: CHRONIC LOW BACK AND NECK PAIN (KP) Date of Evaluation: 07/17/23 Date of Discharge: 10/23/23 Treatments to Date: 7 Cancellations to Date: 5 No Shows to Date: 1 Discharge Status: Recommend MD Follow-up Discharge Summary: DUE TO REPORTS THAT HE IS NO BETTER AND FEELS WORSE AFTER ACTIVITY . WE HAVE DECIDED TO [facility] ON HOLD UNTIL AFTER HIS PAIN MANAGEMENT APPOINTMENT. [facility] [place] [facility] 10/12/22 [place] Jha MD, PhD: On 10/12/2022, I saw for follow-up your patient Jan Huertas to discuss the findings of a new MRI of the cervical spinal lumbar spine. He was previously seen at [facility] for neck and back problems and they refer to this note for detailed history. In summary, he has severe bilateral arm pain radiating toward index finger and thumb. His proximal leg weakness. He also has back pain with radiating pain down his legs, increased with walking. A previous MRI of the cervical spine showed severe C5-6 spinal stenosis with myelomalacia and bilateral C6 foraminal stenosis. The new MRI of the cervical spine shows multilevel degenerative disc disease and again the ongoing C5-6 severe spinal stenosis with bilateral C6 foraminal stenosis and myelomalacia. His clinical symptoms match a C6 dermatome and therefore I recommended a C5-6 anterior diskectomy and fusion. I think his proximal bilateral leg weakness may also be associated with the spinal cord compression. I also reviewed Thomas detail with the patient. This shows moderate L3-4 spinal stenosis. With an extensive discussion about an anterior diskectomy and fusion. I explained the procedure and possible complications and expected postoperative course. He wants to think it over and discuss it with his family. He will call the office if he wants to proceed. He will need preoperative clearance from his primary care physician. I spent 30 minutes in this consult for preparation review of imaging and discussing plan of care. Location: Lower back, radiates down bilateral legs, widespread body pain Duration: Chronic pain for many years, since ' Characteristics of symptom or complaint: Aching, burning, numb, tingling, stabbing, sharp, electric, throbbing Aggravating or associated factors: Any movement, bending, extending backwards, walking, standing, climbing Relieving factors: Laying still not moving NSAID, heat therapy Treatment: PT-no improvement PFSH Medical History Stage 3a chronic kidney disease Hyperlipidemia Chronic pain syndrome COPD (chronic obstructive pulmonary disease) Prediabetes Vitamin D deficiency Anxiety and depression Lumbar spinal stenosis Asthma JOSE GUADALUPE on CPAP Lumbar radiculopathy Osteoarthritis of right knee Right knee pain Palpitation Memory loss Gait disturbance Weakness of both lower extremities Cervical myelopathy with cervical radiculopathy Surgical History H/O hand surgery Family History Mother Diabetes Social History Alcohol intake: former Patient Tobacco Use Status: Former Tobacco user Review of Systems Const Details: - Constitutional: Reports weight loss from 248 lbs from 260s. - Psychiatric: Reports severe depression, feeling scared and freaking out . - Denies suicidal ideation. Sees psychiatrist and mental health counseling. - Musculoskeletal: Reports severe back and knee pain. - Reports new pain in the left yanes below the kneecap. All systems reviewed & are unremarkable except as noted in HPI and below Physical Exam General: Appears afebrile. Alert and oriented. Mood and affect appropriate. Follows and participates in conversation appropriately. Respiratory effort is unlabored. No cough. Able to transition from sit to stand unassisted. Uses cane with ambulation. Ambulates with bilaterally normal heel strike and toe off, reports gait imbalance, RLE weakness due to knee/back pain. General: Yes no CVA tenderness Back/Spine/Pelvis Other: Limited lumbar ROM due to pain. Antalgic gait with limping. Lumbar extension and flexion forward with bending reproduces moderate pain. Demonstrates 5/5 strength of quadriceps bilaterally as well as flexion/dorsiflexion of bilateral feet against resistance. 2+ pedal pulses bilaterally. Seated straight leg rise with dorsiflexion positive bilaterally. +1 patellar and +1 achilles reflexes bilaterally. Facet loading test positive bilaterally. Marino?s and Stinchfield tests reproduce lateral hip pain bilaterally, not back pain. No groin pain with I/E hip rotations. Valsalva maneuver is negative. Back: no CVA tenderness Cervical Spine: cervical muscular tenderness, pain with cervical ROM and No Cervical spine tenderness Thoracic/Lumbar Spine: thoracic and lumbar spine normal to inspection, No Thoracic/lumbar spine scar(s), Lasegue's sign positive bilateral and diffuse, pain with thoraco-lumbar ROM, paraspinal muscle tenderness, thoraco-lumbar ROM limited, No thoracic spinal tenderness and lumbar spinal tenderness at L3, at L4 and at L5 Pelvis: buttock tenderness bilaterally and no sciatic notch tenderness Sacroiliac joints: bilaterally tender to palpation Extrem Other: Bilateral knee: Normal to inspection. No swelling, erythema or ecchymosis. Limited range of motion due to pain. +Crepitus. TTP in medial and lateral aspects of both knees. General: Yes capillary refill normal, Yes no clubbing, cyanosis or edema and Yes no calf tenderness Results Reviewed Results Reviewed: MR LUMBAR SPINE WITHOUT CONTRAST 02/26/24 CLINICAL INFORMATION: Radiculopathy COMPARISON: MRI lumbar spine February 23, 2021 TECHNIQUE: MRI of the lumbar spine was obtained using routine sequences without contrast. FINDINGS: Normal lumbar lordosis is preserved. Slight retrolisthesis at L3-L4 through L5-S1. Vertebral body heights are maintained. There is no suspicious osseous lesion. Again seen L1 vertebral body intraosseous hemangioma. Multilevel disc desiccation and mild disc height loss. There is a new prominent presumed Schmorl's node along the right aspect of the L5 upper endplate/vertebral body with marginal fat deposition and associated inflammatory marrow edema. Redemonstrated smaller L1 upper endplate Schmorl's node. Multilevel anterior osteophytic spurring is seen. Level by level detail as follows: L1-L2: Annular disc bulge with slightly decreased size of right central protrusion with associated annular fissure. Decreased mild spinal canal stenosis. Stable minimal neural foraminal encroachment. L2-L3: Annular disc bulge with paracentral disc protrusion and annular fissure. Mild facet arthrosis. Stable moderate to severe spinal canal stenosis and subarticular zone narrowing with impression along the traversing L3 nerve roots. Unchanged moderate neural foraminal stenosis. L3-L4: Annular disc bulge with paracentral disc protrusion with left central annular fissure and mild to moderate facet arthrosis. Stable moderate spinal canal stenosis and mass effect along the traversing L4 nerve roots in the subarticular zones. Stable moderate to severe left neural foraminal stenosis with impingement along the exiting left L3 nerve and moderate right neural foraminal stenosis. L4-L5: Annular disc bulge with inferiorly migrated left central/subarticular disc extrusion and with decreased conspicuity of annular fissure. Mild facet arthrosis. No spinal canal stenosis. Unchanged moderate neural foraminal stenosis with impingement along the exiting right greater than left L4 nerves. L5-S1: Annular disc bulge with redemonstrated inferiorly migrated paracentral disc extrusion eccentric to the left and mild facet arthrosis. No spinal canal stenosis. Stable moderate to severe bilateral neural foraminal stenosis with mass effect along the exiting L5 nerves. The conus medullaris terminates at the level of L2. The distal spinal cord is normal in appearance. No epidural fluid collection, hematoma, or mass. There is mild fatty infiltration of the paraspinal musculature. Limited evaluation of the intra-abdominal structures without significant abnormalities. The abdominal aorta is of normal contour and caliber. IMPRESSION: 1. Multilevel lumbar spondylosis is not significantly progressed compared to MRI from February 23, 2021. 2. At L1-L2, slightly decreased size of right central disc protrusion with associated annular fissure results in decreased mild spinal canal stenosis. 3. At L2-L3, stable moderate to severe spinal canal stenosis and subarticular zone narrowing with impression along the traversing L3 nerve roots. 4. At L3-L4, stable moderate spinal canal stenosis and mass effect along the traversing L4 nerve roots in the subarticular zones. Stable moderate to severe left neural foraminal stenosis with impingement along the exiting left L3 nerve and moderate right neural foraminal stenosis. 5. At L4-L5, stable moderate neural foraminal stenosis with impingement along the exiting right greater than left L4 nerves. 6. At L5-S1, stable moderate to severe bilateral neural foraminal stenosis with mass effect along the exiting L5 nerves. 7. New prominent presumed Schmorl's node along the right aspect of the L5 upper endplate/vertebral body with marginal fat deposition and associated inflammatory marrow edema. X-ray knee bilaterally 10/22/24 CLINICAL INFORMATION: Bilateral knee pain. TECHNIQUE: AP view in standing position both knees. Lateral and sunrise views both knees. COMPARISON: None FINDINGS: Mild joint space narrowing involving the medial compartments both knees. No acute cortical disruption or malalignment. No suprapatellar bursa joint effusion. No lytic or blastic lesions. IMPRESSION: Mild medial compartment osteoarthrosis. Assessment & Plan Assessment & Plan (1) Lumbar radiculopathy: Code(s): M54.16 - Radiculopathy, lumbar region Category: Medical (2) Chronic pain syndrome: Code(s): G89.4 - Chronic pain syndrome Category: Medical (3) Bilateral lower extremity pain: Code(s): M79.604 - Pain in right leg; M79.605 - Pain in left leg Category: Medical (4) Bilateral knee pain: Code(s): M25.561 - Pain in right knee; M25.562 - Pain in left knee Category: Medical (5) Lumbar spinal stenosis: Code(s): M48.061 - Spinal stenosis, lumbar region without neurogenic claudication Category: Medical Plan The patient's dose of pregabalin will be increased from 75 mg twice a day to 100 mg twice a day for management of his chronic knee and back pain with radicular symptoms. There is a possibility of increasing the dose to 150 mg next month depending on his response. To address his concerns about long-term kidney effects, a comprehensive metabolic panel and CBC will be ordered to be completed in one month. This will be a fasting lab draw to also monitor his blood sugar. Options for his knee pain, including cortisone injections, were revisited, but the patient prefers to wait and reassess after continuing his weight loss efforts. The new pain in his yanes may be related to his lumbar neuroforaminal stenosis. The patient will continue with his weight loss regimen using Mounjaro/Zepbound and his therapy for his eating disorder and depression. A follow-up appointment is scheduled in three months for medication management and to re-evaluate his condition. Patient was informed and verbally consented to the use of an ambient scribe for clinic note documentation during this visit. Orders: Orders Comprehensive [place]. Panel Fast Today G89.4 - Chronic pain syndrome Complete Blood Count Auto Diff Today G89.4 - Chronic pain syndrome Medications: Changed From pregabalin 75 mg PO BID 30 days 60 caps 0RF pain G89.4 - Chronic pain syndrome, M25.561 - Pain in right knee, M25.562 - Pain in left knee, M54.16 - Radiculopathy, lumbar region, M79.604 - Pain in right leg, M79.605 - Pain in left leg To pregabalin 100 mg PO BID 120 caps 0RF pain 60 days G89.4 - Chronic pain syndrome, M25.561 - Pain in right knee, M25.562 - Pain in left knee, M54.16 - Radiculopathy, lumbar region, M79.604 - Pain in right leg, M79.605 - Pain in left leg Coding Level of Care Code Est Pt Level 4 (50301) Complex visit Add On G2211 Diagnoses Lumbar radiculopathy M54.16 Chronic pain syndrome G89.4 Bilateral lower extremity pain M79.604; M79.605 Bilateral knee pain M25.561; M25.562 Lumbar spinal stenosis M48.061
[2025-05-12 09:10] VITALS: BP 136/86; PULSE 87; O2SAT 99; BMI 35.6
== END 2025-05-12 09:19 | disposition home or self-care (01) ==
PROVIDERS: PCP Internal Medicine; Visit Provider Nurse Practitioner Family
DX: M54.16 Radiculopathy, lumbar region (principal); G89.4 Chronic pain syndrome; M79.604 Pain in right leg; M79.605 Pain in left leg; M25.561 Pain in right knee; M25.562 Pain in left knee; M48.061 Spinal stenosis, lumbar region without neurogenic claudication
CPT/HCPCS: 99214; G2211

== ENCOUNTER → 2025-05-12 08:59 | Outpatient (BNVA) | payer OTHER, SELFPAY | PROVIDERS: PCP Internal Medicine; Visit Provider Nurse Practitioner Family | DX: G89.4 Chronic pain syndrome (principal); M79.604 Pain in right leg; M79.605 Pain in left leg; M25.561 Pain in right knee; M25.562 Pain in left knee; M48.061 Spinal stenosis, lumbar region without neurogenic claudication; M54.16 Radiculopathy, lumbar region; Z79.899 Other long term (current) drug therapy | CPT/HCPCS: 99212 ==